=== PATIENT | male | born 1955 | race Caucasian/White ===

== ENCOUNTER → 2017-09-02 | Outpatient (CLI) | payer MEDICARE, BC ==
--- NOTE | 2017-09-02 18:33 | CT ---
EXAMINATION TYPE: CT brain wo con DATE OF EXAM: 09/02/2017 COMPARISON: NONE HISTORY: Frequent falls. CT DLP: [address] of the brain was performed. The ventricles, basal cisterns and sulci overlying the cerebral convexities demonstrate mild enlargem ent. There is no evidence for intracranial hemorrhage or sulcal effacement. There is decreased attenuation about the periventricular white matter and deep white matter of both c erebral hemispheres, compatible with chronic small vessel ischemia. Differential diagnosis does inclu de demyelination. No mass effects are seen.No midline shift. Osseous calvarium is intact. If symptoms persist consider MRI. IMPRESSION: 1. Age related atrophic and chronic small vessel ischemic change without acute intracranial process s een at this time.
== END | disposition home or self-care (01) ==
LOC: RADCTMAIN 18:04
PROVIDERS: ATTEND Family Medicine
DX: G31.1 Senile degeneration of brain, not elsewhere classified (principal); I67.82 Cerebral ischemia; R29.6 Repeated falls; R63.4 Abnormal weight loss
CPT/HCPCS: 70450

== ENCOUNTER → 2017-10-01 | Outpatient (CLI) | payer MEDICARE, BC ==
--- NOTE | 2017-10-01 12:20 | CT ---
EXAMINATION TYPE: CT chest w con DATE OF EXAM: 10/01/2017 COMPARISON: NONE HISTORY: Chronic cough CT DLP: 519 mGycm Automated exposure control for dose reduction was used. CONTRAST: CT scan of the chest is performed with IV Contrast, patient injected with 100 mL of Isovue 300. FINDINGS: LUNGS: The lungs are grossly clear, there is no concerning parenchymal mass or nodule identified. T here is no pleural effusion or pneumothorax seen. The tracheobronchial tree is patent. MEDIASTINUM: There are no greater than 1 cm hilar or mediastinal lymph nodes. No pericardial effusi on is seen. Thoracic aorta is of normal caliber. The heart is not enlarged. UPPER ABDOMEN: No significant abnormality appreciated. OTHER: No additional significant abnormality is seen. IMPRESSION: No significant abnormality to account for the patient's symptoms.
== END ==
LOC: RADCTMAIN 11:29
PROVIDERS: ATTEND Family Medicine
DX: R05 Cough (principal)
CPT/HCPCS: 71260; Q9967

== ENCOUNTER → 2017-11-12 | Outpatient (CLI) | payer MEDICARE, BC ==
--- NOTE | 2017-11-12 11:02 | MR ---
EXAMINATION TYPE: MR lumbar spine wo con DATE OF EXAM: 11/12/2017 COMPARISON: NONE HISTORY: Low back pain per order, back pain for 25-30 years going into right leg per patient. TECHNIQUE: Multiplanar, multisequence imaging of the lumbar spine is performed without IV contrast. FINDINGS: Sagittal images of the lumbar spine show vertebral body heights to appear satisfactory. The re is loss of normal lumbar lordosis with multilevel spondylolisthesis or grade 1 retrolisthesis of t he more cranial vertebra on the more caudal vertebra. There is multilevel disc desiccation. There is multilevel disc space narrowing at is most prominent near thoracolumbar junction and at L3-L4 level w here advanced disc space narrowing is present. There is moderate multilevel spurring. There are mult ilevel posterior disc herniations effacing anterior thecal sac on sagittal images. The conus medullar is is somewhat high in position ending superior T12 level. No suspicious signal is seen. No suspicio us clumping of lumbosacral nerve roots is noted. There is heterogeneity of bone marrow signal intensi ty with low T1 and increased T2 signal consistent with Modic type I degenerative change centered at t he T12-L1 endplate anteriorly. Axial images at T12-L1 level show moderate broad disc bulge effacing anterior thecal sac. Bilateral n eural foramina are patent. Axial images at L1-L2 level show moderate broad disc bulge effacing anterior thecal sac on axial imag e 22. Right-sided neural foramina shows mild to moderate inferior narrowing. Left-sided shows mild na rrowing. Axial images at L2-L3 level show moderate to advanced broad disc bulge with mild effacement of the an terior thecal sac and mild to moderate right greater than left anterior inferior neural foraminal isi rowing. Axial images at L3-L4 level show moderate to advanced broad disc bulge and mild facet arthropathy candido aterally. There is mild to moderate bilateral anterior inferior neural foraminal narrowing at this le tacho identified. Axial images at L4-L5 level show broad disc bulge with left paracentral disc protrusion component eff acing anterolateral thecal sac and lateral recess on axial image 8. There is advanced left-sided neur al foraminal narrowing with encroachment of left L4 nerve seen on sagittal images 1 and 2 and more mo derate right-sided inferior neural foraminal narrowing. There is mild to moderate facet degenerative changes and ligament flavum hypertrophy effacing the posterior lateral thecal sac. Some encroachment on central S1 nerve is felt present due to eccentric disc herniation axial image 7. Axial images at L5-S1 level show mild to moderate facet degenerative changes bilaterally. There is mo derate broad disc bulge. There is moderate to advanced bilateral neural foraminal narrowing with some encroachment on right S1 nerve felt present on sagittal image 11 and axial image 3. Cannot exclude s ome encroachment on left L5 nerve along inferior margin. No suspicious retroperitoneal findings are seen. IMPRESSION: Loss of normal lumbar lordosis with multilevel spondylosis and spondylolisthesis, multile tacho degenerative changes are seen with most prominent findings in lower lumbar spine as detailed abov e L4-L5 and L5-S1 levels.
--- NOTE | 2017-11-12 12:09 | CT ---
EXAMINATION TYPE: CT angio neck DATE OF EXAM: 11/12/2017 HISTORY: Stenosis. Headache. COMPARISON: NONE CT DLP: 265.2 mGycm. Automated Exposure Control for Dose Reduction was Utilized. TECHNIQUE: CTA scan of the neck is performed with IV Contrast, patient injected with 65 mL of Isovue 370, axial images are obtained, coronal and sagittal reformatted images are reviewed. Three-D recons tructed images are created on an independent workstation and reviewed. FINDINGS: Carotid/Vascular Structures: Minimal calcific plaquing is seen of the aortic arch. There is a convent ional 3 vessel branch pattern of the aortic arch. The common carotid arteries are patent bilaterally without calcific or noncalcific atheromatous plaquing. The carotid bulbs are also widely patent. The internal carotid arteries demonstrate no evidence of stenosis. Minimal calcific plaquing is seen of t he visualized cavernous portions of the internal carotid arteries. The right vertebral artery is dominant. The vertebral arteries are also patent although the left is s omewhat diminutive. Other: Mild paraseptal emphysematous changes are seen in the visualized lung apices. Osseous structures: Moderate multilevel degenerative changes of the cervical spine are noted with pos terior disc osteophyte complexes at C4-C5, C5-C6, C6-7 and C7-T1. Mild multilevel spinal canal stenos is is presumed but could be further evaluated with MRI. Extensive chronic mucoperiosteal thickening, nearly circumferential, seen of the bilateral maxillary sinuses. Antrostomy defects are noted with minimal mucosal thickening of the visualized ethmoid sinus es. Old fracture deformity the nasal bone is noted. Mastoid air cells are well aerated. Dental fillin gs create spray artifact and partially obscures visualization of surrounding structures. IMPRESSION: 1. No hemodynamically significant stenosis within either common carotid, visualized portion of the in ternal carotid, or carotid bulbs. Minimal calcific plaque within the visualized portions of the sancho nous internal carotid arteries and of the aortic arch. 2. Extensive acute on chronic sinusitis of the maxillary sinuses with postsurgical changes of the par anasal sinuses. 3. Mild paraseptal emphysematous changes seen and the visualized portions of the lung apices.
== END | disposition home or self-care (01) ==
LOC: RADMRIMAIN 10:09
PROVIDERS: ATTEND Psychiatry & Neurology Neurology
DX: M43.16 Spondylolisthesis, lumbar region (principal); M47.817 Spondylosis without myelopathy or radiculopathy, lumbosacral region; I65.23 Occlusion and stenosis of bilateral carotid arteries; Z88.8 Allergy status to other drugs, medicaments and biological substances
CPT/HCPCS: 70498; 72148; Q9967

== ENCOUNTER → 2018-01-12 | Outpatient (CLI) | payer MEDICARE, BC ==
--- NOTE | 2018-01-13 00:43 | MR ---
EXAMINATION TYPE: MR liver wo/w con DATE OF EXAM: 01/12/2018 COMPARISON: None HISTORY: Abnormality of alphafetoprotein CONTRAST: Standard multiplanar, multisequence MRI departmental protocol utilizing 7.5 mL intravenous Gadavist g adolinium contrast. FINDINGS: Liver shows no focal defect. Gallbladder appears normal. Bile ducts are not dilated. Spleen appears normal. There is no adrenal mass. There is 1 cm cortical cyst posterior right kidney and lower pole right kid ricardo. There is no sign of retroperitoneal adenopathy. There is no evidence of pancreatic mass. Pancrea tic duct is not dilated. There is no evidence of a bony destructive process. There is no pathologic e nhancement. IMPRESSION: Negative MR scan of the abdomen. No liver defect. Small right renal cortical cysts.
== END ==
LOC: RADMRIMAIN 21:18
PROVIDERS: ATTEND Physician Assistant
DX: R77.2 Abnormality of alphafetoprotein (principal)
CPT/HCPCS: 74183; A9581

== ENCOUNTER → 2018-02-10 | Outpatient (CLI) | payer MEDICARE, BC ==
[2018-02-10 14:12] LABS: Blood Urea Nitrogen 14 mg/dL (9-20)
== END | disposition home or self-care (01) ==
LOC: LABWHC1 13:47
PROVIDERS: ATTEND Psychiatry & Neurology Pain Medicine
DX: R42 Dizziness and giddiness (principal); Z88.8 Allergy status to other drugs, medicaments and biological substances
CPT/HCPCS: 36415; 82565; 84520

== ENCOUNTER → 2018-02-24 | Outpatient (CLI) | payer MEDICARE, BC ==
--- NOTE | 2018-02-25 09:25 | MR ---
EXAMINATION TYPE: MR brain wo/w con DATE OF EXAM: 02/24/2018 COMPARISON: CT brain 09/02/2017 HISTORY: Dizziness TECHNIQUE: Multiplanar, multisequence images of the brain and brainstem is performed without and with IV contras t, utilizing 7.5 mL intravenous Gadavist . FINDINGS: Diffusion weighted images demonstrate no evidence of a recent infarct or other diffusion ab normality. Changes of chronic sinusitis noted. WHITE MATTER: There are a few scattered areas of abnormal signal in the white matter totaling a numbe r of approximately 10. The largest measuring 5 mm. No enhancing lesions. No callosal lesions. No lesi ons perpendicular to the ventricular system. There is a nasal septal deviation. Sella turcica has a normal appearance. The brain volume is age martin ropriate. Midline structures demonstrate normal morphology. The craniocervical junction appears within normal limits. Post contrast images demonstrate no abnormal enhancement. The dural venous sinuses appear pa tent. IMPRESSION: 1. Nonspecific mild white matter changes most typical of remote microvascular ischemia. 2. Changes of chronic sinusitis
== END ==
LOC: RADMRIMAIN 21:36
PROVIDERS: ATTEND Psychiatry & Neurology Pain Medicine
DX: R90.89 Other abnormal findings on diagnostic imaging of central nervous system (principal)
CPT/HCPCS: 70553; A9581

== ENCOUNTER → 2018-05-25 | Outpatient (CLI) | payer MEDICARE, BC ==
--- NOTE | 2018-05-25 12:03 | XR ---
EXAMINATION TYPE: XR chest 2V DATE OF EXAM: 05/25/2018 COMPARISON: None HISTORY: COPD TECHNIQUE: Frontal and lateral views of the chest are obtained on 3 images. FINDINGS: There is no focal air space opacity, pleural effusion, or pneumothorax seen. The cardiac silhouette size is within normal limits. The osseous structures are intact. IMPRESSION: No acute cardiopulmonary process.
[2018-05-26 11:57] LABS: Alt. alternata IgE Class CLASS 0; Alternaria alternata IgE <0.35 kU/L (<0.35); Asperg. fumagatus IgE <0.35 kU/L (<0.35); Asperg. fumagatus IgE Class CLASS 0; Bermuda Grass IgE <0.35 kU/L (<0.35); Birch(Com.Silvr) IgE <0.35 kU/L (<0.35); Birch(Com.Silvr) IgE Class CLASS 0; Cat Epith & Dander IgE <0.35 kU/L (<0.35); Cat Epith & Dander IgE Class CLASS 0; Clad herbarum IgE <0.35 kU/L (<0.35); Cockroach IgE <0.35 kU/L (<0.35); Cottonwood IgE <0.35 kU/L (<0.35); Dermato. Pteronyssinus IgE <0.35 kU/L (<0.35); Dermato. farinae IgE <0.35 kU/L (<0.35); Dermato. farinae IgE Class CLASS 0; Dog Dander IgE <0.35 kU/L (<0.35); Elm IgE <0.35 kU/L (<0.35); Maple (Box Elder) IgE <0.35 kU/L (<0.35); Maple (Box Elder) IgE Class CLASS 0; Mountain Cedar IgE <0.35 kU/L (<0.35); Mountain Cedar IgE Class CLASS 0; Mouse Urine IgE Class CLASS 0; Nettle IgE <0.35 kU/L (<0.35); Nettle IgE Class CLASS 0; Oak IgE <0.35 kU/L (<0.35); Penicillium notatum IgE Class CLASS 0; Rough Marshelder IgE <0.35 kU/L (<0.35); Rough Marshelder IgE Class CLASS 0; Timothy Grass IgE <0.35 kU/L (<0.35); White Ash IgE Class CLASS 0
== END | disposition home or self-care (01) ==
LOC: RADXRMAIN 10:45
PROVIDERS: ATTEND Internal Medicine Sleep Medicine
DX: J44.9 Chronic obstructive pulmonary disease, unspecified (principal); B44.81 Allergic bronchopulmonary aspergillosis
CPT/HCPCS: 36415; 71046; 82785; 86001; 86003; 86606; 86609

== ENCOUNTER → 2018-11-10 | Outpatient (CLI) | payer MEDICARE, BC ==
--- NOTE | 2018-11-10 10:28 | US ---
EXAMINATION TYPE: US abdomen limited DATE OF EXAM: 11/10/2018 COMPARISON: MRI 2018 CLINICAL HISTORY: R10.11 RUQ Pain. History of cirrhosis EXAM MEASUREMENTS: Liver Length: 15.8 cm Gallbladder Wall: 0.1 cm CBD: 0.3 cm Right Kidney: 11.0 x 4.7 x 5.0 cm Pancreas: obscured by overlying midline bowel gas Liver: mildly heterogeneous, portal vein appears patent with hepatopedal flow Gallbladder: wnl Evidence for sonographic Mcmillan's sign: no CBD: wnl Right Kidney: wnl IMPRESSION: 1. Normal right upper quadrant ultrasound
== END | disposition home or self-care (01) ==
LOC: RADUSWWP 08:24
PROVIDERS: ATTEND Internal Medicine Gastroenterology
DX: R10.11 Right upper quadrant pain (principal)
CPT/HCPCS: 76705

== ENCOUNTER 2019-05-28 11:27 | Observation (INO) | payer MEDICARE, BC ==
[2019-05-28] MEDS ORDERED: ASPIRIN 81 MG PO STA (11:53)
[2019-05-28] MEDS ORDERED: NITROGLYCERIN OINT 1 INCH/GM PACKET TOPICAL STA (11:53)
[2019-05-28] MEDS ORDERED: MAG HYDROX/AL HYDROX/SIMETH 30 ML, HYOSCYAMINE ELIXIR 10 ML, LIDOCAINE VISCOUS 2% 10 ML PO STA ×3 (11:57)
--- NOTE | 2019-05-28 11:57 | ED ---
Chest Pain HPI - General Chief Complaint: Chest Pain Stated Complaint: Chest pain Time Seen by Provider: 05/28/19 11:45 Source: patient Mode of arrival: wheelchair Limitations: no limitations - History of Present Illness Initial Comments: This 64-year-old white male presents with a complaint of some midsternal and right chest pain which is described as a burning type sensation which started approximately 1.5 hours prior to arrival. It occurred while at rest. He states that he has had occasional similar symptoms that have not been quite as severe a nd he's never received a workup for these. He denies any previous known cardiac disease. His last stress test was approximately one year ago and was purportedly negative. He denies any leg pain or swelling. There is no history of DVT or PE. He denies any shortness of breath. He apparently had some dry heaving earlier today. He does have a history of esophageal varices and liver cirrhosis but has not had any vomiting of blood or black or bloody stools. He does relate that he has a family history of cardiac disease in his father had a myocardial infarction at age 57. No other complaints or modifying factors. - Related Data Allergies Allergy/AdvReac Type Severity Reaction Status Date / Time albuterol [From ProAir HFA] Allergy Itching Verified 05/28/19 11:36 bee venom protein (honey bee) Allergy Swelling Verified 05/28/19 11:36 Review of Systems ROS Statement: Those systems with pertinent positive or pertinent negative responses have been documented in the HPI. ROS Other: All systems not noted in ROS Statement are negative. Past Medical History Additional Past Medical History / Comment(s): stage 4 liver cirrohsis with esophageal varices History of Any Multi-Drug Resistant Organisms: None Reported Additional Past Surgical History / Comment(s): knee replacement, shoulder, sinus, Past Psychological History: No Psychological Hx Reported Smoking Status: Current every day smoker Past Alcohol Use History: None Reported Past Drug Use History: None Reported General Exam - General Exam Comments Initial Comments: GENERAL: The patient is well nourished and well hydrated. VITAL SIGNS: Heart rate, blood pressure, respiratory rate reviewed as recorded in nurse's notes. EYES: Pupils are round and reactive. Extraocular movements are intact. No conjunctival / lid redness or swelling. ENT: No external evidence of injury, swelling, or ecchymosis. Airway is patent. Throat is clear. NECK: Nontender. No swelling or evidence of injury. No subcutaneous emphysema. Trachea is midline. No thyroid mass. HEART: Regular rate and rhythm. Good peripheral pulses. LUNGS/CHEST: Breath sounds clear and equal bilaterally. No rales, rhonchi, or wheezes. No ecchymosis, subcutaneous emphysema, or tenderness. ABDOMEN: Abdomen soft without tenderness. No palpable masses or organomegaly. No peritoneal signs. No abdominal wall swelling or ecchymosis. EXTREMITIES: No extremity tenderness. Normal muscle tone and function. No thoracolumbar tenderness. NEUROLOGIC: Sensation is grossly intact. Cranial nerve exam reveals face is symmetrical, tongue is midline, speech is clear. SKIN: No abrasions or ecchymosis is noted. No induration or masses noted. PSYCHIATRIC: Alert and oriented. Appropriate behavior and judgment. Limitations: no limitations Course Vital Signs 05/28/19 05/28/19 11:33 13:39 Temperature 97.4 F L Pulse Rate 50 L 57 L Respiratory 18 16 Rate Blood Pressure 125/79 116/81 O2 Sat by Pulse 99 98 Oximetry Chest Pain MDM - MDM the patient was seen and examined. All diagnostics are reviewed. The EKG shows a sinus bradycardia at a rate of 59. There is no acute ST-T wave changes identified. The ME intervals 186, QRS duration is 98, and the QTC intervals 429. The patient does receive aspirin orally and Nitropaste.The laboratories reviewed and is unremarkable. The chest x-ray does not show any acute processes. The patient appears well on recheck of though he states that he is still having similar symptoms as upon arrival with some slight improvement. Overall, it is felt as though he benefit from admission to the hospital for further evaluation and treatment for the possibility of acute coronary syndrome. Case is discussed with Dr. Blankenship and he is agreeable with admission. Disposition Clinical Impression: Chest pain, Unstable angina Disposition: ADMITTED IP TO THIS HOSP Condition: Good Is patient prescribed a controlled substance at d/c from ED?: No Time of Disposition: 14:10 Decision Date: 05/28/19 Decision Time: 14:11
[2019-05-28 12:09] LABS: Basophils # (A) 0.1 k/uL (0-0.2); Basophils % (A) 1 %; Eosinophils # (A) 0.5 k/uL (0-0.7); Eosinophils % (A) 6 %; HGB 15.5 gm/dL (13.0-17.5); Lymphocytes % (A) 13 %; MCH 30.7 pg (25.0-35.0); MCHC 33.7 g/dL (31.0-37.0); MCV 91.3 fL (80.0-100.0); Monocytes # (A) 0.5 k/uL (0-1.0); Monocytes % (A) 6 %; Neutrophils # (A) 6.1 k/uL (1.3-7.7); Neutrophils % (A) 73 %; Platelet Count 191 k/uL (150-450); RBC 5.04 m/uL (4.30-5.90); RDW 12.8 % (11.5-15.5); WBC 8.3 k/uL (3.8-10.6)
[2019-05-28 12:18] LABS: Partial Thromboplastin Time 27.1 sec (22.0-30.0); Prothrombin Time 10.6 sec (9.0-12.0)
[2019-05-28 12:23] LABS: ALT 23 U/L (4-49); AST 32 U/L (17-59); African American GFR (CKD) >90 (>60 ml/min/1.73 sqM); Albumin 4.4 g/dL (3.5-5.0); Alkaline Phosphatase 64 U/L (38-126); Anion Gap 8 mmol/L; Blood Urea Nitrogen 17 mg/dL (9-20); Calcium 9.3 mg/dL (8.4-10.2); Carbon Dioxide 27 mmol/L (22-30); Chloride 106 mmol/L (98-107); Glucose 102 mg/dL (74-99); Magnesium 1.9 mg/dL (1.6-2.3); Non-African American GFR(CKD) >90 (>60 ml/min/1.73 sqM); Potassium 4.2 mmol/L (3.5-5.1); Sodium 141 mmol/L (137-145); Total Bilirubin 0.6 mg/dL (0.2-1.3); Total Protein 7.2 g/dL (6.3-8.2)
--- NOTE | 2019-05-28 13:55 | XR ---
EXAMINATION TYPE: XR chest 2V DATE OF EXAM: 05/28/2019 HISTORY: Chest Pain. REFERENCE: Previous study dated 05/25/2018. FINDINGS: The lungs remain clear. Pleural space are clear. The heart is not enlarged. IMPRESSION: NO ACTIVE INTRATHORACIC DISEASE.
[2019-05-28] MEDS ORDERED: NITROGLYCERIN SL TABS 0.4 MG TAB SUBLINGUAL PRN (14:11)
[2019-05-28] MEDS: NITROGLYCERIN OINT 1 INCH/GM PACKET TOPICAL SCH (19:34)
[2019-05-28] MEDS ORDERED: traZODone HCL 50 MG TAB PO SCH (21:30)
[2019-05-28] MEDS: busPIRone HCl 5 MG TAB PO SCH (21:58)
[2019-05-28] MEDS: lamoTRIgine 100 MG TAB PO SCH (22:00)
[2019-05-28] MEDS: PROPRANOLOL 20 MG TAB PO SCH (22:02)
--- NOTE | 2019-05-28 22:25 | P.HPIM ---
History of Present Illness H&P Date: 05/28/19 Chief Complaint: Chest pain History of presenting complaint: This is a pleasant 64-year-old patient of Dr. Rivera. Chronic stable medical conditions include COPD, cirrhosis with varices, right foot drop, hepatitis C that was completely treated, BPH. Early this morning patient noticed a discomfort in the central part of the chest and the right part and the like a burning sensation present for a few hours. A bit less now but still present illness the patient. Was no radiation and no shortness of breath no dizziness no lightheadedness no perspiration. Patient thinks she's had a stress test a few months ago that was negative. Patient is a long-standing smoker. Review of systems: GEN.: Tired EYES: None HEENT: None NECK: None RESPIRATORY: Okay to be short of breath CARDIOVASCULAR: As above GASTROINTESTINAL: Some heartburn GENITOURINARY: None MUSCULOSKELETAL: None LYMPHATICS: None HEMATOLOGICAL: None PSYCHIATRY: None NEUROLOGICAL: Right foot drop Past medical history to include: COPD, cirrhosis with esophageal varices, right foot drop, hepatitis C treated, BPH Social history: Smoking on and off for close to 40 years about a pack a day, , on [employer], used to work on a [employer] Physical examination: VITAL SIGNS: 97.4, 50, 18, 125/79, 99% room air GENERAL: BMI 22.4, laying in bed not in distress. EYES: Pupils equal. Conjunctiva normal. HEENT: External appearance of nose and ears normal, oral cavity grossly normal. NECK: JVD not raised; masses not palpable. HEART: First and second heart sounds are normal; no edema. LUNGS: Respiratory rate normal; decreased breath sounds. ABDOMEN: Soft, nontender, liver spleen not palpable, no masses palpable. PSYCH: Alert and oriented x3; mood and affect normal. NEUROLOGICAL: Cranial nerves grossly intact; no facial asymmetry, power and sensation grossly intact. LYMPHATICS: No lymph nodes palpable in the axilla and neck MUSCULOSKELETAL: Evidence of OA especially in the hands INVESTIGATIONS, reviewed in the clinical context: White count 8.3 hemoglobin 15.5. His pulmonary 1 progression 4.2 creatinine 0.80 Troponin I 2 negative EKG tracing personally reviewed by me-normal sinus rhythm Chest x-ray film personally reviewed by me-some hyperinflation and some prominent pulmonary artery Assessment: -Anterior chest wall pain with some atypical features, respiratory is improving smoking. Troponins are negative. EKG is unremarkable, rule out a cardiac cause -COPD in a current smoker -Chronic nicotine dependence cigarette smoker -Chronic cirrhosis with varices asymptomatic -Chronic right foot drop -BPH Plan: Home medications resumed. Patient is on aspirin. Nitro paste. Serial cardiac enzymes and place. Cardiology was consulted. Care was discussed with the markus ent. Past Medical History Past Medical History: COPD Additional Past Medical History / Comment(s): stage 4 liver cirrohsis with esophageal varices, rt foot drag, hepatitis C, enlarged prostate History of Any Multi-Drug Resistant Organisms: None Reported Additional Past Surgical History / Comment(s): knee replacement, lt shoulder repair, sinus, rt leg fracture as a child. Past Psychological History: No Psychological Hx Reported Smoking Status: Current every day smoker Past Alcohol Use History: None Reported Past Drug Use History: None Reported - Past Family History Father Family Medical History: Myocardial Infarction ([place]) Additional Family Medical History / Comment(s): several male family members with heart attacks Mother Family Medical History: COPD Medications and Allergies Home Medications Medication Instructions Recorded Confirmed Type Aclidinium Marquez [Tudorza 1 puff INHALATION RT-BID 05/28/19 05/28/19 History Pressair] Omeprazole 20 mg PO DAILY 05/28/19 05/28/19 History Propranolol [Inderal] 20 mg PO BID 05/28/19 05/28/19 History Sertraline [Zoloft] 200 mg PO DAILY 05/28/19 05/28/19 History Tiotropium 18 Mcg/Puff [Spiriva] 1 puff INHALATION RT-DAILY 05/28/19 05/28/19 History buPROPion XL [Wellbutrin Xl] 150 mg PO DAILY 05/28/19 05/28/19 History busPIRone HCL 15 mg PO BID 05/28/19 05/28/19 History lamoTRIgine 200 mg PO BID 05/28/19 05/28/19 History traZODone HCL 50 mg PO HS 05/28/19 05/28/19 History Allergies Allergy/AdvReac Type Severity Reaction Status Date / Time albuterol [From ProAir HFA] Allergy Itching Verified 05/28/19 14:40 bee venom protein (honey bee) Allergy Swelling Verified 05/28/19 14:40 Physical Exam Vitals: Vital Signs Temp Pulse Pulse Resp BP BP Pulse Ox 05/28/19 22:06 59 L 16 112/73 98 05/28/19 19:25 97.8 F 59 L 18 99/59 98 05/28/19 19:10 18 05/28/19 15:26 97 05/28/19 14:50 97.4 F L 86 18 104/63 97 05/28/19 14:29 98.5 F 78 18 107/77 97 05/28/19 13:39 57 L 16 116/81 98 05/28/19 11:33 97.4 F L 50 L 18 125/79 99 Intake and Output 05/28/19 05/28/19 05/28/19 06:59 14:59 22:59 Intake Total 640 Balance 640 Intake: Oral 240 Other 400 Other: Voiding Method Toilet Weight 77.111 kg 77.111 kg Results CBC & Chem 7: 05/28/19 11:57 05/28/19 11:57 Labs: Abnormal Lab Results - Last 24 Hours (Table) 05/28/19 Range/Units 11:57 Glucose 102 H (74-99) mg/dL Thrombosis Risk Factor Assmnt - Choose All That Apply Any of the Below Risk Factors Present?: No Other Risk Factors: Yes Each Risk Factor Represents 2 Points: Age 61-74 years Thrombosis Risk Factor Assessment Total Risk Factor Score: 2 Thrombosis Risk Factor Assessment Level: Low Risk
[2019-05-29] MEDS: NITROGLYCERIN OINT 1 INCH/GM PACKET TOPICAL SCH ×2 (00:25→06:05)
[2019-05-29 05:18] LABS: Cholesterol 177 mg/dL (<200); HDL Cholesterol 42 mg/dL (40-60); LDL Cholesterol,Calculated 119 mg/dL (0-99); Triglycerides 78 mg/dL (<150)
[2019-05-29] MEDS: IPRATROPIUM 0.5 MG/2.5 ML NEBU INHALATION SCH ×3 (07:36→15:26)
[2019-05-29] MEDS ORDERED: ACLIDINIUM BROMIDE INHALATION SCH (08:00)
[2019-05-29 08:01] VITALS: RESP 18
[2019-05-29] MEDS ORDERED: ASPIRIN 325 MG TAB PO SCH (09:00)
[2019-05-29] MEDS ORDERED: buPROPion XL 150 MG TAB.ER.24H PO SCH (09:00)
[2019-05-29] MEDS ORDERED: SERTRALINE 100 MG TAB PO SCH (09:00)
[2019-05-29] MEDS ORDERED: PANTOPRAZOLE 40 MG TABLET PO SCH (09:00)
[2019-05-29] MEDS ORDERED: ENOXAPARIN 40 MG/0.4 ML SYRINGE SQ SCH (09:00)
--- NOTE | 2019-05-29 09:55 | P.CRDCN ---
History of Present Illness History of present illness: HISTORY OF PRESENTING ILLNESS This is a pleasant 64-year-old male past medical history significant for COPD, cirrhosis, esophageal varices, hepatitis C and chronic nicotine dependence. He follows in the office with a special service officer from [place]. We have been asked to see in consultation for chest pain. He is seen and examined laying flat in bed in no acute distress. He states since yesterday morning while he was sitting watching television he started having a full sensation in the mid-sternal region. He states it felt like something was stuck in his throat and chest but he had not eaten anything yet that day. There was no radiation to the arm, back, neck or jaw. He had some associated nausea and vomited once. He is having ongoing chest pain with no specific aggravating or alleviating factors. No worsening with deep inspiration, activity or exertion. DIAGNOSTICS EKG reveals sinus bradycardia x2, no ST or T-wave changes. Chest xray negative for an acute cardiopulmonary process. Laboratory reviewed, CBC unremarkable, sodium 141, potassium 4.2, creatinine 0.8, magnesium 1.9, cardiac enzymes negative x3, LDL 119. Current cardiac medications include propanolol 20 mg BID. REVIEW OF SYSTEMS At the time of my exam: CONSTITUTIONAL: Denies fever or chills. CARDIOVASCULAR: Complains of chest pain. Denies shortness of breath, orthopnea, PND or palpitations. RESPIRATORY: Denies cough. GASTROINTESTINAL: Denies abdominal pain, diarrhea, constipation, nausea or vomi ting. MUSCULOSKELETAL: Denies myalgias. NEUROLOGIC: Denies numbness, tingling or weakness. ENDOCRINE: Denies fatigue, weight change, polydipsia or polyurina. GENITOURINARY: Denies burning, hematuria or urgency with micturation. HEMATOLOGIC: Denies history of anemia or bleeding. PHYSICAL EXAMINATION Blood pressure 127/77 heart rate 56 afebrile and maintaining oxygen saturation on room air. CONSTITUTIONAL: No apparent distress. HEENT: Head is normocephalic. Pupils are equal, round. Sclerae anicteric. Mucous membranes of the mouth are moist. No JVD. No carotid bruit. CHEST EXAMINATION: Lungs are clear to auscultation. No chest wall tenderness is noted on palpation or with deep breathing. HEART EXAMINATION: Regular rate and rhythm. S1, S2 heard. No murmurs, gallops or rub. ABDOMEN: Soft, nontender. Positive bowel sounds. EXTREMITIES: 2+ peripheral pulses, no lower extremity edema and no calf tenderness. NEUROLOGIC EXAMINATION: Patient is awake, alert and oriented x3. ASSESSMENT Chest pain, atypical for angina. An acute coronary event has been ruled out. Dyslipidemia Cirrhosis Esophageal varices Hepatitis C COPD Chronic nicotine dependence Former alcohol abuse, currently sober PLAN An acute coronary event has been ruled out. Symptoms are atypical to be related to angina. He is scheduled for an upper endoscopy with Dr. Perales Wednesday. Obtain 2D echocardiogram and doppler study to assess cardiac structure and function. Perform stress echocardiogram to assess for stress induced ischemia. Recommend smoking cessation and lifestyle modifications for lowering of LDL cholesterol. Given his chronic liver disease would hold off on statins at this time. Thank you kindly for this consultation. Nurse Practitioner note has been reviewed, I agree with a documented findings and plan of care. Patient was seen and examined. Past Medical History Past Medical History: COPD Additional Past Medical History / Comment(s): stage 4 liver cirrohsis with esophageal varices, rt foot drag, hepatitis C, enlarged prostate History of Any Multi-Drug Resistant Organisms: None Reported Additional Past Surgical History / Comment(s): knee replacement, lt shoulder repair, sinus, rt leg fracture as a child. Past Psychological History: No Psychological Hx Reported Smoking Status: Current every day smoker Past Alcohol Use History: None Reported Past Drug Use History: None Reported - Past Family History Father Family Medical History: Myocardial Infarction ([place]) Additional Family Medical History / Comment(s): several male family members with heart attacks Mother Family Medical History: COPD Medications and Allergies Home Medications Medication Instructions Recorded Confirmed Type Aclidinium [place] [Tudorza 1 puff INHALATION RT-BID 05/28/19 05/28/19 History Pressair] Omeprazole 20 mg PO DAILY 05/28/19 05/28/19 History Propranolol [Inderal] 20 mg PO BID 05/28/19 05/28/19 History Sertraline [Zoloft] 200 mg PO DAILY 05/28/19 05/28/19 History Tiotropium 18 Mcg/Puff [Spiriva] 1 puff INHALATION RT-DAILY 05/28/19 05/28/19 History buPROPion XL [Wellbutrin Xl] 150 mg PO DAILY 05/28/19 05/28/19 History busPIRone HCL 15 mg PO BID 05/28/19 05/28/19 History lamoTRIgine 200 mg PO BID 05/28/19 05/28/19 History traZODone HCL 50 mg PO HS 05/28/19 05/28/19 History Allergies Allergy/AdvReac Type Severity Reaction Status Date / Time albuterol [From ProAir HFA] Allergy Itching Verified 05/28/19 14:40 bee venom protein (honey bee) Allergy Swelling Verified 05/28/19 14:40 Physical Exam Vitals: Vital Signs Temp Pulse Pulse Resp BP BP Pulse Ox 05/29/19 08:00 97.9 F 56 L 18 127/77 97 05/29/19 07:44 60 05/29/19 07:38 56 L 05/29/19 04:00 17 05/29/19 03:48 97.5 F L 56 L 18 120/72 98 05/29/19 00:00 59 L 18 05/28/19 23:18 97.3 F L 59 L 18 104/68 99 05/28/19 22:06 59 L 16 112/73 98 05/28/19 19:25 97.8 F 59 L 18 99/59 98 05/28/19 19:10 18 05/28/19 15:26 97 05/28/19 14:50 97.4 F L 86 18 104/63 97 05/28/19 14:29 98.5 F 78 18 107/77 97 05/28/19 13:39 57 L 16 116/81 98 05/28/19 11:33 97.4 F L 50 L 18 125/79 99 Intake and Output 05/28/19 05/29/19 05/29/19 22:59 06:59 14:59 Intake Total 640 Balance 640 Intake: Oral 240 Other 400 Other: Voiding Method Toilet Toilet Toilet # Voids 1 Weight 77.111 kg Results 05/28/19 11:57 05/28/19 11:57 Cardiac Enzymes 05/28/19 05/28/19 05/28/19 Range/Units 11:57 11:57 18:33 AST 32 (17-59) U/L Troponin I <0.012 <0.012 (0.000-0.034) ng/mL 05/28/19 Range/Units 23:30 AST (17-59) U/L Troponin I <0.012 (0.000-0.034) ng/mL Coagulation 05/28/19 Range/Units 11:57 PT 10.6 (9.0-12.0) sec APTT 27.1 (22.0-30.0) sec Lipids 05/29/19 Range/Units 05:00 Triglycerides 78 (<150) mg/dL Cholesterol 177 (<200) mg/dL HDL Cholesterol 42 (40-60) mg/dL CBC 05/28/19 Range/Units 11:57 WBC 8.3 (3.8-10.6) k/uL RBC 5.04 (4.30-5.90) m/uL Hgb 15.5 (13.0-17.5) gm/dL Hct 46.0 (39.0-53.0) % Plt Count 191 (150-450) k/uL Comprehensive Metabolic Panel 05/28/19 Range/Units 11:57 Sodium 141 (137-145) mmol/L Potassium 4.2 (3.5-5.1) mmol/L Chloride 106 (98-107) mmol/L Carbon Dioxide 27 (22-30) mmol/L BUN 17 (9-20) mg/dL Creatinine 0.80 (0.66-1.25) mg/dL Glucose 102 H (74-99) mg/dL Calcium 9.3 (8.4-10.2) mg/dL AST 32 (17-59) U/L ALT 23 (4-49) U/L Alkaline Phosphatase 64 (38-126) U/L Total Protein 7.2 (6.3-8.2) g/dL Albumin 4.4 (3.5-5.0) g/dL Current Medications Generic Name Dose Route Start Last Admin Trade Name Freq PRN Reason Stop Dose Admin Bupropion HCl 150 mg 05/29/19 09:00 Wellbutrin Xl PO DAILY ADRIENNE Buspirone HCl 15 mg 05/28/19 21:30 05/28/19 21:58 Buspar PO 15 mg BID ADRIENNE Administration Enoxaparin Sodium 40 mg 05/29/19 09:00 Lovenox SQ DAILY ADRIENNE Ipratropium Carr 0.5 mg 05/29/19 08:00 05/29/19 07:36 Atrovent Nebulized INHALATION 0.5 mg RT-QID ADRIENNE Administration Lamotrigine 200 mg 05/28/19 21:30 05/28/19 22:00 Lamictal PO 200 mg BID ADRIENNE Administration Nitroglycerin 0.4 mg 05/28/19 14:11 Nitrostat SUBLINGUAL Q5M PRN Chest Pain Pantoprazole Sodium 40 mg 05/29/19 09:00 Protonix PO DAILY ADRIENNE Propranolol HCl 20 mg 05/28/19 22:00 05/28/19 22:02 Inderal PO 20 mg BID ADRIENNE Administration Sertraline HCl 200 mg 05/29/19 09:00 Zoloft PO DAILY ADRIENNE Trazodone HCl 50 mg 05/28/19 21:30 05/29/19 00:24 Desyrel PO Not Given HS ADRIENNE Intake and Output 05/28/19 05/29/19 05/29/19 22:59 06:59 14:59 Intake Total 640 Balance 640 Intake: Oral 240 Other 400 Other: Voiding Method Toilet Toilet Toilet # Voids 1 Weight 77.111 kg 05/28/19 11:57 05/28/19 11:57
--- NOTE | 2019-05-29 10:36 | ECHOF ---
Referral Reason:cp MEASUREMENTS -------- HEIGHT: 180.3 cm WEIGHT: 77.1 kg BP: 120/72 RVIDd: 2.2 cm (< 3.3) IVSd: 0.9 cm (0.6 - 1.1) LVIDd: 4.7 cm (3.9 - 5.3) LVPWd: 1.2 cm (0.6 - 1.1) IVSs: 1.4 cm LVIDs: 2.6 cm LVPWs: 1.7 cm LAESV Index (A-L): 30.43 ml/m Ao Diam: 3.1 cm (2.0 - 3.7) AV Cusp: 2.5 cm (1.5 - 2.6) LA Diam: 3.7 cm (2.7 - 3.8) MV EXCURSION: 18.048 mm (> 18.000) MV EF SLOPE: 77 mm/s (70 - 150) EPSS: 0.6 cm MV E Teodoro: 0.52 m/s MV DecT: 297 ms MV A Teodoro: 0.63 m/s MV E/A Ratio: 0.84 RAP: 15.00 mmHg RVSP: 35.82 mmHg TAPSE: 27.77 mm FINDINGS -------- Sinus rhythm. This was a technically good study. Grossly normal LV size and systolic function. Unable to comment on regional wall motion. There is m ild concentric left ventricular hypertrophy. Overall left ventricular systolic function is low-norm al with, an EF between 50 - 55 %. The diastolic filling pattern is normal for the age of the patien t 7.85. The right ventricle is normal in size. The right ventricular systolic function is normal. The left atrial size is normal. Normal LA size by volume 22+/-6 ml/m2. Interatrial and interventricular septum intact. The aortic valve is trileaflet and appears structurally normal. Mitral valve is thickened with myxomatous degeneration. Mild mitral regurgitation is present. The tricuspid valve appears structurally normal. Mild tricuspid regurgitation present. Right vent ricular systolic pressure is normal at < 35 mmHg. There is no pulmonic regurgitation present. The aortic root size is normal. The inferior vena cava is mildly dilated. There is no pericardial effusion. CONCLUSIONS -------- 1. Sinus rhythm. 2. This was a technically good study. 3. Grossly normal LV size and systolic function. Unable to comment on regional wall motion. 4. There is mild concentric left ventricular hypertrophy. 5. Overall left ventricular systolic function is low-normal with, an EF between 50 - 55 %. 6. The diastolic filling pattern is normal for the age of the patient 7.85 7. The right ventricle is normal in size. 8. The right ventricular systolic function is normal. 9. The left atrial size is normal. 10. Normal LA size by volume 22+/-6 ml/m2. 11. Interatrial and interventricular septum intact. 12. The aortic valve is trileaflet and appears structurally normal. 13. Mitral valve is thickened with myxomatous degeneration. 14. Mild mitral regurgitation is present. 15. The tricuspid valve appears structurally normal. 16. Mild tricuspid regurgitation present. 17. Right ventricular systolic pressure is normal at < 35 mmHg. 18. There is no pulmonic regurgitation present. 19. The aortic root size is normal. 20. The inferior vena cava is mildly dilated. 21. There is no pericardial effusion. HISTORICAL SITE GUIDE: Lianna Gandhi RDCS
[2019-05-29 11:45] VITALS: BP 125/75; PULSE 58; TEMP 98.1
[2019-05-29] MEDS: busPIRone HCl 5 MG TAB PO SCH (14:01)
[2019-05-29] MEDS: lamoTRIgine 100 MG TAB PO SCH (14:01)
[2019-05-29] MEDS: PROPRANOLOL 20 MG TAB PO SCH (14:01)
--- NOTE | 2019-05-29 20:29 | EST ---
EXERCISE STRESS DATE OF SERVICE: 05/29/2019. INDICATION: Chest pain. AGE: 64 SEX: M HT: 6'1" WT: 170 lbs PROTOCOL: Stress Echo STAGE: IV DURATION OF EXERCISE: 12 minutes HEART RATE REST: 67 BLOOD PRESSURE REST: 118/71 MAXIMUM HEART RATE ACHIEVED: 121 MAXIMUM BLOOD PRESSURE: 178/61 85% MPHR: 134 100% MPHR: 158 METS: 12.1 CLINICAL INFORMATION: Chest pain. STRESS DATA: Heart rate is 67, pressure is 118/71 mmHg. Baseline EKG showed sinus mechanism. The patient exercised on the treadmill according to Vasile protocol for a total of 12 minute and achieved 12.1 METS. Max heart rate was 121, which is about 77% of maximum predicted heart rate. Maximum blood pressure was 178/61 mmHg. Clinically the patient did not have any symptoms of chest pain or chest discomfort and the EKG did not show any significant ST or T-wave abnormalities concerning for ischemia. ECHOCARDIOGRAM IMAGES: On echocardiogram images from parasternal long axis view, parasternal short axis view, apical 4 chamber and apical 2 chamber view, were obtained as the baseline images, at peak heart rate as well as on recovery. The echocardiogram images did not show any wall motion abnormalities concerning for ischemia. CONCLUSION: 1. Excellent exercise tolerance. 2. Normal EKG in response to exercise. 3. Normal echocardiogram in response to exercise. 4. The patient achieved only 77% of maximum predicted heart rate. MMODL / IJN: [id number] /
--- NOTE | 2019-05-29 22:38 | P.DS ---
Providers Date of admission: 05/28/19 14:11 Expected date of discharge: 05/29/19 Attending physician: Jordin Blankenship Consults: 05/28/19 14:11 Consult Physician Urgent Consulting Provider: Kai Mariee Consult Reason/Comments: cp Do you want consulting provider notified?: Yes Primary care physician: Kurits Rivera Hospital Course: Chief Complaint: Chest pain Hospital course: This is a pleasant 64-year-old patient of Dr. Rivera. Chronic stable medical conditions include COPD, cirrhosis with varices, right foot drop, hepatitis C that was completely treated, BPH. Early this morning patient noticed a discomfort in the central part of the chest and the right part and the like a burning sensation present for a few hours. A bit less now but still present illness the patient. Was no radiation and no shortness of breath no dizziness no lightheadedness no perspiration. Patient thinks she's had a stress test a few months ago that was negative. Patient is a long-standing smoker.troponin is negative. Negative stress echocardiogram. Consultation: Dr. Mariee from cardiology Physical examination: VITAL SIGNS: 98.1, 58, 18, 125/75, 97% room air GENERAL: sitting up, comfortable EYES: Pupils equal. Conjunctiva normal. HEENT: External appearance of nose and ears normal, oral cavity grossly normal. NECK: JVD not raised; masses not palpable. HEART: First and second heart sounds are normal; no edema. LUNGS: Respiratory rate normal; decreased breath sounds. ABDOMEN: Soft, nontender, liver spleen not palpable, no masses palpable. PSYCH: Alert and oriented x3; mood and affect normal. INVESTIGATIONS, reviewed in the clinical context: White count 8.3 hemoglobin 15.5. His pulmonary 1 progression 4.2 creatinine 0.80 Troponin I 2 negative EKG tracing personally reviewed by me-normal sinus rhythm Chest x-ray film personally reviewed by me-some hyperinflation and some prominent pulmonary artery stress echocardiogram negative 2-D echocardiogram-EF 50-55% Assessment: -Anterior chest wall pain with some atypical features,possibly musculoskeletal -COPD in a current smoker -Chronic nicotine dependence cigarette smoker -Chronic cirrhosis with varices asymptomatic -Chronic right foot drop -BPH disposition: Home Patient Condition at Discharge: Good Plan - Discharge Summary Discharge Rx Participant: No New Discharge Prescriptions: Continue buPROPion XL [Wellbutrin XL] 150 mg PO DAILY Tiotropium 18 Mcg/Puff [Spiriva] 1 puff INHALATION RT-DAILY Omeprazole 20 mg PO DAILY Aclidinium [place] [Tudorza Pressair] 1 puff INHALATION RT-BID lamoTRIgine 200 mg PO BID Sertraline [Zoloft] 200 mg PO DAILY Propranolol [Inderal] 20 mg PO BID traZODone HCL 50 mg PO HS busPIRone HCL 15 mg PO BID Discharge Medication List Aclidinium [place] [Tudorza Pressair] 1 puff INHALATION RT-BID 05/28/19 [H istory] Omeprazole 20 mg PO DAILY 05/28/19 [History] Propranolol [Inderal] 20 mg PO BID 05/28/19 [History] Sertraline [Zoloft] 200 mg PO DAILY 05/28/19 [History] Tiotropium 18 Mcg/Puff [Spiriva] 1 puff INHALATION RT-DAILY 05/28/19 [History] buPROPion XL [Wellbutrin XL] 150 mg PO DAILY 05/28/19 [History] busPIRone HCL 15 mg PO BID 05/28/19 [History] lamoTRIgine 200 mg PO BID 05/28/19 [History] traZODone HCL 50 mg PO HS 05/28/19 [History] Follow up Appointment(s)/Referral(s): Kai Mariee MD [STAFF PHYSICIAN] - 06/15/19 1:45 pm (Follow up in the office as scheduled for you Arrive 15 minutes early and 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
== END 2019-05-29 15:20 | disposition home or self-care (01) ==
LOC: EC 11:27 → 1SOBS 14:11
PROVIDERS: ADMIT Hospitalist; ATTEND Hospitalist
DX: R07.89 Other chest pain (principal); E78.5 Hyperlipidemia, unspecified; F17.210 Nicotine dependence, cigarettes, uncomplicated; K74.69 Other cirrhosis of liver; B19.20 Unspecified viral hepatitis C without hepatic coma; I85.00 Esophageal varices without bleeding; J44.9 Chronic obstructive pulmonary disease, unspecified; M21.371 Foot drop, right foot; N40.0 Benign prostatic hyperplasia without lower urinary tract symptoms; Z79.82 Long term (current) use of aspirin; Z79.899 Other long term (current) drug therapy; Z82.49 Family history of ischemic heart disease and other diseases of the circulatory system; Z82.5 Family history of asthma and other chronic lower respiratory diseases; Z96.659 Presence of unspecified artificial knee joint; Z88.8 Allergy status to other drugs, medicaments and biological substances; Z91.030 Bee allergy status; F10.21 Alcohol dependence, in remission
CPT/HCPCS: 93005 ×2; 96372; 99285; 36415; 94640 ×2; 93306; 93351; 80061; 80053; 83735; 84484; 85025; 85610; 85730; 71046; G0378 ×2; J1650

== ENCOUNTER 2019-05-31 10:28 | Day surgery (SDC) | payer MEDICARE, BC ==
[2019-05-30 08:37] VITALS: BMI 22.4
[~2019-05-31 10:28] MED LIST: LACTATED RINGERS 1,000 ML IV SCH
[2019-05-31 10:46] VITALS: RESP 16; TEMP 98.9
[2019-05-31] MEDS ORDERED: PROPRANOLOL 20 MG TAB PO STA (10:51)
[2019-05-31] MEDS ORDERED: LIDOCAINE 1% INJ 10MG/ML (20 ML MDV) ONE (11:33)
[2019-05-31] MEDS ORDERED: PROPOFOL 10 MG/ML 20 ML VIAL IV ONE (11:33)
--- NOTE | 2019-05-31 11:41 | P.PCN ---
Date of Procedure: 05/31/19 Procedure(s) Performed: BRIEF HISTORY: Patient is a 64-year-old, pleasant, months scheduled for an upper endoscopy as a part of screening for esophageal varices. He was diagnosed with liver cirrhosis few months ago. PROCEDURE PERFORMED: Esophagogastroduodenoscopy with biopsy. PREOPERATIVE DIAGNOSIS:. Cirrhosis of the liver /screening for esophageal varices IV sedation per anesthesia. PROCEDURE: After informed consent was obtained, the patient was brought into the endoscopy unit. IV sedation was administered by Anesthesia under continuous monitoring. Initially the Olympus GIF-140 video endoscope was inserted into the mouth. Esophagus intubated without any difficulty. It was gradually advanced into the stomach and duodenum and carefully examined. The bulb and the second part of the duodenum appeared normal. The scope at this time was withdrawn to the stomach, adequately insufflated with air, and upon careful examination, mucosa of the antrum had mild gastritis and biopsies were done from this area. The body, cardia and the fundus appeared normal. The scope was then withdrawn into the esophagus. The GE junction was located at 39 cm from the incisors. The esophagus appeared normal. There were no erosions or ulcerations seen . Small distal esophageal varices seen and the patient tolerated the procedure well. IMPRESSION: 1. Small distal esophageal varices. 2. Mild gastritis. RECOMMENDATIONS: The findings of this examination were discussed with the patient as well as his family. He was advised to continue with propranolol 10 mg 3 times daily and have a repeat upper endoscopy in 2-3 years..
[2019-05-31 12:04] VITALS: BP 126/72; PULSE 57
== END 2019-05-31 12:40 | disposition home or self-care (01) ==
LOC: ORWHC2ENDO 10:28
PROVIDERS: ATTEND Internal Medicine Gastroenterology
DX: K74.60 Unspecified cirrhosis of liver (principal); I85.10 Secondary esophageal varices without bleeding; K29.50 Unspecified chronic gastritis without bleeding; K21.9 Gastro-esophageal reflux disease without esophagitis; G47.33 Obstructive sleep apnea (adult) (pediatric); J44.9 Chronic obstructive pulmonary disease, unspecified; F17.210 Nicotine dependence, cigarettes, uncomplicated; F41.9 Anxiety disorder, unspecified; F32.9 Major depressive disorder, single episode, unspecified; Z91.030 Bee allergy status; Z88.8 Allergy status to other drugs, medicaments and biological substances; Z79.51 Long term (current) use of inhaled steroids; Z79.899 Other long term (current) drug therapy; Z86.73 Personal history of transient ischemic attack (TIA), and cerebral infarction without residual deficits
CPT/HCPCS: 88305; 43239; J2001; J2704

== ENCOUNTER → 2019-10-16 | Outpatient (CLI) | payer MEDICARE, BC ==
[2019-10-16 10:42] LABS: HCT 43.4 % (39.0-53.0); HGB 14.5 gm/dL (13.0-17.5); MCH 30.3 pg (25.0-35.0); MCHC 33.4 g/dL (31.0-37.0); MCV 90.7 fL (80.0-100.0); Mean Platelet Volume 7.9; Platelet Count 233 k/uL (150-450); RBC 4.78 m/uL (4.30-5.90); RDW 12.8 % (11.5-15.5); WBC 7.8 k/uL (3.8-10.6)
[2019-10-16 11:04] LABS: INR 1.1 (<1.2)
[2019-10-16 16:09] LABS: ALT 16 U/L (10-49); AST 26 U/L (14-35); Albumin/Globulin Ratio 2.37 (1.60-3.17); Alkaline Phosphatase 75 U/L (41-126); Bilirubin, Conjugated <0.20 mg/dL (0.20-0.40); Globulin 1.9 g/dL (1.6-3.3); Total Bilirubin 0.3 mg/dL (0.2-1.2); Total Protein 6.4 g/dL (6.2-8.2)
== END | disposition home or self-care (01) ==
LOC: LABWHC1 09:25
PROVIDERS: ATTEND Internal Medicine Gastroenterology
DX: K70.30 Alcoholic cirrhosis of liver without ascites (principal)
CPT/HCPCS: 36415; 80076; 82105; 85027; 85610

== ENCOUNTER → 2019-12-18 | Outpatient (CLI) | payer MEDICARE, BC ==
--- NOTE | 2019-12-18 09:38 | US ---
EXAMINATION TYPE: US liver DATE OF EXAM: 12/18/2019 COMPARISON: US 11/10/18 CLINICAL HISTORY: K70.30 Alcoholic cirrhosis of liver without ascite. EXAM MEASUREMENTS: Liver Length: 17.3 cm Gallbladder Wall: 0.2 cm CBD: 0.4 cm Right Kidney: 11.1 x 4.9 x 4.7 cm Pancreas: Partially Obscured by bowel gas Liver: mildly heterogeneous Gallbladder: wnl, with folds Evidence for sonographic Mcmillan's sign: No CBD: wnl Right Kidney: No hydronephrosis or masses seen IMPRESSION: Mild hepatic steatosis versus diffuse hepatocellular disease. Correlate clinically.
== END | disposition home or self-care (01) ==
LOC: RADUSWWP 09:00
PROVIDERS: ATTEND Internal Medicine Gastroenterology
DX: K70.30 Alcoholic cirrhosis of liver without ascites (principal)
CPT/HCPCS: 76705

== ENCOUNTER → 2020-02-26 | Outpatient (CLI) | payer MEDICARE, BC ==
--- NOTE | 2020-02-26 08:45 | MR ---
EXAMINATION TYPE: MR cervical spine wo con DATE OF EXAM: 02/26/2020 COMPARISON: None HISTORY: Ataxia, Chronic Migraine without aura, neuropathy, neck pain TECHNIQUE: Multiplanar, multisequence images of the cervical spine were acquired. C2-C3: No evidence for degenerative disc disease. No disc bulge/herniation or protrusion. No Canal stenosis. Foramina are patent bilaterally. C3-C4: No evidence for degenerative disc disease. No disc bulge/herniation or protrusion. No Canal stenosis. Foramina are patent bilaterally. C4-C5: There is minimal retrolisthesis grade 1 C4-5. Slight posterior extension endplate disc complex causes only some minimal anterior mass effect on the thecal sac. No significant foraminal encroachme nt or spinal stenosis. C5-C6: Posterior extension endplate disc complex causes mild anterior mass effect on the thecal sac. Uncovertebral joint hypertrophy causes bilateral foraminal encroachment. C6-C7: There is uncovertebral joint hypertrophy greater on the right, posterior extension endplate di sc complex causes mild anterior mass effect on the thecal sac. No significant spinal stenosis. C7-T1: There is a lateral disc herniation present towards the left causing some left-sided foraminal encroachment. Posterior extension endplate disc complex causes only mild anterior mass effect on the thecal sac. Cervical segments are intact. There is near anatomic alignment. Cervical spinal cord is of normal s ignal. Craniovertebral junction relationships are within normal limits. Cervical vertebral bodies s how preserved height, there is multilevel spondylosis, loss of disc height signal is greatest at C5-6 , C6-7 with associated endplate marrow signal change. IMPRESSION: Multilevel degenerative disc disease. Lateral disc herniation C7-T1. No significant spinal stenosis.
== END | disposition home or self-care (01) ==
LOC: RADMRIMAIN 07:07
PROVIDERS: ATTEND Psychiatry & Neurology Neurology
DX: M50.23 Other cervical disc displacement, cervicothoracic region (principal); M50.31 Other cervical disc degeneration, high cervical region; G43.709 Chronic migraine without aura, not intractable, without status migrainosus
CPT/HCPCS: 72141

== ENCOUNTER → 2020-03-01 | Outpatient (CLI) | payer MEDICARE, BC ==
[2020-03-02 01:11] LABS: Alpha Fetoprotein, Tumor Mkr 26.4 ng/mL (0.0-7.9)
== END | disposition home or self-care (01) ==
LOC: LABWHC1 15:24
PROVIDERS: ATTEND Internal Medicine Gastroenterology
DX: K74.60 Unspecified cirrhosis of liver (principal); R41.82 Altered mental status, unspecified; G47.33 Obstructive sleep apnea (adult) (pediatric); R18.8 Other ascites; R53.83 Other fatigue
CPT/HCPCS: 36415; 82105; 82140; 87522

== ENCOUNTER → 2020-04-08 | Outpatient (CLI) | payer MEDICARE, BC ==
--- NOTE | 2020-04-08 09:42 | MR ---
MR liver with and without contrast HISTORY: Elevated liver function tests, R 77.2 Multiplanar multisequence and postcontrast imaging obtained through the liver following 7.[address] IV Correlation ultrasound liver 12/18/2019, prior liver MRI 01/12/2018 Signal drop on out of phase imaging within the liver is consistent with hepatic steatosis, liver is a t the upper limit of normal for size. There is no evident liver mass. Gallbladder is normal. Spleen i s mildly enlarged. The adrenal glands, kidneys, and pancreas are within normal limits, small cortical cyst at the lower pole the right kidney is again noted, there is no hydronephrosis. There is degener ative disc disease in the visualized spine and a spinal curvature. There is no ascites or retroperito demetri adenopathy. The aorta shows normal caliber. Lung bases are clear. There is small area of enhancement within the right lobe of the liver, axial image 76 of the postcont rast images measuring 8 mm. The area is poorly defined and is thought to be stable compared to prior MRI. Root of the aorta appears prominently at 4.1 cm. Impression: Findings consistent with hepatic steatosis. Indeterminate focus of enhancement posterior right lobe of the liver may be due to flash filling hemangioma and is stable compared to prior exam. Aortic root appears borderline dilated.
== END | disposition home or self-care (01) ==
LOC: RADMRIMAIN 06:10
PROVIDERS: ATTEND Internal Medicine Gastroenterology
DX: I77.811 Abdominal aortic ectasia (principal)
CPT/HCPCS: 74183; A9585

== ENCOUNTER → 2020-10-07 | Outpatient (CLI) | payer MEDICARE, BC ==
--- NOTE | 2020-10-07 12:27 | ECHOF ---
Referral Reason:I50.9 Congestive Heart Failure MEASUREMENTS -------- HEIGHT: 182.9 cm WEIGHT: 81.6 kg BP: RVIDd: 2.9 cm (< 3.3) IVSd: 0.9 cm (0.6 - 1.1) LVIDd: 5.0 cm (3.9 - 5.3) LVPWd: 1.1 cm (0.6 - 1.1) IVSs: 1.4 cm LVIDs: 3.6 cm LVPWs: 1.4 cm LA Diam: 3.6 cm (2.7 - 3.8) LAESV Index (A-L): 34.79 ml/m Ao Diam: 3.2 cm (2.0 - 3.7) AV Cusp: 2.0 cm (1.5 - 2.6) LA Diam: 4.4 cm (2.7 - 3.8) MV EXCURSION: 20.824 mm (> 18.000) MV EF SLOPE: 79 mm/s (70 - 150) EPSS: 0.3 cm MV E Teodoro: 0.30 m/s MV DecT: 254 ms MV A Teodoro: 0.53 m/s MV E/A Ratio: 0.56 RAP: 5.00 mmHg RVSP: 25.41 mmHg FINDINGS -------- Sinus rhythm. This was a technically good study. LV size, wall thickness and systolic function are normal, with an EF greater than 55%. The left christiana tricular size is normal. The diastolic filling pattern is normal for the age of the patient 4.52. The right ventricle is normal in size. LA is moderately dilated 34-39 ml/m2 The right atrial size is normal. The aortic valve is trileaflet, and appears structurally normal. No aortic stenosis or regurgitation. The mitral valve leaflets are mildly thickened. Mild mitral regurgitation is present. The tricuspid valve appears structurally normal. Mild tricuspid regurgitation present. Right vent ricular systolic pressure is normal at < 35 mmHg. Trace/mild (physiologic) pulmonic regurgitation. The aortic root size is normal. There is no pericardial effusion. CONCLUSIONS -------- 1. LV size, wall thickness and systolic function are normal, with an EF greater than 55%. 2. LA is moderately dilated 34-39 ml/m2 3. The aortic valve is trileaflet, and appears structurally normal. No aortic stenosis or regurgitati on. 4. Mild mitral regurgitation is present. 5. Mild tricuspid regurgitation present. 6. Trace/mild (physiologic) pulmonic regurgitation. 7. There is no pericardial effusion. SUPERCHARGE REPAIR SUPERVISOR: Munira Ny RDCS
== END | disposition home or self-care (01) ==
LOC: RADECHMAIN 11:09
PROVIDERS: ATTEND Internal Medicine Sleep Medicine
DX: I08.1 Rheumatic disorders of both mitral and tricuspid valves (principal); I50.9 Heart failure, unspecified
CPT/HCPCS: 93306

== ENCOUNTER → 2020-10-21 | Outpatient (CLI) | payer MEDICARE, BC ==
--- NOTE | 2020-10-22 04:11 | MR ---
EXAMINATION TYPE: MR abdomen wo/w con DATE OF EXAM: 10/21/2020 COMPARISON: 04/08/2020 HISTORY: Cirrhosis of liver CONTRAST: Standard multiplanar, multisequence MRI departmental protocol utilizing 8 mL intravenous Gadavist jigar olinium contrast. Liver has fairly normal size and contour. The bile ducts are not dilated. Spleen is enlarged and brandon ures 15 cm. There are some prominent vessels at the splenic hilum that could relate to some varices. Stomach is intact. The gallbladder appears intact. The bile ducts are not dilated. The pancreatic kamla t appears normal. There is no evidence of pancreatic mass. Stomach appears normal. There is no ascites. There is no adrenal mass. Kidneys have normal size. There is no hydronephrosis. Contrast images show no pathologic enhancement. There is normal enhancement of the portal venous syst em. There is no evidence of thrombosis. Liver shows no focal defect on the contrast images. There is 7 mm cyst in the lower pole right kidney. There is no evidence of pleural effusion. The bony structures are intact. IMPRESSION: Mild splenomegaly. There are some splenic varices that could relate to mild portal venous hypertensio n. No focal liver defect. No dilated ducts. Small area of irregular enhancement in the posterior right lobe of the liver on previous exam is not seen on today's exam.
== END | disposition home or self-care (01) ==
LOC: RADMRIMAIN 07:11
PROVIDERS: ATTEND Internal Medicine Gastroenterology
DX: R16.1 Splenomegaly, not elsewhere classified (principal); I86.8 Varicose veins of other specified sites
CPT/HCPCS: 74183; A9585

== ENCOUNTER → 2021-07-14 | Outpatient (CLI) | payer MEDICARE, BC ==
--- NOTE | 2021-07-14 10:37 | US ---
EXAMINATION TYPE: US liver DATE OF EXAM: 07/14/2021 COMPARISON: None CLINICAL HISTORY: 66-year-old male K74.60 CIRRHOSIS. Yearly ultrasound per patient. TECHNIQUE: Multiple sonographic images of the right upper quadrant are obtained. FINDINGS: EXAM MEASUREMENTS: Liver Length: 16.4 cm Gallbladder Wall: 0.2 cm CBD: 0.4 cm Right Kidney: 11.3 x 5.1 x 5.2 cm Pancreas: Only a small portion of the pancreatic body is visualized. Head and tail obscured by bowel gas shadowing. Liver: Slightly coarsened appearance. No focal lesion seen. Gallbladder: No abnormal distention, wall thickening, cholecystic fluid, or shadowing calculi. Evidence for sonographic Mcmillan's sign: neg CBD: wnl Right Kidney: No hydronephrosis. IMPRESSION: 1. Slightly coarsened echotexture of the liver parenchyma may reflect the patient's reported cirrhosi s. No sonographic evidence for hepatoma. 2. No gallstones or biliary ductal dilatation.
== END | disposition home or self-care (01) ==
LOC: RADUSWWP 09:46
PROVIDERS: ATTEND Internal Medicine Gastroenterology
DX: K74.60 Unspecified cirrhosis of liver (principal)
CPT/HCPCS: 76705

== ENCOUNTER → 2021-11-11 | Outpatient (CLI) | payer MEDICARE, BC ==
--- NOTE | 2021-11-11 08:10 | CTL ---
EXAMINATION TYPE: CT Low Dose Lung DATE OF EXAM ORDERED: 11/11/2021 HISTORY: Long-term tobacco use. Lung cancer screening CT DLP: 83.[address] CTDI: 2.2 mGy Automated exposure control for dose reduction was used. SCREENING VISIT: Baseline COMPARISON: None TECHNIQUE: Low dose computed tomography scan was performed through the chest at 1 mm thick sections a nd reconstructed images in multiple planes at 1 mm and [address] DIAGNOSTIC QUALITY: Satisfactory FINDINGS: LUNG NODULES: None. LUNGS: COPD: Severity: Mild Fibrosis: Severity: Some peripheral reticulation and cystic change in the anterior upper lungs bilate rally and the anterior right lung base. Lymph nodes: No greater than 1 cm Other findings: Areas of groundglass opacity along the major fissure in the right middle lobe is nons pecific RIGHT PLEURAL SPACE: Effusion: None Calcification: None Thickening: None Pneumothorax: None LEFT PLEURAL SPACE: Effusion: None Calcification: None Thickening: None Pneumothorax: None HEART: Heart Size: Normal Coronary Calcification: Moderate in the LAD Pericardial Effusion : None OTHER FINDINGS: Upper abdomen: None Bony thorax: None Supraclavicular region: None Other: Ascending aortic aneurysm up to 4.1 cm IMPRESSION: No suspicious nodules. Mild emphysematous and scattered parenchymal fibrotic changes. CT LUNG RAD AND CT CHEST RECOMMENDATION: Lung-Rad 1 Negative: Continue annual screening with LDCT in 12 months. S Modifier (other clinically significant findings): S Ascending aortic aneurysm up to 4.1 cm should be monitored.
== END | disposition home or self-care (01) ==
LOC: RADCTMAIN 07:43
PROVIDERS: ATTEND Internal Medicine
DX: Z12.2 Encounter for screening for malignant neoplasm of respiratory organs (principal); I71.2 Thoracic aortic aneurysm, without rupture; J43.9 Emphysema, unspecified; J84.10 Pulmonary fibrosis, unspecified; Z87.891 Personal history of nicotine dependence
CPT/HCPCS: 71271

== ENCOUNTER → 2021-12-01 | Outpatient (CLI) | payer MEDICARE, BC ==
--- NOTE | 2021-12-01 17:21 | CA ---
Transthoracic Echo Report Name: Tang Jauregui Age: 66 Gender: M : 1955 Exam Date: 12/01/2021 13:49 Exam Location: [facility] Ht (in): 71 Wt (lb): 173 Ordering Physician: Ramses Hernández MD Attending/Referring Phys: Senior Construction Project Manager Lianna Reina RDCS Procedure CPT: Indications: i71.2 Cardiac Hx: Hx of abdominal aortic aneurysm Technical Quality: Good Contrast 1: Total Dose (mL): Contrast 2: Total Dose (mL): MEASUREMENTS (Male / Female) Normal Values 2D ECHO LV Diastolic Diameter PLAX 5.0 cm 4.2 - 5.9 / 3.9 - 5.3 cm LV Systolic Diameter PLAX 3.1 cm IVS Diastolic Thickness 1.1 cm 0.6 - 1.0 / 0.6 - 0.9 cm LVPW Diastolic Thickness 1.0 cm 0.6 - 1.0 / 0.6 - 0.9 cm LV Relative Wall Thickness 0.4 RV Internal Dim ED PLAX 2.8 cm LA Volume 60.4 cm??? 18 - 58 / 22 - 52 cm??? M-MODE Aortic Root Diameter MM 3.8 cm LA Systolic Diameter MM 3.6 cm LA Ao Ratio MM 0.9 MV E Point Septal Separation 1.0 cm AV Cusp Separation MM 2.5 cm DOPPLER AV Peak Velocity 81.0 cm/s AV Peak Gradient 2.6 mmHg MV Area PHT 2.8 cm??? MR Peak Velocity 92.2 cm/s MR Peak Gradient 3.4 mmHg Mitral E Point Velocity 46.3 cm/s Mitral A Point Velocity 54.7 cm/s Mitral E to A Ratio 0.8 MV Deceleration Time 271.2 ms MV E' Velocity 7.1 cm/s Mitral E to MV E' Ratio 6.6 TR Peak Velocity 170.4 cm/s TR Peak Gradient 11.6 mmHg Right Ventricular Systolic Press 15.5 mmHg FINDINGS Left Ventricle Normal Left ventricular size, wall thickness, systolic function with no obvious regional wall motion abnormalities. Normal Left ventricular diastolic filling pattern. Left ventricular ejection fraction is estimated at 55-60 %. Right Ventricle The right ventricle is normal in size and function. Right Atrium The right atrium is normal in size. Left Atrium Mildly increased left atrial volume. Mitral Valve Structurally normal mitral valve without significant stenosis or prolapse. There is a trace of mitral regurgitation. Aortic Valve Structurally normal aortic valve without significant sclerosis or stenosis. There is no aortic regurgitation. Tricuspid Valve Structurally normal tricuspid valve without significant stenosis. Pulmonary artery systolic pressure is normal. Pulmonic Valve Structurally normal pulmonic valve without significant stenosis. There is no pulmonic regurgitation. Pericardium Normal pericardium without effusion. Aorta Normal aortic root dimension. CONCLUSIONS Normal LV systolic function Normal RV systolic function No significant valvular abnormalities Previewed by: Dr. Rashid Casanova MD (Electronically Signed) Final Date: 01 December 2021 17:20
== END | disposition home or self-care (01) ==
LOC: RADECHMAIN 13:41
PROVIDERS: ATTEND Internal Medicine
DX: I07.1 Rheumatic tricuspid insufficiency (principal)
CPT/HCPCS: 93306

== ENCOUNTER → 2022-02-26 | Outpatient (CLI) | payer MEDICARE, BC ==
[2022-02-26 18:14] LABS: Basophils # (A) 0.05 X 10*3/uL (0.00-0.10); Basophils % (A) 0.8 %; Eosinophils # (A) 0 X 10*3/uL (0.04-0.35); Eosinophils % (A) 0 %; HCT 43.6 % (39.6-50.0); HGB 14.5 g/dL (13.0-17.0); Immature Grans, Automated 0.3 %; Lymphocytes # (A) 1.34 X 10*3/uL (0.90-5.00); MCHC 33.3 g/dL (32.0-37.0); MCV 93.4 fL (80.0-97.0); Monocytes # (A) 0.65 X 10*3/uL (0.20-1.00); Monocytes % (A) 10.7 %; NRBC Per 100 WBC 0 /100 WBCS (0.0-0.0); Neutrophils # (A) 4.02 X 10*3/uL (1.80-7.70); Neutrophils % (A) 66.2 %; Platelet Count 176 X 10*3/uL (140-440); RBC 4.67 X 10*6/uL (4.40-5.60); WBC 6.08 X 10*3/uL (4.50-10.00)
[2022-02-26 18:39] LABS: ALT 10 U/L (10-49); AST 21 U/L (14-35); African American GFR (CKD) 109.4 (60.0-200.0); Albumin 4.5 g/dL (3.8-4.9); Albumin/Globulin Ratio 1.96 (1.60-3.17); Alkaline Phosphatase 62 U/L (41-126); Blood Urea Nitrogen 10.8 mg/dL (9.0-27.0); Calcium 9.1 mg/dL (8.7-10.3); Carbon Dioxide 25.8 mmol/L (20.0-27.5); Chloride 100 mmol/L (96-109); Globulin 2.3 g/dL (1.6-3.3); Glucose 97 mg/dL (70-110); LDL Cholesterol,Calculated 126.2 mg/dL (0.0-131.0); Non-African American GFR(CKD) 94.4 (60.0-200.0); Potassium 4.1 mmol/L (3.5-5.5); Sodium 137 mmol/L (135-145); Total Protein 6.8 g/dL (6.2-8.2)
== END | disposition home or self-care (01) ==
LOC: LABWHC1 12:10
PROVIDERS: ATTEND Internal Medicine
DX: I71.2 Thoracic aortic aneurysm, without rupture (principal); E55.9 Vitamin D deficiency, unspecified; Z86.39 Personal history of other endocrine, nutritional and metabolic disease
CPT/HCPCS: 36415; 80053; 80061; 82306; 83036; 84443; 85025

== ENCOUNTER → 2022-05-29 | Outpatient (CLI) | payer MEDICARE, BC ==
[2022-05-29 10:48] LABS: African American GFR (CKD) >90 (>60 ml/min/1.73 sqM); Blood Urea Nitrogen 12 mg/dL (9-20); Non-African American GFR(CKD) >90 (>60 ml/min/1.73 sqM)
--- NOTE | 2022-05-29 12:53 | CT ---
EXAMINATION: CT CHEST, ABDOMEN AND PELVIS WITH IV CONTRAST DATE OF EXAMINATION: 2021. COMPARISON: CT chest on 11/11/2021.. INDICATION: Weight loss. PROCEDURE: Axial CT of the chest, abdomen and pelvis was performed following the intravenous adminis tration of 100 ml Isovue 300. Coronal and sagittal reformats were performed. CT dose lowering techni ques were used, to include: automated exposure control, adjustment for patient size, and/or use of it erative reconstruction. FINDINGS: CHEST: Mediastinum and Gabby: There is no axillary, mediastinal or hilar lymphadenopathy. Pleural and Pericardial spaces: There are no pleural or pericardial effusions. Cardiovascular: There is dilation of the ascending thoracic aorta up to 4.1 cm in diameter. No eviden ce of dissection is seen. Mild to moderate patchy coronary artery calcifications are noted. Pulmonary Artery: There are no central pulmonary arterial filling defects. Lung Parenchyma and Airways: Mild upper lobe predominant paraseptal emphysema. No focal area of conso lidation otherwise identified. ABDOMEN: Liver and Biliary system: Normal. Adrenal glands: Normal. Kidneys and ureters: Normal. Spleen: Normal. Pancreas: Normal. Gallbladder: Normal. Lymph nodes, Peritoneum and mesentery: There is no mesenteric or retroperitoneal lymphadenopathy. Gastrointestinal tract: There are no dilated loops of bowel or free intraperitoneal air. . The appe ndix is normal. Aorta/IVC: There is mild vascular calcification throughout the abdominal aorta without evidence of aneurysmal dilation or dissection. IVC normal. Abdominal wall: Normal. PELVIS: Fluid: There is no free fluid in the pelvis. Lymph Nodes: There is no pelvic or inguinal lymphadenopathy.. Urinary bladder: Normal. BONES: There are multilevel degenerative disc and facet changes seen throughout the spine. There are no aggressive osseous lesions identified.. ADDITIONAL SIGNIFICANT FINDINGS: None. IMPRESSION: 1. No acute process seen within the chest, abdomen or pelvis. 2. Mild emphysema. 3. Mild dilation of the ascending thoracic aorta up to 4.1 cm in diameter. Extensive 4. Nxig-mq-[id number] ate patchy coronary artery calcifications.
== END | disposition home or self-care (01) ==
LOC: RADCTMAIN 08:48
PROVIDERS: ATTEND Internal Medicine
DX: J43.9 Emphysema, unspecified (principal); I25.10 Atherosclerotic heart disease of native coronary artery without angina pectoris; I77.810 Thoracic aortic ectasia; R63.4 Abnormal weight loss
CPT/HCPCS: 82565; 84520; 71260; 74177; 36415; Q9967

== ENCOUNTER 2022-10-22 14:47 | Inpatient (IN) | payer MEDICARE, BC ==
--- NOTE | 2022-10-22 14:51 | ED ---
General Adult HPI - General Source: RN notes reviewed <Lulú Rojas - Last Filed: 10/22/22 14:51> - General Source: RN notes reviewed, old records reviewed Limitations: no limitations - History of Present Illness -: days(s) Location: right, upper extremity (Hand) Radiation: extremity, proximal, distal Severity scale (1-10): 9 Quality: sharp Consistency: constant Improves with: none Worsens with: none Associated Symptoms: denies other symptoms Treatments Prior to Arrival: none <Luc Wells - Last Filed: 10/24/22 16:31> - General Stated complaint: cat bite R hand Time Seen by Provider: 10/22/22 14:51 - History of Present Illness Initial comments: 57-year-old male presents to the emergency department with a chief complaint of right hand pain after being bitten by his cat 5 days ago. Patient reports worsening swelling and pain to the area. (Lulú Rojas) This is a 67-year-old male to the emergency department for evaluation of severe pain severe and pain to the volar aspect of his hand with purulent drainage, patient states yellow and green drainage has been coming from the hand for a few days now. Seen by his primary care who assisted mass with his hand a little bit did express some yellow drainage in his office the redness has increased pain is going up the finger with swelling of the finger he does have pain going up his arm now. Patient denies fevers no history of diabetes patient has been on antibiotics, Augmentin. (Luc Wells) - Related Data Home Medications Medication Instructions Recorded Confirmed Omeprazole 20 mg PO DAILY 05/28/19 10/22/22 lamoTRIgine 200 mg PO BID 05/28/19 10/22/22 Amoxic-Pot Clav 875-125Mg 1 tab PO BID 10/22/22 10/22/22 [Augmentin 875-125] Baclofen 5 mg PO TID 10/22/22 10/22/22 FLUoxetine HCL [PROzac] 20 mg PO DAILY 10/22/22 10/22/22 Folic Acid 1 mg PO DAILY 10/22/22 10/22/22 Gabapentin [Neurontin] 100 mg PO TID 10/22/22 10/22/22 Mupirocin 2% Oint [Bactroban 2% 1 applic TOPICAL TID 10/22/22 10/22/22 Oint] Propranolol [Inderal] 20 mg PO BID 10/22/22 10/22/22 Rifaximin [Xifaxan] 550 mg PO BID 10/22/22 10/22/22 Allergies Allergy/AdvReac Type Severity Reaction Status Date / Time albuterol [From ProAir HFA] Allergy Itching Verified 10/22/22 18:05 bee venom protein (honey bee) Allergy Swelling Verified 10/22/22 18:05 Review of Systems ROS Other: All systems not noted in ROS Statement are negative. <Lulú Rojas - Last Filed: 10/22/22 14:51> ROS Other: All systems not noted in ROS Statement are negative. <Luc Wells - Last Filed: 10/24/22 16:31> ROS Statement: Those systems with pertinent positive or pertinent negative responses have been documented in the HPI. Past Medical History Past Medical History: COPD Additional Past Medical History / Comment(s): stage 4 liver cirrohsis with esophageal varices, rt foot drag, hepatitis C, enlarged prostate History of Any Multi-Drug Resistant Organisms: None Reported Additional Past Surgical History / Comment(s): knee replacement, lt shoulder repair, sinus, rt leg fracture as a child. Past Psychological History: No Psychological Hx Reported - Past Family History Father Family Medical History: Myocardial Infarction (ME) Additional Family Medical History / Comment(s): several male family members with heart attacks Mother Family Medical History: COPD Sister(s) Family Medical History: Cancer <Lulú Rojas - Last Filed: 10/22/22 14:51> General Exam <Lulú Rojas - Last Filed: 10/22/22 14:51> General appearance: alert, in no apparent distress Head exam: Present: atraumatic, normocephalic, normal inspection Eye exam: Present: normal appearance, PERRL, EOMI. Absent: scleral icterus, conjunctival injection, periorbital swelling ENT exam: Present: normal exam, mucous membranes moist Neck exam: Present: normal inspection. Absent: tenderness, meningismus, lymphadenopathy Respiratory exam: Present: normal lung sounds bilaterally. Absent: respiratory distress, wheezes, rales, rhonchi, stridor Cardiovascular Exam: Present: regular rate, normal rhythm, normal heart sounds. Absent: systolic murmur, diastolic murmur, rubs, gallop, clicks GI/Abdominal exam: Present: soft, normal bowel sounds. Absent: distended, tenderness, guarding, rebound, rigid Extremities exam: Present: normal inspection (Patient's right hand does have evidence of puncture wound with purulent drainage and significant swelling and erythema and edema), tenderness (Right Palm), normal capillary refill. Absent: pedal edema, joint swelling, calf tenderness Back exam: Present: normal inspection Neurological exam: Present: alert, oriented X3, CN II-XII intact Psychiatric exam: Present: normal affect, normal mood Skin exam: Present: warm, dry, intact, normal color. Absent: rash <Luc Wells - Last Filed: 10/24/22 16:31> - General Exam Comments Initial Comments: Visual Physical Exam Vital signs reviewed General: Well-appearing, nontoxic, no acute distress. Head: Normocephalic, atraumatic Eyes: PERRLA, EOMI ENT: Airway patent Chest: Nonlabored breathing Skin: No visual rash, normal skin tone Neuro: Alert and oriented 3 Musculoskeletal: No gross abnormalities (Lulú Rojas) Patient does have severe pain to palmar aspect of his pain with purulent drainage swelling significant of the index finger of his right right hand as well as pain up his right arm no streaking (Luc Wells) Course <Luc Wells - Last Filed: 10/24/22 16:31> Vital Signs 10/22/22 10/22/22 15:00 15:05 Temperature 98.3 F Pulse Rate 68 68 Respiratory 18 20 Rate Blood Pressure 142/86 120/60 O2 Sat by Pulse 99 98 Oximetry - Reevaluation(s) Reevaluation #1: 10/22/22 17:23 Medical record is reviewed (Luc Wells) Reevaluation #2: 10/22/22 17:23 Patient has no change in symptoms here in the ER (Luc Wells) Reevaluation #3: 10/22/22 17:24 Patient informed results questions have been answered (Luc Wells) Reevaluation #4: 10/22/22 17:24 Was pt. sent in by a medical professional or institution? @ -no Did you speak to anyone other than the patient for history? @ -no Did you review nursing and triage notes? @ -agree Were old charts reviewed? @ -no Differential Diagnosis? @ -prior EKG interpreted by me (3pts min.)? @ -yes X-rays interpreted by me (1pt min.)? @ -yes CT interpreted by me (1pt min.)? @ -no U/S interpreted by me (1pt. min.)? @ -no What testing was considered but not performed? (CT, X-rays, U/S, labs)? Why? @ -no What meds were considered but not given? Why? @ -no Did you discuss the management of the patient with other professionals? @ -no Did you reconcile home meds? @ -no Was smoking cessation discussed for >3mins.? @ -no Was critical care preformed (if so, how long)? @ -no Were there social determinants of health that impacted care today? How? (Homelessness, low income, unemployed, alcoholism, drug addiction, transportation, low edu. Level, literacy, decrease access to med. care, halfway, rehab)? @ -no Was there de-escalation of care discussed even if they declined? (Discuss DNR or withdrawal of care, Hospice)? @ -no What co-morbidities impacted this encounter? (DM, HTN, Smoking, COPD, CAD, Cancer, CVA, Hep., AIDS, mental health diagnosis, sleep apnea, morbid obesity)? @ -none Was patient admitted / discharged? @ -admit Undiagnosed new problem with uncertain prognosis? @ -no Drug Therapy requiring intensive monitoring for toxicity (Heparin, Nitro, Insulin, Cardizem)? @ -no Were any procedures done? @ -no Diagnosis/symptom? @ -cat bite, infection Acute, or Chronic, or Acute on Chronic? @ -no Uncomplicated (without systemic symptoms) or Complicated (systemic symptoms)? @ -uncomplicated Side effects of treatment? @ -no Exacerbation, Progression, or Severe Exacerbation] @ -no Poses a threat to life or bodily function? @ yes,-limb loss (Luc Wells) Reevaluation #5: 10/22/22 17:24 Differential Fever: Pneumonia, viral URI, endocarditis, myocarditis, pericarditis, otitis, sinusi tis, peritonsillar Abscess, retropharyngeal Abscess, epiglottitis, peritonitis, appendicitis, Ioana cystitis, diverticulitis, hepatitis, colitis, UTI, PID, TOA, pyelonephritis, prostatitis, epididymitis, meningitis, encephalitis, pulmonary embolism, CVA, thyroid storm, pancreatitis, adrenal crisis, cavernous sinus thrombosis, this is not meant to be an all-inclusive list. (Luc Wells) - Consultations Consultation #1: Spoke with sound physicians regarding admission there agreeable, will consult orthopedics for hand surgery evaluation (Luc Wells) Medical Decision Making - Lab Data Result diagrams: 10/24/22 06:10 10/24/22 06:10 - Radiology Data Radiology results: report reviewed (X-ray right hand shows edema with no significant acute disease), image reviewed <Luc Wells - Last Filed: 10/24/22 16:31> - Medical Decision Making 67 male DF for evaluation. Patient has significant drainage from puncture wound of right hand near right index finger with significant swelling distally and pain extending proximally (Luc Wells) - Lab Data Lab Results 10/22/22 10/22/22 10/22/22 Range/Units 16:07 16:07 16:07 WBC 5.2 (3.8-10.6) k/uL RBC 5.15 (4.30-5.90) m/uL Hgb 15.0 (13.0-17.5) gm/dL Hct 45.7 (39.0-53.0) % MCV 88.7 (80.0-100.0) fL MCH 29.2 (25.0-35.0) pg MCHC 32.9 (31.0-37.0) g/dL RDW 13.2 (11.5-15.5) % Plt Count 163 (150-450) k/uL MPV 9.3 Neutrophils % 64 % Lymphocytes % 23 % Monocytes % 9 % Eosinophils % 1 % Basophils % 1 % Neutrophils # 3.3 (1.3-7.7) k/uL Lymphocytes # 1.2 (1.0-4.8) k/uL Monocytes # 0.5 (0-1.0) k/uL Eosinophils # 0.1 (0-0.7) k/uL Basophils # 0.0 (0-0.2) k/uL Sodium 139 (137-145) mmol/L Potassium 4.7 (3.5-5.1) mmol/L Chloride 99 (98-107) mmol/L Carbon Dioxide 27 (22-30) mmol/L Anion Gap 13 mmol/L BUN 11 (9-20) mg/dL Creatinine 0.77 (0.66-1.25) mg/dL Est GFR (CKD-EPI)AfAm >90 (>60 ml/min/1.73 sqM) Est GFR (CKD-EPI)NonAf >90 (>60 ml/min/1.73 sqM) Glucose 93 (74-99) mg/dL Plasma Lactic Acid Eliezer 1.0 (0.7-2.0) mmol/L Calcium 9.2 (8.4-10.2) mg/dL Total Bilirubin 1.0 (0.2-1.3) mg/dL AST 36 (17-59) U/L ALT 27 (4-49) U/L Alkaline Phosphatase 65 (38-126) U/L C-Reactive Protein (<1.0) mg/dL Total Protein 7.2 (6.3-8.2) g/dL Albumin 4.4 (3.5-5.0) g/dL 10/22/22 Range/Units 16:07 WBC (3.8-10.6) k/uL RBC (4.30-5.90) m/uL Hgb (13.0-17.5) gm/dL Hct (39.0-53.0) % MCV (80.0-100.0) fL MCH (25.0-35.0) pg MCHC (31.0-37.0) g/dL RDW (11.5-15.5) % Plt Count (150-450) k/uL MPV Neutrophils % % Lymphocytes % % Monocytes % % Eosinophils % % Basophils % % Neutrophils # (1.3-7.7) k/uL Lymphocytes # (1.0-4.8) k/uL Monocytes # (0-1.0) k/uL Eosinophils # (0-0.7) k/uL Basophils # (0-0.2) k/uL Sodium (137-145) mmol/L Potassium (3.5-5.1) mmol/L Chloride (98-107) mmol/L Carbon Dioxide (22-30) mmol/L Anion Gap mmol/L BUN (9-20) mg/dL Creatinine (0.66-1.25) mg/dL Est GFR (CKD-EPI)AfAm (>60 ml/min/1.73 sqM) Est GFR (CKD-EPI)NonAf (>60 ml/min/1.73 sqM) Glucose (74-99) mg/dL Plasma Lactic Acid Eliezer (0.7-2.0) mmol/L Calcium (8.4-10.2) mg/dL Total Bilirubin (0.2-1.3) mg/dL AST (17-59) U/L ALT (4-49) U/L Alkaline Phosphatase (38-126) U/L C-Reactive Protein 5.2 H (<1.0) mg/dL Total Protein (6.3-8.2) g/dL Albumin (3.5-5.0) g/dL Disposition <Lulú Rojas - Last Filed: 10/22/22 14:51> Is patient prescribed a controlled substance at d/c from ED?: No Time of Disposition: 17:00 <Luc Wells - Last Filed: 10/24/22 16:31> Clinical Impression: Bite by animal, Cat bite, Failure of outpatient treatment Disposition: ADMITTED IP TO THIS HOSP Condition: Serious
--- NOTE | 2022-10-22 15:41 | XR ---
EXAMINATION TYPE: XR hand complete RT DATE OF EXAM: 10/22/2022 COMPARISON: NONE HISTORY: Pain TECHNIQUE: Three views are submitted. FINDINGS: The osseous structures are intact. 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 Chondrocalcinosis noted. No destructive change. No acute fracture. And there is no acute fracture or dislocation. A lucent lesion involving the distal epiphysis of the radius could be on the basis of a geode given the extensive osteoarthritic changes. IMPRESSION: 1. 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
[2022-10-22 16:48] LABS: Basophils % (A) 1 %; Eosinophils # (A) 0.1 k/uL (0-0.7); Eosinophils % (A) 1 %; HCT 45.7 % (39.0-53.0); Lymphocytes # (A) 1.2 k/uL (1.0-4.8); Lymphocytes % (A) 23 %; MCH 29.2 pg (25.0-35.0); MCHC 32.9 g/dL (31.0-37.0); MCV 88.7 fL (80.0-100.0); Mean Platelet Volume 9.3; Monocytes # (A) 0.5 k/uL (0-1.0); Monocytes % (A) 9 %; Neutrophils # (A) 3.3 k/uL (1.3-7.7); Neutrophils % (A) 64 %; Platelet Count 163 k/uL (150-450); RBC 5.15 m/uL (4.30-5.90); RDW 13.2 % (11.5-15.5); WBC 5.2 k/uL (3.8-10.6)
[2022-10-22 16:54] LABS: ALT 27 U/L (4-49); AST 36 U/L (17-59); African American GFR (CKD) >90 (>60 ml/min/1.73 sqM); Albumin 4.4 g/dL (3.5-5.0); Alkaline Phosphatase 65 U/L (38-126); Anion Gap 13 mmol/L; Blood Urea Nitrogen 11 mg/dL (9-20); Calcium 9.2 mg/dL (8.4-10.2); Carbon Dioxide 27 mmol/L (22-30); Chloride 99 mmol/L (98-107); Glucose 93 mg/dL (74-99); Non-African American GFR(CKD) >90 (>60 ml/min/1.73 sqM); Potassium 4.7 mmol/L (3.5-5.1); Sodium 139 mmol/L (137-145); Total Protein 7.2 g/dL (6.3-8.2)
[2022-10-22] MEDS ORDERED: NALOXONE 0.4 MG/ML 1 ML VIAL IV PRN (17:19)
[2022-10-22] MEDS ORDERED: MORPHINE SULFATE 4 MG/ML SYRINGE IV PRN (17:19)
[2022-10-22] MEDS ORDERED: ONDANSETRON 4 MG/2 ML VIAL IVP PRN (17:19)
[2022-10-22] MEDS ORDERED: ACETAMINOPHEN TAB 325 MG TAB PO PRN (17:19)
[2022-10-22] MEDS: SODIUM CHLORIDE 0.9% 1,000 ML IV SCH (18:04)
[2022-10-22] MEDS: AMPICILLIN-SULBACTAM 3 GM in SODIUM CHLORIDE 0.9% 100 ML IVPB SCH (20:29)
[2022-10-22] MEDS: GABAPENTIN 100 MG CAP PO SCH (21:10)
[2022-10-22] MEDS: PROPRANOLOL 20 MG TAB PO SCH (21:10)
[2022-10-22] MEDS: lamoTRIgine 100 MG TAB PO SCH (21:11)
[2022-10-23] MEDS: AMPICILLIN-SULBACTAM 3 GM in SODIUM CHLORIDE 0.9% 100 ML IVPB SCH ×4 (02:28→21:29)
[2022-10-23] MEDS: SODIUM CHLORIDE 0.9% 1,000 ML IV SCH ×2 (02:28→13:55)
--- NOTE | 2022-10-23 06:32 | P.HPIM ---
History of Present Illness H&P Date: 10/22/22 Chief Complaint: right hand swelling, cat bite 67 year old male with liver cirrhosis patient coming in for evaluation of right hand swelling and draining pus after a cat bite about 5 days ago, his PCP saw him about 2 days ago and gave him tetanus and augmentin , patient was getting more worried as the swelling was not subsiding and pus increasing and decided to come in today . he got bit by his mother in law cat while trying to put her in her cage. patient denies any history of DM , denies fever, chills. the swelling itself is tender , and pain increases with movement patient admits to smoking, denies drugs Review of Systems Pertinent positives as noted in HPI. All other systems were reviewed and are negative Past Medical History Past Medical History: COPD Additional Past Medical History / Comment(s): stage 4 liver cirrohsis with esophageal varices, rt foot drag, hepatitis C, enlarged prostate History of Any Multi-Drug Resistant Organisms: None Reported Additional Past Surgical History / Comment(s): knee replacement, lt shoulder repair, sinus, rt leg fracture as a child. Past Psychological History: Depression Smoking Status: Current every day smoker Past Alcohol Use History: None Reported Past Drug Use History: None Reported - Past Family History Father Family Medical History: Myocardial Infarction ([place]) Additional Family Medical History / Comment(s): several male family members with heart attacks Mother Family Medical History: COPD Sister(s) Family Medical History: Cancer Medications and Allergies Home Medications Medication Instructions Recorded Confirmed Type Omeprazole 20 mg PO DAILY 05/28/19 10/22/22 History lamoTRIgine 200 mg PO BID 05/28/19 10/22/22 History Amoxic-Pot Clav 875-125Mg 1 tab PO BID 10/22/22 10/22/22 History [Augmentin 875-125] Baclofen 5 mg PO TID 10/22/22 10/22/22 History FLUoxetine HCL [PROzac] 20 mg PO DAILY 10/22/22 10/22/22 History Folic Acid 1 mg PO DAILY 10/22/22 10/22/22 History Gabapentin [Neurontin] 100 mg PO TID 10/22/22 10/22/22 History Mupirocin 2% Oint [Bactroban 2% 1 applic TOPICAL TID 10/22/22 10/22/22 History Oint] Propranolol [Inderal] 20 mg PO BID 10/22/22 10/22/22 History Rifaximin [Xifaxan] 550 mg PO BID 10/22/22 10/22/22 History Allergies Allergy/AdvReac Type Severity Reaction Status Date / Time albuterol [From ProAir HFA] Allergy Itching Verified 10/22/22 18:05 bee venom protein (honey bee) Allergy Swelling Verified 10/22/22 18:05 Physical Exam Vitals: Vital Signs Temp Pulse Pulse Resp BP BP Pulse Ox 10/23/22 01:20 98.0 F 57 L 15 119/69 98 10/22/22 20:05 15 10/22/22 19:37 97.5 F L 60 15 127/72 98 10/22/22 15:05 68 20 120/60 98 10/22/22 15:00 98.3 F 68 18 142/86 99 Intake and Output 10/22/22 10/22/22 10/23/22 14:59 22:59 06:59 Intake Total 2100 Balance 2100 Intake: Intake, IV Titration 1600 Amount Ampicillin-Sulbactam 3 gm 100 In Sodium Chloride 0.9% 100 ml @ 200 mls/hr IVPB Q6H ADRIENNE Rx#:[id number] Sodium Chloride 0.9% 1, 1500 000 ml @ 130 mls/hr IV . Q7H42M ADRIENNE Rx#:[id number] Oral 500 Other: Voiding Method Toilet # Voids 3 Weight 73.028 kg Constitutional: No acute distress, conversant, pleasant Eyes: Anicteric sclerae, moist conjunctiva, Pupils equal round reactive to light ENMT: NC/AT Oropharynx clear, no erythema, or exudates Lungs: Clear to auscultation Clear to percussion Normal respiratory effort, no accessory muscle use Cardiovascular: Heart regular in rate and rhythm, No murmurs, gallops, or rubs No peripheral edema Abdominal: Soft Nontender, no guarding, rebound or rigidity Abdomen moving with respiration Normoactive bowel sounds Skin: swelling over the base of the right index finger, with yellow draining pus from the ventral aspect of the hand. swelling is confined to the base of the right index finger, and proximal aspect of the right index finger, the rest of the hand does not feel swollen , erythema and warmth over the swelling Extremities: No digital cyanosis No clubbing Pedal pulses intact and symmetrical Radial pulses intact and symmetrical No calf tenderness Psychiatric: Alert and oriented to person, place and time Appropriate affect fair judgment Neuro Muscles Strength 5/5 in all 4 extremities Sensation to light touch grossly present throughout Cranial nerves II-XII grossly intact Lymphatics: no palpable cervical or supraclavicular lymph nodes Results CBC & Chem 7: 10/22/22 16:07 10/22/22 16:07 Labs: Abnormal Lab Results - Last 24 Hours (Table) 10/22/22 Range/Units 16:07 C-Reactive Protein 5.2 H (<1.0) mg/dL Thrombosis Risk Factor Assmnt - Choose All That Apply Any of the Below Risk Factors Present?: Yes Each Factor Represents 1 point: Abnormal pulmonary function (COPD) Other Risk Factors: Yes Each Risk Factor Represents 2 Points: Age 61-74 years Other congenital or acquired thrombophilia - If yes, enter type in comment: No Thrombosis Risk Factor Assessment Total Risk Factor Score: 3 Thrombosis Risk Factor Assessment Level: Moderate Risk Assessment and Plan Assessment: 67 year old male coming in for right hand swelling and draining pus after a cat bite. I discussed the case with ED doc , and i accepted the admission for IV antibiotics and evaluation by surgery , with anticipated length of stay < 2 midnights right hand absces after animal bite' follow up cultures patient received tetanus shot at PCP office 2 days ago patient was started on augmentin 2 days ago , will switch to unasyn 3 gm q 6 hrs IVPB while inpatient await surgery eval pain control with ibuprofen and tylenol as needed monitor vital signs blood work reviewed , wbc 5.2 , hgb 15 unremarkable renal function bun 11 cr 0.77 , na 139 , K 4.7 unremarkable Lactic acid 1.0 unremarkable copd compensated duonebs PRN for wheezing counseled to quit smoking NRT offered h/o liver cirrhosis resume xifaxan and propranolol full code DVT PPX lovenox 40 mg sc daily
[2022-10-23] MEDS: lamoTRIgine 100 MG TAB PO SCH ×2 (08:41→21:28)
[2022-10-23] MEDS: ENOXAPARIN 40 MG/0.4 ML SYRINGE SQ SCH (08:41)
[2022-10-23] MEDS: FLUoxetine HCL 10 MG CAP PO SCH (08:41)
[2022-10-23] MEDS: GABAPENTIN 100 MG CAP PO SCH ×3 (08:41→21:28)
[2022-10-23] MEDS: PANTOPRAZOLE 40 MG TABLET PO SCH (08:41)
[2022-10-23] MEDS: PROPRANOLOL 20 MG TAB PO SCH ×2 (08:41→21:29)
[2022-10-23] MEDS: RIFAXIMIN 550 MG TABLET PO SCH ×2 (08:42→21:28)
[2022-10-23 11:04] LABS: Basophils # (A) 0.04 X 10*3/uL (0.00-0.10); Basophils % (A) 0.9 %; Eosinophils # (A) 0.13 X 10*3/uL (0.04-0.35); Eosinophils % (A) 2.8 %; HCT 43.6 % (39.6-50.0); HGB 14.2 g/dL (13.0-17.0); Immature Grans, Automated 0.2 %; Lymphocytes # (A) 1.18 X 10*3/uL (0.90-5.00); Lymphocytes % (A) 25.5 %; MCH 29.7 pg (27.0-32.0); MCHC 32.6 g/dL (32.0-37.0); MCV 91.2 fL (80.0-97.0); Mean Platelet Volume 11.3 fL (9.5-12.2); Monocytes # (A) 0.53 X 10*3/uL (0.20-1.00); Monocytes % (A) 11.4 %; NRBC Per 100 WBC 0 /100 WBCS (0.0-0.0); Neutrophils # (A) 2.74 X 10*3/uL (1.80-7.70); Neutrophils % (A) 59.2 %; Platelet Count 168 X 10*3/uL (140-440); RBC 4.78 X 10*6/uL (4.40-5.60); WBC 4.63 X 10*3/uL (4.50-10.00)
--- NOTE | 2022-10-23 13:56 | P.PN ---
Subjective Progress Note Date: 10/23/22 Hospital course: Patient is a very pleasant 67-year-old male with a past medical history of COPD, stage IV liver cirrhosis with esophageal varices, BPH, hepatitis C, and nicotine dependence. He presented to the emergency department secondary to failing outpatient treatment for Bite. Patient reportedly received Bite approximately 5 days ago and underwent evaluation by his PCP and was placed on Augmentin and given a tetanus shot. Patient reports taking antibiotic as prescribed but continued to have worsening swelling and purulent drainage so he came to the emergency department for evaluation. Patient underwent full evaluation in the emergency department. Labs completed and reviewed. CBC and CMP were unremarkable. CRP was elevated at 5.2. 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 Physical exam: Vital signs reviewed and stable. General: Nontoxic, no distress and appears stated age. Derm: Skin warm and dry, normal coloration for ethnicity. Head: Atraumatic, normocephalic and symmetric. Eyes: EOMs intact, no lid lag, and anicteric sclera Mouth: no lip lesions, mucus membranes moist Cardiovascular: regular rate and rhythm with normal S1S2, no murmur, positive posterior tibial pulses bilaterally, and cap refill < 2 seconds. Lungs: Respirations even, regular, and unlabored on room air. Lungs CTA bilaterally, no rhonchi, no rales, no wheezing, and no accessory muscle usage. Abdominal: soft, nontender to palpation, no guarding, no appreciable organomegaly Ext: ROM intact. No gross muscle atrophy, no edema, no contractures. Patient has erythema and puncture wounds with abscess to palmar region of the right hand at the base of the right index finger with yellow purulent drainage, swelling and erythema moderate wrapping around to dorsal surface of hand as well. Movement of fingers intact. Neuro: Speech clear, face symmetrical and CN II-XII grossly intact with no noted focal neuro deficits Psych: Alert and oriented to person, place, time, and situation. Appropriate and pleasant affect. Assessment and Plan of Care: Bite resulting in surrounding cellulitis and abscess formation on right hand -Continue Unasyn 3 g every 6 hours -Dr. Gonzales or the hand surgeon consulted and appreciate recommendations. -Symptomatic care and pain management. -Order placed for Wound cultures to be collected -Blood cultures pending. -Morning labs completed and reviewed. CBC unremarkable showing no leukocytosis at this time. CRP was elevated at 5.2. COPD, not in acute exacerbation -Oxygenation to be administered as needed and titrated as needed to maintain SPO2 equal to or greater than 92% -Monitor Pulse-oximetry -Duonebs as needed for SOB and/or wheezing Stage IV liver cirrhosis with esophageal varices BPH Hepatitis C -Liver enzymes unremarkable. -Continue daily home medication regimen. Nicotine dependence -Order placed for nicotine patch 21 mg daily. Recommend smoking cessation. CODE STATUS: Full code DVT prophylaxis: Lovenox Discussed with: Patient and RN Anticipated discharge date: Clinical course to determine Anticipated discharge place: Home Patient was seen independently by Nurse Pracitioner. This document was prepared using [employer] dictation software. Please allow for errors in senior data warehouse developer, while rare they do occur. This patient was seen independently by Zaki Vergara NP, I agree with documentation as above with the following additions: None. Objective - Vital Signs Vital signs: Vital Signs Temp 98.0 F 10/23/22 07:21 Pulse 59 L 10/23/22 07:21 Resp 18 10/23/22 07:21 BP 128/79 10/23/22 07:21 Pulse Ox 98 10/23/22 07:21 FiO2 Intake & Output 10/22/22 10/23/22 10/23/22 18:59 06:59 18:59 Intake Total 2100 Balance 2100 Weight 73.028 kg 73.028 kg Intake: Intake, IV Titration 1600 Amount Ampicillin-Sulbactam 3 gm 100 In Sodium Chloride 0.9% 100 ml @ 200 mls/hr IVPB Q6H [facility]RI[facility] Rx#:[id number] Sodium Chloride 0.9% 1, 1500 000 ml @ 130 mls/hr IV . Q7H42M ADRIENNE Rx#:[id number] Oral 500 Other: Voiding Method Toilet # Voids 3 - Labs CBC & Chem 7: 10/25/22 07:30 10/25/22 07:30 Labs: Abnormal Lab Results - Last 24 Hours (Table) 10/22/22 Range/Units 16:07 C-Reactive Protein 5.2 H (<1.0) mg/dL
[2022-10-23 14:20] LABS: Erythrocyte Sedimentation Rate 19 mm/Hr (0-20)
[2022-10-23] MEDS: NICOTINE 21MG/24HR PATCH TRANSDERM SCH (21:41)
[2022-10-24] MEDS: AMPICILLIN-SULBACTAM 3 GM in SODIUM CHLORIDE 0.9% 100 ML IVPB SCH ×4 (04:31→20:23)
[2022-10-24] MEDS: PANTOPRAZOLE 40 MG TABLET PO SCH (05:37)
[2022-10-24] MEDS: ENOXAPARIN 40 MG/0.4 ML SYRINGE SQ SCH (09:12)
[2022-10-24] MEDS: lamoTRIgine 100 MG TAB PO SCH ×2 (09:12→20:21)
[2022-10-24] MEDS: GABAPENTIN 100 MG CAP PO SCH ×3 (09:12→20:20)
[2022-10-24] MEDS: PROPRANOLOL 20 MG TAB PO SCH ×2 (09:12→20:21)
[2022-10-24] MEDS: FLUoxetine HCL 10 MG CAP PO SCH (09:12)
[2022-10-24] MEDS: NICOTINE 21MG/24HR PATCH TRANSDERM SCH (09:12)
[2022-10-24] MEDS: RIFAXIMIN 550 MG TABLET PO SCH ×2 (09:12→20:21)
[2022-10-24 09:55] LABS: African American GFR (CKD) 113.7 (60.0-200.0); Albumin 3.7 g/dL (3.8-4.9); Albumin/Globulin Ratio 2.06 (1.60-3.17); Anion Gap 10.5 mmol/L (10.00-18.00); BUN/Creat Ratio 9.36 Ratio (12.00-20.00); Blood Urea Nitrogen 6.7 mg/dL (9.0-27.0); Calcium 8.7 mg/dL (8.7-10.3); Carbon Dioxide 24.8 mmol/L (20.0-27.5); Globulin 1.8 g/dL (1.6-3.3); Non-African American GFR(CKD) 98.1 (60.0-200.0); Potassium 4.2 mmol/L (3.5-5.5); Total Bilirubin 0.4 mg/dL (0.30-1.20); Total Protein 5.5 g/dL (6.2-8.2)
[2022-10-24 10:19] LABS: HCT 38.3 % (39.6-50.0); HGB 12.5 g/dL (13.0-17.0); MCH 29.2 pg (27.0-32.0); MCHC 32.6 g/dL (32.0-37.0); MCV 89.5 fL (80.0-97.0); Mean Platelet Volume 11.1 fL (9.5-12.2); NRBC Per 100 WBC 0 /100 WBCS (0.0-0.0); Platelet Count 159 X 10*3/uL (140-440); RBC 4.28 X 10*6/uL (4.40-5.60); RDW 12.8 % (11.5-14.5)
--- NOTE | 2022-10-24 10:32 | P.PN ---
"Subjective Progress Note Date: 10/24/22 Hospital course: Patient is a very pleasant 67-year-old male with a past medical history of COPD, stage IV liver cirrhosis with esophageal varices, BPH, hepatitis C, and nicotine dependence. He presented to the emergency department secondary to failing outpatient treatment for Bite. Patient reportedly received Bite approximately 5 days ago and underwent evaluation by his PCP and was placed on Augmentin and given a tetanus shot. Patient reports taking antibiotic as prescribed but continued to have worsening swelling and purulent drainage so he came to the emergency department for evaluation. Patient underwent full evaluation in the emergency department. Labs completed and reviewed. CBC and CMP were unremarkable. CRP was elevated at 5.2. 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 Physical exam: Patient seen and fully evaluated at the bedside this morning. He continues to have purulent drainage from puncture site as well as moderate erythema to palmar and dorsal surface of right hand madiha of right index finger extending up into his index finger. Patient reports morphine isn't not touching the pain. Alternative pain medications ordered including Dilaudid 1 mg every 4 hours for severe pain and Harrison 5/325 mg every 4 hours for moderate pain. Vital signs reviewed and stable. General: Nontoxic, no distress and appears stated age. Derm: Skin warm and dry, normal coloration for ethnicity. Head: Atraumatic, normocephalic and symmetric. Eyes: EOMs intact, no lid lag, and anicteric sclera Mouth: no lip lesions, mucus membranes moist Cardiovascular: regular rate and rhythm with normal S1S2, no murmur, positive posterior tibial pulses bilaterally, and cap refill < 2 seconds. Lungs: Respirations even, regular, and unlabored on room air. Lungs CTA bilaterally, no rhonchi, no rales, no wheezing, and no accessory muscle usage. Abdominal: soft, nontender to palpation, no guarding, no appreciable organomegaly Ext: ROM intact. No gross muscle atrophy, no edema, no contractures. Patient has erythema and puncture wounds with abscess to palmar region of the right hand at the base of the right index finger with yellow purulent drainage, swelling and erythema moderate wrapping around to dorsal surface of hand as well as right index finger. Movement and sensation of fingers intact. Neuro: Speech clear, face symmetrical and CN II-XII grossly intact with no noted focal neuro deficits Psych: Alert and oriented to person, place, time, and situation. Appropriate and pleasant affect. Assessment and Plan of Care: Cat Bite resulting in surrounding cellulitis and abscess formation on right hand -Continue Unasyn 3 g every 6 hours -Orthopedic surgery team consulted and discussed plan of care with orthopedic surgeon as well as orthopedic VENEER TAPER. They are recommending patient undergo in cision and drainage tomorrow morning with Dr. Vásquez. -Symptomatic care and pain management. Morphine not controlling pain per patient, order placed for Dilaudid 1 mg every 4 hours as needed for severe pain as well as Harrison 5/325 mg every 4 hours as needed for moderate pain. -Wound cultures obtained, will follow-up on results once available. -Blood cultures showing no growth to date. -Morning labs completed and reviewed. CBC revealing mild neutropenia with WBC count of 4.0, mild normocytic anemia with hemoglobin of 12.5. BMP unremarkable. -Order placed for repeat morning labs including CBC, BMP, and CRP. COPD, not in acute exacerbation -Oxygenation to be administered as needed and titrated as needed to maintain SPO2 equal to or greater than 92% -Monitor Pulse-oximetry -Duonebs as needed for SOB and/or wheezing Stage IV liver cirrhosis with esophageal varices BPH Hepatitis C -Liver enzymes unremarkable. -Continue daily home medication regimen. Nicotine dependence -Order placed for nicotine patch 21 mg daily. Recommend smoking cessation. CODE STATUS: Full code DVT prophylaxis: Lovenox Discussed with: Patient, orthopedic surgeon, orthopedic VENEER TAPER and RN Anticipated discharge date: Clinical course to determine Anticipated discharge place: Home Patient was seen independently by Nurse Pracitioner. This document was prepared using [employer] dictation software. Please allow for errors in tool machine shop supervisor, while rare they do occur. Zaki Vergara NP rendered care for this patient independently, reviewed the findings and plan as documented in the note above. I did not physically speak with or examine the patient on this date. Objective - Vital Signs Vital signs: Vital Signs Temp 97.8 F 10/24/22 02:00 Pulse 59 L 10/24/22 02:00 Resp 15 10/24/22 02:00 BP 125/79 10/24/22 02:00 Pulse Ox 98 10/24/22 02:00 FiO2 - Labs CBC & Chem 7: 10/25/22 07:30 10/25/22 07:30 Labs: Microbiology - Last 24 Hours (Table) 10/23/22 09:25 Gram Stain - Preliminary Hand - Right Wound Culture - Preliminary 10/23/22 09:25 Anaerobic Culture - Preliminary Hand - Right"
[2022-10-24] MEDS ORDERED: HYDROmorphone 1 MG/ML 1 ML SYRINGE IVP PRN (10:38)
--- NOTE | 2022-10-24 10:53 | P.CNOR ---
History of Present Illness - [facility] Consult date: 10/24/22 Requesting physician: Luc Wells Consult reason: other (abscess of right index finger) History of present illness: History of Presenting Illness Patient is a pleasant 67-year-old male who presented to the ER due to failed outpatient treatment of a cat bite. Patient states apparently 5 days ago he was bitten by his cat on his right index finger. He had noticed over the next few days increased swelling, sought treatment with his PCP who prescribed an antibiotic. Patient reports that the swelling continued to increase and develop ed purulent drainage. He states his PCP did attempt to drain the wound, without result. Patient does live at home with his spouse and is normally independent. Patient does have a medical history of medical history of COPD, stage IV liver cirrhosis with esophageal varices, BPH, hepatitis C, and nicotine dependence. He does have an orthopedic history of a left knee replacement and left shoulder repair, he denies any other orthopedic history. Patient seen and examined at bedside. Patient is resting comfortably in bed. Right index finger presents with erythema and edema. There is an area to wear the bite actually occurred that has purulent drainage. Patient does have complaint of moderate pain to the right hand. Medications have been ordered. Patient denies any numbness or tingling in the right hand. The patient denies any fever/chills, nausea/vomiting, or chest pain. Review of Systems Pertinent positives and negatives as discussed in HPI, a complete review of systems was performed and all other systems are negative. Physical Examination Inspection: Negative for any open fractures, Right index finger is erythemic and edematous. There is an area on the palm of the hand near the right index finger that has purulent drainage. Sensation: Sensation is equal, symmetric, bilaterally intact throughout the upper and lower extremities Palpation: TTP to the dorsal and north portion of the right hand around the area of the right index finger. Range of motion: Patient does have limited range of motion of the right index finger due to pain and stiffness. Motor: 5/5 in all major motor groups in the bilateral upper and lower extremities Special tests: Negative Homans bilaterally. Negative Cheryl bilaterally. Negative clonus bilaterally. Neurovascular: Radial pulse intact, 2+ bilaterally. Cap refill under 3 seconds in digits upper extremities. Assessment and Plan Cat bite to right hand Abscess and cellulitis to right hand/right index finger -Keep patient NPO at [place] -I&D procedure scheduled for tomorrow 10/25/22 -Continue with IV antibiotics -Pain management, Dilaudid and [place] -Ice and elevate Appreciate consult and team management I reviewed and discussed this case with my attending Dr. Chinchilla, whom has reviewed this chart and films and is in agreement with assessment and plan of care as outlined above. I have personally seen and examined the patient, performed the documentation and the assessment and plan as written. Number of minutes spent on the visit: 20m. Past Medical History Past Medical History: COPD Additional Past Medical History / Comment(s): stage 4 liver cirrohsis with esophageal varices, rt foot drag, hepatitis C, enlarged prostate History of Any Multi-Drug Resistant Organisms: None Reported Additional Past Surgical History / Comment(s): knee replacement, lt shoulder repair, sinus, rt leg fracture as a child. Past Psychological History: Depression Smoking Status: Current every day smoker Past Alcohol Use History: None Reported Past Drug Use History: None Reported - Past Family History Father Family Medical History: Myocardial Infarction ([place]) Additional Family Medical History / Comment(s): several male family members with heart attacks Mother Family Medical History: COPD Sister(s) Family Medical History: Cancer Medications and Allergies Home Medications Medication Instructions Recorded Confirmed Type Omeprazole 20 mg PO DAILY 05/28/19 10/22/22 History lamoTRIgine 200 mg PO BID 05/28/19 10/22/22 History Amoxic-Pot Clav 875-125Mg 1 tab PO BID 10/22/22 10/22/22 History [Augmentin 875-125] Baclofen 5 mg PO TID 10/22/22 10/22/22 History FLUoxetine HCL [PROzac] 20 mg PO DAILY 10/22/22 10/22/22 History Folic Acid 1 mg PO DAILY 10/22/22 10/22/22 History Gabapentin [Neurontin] 100 mg PO TID 10/22/22 10/22/22 History Mupirocin 2% Oint [Bactroban 2% 1 applic TOPICAL TID 10/22/22 10/22/22 History Oint] Propranolol [Inderal] 20 mg PO BID 10/22/22 10/22/22 History Rifaximin [Xifaxan] 550 mg PO BID 10/22/22 10/22/22 History Allergies Allergy/AdvReac Type Severity Reaction Status Date / Time albuterol [From ProAir HFA] Allergy Itching Verified 10/22/22 18:05 bee venom protein (honey bee) Allergy Swelling Verified 10/22/22 18:05 Results - Labs Labs: Abnormal Lab Results - Last 24 Hours (Table) 10/24/22 10/24/22 Range/Units 06:10 06:10 WBC 4.00 L (4.50-10.00) X 10*3/uL RBC 4.28 L (4.40-5.60) X 10*6/uL Hgb 12.5 L (13.0-17.0) g/dL Hct 38.3 L (39.6-50.0) % BUN 6.7 L (9.0-27.0) mg/dL BUN/Creatinine Ratio 9.36 L (12.00-20.00) Ratio Total Protein 5.5 L (6.2-8.2) g/dL Albumin 3.7 L (3.8-4.9) g/dL Microbiology - Last 24 Hours (Table) 10/23/22 09:25 Gram Stain - Preliminary Hand - Right Wound Culture - Preliminary 10/23/22 09:25 Anaerobic Culture - Preliminary Hand - Right H & H 10/22/22 10/23/22 10/24/22 Range/Units 16:07 06:08 06:10 Hgb 15.0 14.2 12.5 L (13.0-17.5) gm/dL Hct 45.7 43.6 38.3 L (39.0-53.0) % Result Diagrams: 10/24/22 06:10 10/24/22 06:10
[2022-10-24] MEDS: HYDROcodone/APAP 5-325MG 1 EACH TAB PO PRN ×2 (10:55→20:20)
[2022-10-25] MEDS: PANTOPRAZOLE 40 MG TABLET PO SCH ×2 (03:14→08:45)
[2022-10-25] MEDS: AMPICILLIN-SULBACTAM 3 GM in SODIUM CHLORIDE 0.9% 100 ML IVPB SCH ×4 (04:06→20:53)
[2022-10-25] MEDS: lamoTRIgine 100 MG TAB PO SCH ×2 (08:44→20:53)
[2022-10-25] MEDS: GABAPENTIN 100 MG CAP PO SCH ×3 (08:44→20:57)
[2022-10-25] MEDS: HYDROcodone/APAP 5-325MG 1 EACH TAB PO PRN ×3 (08:44→18:40)
[2022-10-25] MEDS: PROPRANOLOL 20 MG TAB PO SCH ×2 (08:45→20:53)
[2022-10-25] MEDS: RIFAXIMIN 550 MG TABLET PO SCH ×2 (08:45→20:53)
[2022-10-25] MEDS: FLUoxetine HCL 10 MG CAP PO SCH (08:45)
[2022-10-25] MEDS: NICOTINE 21MG/24HR PATCH TRANSDERM SCH (08:46)
[2022-10-25 10:23] LABS: HCT 40.4 % (39.0-53.0); HGB 13.5 gm/dL (13.0-17.5); MCH 29.3 pg (25.0-35.0); MCHC 33.5 g/dL (31.0-37.0); MCV 87.5 fL (80.0-100.0); Mean Platelet Volume 9.4; Platelet Count 191 k/uL (150-450); RBC 4.62 m/uL (4.30-5.90); RDW 12.9 % (11.5-15.5); WBC 3.6 k/uL (3.8-10.6)
[2022-10-25 10:29] LABS: ALT 16 U/L (4-49); AST 22 U/L (17-59); African American GFR (CKD) >90 (>60 ml/min/1.73 sqM); Albumin 3.6 g/dL (3.5-5.0); Albumin/Globulin Ratio 1.5; Alkaline Phosphatase 53 U/L (38-126); Anion Gap 9 mmol/L; Blood Urea Nitrogen 7 mg/dL (9-20); C Reactive Protein 2.2 mg/dL (<1.0); Calcium 8.8 mg/dL (8.4-10.2); Carbon Dioxide 28 mmol/L (22-30); Chloride 101 mmol/L (98-107); Globulin 2.4 g/dL; Glucose 92 mg/dL (74-99); Non-African American GFR(CKD) >90 (>60 ml/min/1.73 sqM); Potassium 4.2 mmol/L (3.5-5.1); Sodium 138 mmol/L (137-145); Total Bilirubin 0.6 mg/dL (0.2-1.3)
--- NOTE | 2022-10-25 11:40 | P.PN ---
Progress Note - Text Progress Note Date: 10/25/22 Patient seen and examined, I reviewed the note, discussed the case with the COOKING CASING AND DRYING SUPERVISOR first hand and agree with the assessment and plan of Heath Lynch NP. Please see my notes below for any additional recommendations. Orthopedic Surgery Risk Review Tang Jauregui is a 67 yo RHD male presenting for evaluation of sudden onset swelling, reddness, drainage and pain, after a catbite 9 day s ago to his right hand. It was my pleasure to have seen and examined Tang Jauregui. In our visit today we have had a chance to go over subjective complaints, physical examination findings and treatments including the natural course history without intervention and various interventional options. His imaging demonstrates RC OA with questionable osteo findings spread through hand. On physical exam, Tang Jauregui demonstrates pain with motion of Right hand and index finger, which is NV intact at this time. I have explained to the patient that this fracture needs stabilization. Based on the patients imaging, physical exam, and the rapid progression and disabling nature of her symptoms, at this time I recommend surgery in the form or a: Incision and drainage with irrigation and debridment right hand I discussed the risk and benefits of this procedure at length with Tang Jauregui. Questions were invited and answered, and the patient wishes to proceed as outlined below. Currently, I am recommendin. Incision and drainage with irrigation and debridment right hand 2. Review of surgical risks and benefits as well as an educational packet on the proposed surgical procedure. Risks: All surgical procedures come with inherent risks, including those related to positioning, anesthesia, intraoperative findings, and postoperative complications. It is important to understand that surgery does not come with any guarantee of a successful outcome as complications and adverse events are always possible. The patient was given a handout discussing the surgical procedure and risks associated with the intervention, both of which were discussed with the patient. These risks include but are not limited to the following: - Experiencing same, different or even worse symptoms compared to before surgery. - Requiring further surgery or other forms of treatment presently or at some time in the future . - On an extreme but fortunately relatively rare basis severe complication such as blindness, stroke, heart attack, temporary and/or permanent nerve injury, paralysis, coma, or may occur, sometimes without known e xplanation. - Surgical complications may include but are not limited to risk of infection, fluid accumulation in the surgical dissection site, including a seroma or hematoma, that requires additional surgery, wound drainage, bleeding, new numbness or weakness, vision changes/loss, spinal fluid leakage, non-healing and/or infected incision, headaches, difficulty or inability to swallow, hoar seness, hemopneumothorax, pneumothorax, injury to nerves, spinal cord, blood vessels, lymphatics or other vital organs (i.e., bowel injury, injury to the great vessels); heterotopic bone formation; complications related to the hardware such as screws, rods, including misplaced hardware, device failure, hardware fracture/breakage, or hardware loosening; retained surgical instrumentations or devices and the need for further surgery. - Medical risks of the planned surgery include but are not limited to generalized Infections to the whole body or local areas outside of the surgical site (sepsis), heart attack, bleeding, anaphylaxis, meningitis, seizure, epilepsy, hearing loss, burn olea, laceration of the head or other areas of the body, bruising, hypersensitivity of the skin, bladder over distension; allergic reaction; shoulder injury related to positioning; fat, blood and air clots to other areas of the body like heart, lungs, brain; failure of internal organs such as lungs, kidneys, liver and excessive bleeding. If blood transfusions are necessary, note that transfusions may cause intolerance reactions such as anaphylaxis or other complex reactions. Despite best efforts, the results of surgery might not heal in terms of bone, soft tissues such as skin, fascia, ligaments, and joints. [facility] has multiple operating rooms with single and overlapping rooms running daily. They currently function under the required guidelines as produced by the Senate Finance Committee with regards to the overlapping rooms and will continue to comply with changes to this policy as they occur. The requirements include and are complied with as follows: (1) the critical portions of the overlapping rooms will not occur at the same time, (2) the attending physician will be physically present during the critical portions of the procedure and immediately available during the entire case, and (3) a back-up attending is designated should the primary attending not be immediately available. The patient has had a chance to review all the listed information, has been given print outs detailing this information, and has had all his/her questions answered to their satisfaction. It was my pleasure to have seen and examined Tang Piperwine. In our visit today we have had a chance to go over my understanding of our patient's current co ndition, the natural course history without intervention and various interventional options. Questions were invited and answered, and the patient wishes to proceed as outlined above. I have seen and examined the patient for 25 minutes and we have spent more than 50% of the time in repeat and detailed counseling about the patient's condition, its natural course history with out and as much as can be predicted with surgery and re-review of various surgical treatment options. In conclusion, Tang Jauregui requested we proceed with the above suggested surgery and are willing to accept risks and limitations of the suggested surgery as nature of the disease process and our best attempts at treatment for the condition. Thank you again for allowing us to be part of your patient's care. Please don't hesitate to contact me if you have any further questions. Signed and authenticated by: [facility] [address] [place] [address], [address] [address]
[2022-10-25] MEDS ORDERED: LACTATED RINGERS 1,000 ML IV ONE ×2 (11:53→12:03)
[2022-10-25] MEDS ORDERED: PROPOFOL 10 MG/ML 20 ML VIAL IV ONE (12:37)
[2022-10-25] MEDS ORDERED: SUCCINYLCHOLINE CHLORIDE 200 MG/10 ML VIAL IV ONE (12:37)
[2022-10-25] MEDS ORDERED: fentaNYL (PF) 50 MCG/ML 2 ML AMP ONE (12:37)
[2022-10-25] MEDS ORDERED: LIDOCAINE 4% LTA KIT (4 ML) TOPICAL ONE (12:37)
[2022-10-25] MEDS: ENOXAPARIN 40 MG/0.4 ML SYRINGE SQ SCH (12:44)
[2022-10-25] MEDS ORDERED: HYDROmorphone 1 MG/ML 1 ML SYRINGE IVP PRN (13:12)
--- NOTE | 2022-10-25 16:42 | P.PN ---
Subjective Progress Note Date: 10/25/22 Hospital course: Patient is a very pleasant 67-year-old male with a past medical history of COPD, stage IV liver cirrhosis with esophageal varices, BPH, hepatitis C, and nicotine dependence. He presented to the emergency department secondary to failing outpatient treatment for Bite. Patient reportedly received Bite approximately 5 days ago and underwent evaluation by his PCP and was placed on Augmentin and given a tetanus shot. Patient reports taking antibiotic as prescribed but continued to have worsening swelling and purulent drainage so he came to the emergency department for evaluation. Patient underwent full evaluation in the emergency department. Labs completed and reviewed. CBC and CMP were unremarkable. CRP was elevated at 5.2. 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 Physical exam: Patient seen and fully evaluated at the bedside this afternoon upon return from surgery. The patient underwent I&D of the right hand and surgical dressing is in place at this time. Vital signs reviewed and stable. General: Nontoxic, no distress and appears stated age. Derm: Skin warm and dry, normal coloration for ethnicity. Head: Atraumatic, normocephalic and symmetric. Eyes: EOMs intact, no lid lag, and anicteric sclera Mouth: no lip lesions, mucus membranes moist Cardiovascular: regular rate and rhythm with normal S1S2, no murmur, positive posterior tibial pulses bilaterally, and cap refill < 2 seconds. Lungs: Respirations even, regular, and unlabored on room air. Lungs CTA bilaterally, no rhonchi, no rales, no wheezing, and no accessory muscle usage. Abdominal: soft, nontender to palpation, no guarding, no appreciable organomegaly Ext: ROM intact. No gross muscle atrophy, no edema, no contractures. Dressing in place right hand, clean dry and intact. Neuro: Speech clear, face symmetrical and CN II-XII grossly intact with no noted focal neuro deficits Psych: Alert and oriented to person, place, time, and situation. Appropriate and pleasant affect. Assessment and Plan of Care: Cat Bite resulting in surrounding cellulitis and abscess formation on right hand -Continue Unasyn 3 g every 6 hours -Orthopedic surgery team consulted and discussed plan of care with orthopedic s heavenlyeon as well as orthopedic HOT KETTLE TENDER. They are recommending patient undergo incision and drainage tomorrow morning with Dr. Vásquez. -Symptomatic care and pain management. Morphine not controlling pain per patient, order placed for Dilaudid 1 mg every 4 hours as needed for severe pain as well as [place] 5/325 mg every 4 hours as needed for moderate pain. -Wound cultures obtained, preliminary Gram stain showing gram negative bacilli will follow-up on final culture results and sensitivity report once available. -Blood cultures showing no growth to date. -Morning labs completed and reviewed. CBC revealing mild neutropenia with WBC count of 3.6 and BMP remains unremarkable.. CRP improving decreasing down to 2.2 from previous 5.5. -Order placed for repeat morning labs including CBC, BMP, and CRP. COPD, not in acute exacerbation -Oxygenation to be administered as needed and titrated as needed to maintain SPO2 equal to or greater than 92% -Monitor Pulse-oximetry -Duonebs as needed for SOB and/or wheezing Stage IV liver cirrhosis with esophageal varices BPH Hepatitis C -Liver enzymes unremarkable. -Continue daily home medication regimen. Nicotine dependence -Order placed for nicotine patch 21 mg daily. Recommend smoking cessation. CODE STATUS: Full code DVT prophylaxis: Lovenox Discussed with: Patient, Orthopedic surgeon, orthopedic HOT KETTLE TENDER and RN Anticipated discharge date: Clinical course to determine Anticipated discharge place: Home Patient was seen independently by Nurse Pracitioner. This document was prepared using [employer] dictation software. Please allow for errors in wash driller helper, while rare they do occur. Zaki Vergara NP rendered care for this patient independently, reviewed the findings and plan as documented in the note above. I did not physically speak with or examine the patient on this date. Objective - Vital Signs Vital signs: Vital Signs Temp 98.0 F 10/25/22 07:29 Pulse 62 10/25/22 07:29 Resp 15 10/25/22 07:29 BP 132/77 10/25/22 07:29 Pulse Ox 92 L 10/25/22 07:29 FiO2 Intake & Output 10/24/22 10/25/22 10/25/22 18:59 06:59 18:59 Other: Voiding Method Toilet # Voids 5 3 - Labs CBC & Chem 7: 10/25/22 07:30 10/25/22 07:30 Labs: Abnormal Lab Results - Last 24 Hours (Table) 10/24/22 10/24/22 Range/Units 06:10 06:10 WBC 4.00 L (4.50-10.00) X 10*3/uL RBC 4.28 L (4.40-5.60) X 10*6/uL Hgb 12.5 L (13.0-17.0) g/dL Hct 38.3 L (39.6-50.0) % BUN 6.7 L (9.0-27.0) mg/dL BUN/Creatinine Ratio 9.36 L (12.00-20.00) Ratio Total Protein 5.5 L (6.2-8.2) g/dL Albumin 3.7 L (3.8-4.9) g/dL Microbiology - Last 24 Hours (Table) 10/22/22 16:05 Blood Culture - Preliminary Blood 10/22/22 15:50 Blood Culture - Preliminary Blood 10/23/22 09:25 Gram Stain - Preliminary Hand - Right Wound Culture - Preliminary
[2022-10-26] MEDS: AMPICILLIN-SULBACTAM 3 GM in SODIUM CHLORIDE 0.9% 100 ML IVPB SCH ×3 (03:36→16:32)
--- NOTE | 2022-10-26 08:38 | P.PN ---
Subjective Progress Note Date: 10/26/22 Principal diagnosis: Cat bite to right hand abscess of right index finger Patient seen and examined this morning. Patient was ambulatory in room. He is tolerating activity well. Surgical dressing to the right hand is intact. No shadowing noted. Patient does express decrease in pain since procedure. Patient may shower today and will need to do Hibiclens soaks for 20 minutes twice a day. He is requesting to be discharged today, explained to patient that medicine is following cultures at this time and will need to speak with them. He verbalizes understanding. Patient is cleared from orthopedic standpoint for discharge. Patient has been afebrile, denies nausea/vomiting, or chest pain. Objective - Vital Signs Vital signs: Vital Signs Temp 98.1 F 10/26/22 07:13 Pulse 55 L 10/26/22 07:13 Resp 18 10/26/22 07:13 BP 117/74 10/26/22 07:13 Pulse Ox 96 10/26/22 07:13 FiO2 Intake & Output 10/25/22 10/26/22 10/26/22 18:59 06:59 18:59 Intake Total 600 Output Total 10 Balance 590 Intake: IV 600 Output: Estimated Blood Loss 10 Other: Voiding Method Toilet # Voids 4 3 # Bowel Movements 1 - Exam Inspection: Negative for any open fractures, Surgical incision to the north side of the right index finger, sutures intact. Sensation: Sensation is equal, symmetric, bilaterally intact throughout the upper and lower extremities Palpation: TTP to the dorsal and north portion of the right hand around the area of the right index finger. Range of motion: Patient does have limited range of motion of the right index finger due to pain and stiffness. Motor: 5/5 in all major motor groups in the bilateral upper and lower extremities Special tests: Negative Homans bilaterally. Negative Cheryl bilaterally. Negative clonus bilaterally. Neurovascular: Radial pulse intact, 2+ bilaterally. Cap refill under 3 seconds in digits upper extremities. - Labs CBC & Chem 7: 10/25/22 07:30 10/25/22 07:30 Labs: Abnormal Lab Results - Last 24 Hours (Table) 10/25/22 10/25/22 Range/Units 07:30 07:30 WBC 3.6 L (3.8-10.6) k/uL BUN 7 L (9-20) mg/dL Creatinine 0.62 L (0.66-1.25) mg/dL C-Reactive Protein 2.2 H (<1.0) mg/dL Total Protein 6.0 L (6.3-8.2) g/dL Microbiology - Last 24 Hours (Table) 10/23/22 09:25 Anaerobic Culture - Preliminary Hand - Right 10/22/22 16:05 Blood Culture - Preliminary Blood 10/22/22 15:50 Blood Culture - Preliminary Blood 10/23/22 09:25 Gram Stain - Preliminary Hand - Right Wound Culture - Preliminary Gram Neg Bacilli Assessment and Plan Assessment: Postop day 1: Incision and drainage with irrigation and debridement of right index finger Cat bite to right hand Abscess and cellulitis to right hand/right index finger Plan: -Continue with IV antibiotics, surgical cultures pending -Patient to perform Hibiclens soaks for 20 min / twice a day. May wrap right index finger with clean gauze and tape. Keep incision clean and dry. -Pain management, Dilaudid and [place] -Ice and elevate -Perform gentle ROM of the right hand and index finger, do not allow tension to the sutures. Appreciate consult and team management Patient may follow-up with Dr. Chinchilla's office in 10 days. Orthopedics is signing off at this time. Please do not hesitate to contact us for any further questions. I reviewed and discussed this case with my attending Dr. Chinchilla, whom has reviewed this chart and films and is in agreement with assessment and plan of care as outlined above. I have personally seen and examined the patient, performed the documentation and the assessment and plan as written. Number of minutes spent on the visit: 20m.
--- NOTE | 2022-10-26 08:50 | P.OP ---
Date of Procedure: 10/25/22 Preoperative Diagnosis: 1. RIF volar abscess, webspace vs flexor sheath 2. s/p cat bite 3. RIF MCP OA Postoperative Diagnosis: 1. RIF volar abscess, webspace vs flexor sheath 2. s/p cat bite 3. RIF MCP OA Procedure(s) Performed: 1. Incision and drainage right volar hand with irrigation and debridment of abscess using skin kinfe for skin incision, curette for removal of abscess and necrotic material 4 x2 x2 cm 2. A1 bonifacio release RIF ([id number]) Implants: None Anesthesia: MAC Surgeon: Leland Chinchilla Line Tender #1: Cris Joe (Was present and assisted with all aspects of the case from positioning to dressing placement) Estimated Blood Loss (ml): 10 IV fluids (ml): 100 Urine output (ml): 0 Pathology: other (x2 cultures abscess right volar hand) Condition: stable Disposition: PACU Indications for Procedure: Tang Jauregui is a 67 yo RHD male presenting for evaluation of sudden onset swelling, reddness, drainage and pain, after a catbite 9 day s ago to his right hand. It was my pleasure to have seen and examined Tang Jauregui. In our visit today we have had a chance to go over subjective complaints, physical examination findings and treatments including the natural course history without intervention and various interventional options. His imaging demonstrates RC OA with questionable osteo findings spread through hand. On physical exam, Tang Jauregui demonstrates pain with motion of Right hand and index finger, which is NV intact at this time. I have explained to the patient that this fracture needs stabilization. Based on the patients imaging, physical exam, and the rapid progression and disabling nature of her symptoms, at this time I recommend surgery in the form or a: Incision and drainage with irrigation and debridment right hand I discussed the risk and benefits of this procedure at length with Tang Jauregui. Questions were invited and answered, and the patient wishes to proceed as outlined below. Currently, I am recommendin. Incision and drainage with irrigation and debridment right hand Description of Procedure: The patient was seen and examined in the preoperative area. All preoperative protocols were followed. Informed consent was obtained risks and benefits of the procedure were discussed at length. Risks including bleeding infection damage to the surrounding tissue and risk of reoperation were discussed with the patient. Risk of anesthesia up to and including was a discussed with the patient. These are outlined in the risk reviewed. They were willing to accept these risks and all of the risks of surgery. The patient was given a weight- based dose of antibiotics in the form of antibiotics in the form of vancomycin and Zosyn. The patient was seen and evaluated by the anesthesia team who deemed them fit for surgery. The site was marked, the patient was willing to proceed with the procedure. The patient was transferred to the operative suite by the Department of anesthesia. There were then drifted off to sleep by the department of anesthesia and [place]jo with local anesthesia was used. Once adequate anesthesia had been obtained the patient was carefully transferred to the operative bed. All bony prominences were padded accordingly. SCDs were placed on the nonoperative lower extremities. Arms were well padded. Right hand and arm was exposed and placed in the hand table Preoperative briefing was done with the operative team and everyone was ready for the procedure to start. The patients right hand and arm was then prepped and draped in the normal sterile fashion. Timeout was then performed and all parties in agreement with the procedure to be performed. Volar aspect of the right index finger over the MCP joint was identified this is where the abscess was. Oblique skin incision was made over this area and purulence was removed from this area. Cultures were taken tenotomy was used for blunt dissection deep into the webspace between the index and middle finger trigger release any abscess in this area as well as around the radial edge towards the dorsal aspect of the hand due to swelling in this area. Purulence was removed from this area, taken. Blunt dissection taken out of the flexor sheath and the A1 bonifacio identified there was slight catching in this area and so the A1 bonifacio was released. The wound was then copiously irrigated with 2 L of normal sterile saline. The wound edges were then loosely approximated with simple nylon stitches. The wound was then cleaned and dressed sterilely with Adaptic 4 x 4's ABDs and an Santiago wrap. The patient was then transferred back to their hospital bed. There were awakened by department of anesthesia having tolerated the procedure very well with no complications. The patient was then transported to the postoperative care unit in stable condition.
[2022-10-26] MEDS: ENOXAPARIN 40 MG/0.4 ML SYRINGE SQ SCH (09:17)
[2022-10-26] MEDS: NICOTINE 21MG/24HR PATCH TRANSDERM SCH (09:17)
[2022-10-26] MEDS: lamoTRIgine 100 MG TAB PO SCH (09:18)
[2022-10-26] MEDS: GABAPENTIN 100 MG CAP PO SCH (09:18)
[2022-10-26] MEDS: FLUoxetine HCL 10 MG CAP PO SCH (09:18)
[2022-10-26] MEDS: RIFAXIMIN 550 MG TABLET PO SCH (09:19)
[2022-10-26] MEDS: PROPRANOLOL 20 MG TAB PO SCH (09:19)
[2022-10-26] MEDS: HYDROcodone/APAP 5-325MG 1 EACH TAB PO PRN (12:15)
[2022-10-26 14:44] VITALS: BP 95/58; PULSE 61; RESP 16; TEMP 98.5
--- NOTE | 2022-10-26 15:44 | P.DS ---
Providers Date of admission: 10/22/22 17:21 Expected date of discharge: 10/26/22 Attending physician: Miguel Wharton MD Consults: 10/22/22 17:19 Consult Physician Routine Consulting Provider: Leland Chinchilla Consult Reason/Comments: abscess Do you want consulting provider notified?: Yes Primary care physician: Ramses Hernández MD Hospital Course: Discharge Diagnosis: Cat Bite resulting in surrounding cellulitis and abscess formation on right hand. Final wound cultures positive for Pasterolateral multocida. Patient received 5 day course of Unasyn in the hospital and underwent I&D drainage of wound by Dr. Chinchilla on 10/25/22 and being discharged home on an additional 10 days of Augmentin 875/125 mg tablets twice daily. Dr[address] Chinchilla to follow up on incision and drainage culture results and patient to follow-up outpatient with PCP in 1-2 days and certified peer specialist in 10 days. COPD, not in acute exacerbation. Recommend smoking cessation. 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 Liver enzymes unremarkable. BPH Hepatitis C Nicotine dependence. Recommend smoking cessation. Hospital Course: Patient is a very pleasant 67-year-old male with a past medical history of COPD, stage IV liver cirrhosis with esophageal varices, BPH, hepatitis C, and nicotine dependence. He presented to the emergency department secondary to failing outpatient treatment for Bite. Patient reportedly received Bite approximately 5 days ago and underwent evaluation by his PCP and was placed on Augmentin and given a tetanus shot. Patient reports taking antibiotic as prescribed but continued to have worsening swelling and purulent drainage so he came to the emergency department for evaluation. Patient underwent full evaluation in the emergency department. Labs completed and reviewed. CBC and CMP were unremarkable. CRP was elevated at 5.2. 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 Physical exam: Vital signs reviewed and stable. General: Nontoxic, no distress and appears stated age. Derm: Skin warm and dry, normal coloration for ethnicity. Head: Atraumatic, normocephalic and symmetric. Eyes: EOMs intact, no lid lag, and anicteric sclera Mouth: no lip lesions, mucus membranes moist Cardiovascular: regular rate and rhythm with normal S1S2, no murmur, positive posterior tibial pulses bilaterally, and cap refill < 2 seconds. Lungs: Respirations even, regular, and unlabored on room air. Lungs CTA bilaterally, no rhonchi, no rales, no wheezing, and no accessory muscle usage. Abdominal: soft, nontender to palpation, no guarding, no appreciable organomegaly Ext: ROM intact. No gross muscle atrophy, no edema, no contractures. Dressing in place right hand, clean dry and intact. Neuro: Speech clear, face symmetrical and CN II-XII grossly intact with no noted focal neuro deficits Psych: Alert and oriented to person, place, time, and situation. Appropriate and pleasant affect. A total of 33 minutes of time were spent preparing this complex discharge summary. Pt was discharged on 10/26/22. Patient was seen independently by Nurse Practitioner. This document was prepared using [employer] dictation software. Please allow for errors in phone manager while rare they do occur. Zaki Vergara NP rendered care for this patient independently, reviewed the findings and plan as documented in the note above. I did not physically speak with or examine the patient on this date. Patient Condition at Discharge: Stable Plan - Discharge Summary Discharge Rx Participant: No New Discharge Prescriptions: New Ketorolac [Toradol] 10 mg PO Q6HR #24 tab Continue Omeprazole 20 mg PO DAILY lamoTRIgine 200 mg PO BID Propranolol [Inderal] 20 mg PO BID Mupirocin 2% Oint [Bactroban 2% Oint] 1 applic TOPICAL TID Amoxic-Pot Clav 875-125Mg [Augmentin 875-125] 1 tab PO BID 10 Days #20 tab Baclofen 5 mg PO TID Rifaximin [Xifaxan] 550 mg PO BID Gabapentin [Neurontin] 100 mg PO TID Folic Acid 1 mg PO DAILY FLUoxetine HCL [PROzac] 20 mg PO DAILY Discharge Medication List Omeprazole 20 mg PO DAILY 05/28/19 [History] lamoTRIgine 200 mg PO BID 05/28/19 [History] Baclofen 5 mg PO TID 10/22/22 [History] FLUoxetine HCL [PROzac] 20 mg PO DAILY 10/22/22 [History] Folic Acid 1 mg PO DAILY 10/22/22 [History] Gabapentin [Neurontin] 100 mg PO TID 10/22/22 [History] Mupirocin 2% Oint [Bactroban 2% Oint] 1 applic TOPICAL TID 10/22/22 [History] Propranolol [Inderal] 20 mg PO BID 10/22/22 [History] Rifaximin [Xifaxan] 550 mg PO BID 10/22/22 [History] Amoxic-Pot Clav 875-125Mg [Augmentin 875-125] 1 tab PO BID 10 Days #20 tab 10/26/22 [Rx] Ketorolac [Toradol] 10 mg PO Q6HR #24 tab 10/26/22 [Rx] Follow up Appointment(s)/Referral(s): Ramses Hernández MD [Primary Care Provider] - 10/28/22 9:40 am Leland Chinchilla DO [Doctor of Osteopathic Medicine] - 11/02/22 1:20 pm Patient Instructions/Handouts: Animal Bite (ED) Activity/Diet/Wound Care/Special Instructions: Incision care: Maintain incision clean and dry. Perfrom Hibiclens soaks for 20min twice a day until follow up appt. Perform gentle ROM exercises of the right hand and index finger, do not allow and tension to the sutures. Follow up in office in 10 days. Thank you for allowing us the opportunity of participating in your care, it was truly a pleasure getting to know you and have you for a patient!!! Discharge Disposition: HOME SELF-CARE
== END 2022-10-26 16:30 | disposition home or self-care (01) | DRG 580 ==
LOC: EC 14:47 → 5NMEDONC 17:21 → 4SSUR 10-23 17:50
PROVIDERS: ADMIT Internal Medicine; ATTEND Internal Medicine
PROC: 0LN70ZZ Release Right Hand Tendon, Open Approach (ICD-10-PCS; principal; 2022-10-26)
PROC: 0L970ZZ Drainage of Right Hand Tendon, Open Approach (ICD-10-PCS; 2022-10-26)
PROC: 0LB70ZZ Excision of Right Hand Tendon, Open Approach (ICD-10-PCS; 2022-10-26)
DX: L02.511 Cutaneous abscess of right hand (principal); L03.113 Cellulitis of right upper limb; K74.60 Unspecified cirrhosis of liver; J44.9 Chronic obstructive pulmonary disease, unspecified; B19.20 Unspecified viral hepatitis C without hepatic coma; S61.451A Open bite of right hand, initial encounter; N40.0 Benign prostatic hyperplasia without lower urinary tract symptoms; F17.210 Nicotine dependence, cigarettes, uncomplicated; B96.89 Other specified bacterial agents as the cause of diseases classified elsewhere; M12.841 Other specific arthropathies, not elsewhere classified, right hand; S62.001A Unspecified fracture of navicular [scaphoid] bone of right wrist, initial encounter for closed fracture; Z96.652 Presence of left artificial knee joint; W55.01XA Bitten by cat, initial encounter; Z88.8 Allergy status to other drugs, medicaments and biological substances; Z91.030 Bee allergy status; Z79.899 Other long term (current) drug therapy; Z79.891 Long term (current) use of opiate analgesic
CPT/HCPCS: 36415; 80053; 83605; 85025; 85027; 85652; 86140; 87040; 87070; 87075; 87205; 96360; 99284

== ENCOUNTER 2022-12-18 20:29 | Inpatient (IN) | payer MEDICARE, BC ==
--- NOTE | 2022-12-18 21:27 | ED ---
General Adult HPI - General Chief complaint: Alcohol Stated complaint: ETOH, Psych Time Seen by Provider: 12/18/22 20:58 Source: EMS Mode of arrival: EMS Limitations: no limitations - History of Present Illness Initial comments: Dictation was produced using [employer] dictation software. please excuse any grammatical, word or spelling errors. Chief Complaint: 67-year-old male with past medical history of alcohol abuse presents to the ER for wanting to detox History of Present Illness: Patient's 67-year-old male he drinks. Daily. Celestino león states he drinks 12 beers daily and has been doing it for several years. Has had withdrawals in the past requiring him to be admitted for detox treatment use live in [place]. Patient last alcohol intake was approximately 3 hours ago. Patient denies any symptoms at this time. States that whenever he tries to stop drinking he gets severe shakes. The ROS documented in this emergency department record has been reviewed and confirmed by me. Those systems with pertinent positive or negative responses have been documented in the HPI. All other systems are other negative and/or noncontributory. - Related Data Home Medications Medication Instructions Recorded Confirmed Omeprazole 20 mg PO DAILY 05/28/19 12/18/22 lamoTRIgine 200 mg PO BID 05/28/19 12/18/22 Baclofen 5 mg PO TID PRN 10/22/22 12/18/22 FLUoxetine HCL [PROzac] 20 mg PO DAILY 10/22/22 12/18/22 Folic Acid 1 mg PO DAILY 10/22/22 12/18/22 Gabapentin [Neurontin] 100 mg PO TID 10/22/22 12/18/22 Propranolol [Inderal] 20 mg PO BID 10/22/22 12/18/22 Rifaximin [Xifaxan] 550 mg PO BID 10/22/22 12/18/22 Allergies Allergy/AdvReac Type Severity Reaction Status Date / Time albuterol [From ProAir HFA] Allergy Itching Verified 12/18/22 22:34 bee venom protein (honey bee) Allergy Swelling Verified 12/18/22 22:34 Review of Systems ROS Statement: Those systems with pertinent positive or pertinent negative responses have been documented in the HPI. ROS Other: All systems not noted in ROS Statement are negative. Past Medical History Past Medical History: COPD Additional Past Medical History / Comment(s): stage 4 liver cirrohsis with esophageal varices, rt foot drag, hepatitis C, enlarged prostate History of Any Multi-Drug Resistant Organisms: None Reported Additional Past Surgical History / Comment(s): knee replacement, lt shoulder repair, sinus, rt leg fracture as a child. Past Psychological History: Depression Smoking Status: Current every day smoker Past Alcohol Use History: None Reported Past Drug Use History: None Reported - Past Family History Father Family Medical History: Myocardial Infarction ([place]) Additional Family Medical History / Comment(s): several male family members with heart attacks Mother Family Medical History: COPD Sister(s) Family Medical History: Cancer General Exam - General Exam Comments Initial Comments: PHYSICAL EXAM: General Impression: Alert and oriented x3, not in acute distress HEENT: Normocephalic atraumatic, extra-ocular movements intact, pupils equal and reactive to light bilaterally, mucous membranes moist. Cardiovascular: Heart regular rate and rhythm Chest: Able to complete full sentences, no retractions, no tachypnea Abdomen: abdomen soft, non-tender, non-distended, no organomegaly Musculoskeletal: Pulses present and equal in all extremities, no peripheral edema Motor: no focal deficits noted Neurological: CN II-XII grossly intact, no focal motor or sensory deficits noted Skin: Intact with no visualized rashes Psych: Normal affect and mood Limitations: no limitations Course Vital Signs 12/18/22 20:50 Temperature 97.5 F L Pulse Rate 57 L Respiratory 18 Rate Blood Pressure 117/76 O2 Sat by Pulse 96 Oximetry Medical Decision Making - Medical Decision Making Was pt. sent in by a medical professional or institution (, PA, GRAINING MACHINE OPERATOR, urgent care, hospital, or snf...) When possible be specific @ -No Did you speak to anyone other than the patient for history (EMS, parent, family, police, friend...)? What history was obtained from this source @ -No Did you review nursing and triage notes (agree or disagree)? Why? @ -I reviewed and agree with nursing and triage notes Were old charts reviewed (outside hosp., previous admission, EMS record, old EKG, old radiological studies, urgent care reports/EKG's, snf records)? Report findings @ -No old charts were reviewed Differential Diagnosis (chest pain, altered mental status, abdominal pain women, abdominal pain men, vaginal bleeding, musculoskeletal, weakness, fever, dyspnea, syncope, headache, dizziness, GI bleed, back pain, seizure, CVA, palpatations, mental health)? @ -not applicable EKG interpreted by me (3pts min.). @ -My EKG interpretation: Ventricular rate 64, AZ interval 87, QRS 11, QTc 434. No AZ prolongation, no QTC prolongation, no ST or T-wave changes noted. Overall, this EKG is unremarkable X-rays interpreted by me (1pt min.). @ -None done CT interpreted by me (1pt min.). @ -None done U/S interpreted by me (1pt. min.). @ -None done What testing was considered but not performed or refused? (CT, X-rays, U/S, labs)? Why? @ -None What meds were considered but not given or refused? Why? @ -None Did you discuss the management of the patient with other professionals (karly montano i.e. , PA, GRAINING MACHINE OPERATOR, lab, RT, psych nurse, social contact worker, tank farm operator, teacher, agricultural extension officer, piano case and bench assembler)? Give summary @ -Case discussed with Dr. nguyen for admission Was smoking cessation discussed for >3mins.? @ -No Was critical care preformed (if so, how long)? @ -No Were there social determinants of health that impacted care today? How? (Homelessness, low income, unemployed, alcoholism, drug addiction, transportation, low edu. Level, literacy, decrease access to med. care, nursing home, rehab)? @ -No Was there de-escalation of care discussed even if they declined (Discuss DNR or withdrawal of care, Hospice)? DNR status @ -No What co-morbidities impacted this encounter? (DM, HTN, Smoking, COPD, CAD, Can cer, CVA, ARF, Chemo, Hep., AIDS, mental health diagnosis, sleep apnea, morbid obesity)? @ -None Was patient admitted / discharged? Hospital course, mention meds given and route, prescriptions, significant lab abnormalities, going to OR and other pertinent info. @ -67-year-old male presents to emergency department for alcohol withdrawal. V ital signs stable. Patient is showing withdrawal symptoms currently. There is concern that patient with the decompensation rapidly. He does report having had been admitted to the hospital for alcohol withdrawals in the past. Last EtOH intake was 3 hours prior to arrival. Patient will be admitted. Undiagnosed new problem with uncertain prognosis? @ -No Drug Therapy requiring intensive monitoring for toxicity (Heparin, Nitro, Insulin, Cardizem)? @ -No Were any procedures done? @ -No Diagnosis/symptom? Acute, or Chronic, or Acute on Chronic? Uncomplicated (w ithout systemic symptoms) or Complicated (systemic symptoms)? @ -1. Alcohol withdrawal Side effects of treatment? @ -No Exacerbation, Progression, or Severe Exacerbation? @ -No Poses a threat to life or bodily function? How? (Chest pain, [place], [place], pneumonia, PE, COPD, DKA, ARF, appy, cholecystitis, CVA, Diverticulitis, Homicidal, Suicidal, threat to staff... and all critical care pts) @ -yes - Lab Data Result diagrams: 12/18/22 22:50 12/18/22 22:50 Lab Results 12/18/22 12/18/22 Range/Units 22:50 22:50 WBC 5.6 (3.8-10.6) k/uL RBC 4.88 (4.30-5.90) m/uL Hgb 14.7 (13.0-17.5) gm/dL Hct 43.5 (39.0-53.0) % MCV 89.1 (80.0-100.0) fL MCH 30.1 (25.0-35.0) pg MCHC 33.8 (31.0-37.0) g/dL RDW 14.0 (11.5-15.5) % Plt Count 161 (150-450) k/uL MPV 8.1 Neutrophils % 58 % Lymphocytes % 31 % Monocytes % 6 % Eosinophils % 3 % Basophils % 1 % Neutrophils # 3.3 (1.3-7.7) k/uL Lymphocytes # 1.7 (1.0-4.8) k/uL Monocytes # 0.3 (0-1.0) k/uL Eosinophils # 0.2 (0-0.7) k/uL Basophils # 0.1 (0-0.2) k/uL Sodium 136 L (137-145) mmol/L Potassium 4.3 (3.5-5.1) mmol/L Chloride 100 (98-107) mmol/L Carbon Dioxide 24 (22-30) mmol/L Anion Gap 12 mmol/L BUN 12 (9-20) mg/dL Creatinine 0.62 L (0.66-1.25) mg/dL Est GFR (CKD-EPI)AfAm >90 (>60 ml/min/1.73 sqM) Est GFR (CKD-EPI)NonAf >90 (>60 ml/min/1.73 sqM) Glucose 105 H (74-99) mg/dL Calcium 8.8 (8.4-10.2) mg/dL Magnesium 2.0 (1.6-2.3) mg/dL Total Bilirubin 0.6 (0.2-1.3) mg/dL AST 130 H (17-59) U/L ALT 107 H (4-49) U/L Alkaline Phosphatase 77 (38-126) U/L Total Protein 6.9 (6.3-8.2) g/dL Albumin 4.4 (3.5-5.0) g/dL Serum Alcohol 151 mg/dL Disposition Clinical Impression: Alcohol withdrawal syndrome Disposition: ADMITTED IP TO THIS [facility] Condition: Fair Referrals: Ramses Hernández MD [Primary Care Provider] - 1-2 days Decision Time: 00:17
[2022-12-18 23:00] LABS: Basophils # (A) 0.1 k/uL (0-0.2); Basophils % (A) 1 %; Eosinophils # (A) 0.2 k/uL (0-0.7); Eosinophils % (A) 3 %; HCT 43.5 % (39.0-53.0); HGB 14.7 gm/dL (13.0-17.5); Lymphocytes # (A) 1.7 k/uL (1.0-4.8); Lymphocytes % (A) 31 %; MCH 30.1 pg (25.0-35.0); MCHC 33.8 g/dL (31.0-37.0); MCV 89.1 fL (80.0-100.0); Mean Platelet Volume 8.1; Monocytes # (A) 0.3 k/uL (0-1.0); Monocytes % (A) 6 %; Neutrophils # (A) 3.3 k/uL (1.3-7.7); Neutrophils % (A) 58 %; Platelet Count 161 k/uL (150-450); RBC 4.88 m/uL (4.30-5.90); WBC 5.6 k/uL (3.8-10.6)
[2022-12-18 23:10] LABS: ALT 107 U/L (4-49); AST 130 U/L (17-59); African American GFR (CKD) >90 (>60 ml/min/1.73 sqM); Albumin 4.4 g/dL (3.5-5.0); Alkaline Phosphatase 77 U/L (38-126); Anion Gap 12 mmol/L; Blood Urea Nitrogen 12 mg/dL (9-20); Calcium 8.8 mg/dL (8.4-10.2); Carbon Dioxide 24 mmol/L (22-30); Chloride 100 mmol/L (98-107); Glucose 105 mg/dL (74-99); Non-African American GFR(CKD) >90 (>60 ml/min/1.73 sqM); Potassium 4.3 mmol/L (3.5-5.1); Sodium 136 mmol/L (137-145); Total Bilirubin 0.6 mg/dL (0.2-1.3); Total Protein 6.9 g/dL (6.3-8.2)
[2022-12-18 23:14] LABS: Alcohol 151 mg/dL
[2022-12-19] MEDS ORDERED: THIAMINE 100 MG/ML 2 ML VIAL IM STA (00:13)
[2022-12-19] MEDS ORDERED: LORazepam 2 MG/ML INJ IV PRN (00:13)
[2022-12-19] MEDS ORDERED: NALOXONE 0.4 MG/ML 1 ML VIAL IV PRN (00:13)
[2022-12-19] MEDS: SODIUM CHLORIDE 0.9% 1,000 ML IV SCH ×2 (01:22→10:03)
[2022-12-19] MEDS: LORazepam 2 MG/ML INJ IV PRN ×5 (02:30→20:15)
[2022-12-19] MEDS: MELATONIN 5 MG TABLET PO PRN (02:35)
--- NOTE | 2022-12-19 03:49 | P.HPIM ---
History of Present Illness H&P Date: 12/19/22 Patient is a 67-year-old male with a PMH of alcoholic liver cirrhosis and COPD who presents to the emergency room with alcohol withdrawal. The patient reports that he is currently trying to quit alcohol use. He reports that his last drink was earlier today at around 4 PM. Reports daily drinking 12-16 beers. Reports feeling shaky at the time of interview. Denied chest discomfort or shortness of breath, abdominal pain, nausea, vomiting, diarrhea, fever, chills, cough. In the emergency room, EKG revealed normal sinus rhythm at [address]/T- wave changes noted as reviewed by me. Laboratory evaluation was remarkable for a serum alcohol level of 151, sodium 136, creatinine 0.62, AST 1:30, and ALT 107. Ed documentation reviewed and case discussed with ED provider. Review of systems: Pertinent positives and negatives as discussed in HPI, a complete review of systems was performed and all other systems are negative. Physical examination: Vital signs reviewed General: non toxic, no distress, appears at stated age, normal weight Derm: no unusual rashes/lesions, warm Head: atraumatic, normocephalic, symmetric Eyes: EOMI, no lid lag, anicteric sclera, pupils equal round reactive to light ENT: Nose and ears atraumatic Neck: No cervical lymphadenopathy, trachea midline, supple Mouth: no lip lesion, mucus membranes moist Cardiovascular: S1S2 reg, no murmur, positive dorsalis pedis pulse bilateral, no edema Lungs: CTA bilateral, no rhonchi, no rales, no accessory muscle use Abdominal: soft, nontender to palpation, no guarding Ext: muscle strength 5 out of 5 in all 4 extremities grossly, no gross muscle atrophy, no contractures, mild outstretched hand tremor with tongue fasciculations noted Neuro: CN II-XI grossly intact, no gross focal neuro deficits Psych: Alert, oriented, appropriate affect Assessment: Alcohol abuse, impending withdrawal Alcoholic liver cirrhosis Chronic conditions: COPD Imaging: In the emergency room, EKG revealed normal sinus rhythm at [address]/T- wave changes noted as reviewed by me. Data Review: Laboratory evaluation was remarkable for a serum alcohol level of 151, sodium 136, creatinine 0.62, AST 1:30, and ALT 107. Plan: CIWA protocol Continue with Ativan when necessary Continue thiamine and IV fluids Fall precautions Cardiac monitoring DVT prophylaxis: Heparin subq The patient is admitted with an anticipated greater than 2 midnight stay for evaluation of EtOH CODE STATUS: Full Code Discussed with: Patient Anticipated discharge place: Home Past Medical History Past Medical History: COPD Additional Past Medical History / Comment(s): stage 4 liver cirrohsis with esophageal varices, rt foot drag, hepatitis C, enlarged prostate History of Any Multi-Drug Resistant Organisms: None Reported Additional Past Surgical History / Comment(s): knee replacement, lt shoulder re pair, sinus, rt leg fracture as a child. Past Psychological History: Depression Smoking Status: Current every day smoker Past Alcohol Use History: None Reported Past Drug Use History: None Reported - Past Family History Father Family Medical History: Myocardial Infarction ([place]) Additional Family Medical History / Comment(s): several male family members with heart attacks Mother Family Medical History: COPD Sister(s) Family Medical History: Cancer Medications and Allergies Home Medications Medication Instructions Recorded Confirmed Type Omeprazole 20 mg PO DAILY 05/28/19 12/18/22 History lamoTRIgine 200 mg PO BID 05/28/19 12/18/22 History Baclofen 5 mg PO TID PRN 10/22/22 12/18/22 History FLUoxetine HCL [PROzac] 20 mg PO DAILY 10/22/22 12/18/22 History Folic Acid 1 mg PO DAILY 10/22/22 12/18/22 History Gabapentin [Neurontin] 100 mg PO TID 10/22/22 12/18/22 History Propranolol [Inderal] 20 mg PO BID 10/22/22 12/18/22 History Rifaximin [Xifaxan] 550 mg PO BID 10/22/22 12/18/22 History Allergies Allergy/AdvReac Type Severity Reaction Status Date / Time albuterol [From ProAir HFA] Allergy Itching Verified 12/18/22 22:34 bee venom protein (honey bee) Allergy Swelling Verified 12/18/22 22:34 Physical Exam Vitals: Vital Signs Temp Pulse Resp BP Pulse Ox 12/19/22 02:35 67 18 124/88 98 12/19/22 01:22 74 18 122/77 99 12/18/22 20:50 97.5 F L 57 L 18 117/76 96 Intake and Output 12/18/22 12/18/22 12/19/22 14:59 22:59 06:59 Other: Weight 71.668 kg Results CBC & Chem 7: 12/18/22 22:50 12/18/22 22:50 Labs: Abnormal Lab Results - Last 24 Hours (Table) 12/18/22 Range/Units 22:50 Sodium 136 L (137-145) mmol/L Creatinine 0.62 L (0.66-1.25) mg/dL Glucose 105 H (74-99) mg/dL AST 130 H (17-59) U/L ALT 107 H (4-49) U/L
[2022-12-19] MEDS: HEPARIN SODIUM,PORCINE/PF 5,000 UNIT/0.5 ML SYRINGE SQ SCH ×3 (10:02→23:31)
[2022-12-19] MEDS: NICOTINE 21MG/24HR PATCH TRANSDERM SCH (13:27)
[2022-12-19] MEDS: GABAPENTIN 100 MG CAP PO SCH ×2 (16:21→20:15)
[2022-12-19] MEDS: FOLIC ACID 1 MG TAB PO SCH (16:21)
[2022-12-19] MEDS: FLUoxetine HCL 20 MG CAP PO SCH (16:21)
[2022-12-19] MEDS: PANTOPRAZOLE 40 MG TABLET PO SCH (16:21)
[2022-12-19] MEDS: lamoTRIgine 100 MG TAB PO SCH (20:14)
[2022-12-19] MEDS: RIFAXIMIN 550 MG TABLET PO SCH (20:15)
[2022-12-19] MEDS: PROPRANOLOL 20 MG TAB PO SCH (20:15)
[2022-12-19] MEDS ORDERED: MELATONIN 5 MG TABLET PO SCH (21:00)
[2022-12-20 08:53] LABS: African American GFR (CKD) >90 (>60 ml/min/1.73 sqM); Anion Gap 6 mmol/L; Blood Urea Nitrogen 12 mg/dL (9-20); Calcium 8.9 mg/dL (8.4-10.2); Carbon Dioxide 28 mmol/L (22-30); Chloride 102 mmol/L (98-107); Glucose 93 mg/dL (74-99); Non-African American GFR(CKD) >90 (>60 ml/min/1.73 sqM); Potassium 4.2 mmol/L (3.5-5.1); Sodium 136 mmol/L (137-145)
[2022-12-20] MEDS: LORazepam 2 MG/ML INJ IV PRN ×3 (09:05→21:48)
[2022-12-20] MEDS: FLUoxetine HCL 20 MG CAP PO SCH (09:06)
[2022-12-20] MEDS: NICOTINE 21MG/24HR PATCH TRANSDERM SCH (09:06)
[2022-12-20] MEDS: GABAPENTIN 100 MG CAP PO SCH ×3 (09:06→21:32)
[2022-12-20] MEDS: RIFAXIMIN 550 MG TABLET PO SCH ×2 (09:06→21:31)
[2022-12-20] MEDS: PANTOPRAZOLE 40 MG TABLET PO SCH (09:07)
[2022-12-20] MEDS: THIAMINE 100 MG TAB PO SCH (09:07)
[2022-12-20] MEDS: HEPARIN SODIUM,PORCINE/PF 5,000 UNIT/0.5 ML SYRINGE SQ SCH ×3 (09:07→23:50)
[2022-12-20] MEDS: FOLIC ACID 1 MG TAB PO SCH (09:07)
[2022-12-20] MEDS: lamoTRIgine 100 MG TAB PO SCH ×2 (09:07→21:32)
[2022-12-20] MEDS: PROPRANOLOL 20 MG TAB PO SCH ×2 (09:08→21:31)
--- NOTE | 2022-12-20 12:03 | P.PN ---
Subjective Progress Note Date: 12/20/22 Hospital Course: 67-year-old male with a PMH of alcoholic liver cirrhosis and COPD who presents to the emergency room with alcohol withdrawal. Last drink on 12/18 at 4 PM. He reportedly drinks about 12-16 beers a day. Has had prior history of alcohol withdrawal and seizures. In the emergency room, EKG revealed normal sinus rhythm at [address]/T-wave changes noted as reviewed by me. Laboratory evaluation was remarkable for a serum alcohol level of 151, sodium 136, creatinine 0.62, AST 130, and ALT 107. Subjective: Patient seen and examined at bedside. Patient claims that he started to become more tremulous and increased anxiety. Denies any other complaints Pertinent positives and negatives as discussed above, a complete review of systems was performed and all other systems are negative. Vitals Signs Reviewed. General: nontoxic, no distress, appears at stated age Derm: warm, dry Head: atraumatic, normocephalic, symmetric Eyes: EOMI, no lid lag, anicteric sclera Mouth: no lip lesion, mucus membranes moist Cardiovascular: S1S2 reg, no murmur Lungs: CTA bilateral, no rhonchi, no rales , no accessory muscle use Abdominal: soft, nontender to palpation, no guarding, no appreciable organomegaly Ext: no gross muscle atrophy, no edema, no contractures Neuro: CN II-XI grossly intact, no focal neuro deficits, mild outstretch hand tremor Psych: Alert, oriented, appropriate affect Data Reviewed Today: Pertinent Labs: Sodium 136, creatinine 0.69 Imaging: No new imaging today Assessment and Plan: Active: Alcohol withdrawal Alcohol dependence Alcoholic liver cirrhosis, compensated Nicotine dependence -Currently not tachycardic or hypertensive, , however patient is on propranolol -Received 1 mg of IV Ativan this morning -Continue IV Ativan as needed based on CIWA scores, folic acid 1 mg and thiamine 100 mg continue -Counseled regarding cessation Chronic: COPD Depression DVT ppx: Subcu heparin Code status: Full code Anticipated discharge place: Pending clinical course Anticipated discharge time: Pending clinical course Objective - Vital Signs Vital signs: Vital Signs Temp 97.9 F 12/20/22 07:45 Pulse 67 12/20/22 07:45 Resp 14 12/20/22 07:45 BP 113/78 12/20/22 07:45 Pulse Ox 98 12/20/22 07:45 FiO2 Intake & Output 12/19/22 12/20/22 12/20/22 18:59 06:59 18:59 Intake Total 240 590 Balance 240 590 Intake: Oral 240 590 Other: Voiding Method Toilet # Voids 2 2 - Labs CBC & Chem 7: 12/18/22 22:50 12/20/22 07:51 Labs: Abnormal Lab Results - Last 24 Hours (Table) 12/20/22 Range/Units 07:51 Sodium 136 L (137-145) mmol/L
[2022-12-20] MEDS: MELATONIN 5 MG TABLET PO PRN (23:59)
[2022-12-21 03:06] VITALS: RESP 16
[2022-12-21] MEDS: SODIUM CHLORIDE 0.9% 1,000 ML IV SCH (05:46)
[2022-12-21] MEDS: NICOTINE 21MG/24HR PATCH TRANSDERM SCH (08:55)
[2022-12-21] MEDS: lamoTRIgine 100 MG TAB PO SCH (08:57)
[2022-12-21] MEDS: PANTOPRAZOLE 40 MG TABLET PO SCH (08:57)
[2022-12-21] MEDS: HEPARIN SODIUM,PORCINE/PF 5,000 UNIT/0.5 ML SYRINGE SQ SCH (08:57)
[2022-12-21] MEDS: GABAPENTIN 100 MG CAP PO SCH (08:57)
[2022-12-21] MEDS: FOLIC ACID 1 MG TAB PO SCH (08:57)
[2022-12-21] MEDS: THIAMINE 100 MG TAB PO SCH (08:57)
[2022-12-21] MEDS: FLUoxetine HCL 20 MG CAP PO SCH (08:57)
[2022-12-21] MEDS: PROPRANOLOL 20 MG TAB PO SCH (08:58)
[2022-12-21] MEDS: RIFAXIMIN 550 MG TABLET PO SCH (08:58)
[2022-12-21 11:41] VITALS: BP 116/68; PULSE 59; TEMP 97.4
--- NOTE | 2022-12-21 15:53 | P.DS ---
Providers Date of admission: 12/19/22 00:13 Expected date of discharge: 12/21/22 Attending physician: Nia Vigil MD Primary care physician: Ramses Hernández MD Hospital Course: Discharge Diagnosis: Alcohol intoxication with dependency and impedning withdrawal Kratom Use Alcoholic cirrhosis COPD, without exacerbation Hospital Course: Patient is a 67-year-old male with known alcoholic cirrhosis, alcohol dependency, and COPD who presented to the ER with wanting to detox for alcohol. In the ER he underwent an extensive evaluation. Laboratory analysis was remarkable for serum alcohol level of 151, sodium 136, AST 1:30, and ALT 107. He was admitted and started on the CIWA protocol. He did require multiple doses of IV Ativan. The last was 12 hours prior to discharge. He does admit to an increase in his drinking pattern as well as Gradum use since his son several months ago. He had no active signs of alcohol withdrawal, he declined wanting inpatient rehabilitation for his alcohol. He was subsequently determined stable for discharge home. Follow-up: Dr. Hernández in 1-2 days, discussed with the patient possibility of starting naltrexone if his primary care physician is in agreement. Patient seen and examined at bedside. He is having slight nausea, denies any tremors, lightheadedness, dizziness, hearing or seeing things. Vital signs reviewed and stable. General: nontoxic, no distress, appears at stated age Cardiovascular: S1S2 reg, no murmur, positive posterior tibial pulse bilateral, Lungs: CTA bilateral, no rhonchi, no rales , no accessory muscle use Abdominal: soft, nontender to palpation, no guarding, no appreciable organomegaly Ext: no gross muscle atrophy, no edema b/l lower extremities, no contractures Neuro: CN II-XI grossly intact, no focal neuro deficits Psych: Alert, oriented, appropriate affect A total of 25 minutes of time were spent preparing this complex discharge summary. Patient was discharged on 12/21/22. This dictation was prepared using [employer] voice recognition software. Though every attempt is made to correct errors during dictation some may still exist. Patient Condition at Discharge: Fair Plan - Discharge Summary Discharge Rx Participant: No New Discharge Prescriptions: New Thiamine [Vitamin B-1] 100 mg PO DAILY #30 tab Continue Omeprazole 20 mg PO DAILY lamoTRIgine 200 mg PO BID Propranolol [Inderal] 20 mg PO BID Baclofen 5 mg PO TID PRN PRN Reason: muscle spasms Rifaximin [Xifaxan] 550 mg PO BID Gabapentin [Neurontin] 100 mg PO TID Folic Acid 1 mg PO DAILY FLUoxetine HCL [PROzac] 20 mg PO DAILY Discharge Medication List Omeprazole 20 mg PO DAILY 05/28/19 [History] lamoTRIgine 200 mg PO BID 05/28/19 [History] Baclofen 5 mg PO TID PRN 10/22/22 [History] FLUoxetine HCL [PROzac] 20 mg PO DAILY 10/22/22 [History] Folic Acid 1 mg PO DAILY 10/22/22 [History] Gabapentin [Neurontin] 100 mg PO TID 10/22/22 [History] Propranolol [Inderal] 20 mg PO BID 10/22/22 [History] Rifaximin [Xifaxan] 550 mg PO BID 10/22/22 [History] Thiamine [Vitamin B-1] 100 mg PO DAILY #30 tab 12/21/22 [Rx] Follow up Appointment(s)/Referral(s): Ramses Hernández MD [Primary Care Provider] - 1-2 days Ambulatory/Diagnostic Orders: Comprehensive Metabolic Panel [LAB.AMB] Time Frame: 3 Days, Location: None Selected Activity/Diet/Wound Care/Special Instructions: Activity: As tolerated Diet: Regular Special Instructions: Please speak with Dr. Hernández about the possibility of naltrexone to maintain sobriety Continue to work on staying drug and alcohol free. Repeat blood work (CMP) in 3-7 days Thank you for trusting us with your care. We wish you well on your journey to better health. Discharge/Stand Alone Forms: AA Meetings [facility], Who Do I Call?, Community Resources, Outpatient Counseling, Inp Substance Abuse Facilities Discharge Disposition: HOME SELF-CARE
== END 2022-12-21 16:35 | disposition home or self-care (01) | DRG 897 ==
LOC: EC 20:29 → 5NMEDONC 12-19 00:13
PROVIDERS: ADMIT Internal Medicine; ATTEND Internal Medicine
DX: F10.229 Alcohol dependence with intoxication, unspecified (principal); F10.239 Alcohol dependence with withdrawal, unspecified; K70.30 Alcoholic cirrhosis of liver without ascites; J44.9 Chronic obstructive pulmonary disease, unspecified; B19.20 Unspecified viral hepatitis C without hepatic coma; Y90.6 Blood alcohol level of 120-199 mg/100 ml; N40.0 Benign prostatic hyperplasia without lower urinary tract symptoms; F32.A Depression, unspecified; Z79.899 Other long term (current) drug therapy; Z87.891 Personal history of nicotine dependence; Z96.659 Presence of unspecified artificial knee joint; Z88.8 Allergy status to other drugs, medicaments and biological substances; Z91.030 Bee allergy status
CPT/HCPCS: 36415; 80048; 80053; 80320; 83735; 85025; 93005; 96372; 96374; 96376; 99285

== ENCOUNTER → 2023-01-13 | Outpatient (CLI) | payer MEDICARE, BC ==
--- NOTE | 2023-01-15 13:20 | MR ---
EXAMINATION TYPE: MR lumbar spine wo con DATE OF EXAM: 01/13/2023 9:29 PM COMPARISON: 11/12/2017. CLINICAL INDICATION: Male, 67 years old with history of M47.26 OTHER SPONDYLOSIS WITH RADICULOPATHY,; Low back pain, spondylosis with radiculopathy TECHNIQUE: Multi planar, multi sequence imaging was performed utilizing: T1-weighted, T2-weighted, a nd turbo inversion recovery imaging of the lumbar spine. IV Contrast: None. FINDINGS: Alignment: The lumbar vertebral bodies have preserved heights with straightening of the alignment. Cord: The conus medullaris and the distal spinal cord appear unremarkable with regards to their signa l intensity and morphology. Bones/Discs: Multilevel degeneration changes throughout the spine with Modic endplate changes, osteop hytes, disc space narrowing, facet joint arthropathy and disc desiccation. There is adjoining endplat e inversion recovery signal contents compatible with bony edema at multiple levels where there is com plete loss of disc height. Findings have progressed from 2018 particularly T12-L1: No evidence of significant spinal canal stenosis or neural foraminal stenosis. L1-L2: Disc bulge and facet joint arthropathy result in mild spinal canal and moderate to severe bila teral neural foraminal stenosis. L2-L3: Disc bulge and facet joint arthropathy result in mild spinal canal and moderate bilateral neur al foraminal stenosis. L3-L4: Disc bulge and facet joint arthropathy result in mild spinal canal and moderate bilateral neur al foraminal stenosis. L4-L5: Disc bulge and facet joint arthropathy result in mild spinal canal and moderate right and hailey re left neural foraminal stenosis. L5-S1: The disc is rounded posterior morphology without significant spinal canal stenosis. Facet join t arthropathy with severe bilateral neural foraminal stenosis. No significant spinal canal or neural foraminal stenosis in the remainder of the visualized levels. Other findings: None. IMPRESSION: Overall findings have progressed with severe degeneration changes of the spine. 1. No definitive evidence of disc herniation or significant spinal canal stenosis. 2. Multilevel disc degeneration with associated osteoarthritic changes. Findings result in Severe bi lateral L5-S1 and left L4-L5 neural foraminal stenosis. These findings have mildly progressed from pr ior most pronounced at L5-S1.
== END | disposition home or self-care (01) ==
LOC: RADMRIMAIN 19:35
PROVIDERS: ATTEND Orthopaedic Surgery
DX: M51.16 Intervertebral disc disorders with radiculopathy, lumbar region (principal); M47.26 Other spondylosis with radiculopathy, lumbar region; M99.73 Connective tissue and disc stenosis of intervertebral foramina of lumbar region
CPT/HCPCS: 72148

== ENCOUNTER → 2023-05-31 | Outpatient (CLI) | payer MEDICARE, BC ==
--- NOTE | 2023-05-31 17:15 | US ---
EXAMINATION TYPE: US thyroid st tissue head/neck DATE OF EXAM: 05/31/2023 COMPARISON: NONE CLINICAL INDICATION: Male, 68 years old with history of R59.0 LOCALIZED ENLARGED LYMPH NODES; Palpabl e lumps right lateral neck and right submandibular region: Patient states he had multiple vaccination s last week Multiple abnormal appearing lymph nodes noted right submandibular region and right lateral neck; larg est measuring 2.0 x 1.2 x 1.7 cm; patient states he had multiple vaccinations last week. IMPRESSION: 1. Somewhat prominent lymph nodes present at the palpable regions. Clinical management and follow-up can be performed
== END | disposition home or self-care (01) ==
LOC: RADUSWWP 15:36
PROVIDERS: ATTEND Internal Medicine
DX: R59.0 Localized enlarged lymph nodes (principal)
CPT/HCPCS: 76536

== ENCOUNTER → 2023-06-17 | Outpatient (CLI) | payer MEDICARE, BC ==
[2023-06-17 16:06] LABS: African American GFR (CKD) >90 (>60 ml/min/1.73 sqM); Blood Urea Nitrogen 15 mg/dL (9-20); Non-African American GFR(CKD) >90 (>60 ml/min/1.73 sqM)
--- NOTE | 2023-06-17 16:39 | CT ---
EXAMINATION TYPE: CT soft tissue neck w con DATE OF EXAM: 06/17/2023 HISTORY: right sided neck swelling COMPARISON: CT neck November 12, 2017 CT DLP: 320.6 mGycm. Automated Exposure Control for Dose Reduction was Utilized. TECHNIQUE: CT scan of the neck is performed with IV Contrast, patient injected with 100 mL of Isovue 300, axial images are obtained, coronal and sagittal reformatted images are reviewed. FINDINGS: Airway: There is new 9 x 6 mm right upper lobe pulmonary nodule on axial image 1. Findings even new f rom most recent low-dose lung screening CT. Background mild underlying emphysematous changes redemons trated. New asymmetric soft tissue prominence on the right with local mass effect at level of the nasopharyng eal and oropharyngeal airways including torus tubarius axial image 74 for reference extending inferio rly through axial image 63. Local mass effect is present. Airway is patent but slightly deviated to l eft of midline. Hypopharyngeal airway level of epiglottis is unremarkable. Thyroid gland is within no rmal limits. Parotid/submandibular glands: Heterogeneous enlargement of the right parotid gland as there is suspe cted 2.7 x 2.1 cm posterior right sided solid mass or likely adenopathy on axial image 60. Carotid/Vascular Structures: Mild to moderate calcified plaque distal internal carotid arteries bilat erally incidentally noted. Dominant right vertebral artery incidentally noted . Osseous Structures: [id number] disc space narrowing and moderate spurring C5-C6 through the C7- T1 levels is present . Other: Abnormal right-sided neck adenopathy majority above the hyoid bone. For reference is a heterog eneous 2.3 x 1.8 cm mass or lymph node anterior to the right internal jugular vein axial image 52. A few prominent but subcentimeter lymph nodes below the hyoid bone. IMPRESSION: Abnormal right sided superior neck adenopathy with right-sided mucosal mass is strongly s uspicious for neoplasm. Advise direct visualization and/or CT follow-up. New suspicious 9 x 6 mm righ t upper lobe pulmonary nodule is worrisome for metastatic disease. Airway remains patent but is devia dena to left of midline.
== END | disposition home or self-care (01) ==
LOC: RADCTMAIN 15:02
PROVIDERS: ATTEND Otolaryngology
DX: R22.1 Localized swelling, mass and lump, neck (principal)
CPT/HCPCS: 82565; 84520; 70491; 36415; Q9967

== ENCOUNTER → 2023-06-22 | Outpatient (CLI) | payer MEDICARE, BC ==
[2023-06-22 12:47] LABS: Partial Thromboplastin Time 26.3 sec (22.0-30.0); Prothrombin Time 11.2 sec (10.0-12.5)
[2023-06-22 15:32] LABS: Basophils # (A) 0.08 X 10*3/uL (0.00-0.10); Basophils % (A) 1.3 %; Eosinophils % (A) 4.7 %; HCT 44.7 % (39.6-50.0); HGB 14.4 g/dL (13.0-17.0); Lymphocytes # (A) 1.34 X 10*3/uL (0.90-5.00); MCH 29.8 pg (27.0-32.0); MCHC 32.2 g/dL (32.0-37.0); MCV 92.5 FL (80.0-97.0); Mean Platelet Volume 11.2 FL (9.5-12.2); Monocytes # (A) 0.77 X 10*3/uL (0.20-1.00); Monocytes % (A) 12.1 %; NRBC Per 100 WBC 0 X 10*3/uL (0.00-0.01); Neutrophils # (A) 3.85 X 10*3/uL (1.80-7.70); Neutrophils % (A) 60.4 %; Platelet Count 226 X 10*3/uL (140-440); RBC 4.83 X 10*6/uL (4.40-5.60); RDW 13.4 % (11.5-14.5); WBC 6.37 X 10*3/uL (4.50-10.00)
[2023-06-22 17:11] LABS: Albumin 4.4 g/dL (3.8-4.9); Blood Urea Nitrogen 10.6 mg/dL (9.0-27.0); Carbon Dioxide 27.8 mmol/L (21.6-31.8); Chloride 100 mmol/L (96-109); Potassium 4.7 mmol/L (3.5-5.5); Sodium 139 mmol/L (135-145)
== END | disposition home or self-care (01) ==
LOC: LABPAT 11:42
PROVIDERS: ATTEND Otolaryngology
DX: Z01.818 Encounter for other preprocedural examination (principal); R59.0 Localized enlarged lymph nodes; K74.60 Unspecified cirrhosis of liver
CPT/HCPCS: 36415; 80051; 82040; 82565; 84520; 85025; 85610; 85730

== ENCOUNTER 2023-06-23 11:55 | Day surgery (SDC) | payer MEDICARE, BC ==
[~2023-06-23 11:55] MED LIST changes: +FAMOTIDINE 20 MG/2 ML VIAL IV PRN; +HYDROmorphone 0.5 MG/0.5 ML SYRINGE IVP PRN; +LIDOCAINE 1% (10MG/ML) FOR IV START INTRADERMA PRN; +ONDANSETRON 4 MG/2 ML VIAL IVP ONE; +Pre Op ABX Message 1 EACH MISC MISCELLANE ONE
[2023-06-23 12:55] LABS: Glucose,Whole Blood 98 mg/dL (70-110)
[2023-06-23] MEDS ORDERED: IPRATROPIUM-ALBUTEROL 3 ML NEB ONE (13:20)
[2023-06-23] MEDS ORDERED: LIDOCAINE 1% INJ 10MG/ML (20 ML MDV) ONE (13:55)
[2023-06-23] MEDS ORDERED: MIDAZOLAM 2 MG/2 ML VIAL ONE (13:55)
[2023-06-23] MEDS ORDERED: fentaNYL (PF) 50 MCG/ML 2 ML AMP ONE (13:55)
[2023-06-23] MEDS ORDERED: SUCCINYLCHOLINE CHLORIDE 200 MG/10 ML VIAL IV ONE (13:55)
[2023-06-23] MEDS ORDERED: ePHEDrine 50 MG/ML 1 ML VIAL ONE (13:55)
[2023-06-23] MEDS ORDERED: PROPOFOL 10 MG/ML 20 ML VIAL IV ONE (13:55)
--- NOTE | 2023-06-23 14:43 | P.OP ---
Date of Procedure: 06/23/23 Preoperative Diagnosis: Right oropharyngeal mass Right cervical lymphadenopathy Postoperative Diagnosis: Same Procedure(s) Performed: Microlaryngoscopy and direct laryngoscopy with biopsy right oropharyngeal mass Rigid esophagoscopy Flexible bronchoscopy Fine-needle aspiration right cervical lymphadenopathy Anesthesia: ERICA Surgeon: Kyle Hays Estimated Blood Loss (ml): 2 Pathology: other (Right oropharyngeal biopsy and fine-needle aspiration right cervical lymph node) Condition: stable Disposition: PACU Indications for Procedure: This 68-year-old white male who presented with right cervical lymphadenopathy. He was noted to have a right oropharyngeal mass on physical exam also. In the meantime he has had CT of the neck which showed the oropharyngeal mass and cervical lymph nodes but also a 9 mm right upper lobe pulmonary nodule and CT of the chest is pending Operative Findings: 2 right cervical nodes midjugular and posterior triangle approximately 2 cm each firm and nontender mobile, approximate 4 x 3 cm right posterior oropharyngeal mass posterior to the tonsillar fossa and approximate 4 cm in height up into the lateral nasopharynx erythematous and papillomatous in nature this by palpation appeared free from the underlying deeper tissues. Rigid esophagoscopy and flexible bronchoscopy unremarkable Description of Procedure: Patient brought in the operative suite and placed in a supine position. Patient underwent induction of general anesthesia with oral endotracheal intubation without difficulty. The patient was prepped and draped in usual aseptic fashion. Fine-needle aspiration with 22-gauge needle was performed in the right mid jugular lymph node twice with the specimen placed in Cytolyte solution and sent to pathology. Good hemostasis noted sterile Band-Aid placed. Gum guard was placed. Rigid esophagoscopy was performed to 35 cm from the upper gingiva with no abnormalities noted and the esophagoscope was then withdrawn with again no abnormalities noted and no trauma to the mucosa noted. Direct laryngoscopy was then performed with systematic evaluation of the base of tongue vallecula both piriform sinuses post cricoid area and endolarynx. No abnormalities were noted. The laryngoscope was placed in suspension and microscopy was also utilized for the larynx and no abnormalities were noted. With the laryngoscope in suspension flexible bronchoscopy was performed by passing the endotracheal tube to evaluate the distal trachea and primary down to the secondary bronchi bilaterally with no abnormalities noted. The bronchoscope was then withdrawn. Laryngoscope was then removed. The McIvor mouth gag was then placed. The right oropharyngeal mass was palpated. Multiple biopsies were taken in the midportion of this lesion for permanent section. Hemostasis was gained with suction cautery. Once good hemostasis was noted the McIvor mouth gag was removed the patient was allowed to emerge from general anesthesia having tolerated procedure well was extubated in the operating suite and transferred to the postop recovery area in satisfactory
[2023-06-23 15:27] VITALS: RESP 16; TEMP 96.8
[2023-06-23 16:12] VITALS: BP 133/88; PULSE 64
== END 2023-06-23 16:15 | disposition home or self-care (01) ==
LOC: OR 11:55
PROVIDERS: ATTEND Otolaryngology
DX: C10.9 Malignant neoplasm of oropharynx, unspecified (principal); J39.2 Other diseases of pharynx
CPT/HCPCS: 31622; 31536; 88305; 88173; 88342; 88341; C1763; J2250; J0330; J2405; J2001; J3010; J3490; J2704

== ENCOUNTER → 2023-06-30 | Outpatient (CLI) | payer MEDICARE, BC ==
[2023-06-30 12:44] LABS: African American GFR (CKD) >90 (>60 ml/min/1.73 sqM); Blood Urea Nitrogen 11 mg/dL (9-20); Non-African American GFR(CKD) >90 (>60 ml/min/1.73 sqM)
--- NOTE | 2023-06-30 13:53 | CT ---
EXAMINATION TYPE: CT chest wo/w con CT DLP: 530.4 mGycm, Automated exposure control for dose reduction was used. DATE OF EXAM: 06/30/2023 1:12 PM COMPARISON: CT chest 03/09/2023, 05/29/2022 CLINICAL INDICATION:Male, 68 years old with history of R91.1 SOLITARY PULMONARY NODULE; PHH, lung nod ule TECHNIQUE: Multiple axial images were obtained through the chest. Sagittal and coronal reformats were created for review. Contrast used:100 mL of Isovue 300 with IV Contrast (None if empty) Oral contrast used: (None if empty) FINDINGS: LUNGS/ PLEURA: Scattered pulmonary nodules measuring up to 11 mm in the right upper upper lobe series 3 image 16 and in the left upper lobe measuring up to 11 mm. These are both 4 mm on the prior exam. Additional smaller nodules are present and new from prior AIRWAY: Patent and unremarkable. HEART: Size within normal limits. Mild atherosclerosis of the coronary arteries. MEDIASTINUM: No gross evidence of adenopathy. VASCULATURE: No aortic aneurysm. Assigning thoracic aorta ectasia up to 4.1 cm. MUSCULOSKELETAL: No acute osseous abnormalities SOFT TISSUES/LYMPH NODES: Unremarkable. LOWER NECK: No significant findings. UPPER ABDOMEN: No significant findings. IMPRESSION: New increasing size of scattered pulmonary nodules compared to 03/09/2023. Concerning for metastatic disease. Further workup recommended for primary source, correlate with history of malignan cy.
== END | disposition home or self-care (01) ==
LOC: RADCTMAIN 12:05
PROVIDERS: ATTEND Otolaryngology
DX: Z13.9 Encounter for screening, unspecified (principal); R91.8 Other nonspecific abnormal finding of lung field; R91.1 Solitary pulmonary nodule
CPT/HCPCS: 82565; 84520; 71270; 36415; Q9967

== ENCOUNTER → 2023-07-22 | Outpatient (CLI) | payer MEDICARE, BC ==
--- NOTE | 2023-07-25 15:26 | PE ---
EXAMINATION TYPE: PET CT fusion skull to thigh DATE OF EXAM: 07/22/2023 COMPARISON: CT soft tissue neck on 10/02/2023, CT chest 06/30/2023 Prior PET/CT: None at this location HISTORY: Malignant neoplasm tonsils TECHNIQUE: Following the intravenous administration of 12.61 mCi of F-18 FDG, whole body images are performed from the skull base to the midthigh. Images are reviewed on the computer in the coronal, a xial, and sagittal planes. Reconstructed rotating images are created on independent workstation and reviewed on the computer. A localization and attenuation correction CT is performed in conjunction with the PET scan. DLP: 471.92 mGycm SCAN: Initial Blood glucose: 91 mg/dL Average Mediastinum SUV: 1.57 Average Liver SUV: 2.02 FINDINGS: NECK: There is marked increased uptake within the right tonsillar region extending to the level of t he skull base. This has marked increased uptake with an SUV of 11.8 exam: Image 17. Tonsillar pillar uptake is evident extending to the hypopharynx, example image 32. Posterior triangle lymphadenopathy is present with marked increased uptake within an SUV of 12.79, ex ample image 30. Additional abnormal lymph node is in the parotid region, image 38, SUV 16.8. Posterio r triangle lymph node, image 39 has an SUV of 5. Additional right posterior triangle lymph nodes are present with abnormal uptake, example image 50, SUV 9.07 anterior and 8.4 SUV posterior THORAX: There is posterior tracheal lymph node on the right in the superior mediastinum, image 80, GUTIERRES V 13.4. Paraesophageal lymph node with elevated SUV of 14.39 is present image 103 Pulmonary nodules are present bilaterally with abnormal uptake, example images 84, SUV 8.5, image 81, SUV 2.41, image 95, SUV 4.08, image 98, SUV 5.08, image 117, SUV 10.31, image 114, SUV 13.53, image 116, SUV 8.81, image 124, SUV 10 ABDOMEN: No abnormal uptake PELVIS: No abnormal uptake OSSEOUS STRUCTURES: There is a focus of radiotracer accumulation within the left body of the lower ce rvical spine in the region of T6. LOCALIZATION CT: Mass fills the right torus tubarius and effaces the fossa of Rosenmuller. Soft tissu e extends to the skull base. Is displacement of the posterior oropharynx to the left. Multiple bilate ral lung nodules have elevated radiotracer on the PET scan images. COMPARISON: Findings appear comparable to the CT soft tissue neck and CT chest. IMPRESSION: 1. Soft tissue mass with abnormal radiotracer effacing the right torus tubarius extending to the skul l base to the hypopharynx through the right tonsillar pillar compatible with neoplasm. 2. Multiple lung nodules with abnormal radiotracer uptake compatible with metastasis. 3. Metastatic lesions also present within mediastinal lymph nodes discussed above. 4. Focus of osseous radiotracer within the right T6 vertebral body suspicious for metastasis
== END | disposition home or self-care (01) ==
LOC: RADPETMAIN 09:37
PROVIDERS: ATTEND Radiology Radiation Oncology
DX: C77.1 Secondary and unspecified malignant neoplasm of intrathoracic lymph nodes (principal); C09.8 Malignant neoplasm of overlapping sites of tonsil; R91.8 Other nonspecific abnormal finding of lung field
CPT/HCPCS: 78815; A9552

== ENCOUNTER 2023-07-29 12:39 | Day surgery (SDC) | payer MEDICARE, BC ==
[~2023-07-29 12:39] MED LIST changes: -FAMOTIDINE 20 MG/2 ML VIAL IV PRN; -HYDROmorphone 0.5 MG/0.5 ML SYRINGE IVP PRN; -ONDANSETRON 4 MG/2 ML VIAL IVP ONE; -Pre Op ABX Message 1 EACH MISC MISCELLANE ONE
[2023-07-29] MEDS: LACTATED RINGERS 1,000 ML IV SCH (13:15)
[2023-07-29] MEDS: ONDANSETRON 4 MG/2 ML VIAL ONE (13:24)
--- NOTE | 2023-07-29 13:40 | CT ---
Exam: CT Chest without contrast. Date: 07/29/2023. Comparison: 06/30/2023. History: Evaluation for bronchoscopy. Technique: CT examination of the chest was performed without contrast. Coronal and sagittal reformats were performed. CT dose lowering techniques were used, to include: automated exposure control, adjus tment for patient size, and/or use of iterative reconstruction. FINDINGS: Mediastinum and [place]: There is no axillary, mediastinal or hilar lymphadenopathy. Pleural and Pericardial spaces: There are no pleural or pericardial effusions. Upper Abdomen: The visualized upper abdomen is unremarkable. Cardiovascular: The thoracic aorta is normal in size. There are moderate patchy coronary calcificatio ns. Lung Parenchyma and Airways: 5.2 mm right upper lobe pulmonary nodule seen on series 4 image 62 is la rger than the previous examination where it previously measured approximately 3 mm. Right upper lobe pulmonary nodule measuring 1.2 cm previously measured 9.4 mm and is seen on series 4 image 89. New ri ght upper lobe nodule measuring 4.7 mm on series 4 image 99. 4 mm right upper lobe nodule on series 4 image 115 previously measured 3.5 mm. 6.8 mm right upper lobe nodule on series 4 image 141 previousl y measured 4.4 mm. 6.4 mm right upper lobe nodule on series 4 image 148 previously measured 5.9 mm. 5 .9 mm right middle lobe pulmonary nodule on series 4 image 163. This measures 3.6 mm. There are 3 mm right lower lobe nodule on series 4 image 182. A 3 mm pleural-based nodule in the right middle lobe o n series 4 image 254. 6.3 mm left upper lobe nodule on series 4 image 40 IVC measured 5.1 mm and is s een on series 4 image 47.4 mm left upper lobe nodule on series 4 image 94 previously measured 4.8 mm 5.3 mm left upper lobe pulmonary nodule on series 4 image 137 is slightly larger than the previous ex amination. 1.2 cm left upper lobe nodule in the lingular segment on series 4 image 245 previously mckenzie sured 9.4 mm. Mild centrilobular and paraseptal emphysema. Bones: No fracture or aggressive osseous lesion. IMPRESSION: 1. Numerous enlarging pulmonary nodules and several new pulmonary nodules when compared to the previo us examination compatible with malignancy/metastasis. 2. Mild emphysema.
[2023-07-29] MEDS ORDERED: SUCCINYLCHOLINE CHLORIDE 200 MG/10 ML VIAL IV ONE (14:07)
[2023-07-29] MEDS ORDERED: ROCURONIUM 10 MG/ML (5 ML VIAL) IV ONE (14:07)
[2023-07-29] MEDS ORDERED: PROPOFOL 10 MG/ML 20 ML VIAL IV ONE (14:07)
[2023-07-29] MEDS ORDERED: PHENYLEPHRINE-0.9% NACL SYG 1,000 MCG/10 ML SYRINGE ONE (14:07)
[2023-07-29] MEDS ORDERED: GLYCOPYRROLATE 0.2 MG/ML 2 ML VIAL ONE (14:07)
[2023-07-29] MEDS ORDERED: ePHEDrine 50 MG/ML 1 ML VIAL ONE (14:07)
[2023-07-29] MEDS ORDERED: LIDOCAINE 1% INJ 10MG/ML (20 ML MDV) ONE (14:07)
[2023-07-29] MEDS ORDERED: NEOSTIGMINE 1 MG/ML 10 ML VIAL ONE (14:07)
[2023-07-29] MEDS ORDERED: fentaNYL (PF) 50 MCG/ML 2 ML AMP ONE (14:07)
[2023-07-29 16:05] VITALS: TEMP 97
--- NOTE | 2023-07-29 16:06 | P.PCN ---
Date of Procedure: 07/29/23 Description of Procedure: Preoperative Diagnosis: Multiple bilateral pulmonary nodules consistent with metastatic disease Mediastinal lymphadenopathy involving the posterior trachea/superior mediastinal lymph node and paraesophageal lymph node Postoperative Diagnosis: same Procedure(s) Performed: Flexible bronchoscopy Robotic-assisted bronchoscopy and addition to radial ultrasound evaluation of the right upper lobe pulmonary nodule #1 (8mm) and pulmonary nodule #2 (11 mm) Robotic-assisted transbronchial needle aspirate, transbronchial biopsies of the right upper lobe pulmonary nodule #1 Robotic-assisted transbronchial needle aspirate and transbronchial biopsy and brushing of the pulmonary nodule #2 Endobronchial ultrasound Transbronchial needle aspirate of posterior obstructive/superior mediastinal lymph node and paraesophageal lymph node, Ebus guided Anesthesia: GETA Surgeon: Honey Vallecillo Estimated Blood Loss (ml): 0 Pathology: other Condition: stable Disposition: same day Operative Findings: A physical exam was performed. Informed consent was obtained from the patient after explaining all the risks (pneumothorax, life threatening bleeding, infection and adverse effects due to medications), benefits and alternatives to the procedure which the patient appeared to understand and so stated. The patient was connected to the monitoring devices. General anesthesia was induced and the patient was intubated by anesthesia. A final timeout was performed and the procedure confirmed by the attending staff bronchoscopist. The bronchoscope was inserted and the airway examined. The flexible bronchoscope was removed and the robotic bronchoscope was inserted. Registration was completed. I next guided the robotic bronchoscope using the navigation system into the anterior segment of the right upper lobe directing it towards pulmonary nodule #1. Once in proper position, the bronchoscope was frozen. The radial EBUS probe was placed through the bronchoscope and confirmed abnormal u/s images vs normal lung. A needle was placed through the working channel and under fluoroscopic guidance, we sampled the area thought to have the mass twice. We then used a cloud biopsy pattern with ultrasound confirmation for 2 additional passes with the needle. U/S evaluation was then used to reconfirm location. Forceps were next introduced through working channel and extended the appropriate distance and 3 transbronchial biopsies were performed using fluoroscopic guidance. The u/s probe was then reinserted to confirm location. When confirmed this process was repeated for a total of 8-10 transbronchial biopsies. Following that, the robotic bronchoscope was directed to the posterior segment of the right upper lobe and it was guided using the navigation system hours pulmonary nodules #2. Once in proper position, the bronchoscope was frozen. The radial EBUS probe was placed through the bronchoscope and confirmed abnormal u/s images vs lymph nodes lung. A needle was placed through the working channel and under fluoroscopic guidance, we sampled the area thought to have the mass twice. We then used a cloud biopsy pattern with ultrasound confirmation for 2 additional passes with the needle. U/S evaluation was then used to reconfirm location. Forceps were next introduced through working channel and extended the appropriate distance and 2 transbronchial biopsies were performed using fluoroscopic guidance. The u/s probe was then reinserted to confirm location. When confirmed this process was repeated for a total of 8-10 transbronchial biopsies. After reassessment with EBUS, a brush was placed through the extendable working channel for 1 pass with fluoroscopic guidance. U/S evaluation was then used to confirm location. Subsequently, the catheter guide was removed and the patient was disconnected from the robot. Endobronchial ultrasound was inserted for mediastinal lymph nodes evaluation. A complete examination of the mediastinal lymph nodes revealed a 2 abnormal lymph nodes within the mediastinum. The first lymph node was located in the posterior tracheal/superior mediastinal area and the neck measurement of the lymph nodes revealed that this was a 60 mm lymph node. Transbronchial needle aspirate of the lymph nodes was done using a 22-gauge needle and a total of 3 passes were taken without any complications. Following that, endobronchial ultrasound was directed towards the second lymph node which was located in the paraesophageal area and this lymph node was measuring 11 mm in size. Using a 22-gauge needle, transbronchial needle aspirate of the lymph node was done with a total of 3 passes. No complications. No endobronchial ultrasound was removed. Flex. bronchoscope was inserted and regular suctioning was done. At the completion of the procedure, no residual secretions or bloody material within the airway. The bronchoscope was removed. The patient was extubated. FINDINGS: 1.The airways appeared normal 2 Successful navigation, ultrasonographic identification, and biopsies of the right upper lobe pulmonary nodules including nodule #1 nausea #2 3.The the radial ultrasound view was concentric 4. endobronchial ultrasound with transbronchial needle aspirate of paraesophageal and posterior tracheal lymph nodes were done. RECOMMENDATIONS: Await pathology and cytology results The referring physician will be alerted to the results when available. The patient was advised to follow up with the referring physician with the biopsy results Patient will be called with results.
--- NOTE | 2023-07-29 16:26 | XR ---
EXAMINATION TYPE: XR chest 1V portable DATE OF EXAM: 07/29/2023 COMPARISON: NONE HISTORY: Right-sided bronchi. TECHNIQUE: Single frontal view of the chest is obtained. IMPRESSION: Hazy opacity in the right upper lobe laterally has a slightly rounded appearance and could represent pulmonary hemorrhage given the history of recent bronchoscopy. Infection would not be excluded. The p ulmonary nodule seen on the recent chest CT of 07/29/2023 not well visualized on this examination. The cardiac silhouette and pulmonary vessels are within normal limits.
[2023-07-29 16:34] VITALS: RESP 16
[2023-07-29 17:02] VITALS: BP 104/68; PULSE 74
--- NOTE | 2023-07-30 08:50 | FL ---
EXAMINATION TYPE: FL bronchoscopy Intraoperative/procedural fluoroscopic services were provided. Tota l fluoroscopy time is 2 minutes 18 seconds with a total of 5 submitted images to PACS. Please see the operative/procedural note for further details. DAP: 4.5813 Gycm2
== END 2023-07-29 17:16 | disposition home or self-care (01) ==
LOC: ORWHC2ENDO 12:39
PROVIDERS: ATTEND Internal Medicine Critical Care Medicine
DX: C34.11 Malignant neoplasm of upper lobe, right bronchus or lung (principal)
CPT/HCPCS: 88305; 88342; 88341; 71045; 71250; 31628; 31629; 31623; 31652; J0330; J2710; J2405; J2001; J3010; J2704; J2371; S2900

== ENCOUNTER → 2023-08-11 | Outpatient (CLI) | payer MEDICARE, BC ==
--- NOTE | 2023-08-11 10:20 | CT ---
EXAMINATION TYPE: CT thor lumbar spine wo con DATE OF EXAM: 08/11/2023 COMPARISON: PET CT 07/22/2023 HISTORY: 68-year-old male S24.112A LESION T SPINE M54.9 DORSALGIA M54.6 PAIN, BACK PAIN FOR 3 WEEKS TECHNIQUE: Contiguous axial scanning of the thoracic and lumbar spine without IV contrast. Coronal an d sagittal reconstructions performed. CT DLP: 781.4 combined mGycm Automated exposure control for dose reduction was used. FINDINGS: Thoracic spine: Known scattered metastatic pulmonary nodules measuring up to 1.6 cm. Advanced degenerative disc disease C7-T1. Ayzm-nw-ighzvquj multilevel degenerative disc disease thoracic spine with disc space narrowing and sm all posterior discussed by complexes. By CT, no large focal disc herniation or migue canal compromise is seen. Vertebral body heights are preserved and alignment is maintained. On the right, appears to be a moderate neural foraminal stenosis at T10-T11 and on the left at T9-T10 . Also, severe on both sides at T2-T3 and moderate bilaterally at T1-T2 and T3-T4. Lumbar spine: Multilevel facet arthropathy with degenerative grade 1 retrolistheses T12-L5 levels. There is severe degenerative disc disease and endplate spondylosis throughout along with hypertrophic facet arthropathy especially mid to lower lumbar spine. Slight anterior wedging T12 is a chronic finding, unchanged back to 05/29/2022. Otherwise, vertebral body heights are preserved. Posterior disc osteophyte complexes contribute to mild multilevel spinal canal stenoses, possible mor e mild to moderate at T11-T12. There are moderate to severe bilateral neuroforaminal stenoses present throughout. IMPRESSION: THORACIC SPINE: 1. MILD TO MODERATE MULTILEVEL DEGENERATIVE DISC DISEASE. SCATTERED FACET ARTHROPATHY. NO VERTEBRAL C OMPRESSION COLLAPSE OR MALALIGNMENT. 2. SEVERE BILATERAL NEUROFORAMINAL STENOSIS AT T2-T3 AND MODERATE ON BOTH SIDES AT A COUPLE ADDITIONA L LEVELS IN THE UPPER AND LOWER THORACIC SPINE. 3. KNOWN METASTATIC PULMONARY NODULES. LUMBAR SPINE: 4. Advanced degenerative changes throughout the lumbar spine. Degenerative grade 1 retrolistheses fro m T12 through L5 levels. 5. Similar minimal anterior wedge deformity of T12, chronic and unchanged back to at least 05/29/2022 . 6. Variable mild spinal canal stenoses throughout. Possibly more mild to moderate at T11-T12. 7. Moderate to severe bilateral neural foraminal stenoses throughout the lumbar spine on both sides.
== END | disposition home or self-care (01) ==
LOC: RADCTMAIN 08:53
PROVIDERS: ATTEND Orthopaedic Surgery
DX: C78.00 Secondary malignant neoplasm of unspecified lung (principal); C80.1 Malignant (primary) neoplasm, unspecified; M51.34 Other intervertebral disc degeneration, thoracic region; M99.72 Connective tissue and disc stenosis of intervertebral foramina of thoracic region; M47.816 Spondylosis without myelopathy or radiculopathy, lumbar region; M43.16 Spondylolisthesis, lumbar region; M51.36 Other intervertebral disc degeneration, lumbar region; M48.061 Spinal stenosis, lumbar region without neurogenic claudication; S24.112A Complete lesion at T2-T6 level of thoracic spinal cord, initial encounter
CPT/HCPCS: 72128; 72131

== ENCOUNTER → 2023-08-24 | Outpatient (CLI) | payer MEDICARE, BC ==
--- NOTE | 2023-08-28 11:42 | MR ---
EXAMINATION TYPE: MR thoracic spine wo/w con DATE OF EXAM: 08/24/2023 9:30 PM CLINICAL INDICATION:Male, 68 years old with history of S24.112A LESION T SPINE; PHH, Mid back pain, H x of Lung, Back and Throat cancer COMPARISON: Pet/CT 07/22/2023, chest 07/29/2023. TECHNIQUE: Multi planar, multi sequence imaging was performed utilizing: T1-weighted, short-tau inver thao recovery and T2-weighted of the thoracic spine. IV Contrast: 7 cc Gadavist (none if empty) FINDINGS: Alignment: There is straightened alignment of the spine with increased kyphosis at the thoracolumbar junction with some mild wedging and disc space loss.. Mild wedging of a few vertebrae No evidence for acute fracture. Spinal cord: Spinal cord is within normal limits for signal. No abnormal postcontrast enhancement. Discs: Intervertebral disc signal is maintained. No evidence of significant spinal canal or neural fo raminal stenosis. Facet joint arthropathy with severe T2-T3 neural foraminal stenosis bilaterally. Th ere is also T9-T10 to moderate bilateral and T10-T11 severe right neural foraminal stenosis. Spinal c anal is patent. Osseous structures: Multilevel degeneration changes throughout the spine with osteophyte formation, f acet joint arthropathy, Schmorl's nodes. Multilevel osteophyte formation and facet joint arthropathy. Scattered disc space narrowing. No abnormal enhancement within the thoracic spine at C6 partially vi sualized as a metastatic lesion enhancing. Scattered metastatic disease as seen on priors including a 12 mm pulmonary nodule in the right lung. IMPRESSION: 1. Finding on prior PET/CT in the T6 vertebrae has no correlate on MRI findings. No evidence for met astatic disease within the thoracic spine. Finding is felt to represent a dictation error on prior re port. There is a C6 vertebral body metastatic disease lesion present on prior PET/CT. 2. Moderate multilevel degeneration changes throughout the spine with severe bilateral T2-T3 and rig ht T10-T11 neural foraminal stenosis secondary to facet joint arthropathy. 3. No evidence for significant spinal canal stenosis.
== END | disposition home or self-care (01) ==
LOC: RADMRIMAIN 20:45
PROVIDERS: ATTEND Orthopaedic Surgery
DX: C79.51 Secondary malignant neoplasm of bone (principal); M99.72 Connective tissue and disc stenosis of intervertebral foramina of thoracic region; M47.814 Spondylosis without myelopathy or radiculopathy, thoracic region; C34.90 Malignant neoplasm of unspecified part of unspecified bronchus or lung; C32.9 Malignant neoplasm of larynx, unspecified; S24.112A Complete lesion at T2-T6 level of thoracic spinal cord, initial encounter; X58.XXXA Exposure to other specified factors, initial encounter
CPT/HCPCS: 72157; A9585

== ENCOUNTER → 2023-09-01 | Outpatient (CLI) | payer MEDICARE, BC ==
--- NOTE | 2023-09-04 17:42 | MR ---
EXAMINATION TYPE: MR brain wo/w con DATE OF EXAM: 09/01/2023 4:51 PM CLINICAL INDICATION:Male, 68 years old with history of C76.0 MALIGNANT NEOPLASM OF HEAD, FACE AND NEC K; PHH, Head and neck cancer, lung nodule COMPARISON: Pet/CT 07/22/2023. TECHNIQUE: Multi planar, multi sequence imaging was performed through the brain including: T1, T2, In version recovery, susceptibility weighted imaging and gradient echo imaging and Diffusion weighted im aging. The patient was then given intravenous contrast and multi planar, T1 fat-saturation images wer e obtained. IV Contrast: 7 cc Gadavist FINDINGS: Enhancing mass within the right lateral oropharynx measuring at least 2.6 x 1.7 cm partially visualiz ed in the tyonj-ba-rbhd. This extends up towards the skull base. There is abnormal signal within the base of the skull near the clivus series 801 image 36 and image 25 Mild cerebral atrophy with proportional dilation of ventricular system. Diffusion-weighted imaging s hows no evidence of restricted diffusion to suggest acute/subacute infarct. Intracranial arterial jenifer w voids are maintained. Midline structures show no abnormality. Scattered foci of high T2 signal inte nsity are seen within the periventricular white matter. The susceptibility weighted images do not rev eal any evidence for micro-hemorrhage. After administration of gadolinium, no intra-axial abnormal en hancement is seen. The bone marrow signal is within normal limits. Paranasal sinuses and mastoid air cells: Moderate scattered paranasal sinus disease worse in the maxi llary sinuses with mucosal thickening and retention cysts.. Visualized orbits: Orbital contents are intact. IMPRESSION: 1. Enhancing mass within the right lateral pharyngeal recess mucosal mass compatible with given hist ory of head and neck cancer. The mass extends into the skull base with abnormal bone marrow signal co ncerning for osseous metastatic disease. No evidence for intra-axial metastatic disease at this time. 2. No evidence of intracranial mass, acute/subacute infarct, or abnormal intra-axial enhancement. 3. Nonspecific white matter changes, likely related to small vessel ischemic disease.
== END | disposition home or self-care (01) ==
LOC: RADMRIMAIN 15:54
PROVIDERS: ATTEND Internal Medicine Hematology & Oncology
DX: C76.0 Malignant neoplasm of head, face and neck (principal); R90.82 White matter disease, unspecified; R91.1 Solitary pulmonary nodule; J44.9 Chronic obstructive pulmonary disease, unspecified; K70.30 Alcoholic cirrhosis of liver without ascites
CPT/HCPCS: 70553; A9585

== ENCOUNTER → 2023-09-28 | Outpatient (CLI) | payer MEDICARE, BC ==
--- NOTE | 2023-09-28 18:13 | MR ---
EXAMINATION TYPE: MR cervical spine wo/w con DATE OF EXAM: 09/28/2023 COMPARISON: NONE HISTORY: 68-year-old male M54.2, Neck pain, headaches, BUE radiculopathy. Hx lung cancer. Technique: Multiplanar, multisequence images of the cervical spine were obtained before and after adm inistration of 7 mL intravenous Gadavist gadolinium contrast. FINDINGS: Known abnormal marrow signal and postcontrast enhancement within the C6 vertebral body compatible wit h known osseous metastasis. Prominent red marrow hyperplasia is present. There is some edematous Modic type I endplate change posteriorly at T2-T3. Moderate degenerative disc disease mid and lower cervical spine with a desiccated, narrowed disks and disc osteophyte complexes. Ligamentum flavum thickening particularly at C5-C6 and C6-C7. Moderate uncovertebral joint arthropathy lower cervical spine. Normal course, caliber, and signal intensity of the cervical spinal cord. Alignment is maintained. At C2-C3, mild facet arthropathy without canal or foraminal stenosis. At C3-C4, mild facet arthropathy without canal or foraminal stenosis. At C4-C5, tiny posterior annular fissure. Trace based disc osteophyte complex and mild ligamentum fla vum thickening. Mild facet arthropathy. No significant canal or foraminal stenosis. At C5-C6, broad-based disc osteophyte complex with contiguous moderate uncovertebral joint arthropath y. Moderate facet arthropathy is also present. Changes contribute to moderate bilateral neuroforamina l stenosis and mild spinal canal stenosis. At C6/C7, broad-based disc osteophyte complex slightly eccentric towards the right with moderate to s evere right-sided uncovertebral joint arthropathy and mild facet arthropathy. Changes result in moder ate to severe right and mild left neuroforaminal stenosis. There is mild overall spinal canal stenosi s. At C7-T1, there is left paracentral disc protrusion impressing on to the left ventral thecal sac. Add itional mild posterior disc bulge without significant spinal canal stenosis. This contributes to mode rate left neuroforaminal stenosis. IMPRESSION: 1. Abnormal signal and postcontrast enhancement of the C6 vertebral body compatible with known osseou s metastasis. 2. Moderate multilevel spondylotic change as outlined above. This contribute to mild spinal canal narendra nosis at C5-C6 and C6-C7. No high-grade canal compromise or cord compression. 3. At C6-C7, moderate to severe right neuroforaminal stenosis secondary to eccentric posterior disc o steophyte complex and severe right uncovertebral joint arthropathy. 4. Small left paracentral disc herniation at C7-T1. 5. Additional moderate neuroforaminal stenosis on both sides at C5-C6 and on the left at C7-T1.
== END | disposition home or self-care (01) ==
LOC: RADMRIMAIN 12:43
PROVIDERS: ATTEND Orthopaedic Surgery
DX: M47.22 Other spondylosis with radiculopathy, cervical region (principal); M99.71 Connective tissue and disc stenosis of intervertebral foramina of cervical region; M50.23 Other cervical disc displacement, cervicothoracic region; M25.78 Osteophyte, vertebrae
CPT/HCPCS: 72156; A9585

== ENCOUNTER → 2023-10-14 | Outpatient (CLI) | payer MEDICARE, BC ==
--- NOTE | 2023-10-16 12:09 | PE ---
EXAMINATION TYPE: PET CT fusion skull to thigh DATE OF EXAM: 10/14/2023 COMPARISON: 07/29/2023 CT chest Prior PET/CT: 07/22/2023 HISTORY: Head and neck cancer TECHNIQUE: Following the intravenous administration of 9.22 mCi of F-18 FDG, whole body images are p erformed from the skull base to the midthigh. Images are reviewed on the computer in the coronal, ax ial, and sagittal planes. Reconstructed rotating images are created on independent workstation and r eviewed on the computer. A localization and attenuation correction CT is performed in conjunction w ith the PET scan. DLP: 4-8.19 mGycm SCAN: Subsequent Blood glucose: 107 mg/dL Average Mediastinum SUV: 1.8 Average Liver SUV: 2.1 FINDINGS: HEAD and NECK: There is intense uptake within the right parapharyngeal space. Example image 20, SUV 12.71. This extends towards the right with several focal areas of uptake, example images 23, 26. SUV medially 11.58, SUV mid 8.48, SUV laterally posterior to the parotid gland 11.02 There is a punctate area within the right parotid region image 35 SUV 4.02. An additional focus of in creased radiotracer is in the posterior triangle image 37, THORAX: There are several foci of punctate uptake including posterior lateral right apex, image 80 GUTIERRES V 3.96 Image 80 medial left anterior lung, SUV 4.1. Right heart border right lung base, image 121, SUV 4.04. There is a focus of uptake within the posterior mediastinum may be a small lymph node, image 85, seri es 3.68. ABDOMEN: No abnormal uptake PELVIS: No abnormal uptake OSSEOUS STRUCTURES: No abnormal uptake LOCALIZATION CT: No significant changes COMPARISON: Uptake within the right neck is significantly diminished over the interval. The previous cervical spine lesion is not identified currently. There is improvement with nonvisualization of some lung nodules and mediastinal uptake. IMPRESSION: 1. Diminished uptake within the right neck compared to prior study. 2. Diminished number of lung and mediastinal areas of uptake. 3. No new foci of radiotracer uptake
== END | disposition home or self-care (01) ==
LOC: RADPETMAIN 12:32
PROVIDERS: ATTEND Internal Medicine Hematology & Oncology
DX: C76.0 Malignant neoplasm of head, face and neck (principal)
CPT/HCPCS: 78815; A9552

== ENCOUNTER 2023-11-01 14:09 | Emergency (ER) | payer MEDICARE, BC ==
[2023-11-01 14:21] VITALS: RESP 18
--- NOTE | 2023-11-01 14:39 | ED ---
Back Pain HPI - General Source: patient, EMS Limitations: no limitations <Ne Nguyen - Last Filed: 11/01/23 14:38> <Candy Sauer - Last Filed: 11/01/23 19:36> - General Chief Complaint: Back Pain/Injury Stated Complaint: Back pain Time Seen by Provider: 11/01/23 14:38 - History of Present Illness Initial Comments: Quick note: 68-year-old male presented to the ER via EMS with a chief complaint of back spasm. He denies any known traumas. Denies any saddle paresthesias, bowel or bladder incontinence, fevers. He states he is unable to function or sleep due to pain. (Ne Nguyen) This is a 68-year-old male presents emergency department via EMS for chief complaint of lumbar back pain and spasm. States that this pain started about 16 hours ago and woke him up from sleep. He states that this pain is a spasm that is exacerbated with cement such as side bending and rotation of the spine. He denies saddle anesthesias, bladder or bowel incontinence, paresthesias or radiating pain. He denies chest pain or pressure, palpitations, dizziness, lightheadedness. States that he has a chronic lower back pain history where he sees a medical management specialist on 11/02. Additionally, patient has been treated for stage IV head and neck cancer. He receives immunologic infusion therapy every 3 weeks with his last transfusion being 2 weeks ago. His previous spinal surgeries. (Candy Sauer) - Related Data Home Medications Medication Instructions Recorded Confirmed Omeprazole 20 mg PO QAM 05/28/19 07/29/23 lamoTRIgine 200 mg PO BID 05/28/19 07/29/23 FLUoxetine HCL [PROzac] 20 mg PO HS 10/22/22 07/29/23 Folic Acid 1 mg PO QAM 10/22/22 07/29/23 Propranolol [Inderal] 20 mg PO BID 10/22/22 07/29/23 Aspirin 325 mg PO DAILY PRN 06/22/23 07/29/23 Previous Rx's Medication Instructions Recorded Thiamine [Vitamin B-1] 100 mg PO DAILY #30 tab 12/21/22 Cyclobenzaprine [Flexeril] 10 mg PO TID PRN #15 tab 11/01/23 Allergies Allergy/AdvReac Type Severity Reaction Status Date / Time albuterol [From ProAir HFA] Allergy Itching Verified 11/01/23 14:14 bee venom protein (honey bee) Allergy Swelling Verified 11/01/23 14:14 Review of Systems ROS Other: All systems not noted in ROS Statement are negative. <Ne Nguyen - Last Filed: 11/01/23 14:38> ROS Other: All systems not noted in ROS Statement are negative. <Candy Sauer - Last Filed: 11/01/23 19:36> ROS Statement: Those systems with pertinent positive or pertinent negative responses have been documented in the HPI. Past Medical History Past Medical History: COPD, CVA/TIA, Liver Disease, Osteoarthritis (OA), Seizure Disorder, Sleep Apnea/CPAP/BIPAP Additional Past Medical History / Comment(s): Rt. leg fx. as child,stage 4 liver cirrohsis with esophageal varices, rt foot drag, hepatitis C, enlarged prostate, AAA(4 cm?)- needs to be rechecked, partially blocked Rt. carotid artery, 2 T.I.A's sevral years ago, 1 seizure approx. 2010 - never on medication, Fernandez's Palsy approx. 2016, tried CPAP but cannot tolerate, lung nodule, ? metastatic disease History of Any Multi-Drug Resistant Organisms: None Reported Past Surgical History: Adenoidectomy, Orthopedic Surgery, Tonsillectomy Additional Past Surgical History / Comment(s): knee replacement Lt., Lt shoulder repair, sinus surgery Past Anesthesia/Blood Transfusion Reactions: No Reported Reaction Past Psychological History: Depression Smoking Status: Current every day smoker Past Alcohol Use History: Daily Past Drug Use History: Marijuana - Past Family History Father Family Medical History: Myocardial Infarction (MO) Additional Family Medical History / Comment(s): several male family members with heart attacks Mother Family Medical History: COPD Sister(s) Family Medical History: Cancer <Ne Nguyen - Last Filed: 11/01/23 14:38> General Exam Limitations: no limitations <Ne Nguyen - Last Filed: 11/01/23 14:38> General appearance: alert, in no apparent distress Head exam: Present: atraumatic, normocephalic, normal inspection Eye exam: Present: normal appearance, PERRL, EOMI. Absent: scleral icterus, conjunctival injection, periorbital swelling ENT exam: Present: normal exam, mucous membranes moist Neck exam: Present: normal inspection. Absent: tenderness, meningismus, lymphadenopathy Respiratory exam: Present: normal lung sounds bilaterally. Absent: respiratory distress, wheezes, rales, rhonchi, stridor Cardiovascular Exam: Present: regular rate, normal rhythm, normal heart sounds. Absent: systolic murmur, diastolic murmur, rubs, gallop, clicks GI/Abdominal exam: Present: soft, normal bowel sounds. Absent: distended, tenderness, guarding, rebound, rigid Extremities exam: Present: normal inspection, full ROM, normal capillary refill. Absent: tenderness, pedal edema, joint swelling, calf tenderness Back exam: Present: normal inspection, full ROM, tenderness (With side bending and rotation), muscle spasm Neurological exam: Present: alert, oriented X3, CN II-XII intact Psychiatric exam: Present: normal affect, normal mood Skin exam: Present: warm, dry, intact, normal color. Absent: rash <Candy Sauer - Last Filed: 11/01/23 19:36> - General Exam Comments Initial Comments: Visual Physical Exam General: Well-appearing, nontoxic, no acute distress. Head: Normocephalic, atraumatic Eyes: PERRLA, EOMI ENT: Airway patent Chest: Nonlabored breathing Skin: No visual rash, normal skin tone Neuro: Alert and oriented 3 Musculoskeletal: No gross abnormalities (Ne Nguyen) Course Vital Signs 11/01/23 11/01/23 14:10 17:14 Temperature 97.6 F 98.1 F Pulse Rate 66 67 Respiratory 18 18 Rate Blood Pressure 150/85 150/76 O2 Sat by Pulse 100 97 Oximetry Medical Decision Making <Ne Nguyen - Last Filed: 11/01/23 14:38> <Candy Sauer - Last Filed: 11/01/23 19:36> - Medical Decision Making I performed the quick note portion of this chart. Electronically signed by Ne Nguyen PA-C (Ne Nguyen) Was pt. sent in by a medical professional or institution ([facility], [facility], urgent care, hospital, or [facility]...) When possible be specific @ -No Did you speak to anyone other than the patient for history (EMS, parent, family, police, friend...)? What history was obtained from this source @ -No Did you review nursing and triage notes (agree or disagree)? Why? @ -I reviewed and agree with nursing and triage notes Were old charts reviewed (outside hosp., previous admission, EMS record, old EKG, old radiological studies, urgent care reports/EKG's, [facility] records)? Report findings @ -lumbar spine MRI with and without contrast due to history of lesion of the thoracic spine. Moderate multilevel degeneration changes throughout the spine with severe bilateral T2-T3 and right T10-T11 neural foraminal stenosis secondary to facet joint arthropathy Differential Diagnosis (chest pain, altered mental status, abdominal pain women, abdominal pain men, vaginal bleeding, weakness, fever, dyspnea, syncope, headache, dizziness, GI bleed, back pain, seizure, CVA, palpatations, mental health, musculoskeletal)? @ -Differential Musculoskeletal Muscular strain, contusion, ligament sprain, fracture, arthritis, septic arthritis, bursitis, cellulitis, muscle spasm, nerve compression, DVT, arterial occlusion, herpes zoster, electrolyte abnormality, tumor.... This is not meant to be in all inclusive list EKG interpreted by me (3pts min.). @ -None X-rays interpreted by me (1pt min.). @ -Xray of the lumbar spine no acute fracture, moderate to severe multilevel disc degeneration. CT interpreted by me (1pt min.). @ -None done U/S interpreted by me (1pt. min.). @ -None done What testing was considered but not performed or refused? (CT, X-rays, U/S, labs)? Why? @ -None What meds were considered but not given or refused? Why? @ -None Did you discuss the management of the patient with other professionals (professionals i.e. , PA, [facility], lab, RT, psych nurse, social work instructor, computer art instructor, teacher, air crew officer, case resolution specialist)? Give summary @ -No Was smoking cessation discussed for >3mins.? @ -No Was critical care preformed (if so, how long)? @ -No Were there social determinants of health that impacted care today? How? (Homelessness, low income, unemployed, alcoholism, drug addiction, transportation, low edu. Level, literacy, decrease access to med. care, fdc, rehab)? @ -No Was there de-escalation of care discussed even if they declined (Discuss DNR or withdrawal of care, Hospice)? DNR status @ -No What co-morbidities impacted this encounter? (DM, HTN, Smoking, COPD, CAD, Cancer, CVA, ARF, Chemo, Hep., AIDS, mental health diagnosis, sleep apnea, morbid obesity)? @ -None Was patient admitted / discharged? Hospital course, mention meds given and route, prescriptions, significant lab abnormalities, going to OR and other pertinent info. @ -68-year-old male with lumbar back pain. Patient was originally seen as a quick note. On reevaluation patient is noted to have lumbar bilateral pain that is exacerbated with sidebending and rotation of the spine. There is no noted paresthesias or decreased muscle strength. Logical exam benign. Patient was given dose of muscle relaxer and a lidocaine patch was placed. On reevaluation, patient states that his pain has improved. He will be prescribed Flexeril and as needed. Patient has appointment scheduled with medical management specialist this week for further evaluation. All questions answered at bedside. Patient is stable for discharge. Case discussed with Dr. Wells Undiagnosed new problem with uncertain prognosis? @ -No Drug Therapy requiring intensive monitoring for toxicity (Heparin, Nitro, Insulin, Cardizem)? @ -No Were any procedures done? @ -No Diagnosis/symptom? @ -Lumbar back pain, muscle spasm Acute, or Chronic, or Acute on Chronic? @ -Acute Uncomplicated (without systemic symptoms) or Complicated (systemic symptoms)? @ -uncomplicated Side effects of treatment? @ -No Exacerbation, Progression, or Severe Exacerbation? @ -No Poses a threat to life or bodily function? How? (Chest pain, [place], MO, pneumonia, PE, COPD, DKA, ARF, appy, cholecystitis, CVA, Diverticulitis, Homicidal, Suicidal, threat to staff... and all critical care pts) @ -No (Candy Sauer) Disposition <Ne Nguyen - Last Filed: 11/01/23 14:38> Is patient prescribed a controlled substance at d/c from ED?: No Time of Disposition: 16:35 <Candy Sauer - Last Filed: 11/01/23 19:36> Clinical Impression: Back spasm, Chronic lumbar pain Narrative: Please return to the Emergency Department if symptoms worsen or any other concerns. Follow-up as scheduled with medical management specialist on 11/02. (Candy Sauer) Disposition: HOME SELF-CARE Condition: Good Instructions (If sedation given, give patient instructions): Muscle Spasm (ED) Prescriptions: Cyclobenzaprine [Flexeril] 10 mg PO TID PRN #15 tab PRN Reason: Muscle Spasm Referrals: Ramses Hernández DO [Primary Care Provider] - 1-2 days
--- NOTE | 2023-11-01 15:32 | XR ---
EXAMINATION TYPE: XR lumbar spine 2 or 3V DATE OF EXAM: 11/01/2023 3:27 PM CLINICAL INDICATION:Male, 68 years old with history of pain; PHH COMPARISON: None TECHNIQUE: XR lumbar spine 2 or 3V - Frontal, lateral and coned in L5-S1 lateral views of the spine. FINDINGS: No evidence of any acute osseous pathology. Mild T12 vertebral body height loss is present up to 25%.. There is normal alignment of the lumbar vertebral bodies. Moderate scattered disc space n arrowing. Multilevel marginal osteophyte formation throughout the visualized spine. There is facet jean int arthropathy throughout the spine. Scattered at least moderate neural foraminal stenosis. IMPRESSION: 1. No acute fracture. 2. Moderate to severe multilevel disc degeneration.
[2023-11-01] MEDS: ORPHENADRINE 30 MG/ML 2 ML VIAL IM STA (16:46)
[2023-11-01] MEDS: LIDOCAINE 4% PATCH TOPICAL ONE (16:47)
[2023-11-01 17:53] VITALS: BP 150/76; PULSE 67; TEMP 98.1
== END 2023-11-01 17:42 | disposition home or self-care (01) ==
LOC: EC 14:09
DX: M51.36 Other intervertebral disc degeneration, lumbar region (principal); F17.200 Nicotine dependence, unspecified, uncomplicated; Z88.1 Allergy status to other antibiotic agents; Z91.030 Bee allergy status
CPT/HCPCS: 99284 ×2; 96372 ×2; 72100; J2360

== ENCOUNTER → 2023-11-03 | Outpatient (CLI) | payer MEDICARE, BC ==
--- NOTE | 2023-11-03 14:15 | P.PAINPG ---
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 Pt states pain level is provoked at 8 /10 in intensity, constant, localized in the thoracolumbar spine, predominantly axial, dull in character w occasional shooting pain towards the upper and lower spine. Pain is provoked by over activity. Pain is alleviated by PT years ago, medications (Flexeril), repositioning and rest . Oswestry axial pain score at 33. PMH: OA, Metastatic SCC, COPD, CVA, Fatty Liver Disease w Cirrhosis, HepC, Seizure Disorder, TERRI, AAA, BPH, MDD PSH: RLE Fracture and Repair (age 6), Adenoidectomy, L Shoulder Surgery, L Knee Replacement, Tonsillectomy, Sinus Surgery SH: Daily tobacco use, Daily ETOH use, Cannabis use FH: Fa- [place]. Mo- COPD. Sis- [place] All: See list Meds: See list REVIEW OF ORGAN SYSTEMS: CONSTITUTIONAL: No fevers or chills. No recent weight loss. NEUROLOGICAL: + numbness and tingling along the distal extremities. No seizure disorders or headaches. MUSCULOSKELETAL: + pain PSYCHIATRIC: Denies current depression or suicidal thoughts. Physical Examinations : Constitutional : Cooperative , not in acute distress . Neurologic : Cranial nerve II to XII intact. No focal neurological deficits. Psychiatric : alert & oriented x 3. Matching mood & appropriate affect. Judgment & insight intact. Musculoskeletal : Cervical Spine Motor strength in the deltoid and biceps: Normal right side. Normal Left side Motor strength biceps and the wrist extensors: Normal right side . Normal left side Motor strength in the triceps muscle: Normal right side. Normal left side Deep tendon reflexes: Normal at the biceps. Normal at Brachioradialis. Normal at triceps Vertebral body tenderness to deep palpation over Cervical facet loading test: positive bilaterally Spurling test: positive bilaterally Neck distraction test: positive bilaterally Cheryl sign: positive bilaterally Lumbar spine Motor strength lower extremities ,thigh and legs 5/5 Right side , 5/5 Left side Deep tendon reflexes : Normal Knee Jerk. Normal Ankle Jerk Vertebral body tenderness over Marks Test positive Lumbar facet Loading Test: positive Right / positive Left Range of motion of the lumbar spine Flexion 30 degrees, extension 10 degrees Straight Leg Raise test: Left/ Right positive at degrees Sanna test: positive right / positive left. Severe tenderness over the Sacroiliac joint on the Right / Left sides Gaenslen test: positive bilaterally Seated flexion test: positive bilaterally. Sacral spine : Severe tenderness over the Sacroiliac joint: right side / left side Range of motion: Flexion of the lumbar spine <60 degrees Range of motion: Extension of the lumbar spine <20 degrees Gaenslen's Test positive Sanna test: positive right side / left side Thigh Thrust Test Sacral Thrust Test Imaging: Lumbar x ray from 11/01/[address] non contrast of thoracolumbar spine from 07/22/23 reviewed Assessment/ Plan : Lumbar DDD Recommendation of HEP and medication management. Opiate/ narcotic agreement signed 11/03/23. Percocet 10/325mg #120 w 1 RF. Use, side effects, adverse reactions, safe storage discussed. HEP instructional packet provided. All questions answered. I have spent greater than 30 minutes on patient care today. Dr Pierce was available by phone for the evaluation of this patient. The time was used to review the medical records including relevant urine studies and Prescription history (MAPs), review of the available imaging, evaluation and examination of the patient, coordination of care with the medical staff and if applicable referring physicians, as well as creation of the medical record - Pain Location Bilateral Lower Back Non-Pharmacological Interventions: Inactivity, Position/Reposition PQRS Narrative: Smoking Status Current every day smoker Home Medications: Ambulatory Orders Omeprazole 20 mg PO QAM 05/28/19 lamoTRIgine 200 mg PO BID 05/28/19 FLUoxetine HCL [PROzac] 20 mg PO HS 10/22/22 Folic Acid 1 mg PO QAM 10/22/22 Propranolol [Inderal] 20 mg PO BID 10/22/22 Thiamine [Vitamin B-1] 100 mg PO DAILY #30 tab 12/21/22 Aspirin 325 mg PO DAILY PRN 06/22/23 Cyclobenzaprine [Flexeril] 10 mg PO TID PRN #15 tab 11/01/23 oxyCODONE HCL/ACETAMINOPHEN [Percocet 10-325 mg Tablet] 1 each PO Q6H PRN 30 Days #120 tab 11/03/23 oxyCODONE HCL/ACETAMINOPHEN [Percocet 10-325 mg] 1 tab PO Q6H PRN 30 Days #120 tab 11/03/23 Controlled Substance Measures - Controlled Substance Measures Is patient prescribed a controlled substance at discharge?: Yes When asked, does pt state using other controlled substances?: Yes If prescribed controlled substance>3 days was MAPS reviewed?: Yes If Rx opioid, was Start Talking consent form obtained?: Yes Was information provided regarding opioid addiction?: Yes
[2023-11-03 14:36] VITALS: BP 147/78; PULSE 89; RESP 15; TEMP 97.8
== END ==
LOC: PNWHC3 13:16
PROVIDERS: ATTEND Specialist
DX: C79.51 Secondary malignant neoplasm of bone (principal); M51.35 Other intervertebral disc degeneration, thoracolumbar region; F17.200 Nicotine dependence, unspecified, uncomplicated; Z88.8 Allergy status to other drugs, medicaments and biological substances; Z91.030 Bee allergy status
CPT/HCPCS: 99211

== ENCOUNTER 2023-11-09 11:17 | Emergency (ER) | payer MEDICARE, BC ==
[2023-11-09] MEDS: SODIUM CHLORIDE 0.9% 500 ML 500 ML IV STA (12:16)
[2023-11-09] MEDS: SODIUM CHLORIDE 0.9% 1,000 ML IV STA (12:16)
[2023-11-09 12:22] LABS: Basophils % (A) 0 %; Eosinophils # (A) 0.1 k/uL (0-0.7); Eosinophils % (A) 1 %; HCT 41.6 % (39.0-53.0); HGB 14.4 gm/dL (13.0-17.5); Lymphocytes % (A) 13 %; MCHC 34.6 g/dL (31.0-37.0); MCV 89.6 fL (80.0-100.0); Mean Platelet Volume 7.8; Monocytes # (A) 0.5 k/uL (0-1.0); Monocytes % (A) 6 %; Neutrophils # (A) 5.8 k/uL (1.3-7.7); Neutrophils % (A) 77 %; Platelet Count 292 k/uL (150-450); RBC 4.64 m/uL (4.30-5.90); RDW 13.8 % (11.5-15.5); WBC 7.5 k/uL (3.8-10.6)
[2023-11-09 12:34] LABS: ALT 19 U/L (4-49); AST 27 U/L (17-59); African American GFR (CKD) >90 (>60 ml/min/1.73 sqM); Albumin 4.9 g/dL (3.5-5.0); Alkaline Phosphatase 83 U/L (38-126); Amylase 66 U/L (30-110); Anion Gap 8 mmol/L; Blood Urea Nitrogen 12 mg/dL (9-20); Calcium 9.7 mg/dL (8.4-10.2); Carbon Dioxide 25 mmol/L (22-30); Chloride 97 mmol/L (98-107); Glucose 89 mg/dL (74-99); Lipase 59 U/L (23-300); Magnesium 1.7 mg/dL (1.6-2.3); Non-African American GFR(CKD) >90 (>60 ml/min/1.73 sqM); Potassium 4.1 mmol/L (3.5-5.1); Sodium 130 mmol/L (137-145); Total Bilirubin 1.3 mg/dL (0.2-1.3); Total Protein 7.3 g/dL (6.3-8.2)
--- NOTE | 2023-11-09 12:34 | ED ---
Abdominal Pain HPI - General Chief Complaint: Abdominal Pain Stated Complaint: abd pain Time Seen by Provider: 11/09/23 11:34 Source: patient, RN notes reviewed Mode of arrival: ambulatory Limitations: no limitations - History of Present Illness Initial Comments: 68-year-old male presents emergency department chief complaint of abdominal pain, constipation, cancer. Patient states that he has throat cancer that has metastasized. Patient states he is on immunotherapy in which he is scheduled for infusion today but because he is not feeling well was instructed to go to the emergency department. He does state that he fell a few weeks ago and was seen here recently for x-rays of his back which was negative. Patient did have a PET scan at the beginning of October which showed decrease in size of his masses. Patient denies any chest pain but states he has been feeling lightheaded he does admit that he is not been eating and drinking like he normally would. Patient denies any fevers, chills no history of abdominal obstruction he is on chronic pain meds in which she was recently seen pain management - Related Data Home Medications Medication Instructions Recorded Confirmed Omeprazole 20 mg PO DAILY 05/28/19 11/09/23 lamoTRIgine 400 mg PO HS 05/28/19 11/09/23 FLUoxetine HCL [PROzac] 20 mg PO HS 10/22/22 11/09/23 Folic Acid 1 mg PO DAILY 10/22/22 11/09/23 Propranolol [Inderal] 20 mg PO DAILY 10/22/22 11/09/23 Acetaminophen Tab [Tylenol Tab] 1,000 mg PO Q6HR PRN 11/09/23 11/09/23 Docusate [Colace] 100 mg PO DAILY 11/09/23 11/09/23 Ondansetron [Zofran] 4 - 8 mg PO Q4H PRN 11/09/23 11/09/23 Rifaximin [Xifaxan] 550 mg PO BID 11/09/23 11/09/23 oxyCODONE HCL/ACETAMINOPHEN 1 tab PO Q6H PRN 11/09/23 11/09/23 [Percocet 10-325 mg Tablet] polyethylene glycoL 3350 [Miralax] 17 gm PO DAILY PRN 11/09/23 11/09/23 Previous Rx's Medication Instructions Recorded Lactulose 10 gm PO BID PRN #90 ml 11/09/23 Allergies Allergy/AdvReac Type Severity Reaction Status Date / Time albuterol [From ProAir HFA] Allergy Itching Verified 11/09/23 14:06 bee venom protein (honey bee) Allergy Swelling Verified 11/09/23 14:06 Review of Systems ROS Statement: Those systems with pertinent positive or pertinent negative responses have been documented in the HPI. ROS Other: All systems not noted in ROS Statement are negative. Past Medical History Past Medical History: Cancer, COPD, CVA/TIA, Liver Disease, Osteoarthritis (OA), Seizure Disorder, Sleep Apnea/CPAP/BIPAP Additional Past Medical History / Comment(s): Rt. leg fx. as child,stage 4 liver cirrohsis with esophageal varices, rt foot drag, hepatitis C, enlarged prostate, AAA(4 cm?)- needs to be rechecked, partially blocked Rt. carotid artery, 2 T.I.A's sevral years ago, 1 seizure approx. 2010 - never on medication, Fernandez's Palsy approx. 2016, tried CPAP but cannot tolerate, lung nodule, ? metastatic disease. stage 4 cancer and aneurysm History of Any Multi-Drug Resistant Organisms: None Reported Past Surgical History: Adenoidectomy, Orthopedic Surgery, Tonsillectomy Additional Past Surgical History / Comment(s): knee replacement Lt., Lt shoulder repair, sinus surgery Past Anesthesia/Blood Transfusion Reactions: No Reported Reaction Past Psychological History: Depression Smoking Status: Current every day smoker Past Alcohol Use History: Rare Past Drug Use History: None Reported - Past Family History Father Family Medical History: Myocardial Infarction ([place]) Additional Family Medical History / Comment(s): several male family members with heart attacks Mother Family Medical History: COPD Sister(s) Family Medical History: Cancer General Exam Limitations: no limitations General appearance: alert, in no apparent distress Head exam: Present: atraumatic, normocephalic, normal inspection Eye exam: Present: normal appearance, PERRL, EOMI. Absent: scleral icterus, conjunctival injection, periorbital swelling ENT exam: Present: normal exam, mucous membranes moist Neck exam: Present: normal inspection, full ROM. Absent: tenderness, meningismus, lymphadenopathy Respiratory exam: Present: normal lung sounds bilaterally. Absent: respiratory distress, wheezes, rales, rhonchi, stridor Cardiovascular Exam: Present: regular rate, normal rhythm, normal heart sounds. Absent: systolic murmur, diastolic murmur, rubs, gallop, clicks GI/Abdominal exam: Present: soft, tenderness, normal bowel sounds. Absent: distended, guarding, rebound, rigid Neurological exam: Present: alert, oriented X3, CN II-XII intact, reflexes normal. Absent: motor sensory deficit Course Vital Signs 11/09/23 11/09/23 11/09/23 11:21 12:25 12:27 Temperature 97.5 F L Pulse Rate 84 Pulse Rate [ 70 74 Decorator Inspector ] Respiratory 16 18 18 Rate Blood Pressure 162/104 Blood Pressure 170/118 159/106 [Right Arm Supine] O2 Sat by Pulse 98 98 100 Oximetry 11/09/23 11/09/23 11/09/23 12:29 13:00 14:00 Temperature Pulse Rate 70 53 L Pulse Rate [ 85 Decorator Inspector ] Respiratory 18 18 18 Rate Blood Pressure 173/104 167/91 Blood Pressure 151/103 [Right Arm Supine] O2 Sat by Pulse 100 98 100 Oximetry 11/09/23 16:16 Temperature 98.2 F Pulse Rate 71 Pulse Rate [ Decorator Inspector ] Respiratory 16 Rate Blood Pressure 168/100 Blood Pressure [Right Arm Supine] O2 Sat by Pulse 100 Oximetry Medical Decision Making - Medical Decision Making Was pt. sent in by a medical professional or institution (, PA, STORE CUSTODIAN, urgent care, hospital, or residential...) When possible be specific @ -No Did you speak to anyone other than the patient for history (EMS, parent, family, police, friend...)? What history was obtained from this source @ -No Did you review nursing and triage notes (agree or disagree)? Why? @ -I reviewed and agree with nursing and triage notes Were old charts reviewed (outside hosp., previous admission, EMS record, old EKG, old radiological studies, urgent care reports/EKG's, residential records)? Report findings @ -No old charts were reviewed Differential Diagnosis (chest pain, altered mental status, abdominal pain women, abdominal pain men, vaginal bleeding, weakness, fever, dyspnea, syncope, headache, dizziness, GI bleed, back pain, seizure, CVA, palpatations, mental health, musculoskeletal)? @ -Differential Abdominal Pain Men: Appendicitis, cholecystitis, diverticulosis, ischemic bowel, pancreatitis, hepatitis, UTI, gastroenteritis, AAA, incarcerated hernia, bowel obstruction, constipation, inflammatory bowel, hepatitis, peptic ulcer disease, splenic infarction, perforated viscus, testicular torsion, this is not meant to be an all-inclusive list EKG interpreted by me (3pts min.). @ -As above X-rays interpreted by me (1pt min.). @ -None done CT interpreted by me (1pt min.). @ -CT abdomen pelvis showing midlung nodule which is seen on prior PET scan, mild stool no obstruction or intra-abdominal mass U/S interpreted by me (1pt. min.). @ -None done What testing was considered but not performed or refused? (CT, X-rays, U/S, labs)? Why? @ -None What meds were considered but not given or refused? Why? @ -None Did you discuss the management of the patient with other professionals (professionals i.e. , PA, STORE CUSTODIAN, lab, RT, psych nurse, social service liaison, professional athletes coach, teacher, chief revenue officer, case briefer)? Give summary @ -No Was smoking cessation discussed for >3mins.? @ -No Was critical care preformed (if so, how long)? @ -No Were there social determinants of health that impacted care today? How? (Homelessness, low income, unemployed, alcoholism, drug addiction, tr ansportation, low edu. Level, literacy, decrease access to med. care, detention, rehab)? @ -No Was there de-escalation of care discussed even if they declined (Discuss DNR or withdrawal of care, Hospice)? DNR status @ -No What co-morbidities impacted this encounter? (DM, HTN, Smoking, COPD, CAD, Cancer, CVA, ARF, Chemo, Hep., AIDS, mental health diagnosis, sleep apnea, morbid obesity)? @ -None Was patient admitted / discharged? Hospital course, mention meds given and route, prescriptions, significant lab abnormalities, going to OR and other pertinent info. @ -Discharged patient presented for abdominal pain, constipation. Patient has no evidence of obstruction laboratory studies reveal no significant acute findings. Patient was given enema and discharged on lactulose as requested by patient. Undiagnosed new problem with uncertain prognosis? @ -No Drug Therapy requiring intensive monitoring for toxicity (Heparin, Nitro, Insulin, Cardizem)? @ -No Were any procedures done? @ -No Diagnosis/symptom? @ -Abdominal pain Acute, or Chronic, or Acute on Chronic? @ -Acute Uncomplicated (without systemic symptoms) or Complicated (systemic symptoms)? @ -Uncomplicated Side effects of treatment? @ -No Exacerbation, Progression, or Severe Exacerbation? @ -No Poses a threat to life or bodily function? How? (Chest pain, [place], [place], pneumonia, PE, COPD, DKA, ARF, appy, cholecystitis, CVA, Diverticulitis, Homicidal, Suicidal, threat to staff... and all critical care pts) @ -No - Lab Data Result diagrams: 11/09/23 12:13 11/09/23 12:13 Lab Results 11/09/23 11/09/23 11/09/23 Range/Units 12:13 12:13 12:13 WBC 7.5 (3.8-10.6) k/uL RBC 4.64 (4.30-5.90) m/uL Hgb 14.4 (13.0-17.5) gm/dL Hct 41.6 (39.0-53.0) % MCV 89.6 (80.0-100.0) fL MCH 31.0 (25.0-35.0) pg MCHC 34.6 (31.0-37.0) g/dL RDW 13.8 (11.5-15.5) % Plt Count 292 (150-450) k/uL MPV 7.8 Neutrophils % 77 % Lymphocytes % 13 % Monocytes % 6 % Eosinophils % 1 % Basophils % 0 % Neutrophils # 5.8 (1.3-7.7) k/uL Lymphocytes # 1.0 (1.0-4.8) k/uL Monocytes # 0.5 (0-1.0) k/uL Eosinophils # 0.1 (0-0.7) k/uL Basophils # 0.0 (0-0.2) k/uL Sodium 130 L (137-145) mmol/L Potassium 4.1 (3.5-5.1) mmol/L Chloride 97 L (98-107) mmol/L Carbon Dioxide 25 (22-30) mmol/L Anion Gap 8 mmol/L BUN 12 (9-20) mg/dL Creatinine 0.66 (0.66-1.25) mg/dL Est GFR (CKD-EPI)AfAm >90 (>60 ml/min/1.73 sqM) Est GFR (CKD-EPI)NonAf >90 (>60 ml/min/1.73 sqM) Glucose 89 (74-99) mg/dL Plasma Lactic Acid Eliezer 1.2 (0.7-2.0) mmol/L Calcium 9.7 (8.4-10.2) mg/dL Magnesium 1.7 (1.6-2.3) mg/dL Total Bilirubin 1.3 (0.2-1.3) mg/dL AST 27 (17-59) U/L ALT 19 (4-49) U/L Alkaline Phosphatase 83 (38-126) U/L Total Protein 7.3 (6.3-8.2) g/dL Albumin 4.9 (3.5-5.0) g/dL Amylase 66 (30-110) U/L Lipase 59 (23-300) U/L Urine Color Urine Appearance (Clear) Urine pH (5.0-8.0) Ur Specific [place] (1.001-1.035) Urine Protein (Negative) Urine Glucose (UA) (Negative) Urine Ketones (Negative) Urine Blood (Negative) Urine Nitrite (Negative) Urine Bilirubin (Negative) Urine Urobilinogen (<2.0) mg/dL Ur Leukocyte Esterase (Negative) 11/09/23 Range/Units 13:03 WBC (3.8-10.6) k/uL RBC (4.30-5.90) m/uL Hgb (13.0-17.5) gm/dL Hct (39.0-53.0) % MCV (80.0-100.0) fL MCH (25.0-35.0) pg MCHC (31.0-37.0) g/dL RDW (11.5-15.5) % Plt Count (150-450) k/uL MPV Neutrophils % % Lymphocytes % % Monocytes % % Eosinophils % % Basophils % % Neutrophils # (1.3-7.7) k/uL Lymphocytes # (1.0-4.8) k/uL Monocytes # (0-1.0) k/uL Eosinophils # (0-0.7) k/uL Basophils # (0-0.2) k/uL Sodium (137-145) mmol/L Potassium (3.5-5.1) mmol/L Chloride (98-107) mmol/L Carbon Dioxide (22-30) mmol/L Anion Gap mmol/L BUN (9-20) mg/dL Creatinine (0.66-1.25) mg/dL Est GFR (CKD-EPI)AfAm (>60 ml/min/1.73 sqM) Est GFR (CKD-EPI)NonAf (>60 ml/min/1.73 sqM) Glucose (74-99) mg/dL Plasma Lactic Acid Eliezer (0.7-2.0) mmol/L Calcium (8.4-10.2) mg/dL Magnesium (1.6-2.3) mg/dL Total Bilirubin (0.2-1.3) mg/dL AST (17-59) U/L ALT (4-49) U/L Alkaline Phosphatase (38-126) U/L Total Protein (6.3-8.2) g/dL Albumin (3.5-5.0) g/dL Amylase (30-110) U/L Lipase (23-300) U/L Urine Color Colorless Urine Appearance Clear (Clear) Urine pH 6.5 (5.0-8.0) Ur Specific [place] 1.007 (1.001-1.035) Urine Protein Trace H (Negative) Urine Glucose (UA) Negative (Negative) Urine Ketones Negative (Negative) Urine Blood Negative (Negative) Urine Nitrite Negative (Negative) Urine Bilirubin Negative (Negative) Urine Urobilinogen <2.0 (<2.0) mg/dL Ur Leukocyte Esterase Negative (Negative) - EKG Data -: EKG Interpreted by Me EKG Comments: EKG performed at 12: 05 sinus rhythm with a rate of 69 SC 164 QRS 93 QT/QTc 429/448 Disposition Clinical Impression: Constipation, Abdominal pain Disposition: HOME SELF-CARE Condition: Stable Instructions (If sedation given, give patient instructions): Abdominal Pain (ED) Additional Instructions: Please return to the Emergency Department if symptoms worsen or any other concerns. Prescriptions: Lactulose 10 gm PO BID PRN #90 ml PRN Reason: Constipation Is patient prescribed a controlled substance at d/c from ED?: No Referrals: Ramses Hernández DO [Primary Care Provider] - 1-2 days Time of Disposition: 14:23
[2023-11-09 13:23] LABS: Appearance,Urine Clear (Clear); Bilirubin,Urine Negative (Negative); Blood,Urine Negative (Negative); Color,Urine Colorless; Glucose,Urine (UA) Negative (Negative); Ketones,Urine Negative (Negative); Leukocyte Esterase,Urine Negative (Negative); Nitrite,Urine Negative (Negative); PH, Urine 6.5 (5.0-8.0); Protein,Urine Trace (Negative); Specific Gravity,Urine 1.007 (1.001-1.035); Urobilinogen,Urine <2.0 mg/dL (<2.0)
--- NOTE | 2023-11-09 13:57 | CT ---
EXAMINATION TYPE: CT abdomen pelvis w con CT DLP: 790.9 mGycm, Automated exposure control for dose reduction was used. DATE OF EXAM: 11/09/2023 1:16 PM COMPARISON: PET/CT from 10/14/2023 CLINICAL INDICATION:Male, 68 years old with history of abd pain; bilateral flank pain TECHNIQUE: Axial CT of the abdomen and pelvis. Sagittal and coronal reformats were created on a [employer] workstation. Contrast used:100 mL of Isovue 300 with IV Contrast, (none if empty) Oral contrast used: without Oral Contrast (none if empty) FINDINGS: LOWER CHEST: Mild scarring or atelectasis in the right middle lobe, with noncalcified 11 x 7 mm juxta pleural nodule medially; this is unchanged from the recent PET CT, and was hot on that exam likely re presenting metastatic nodule. Continue standard cancer follow-up protocol. Minimal dependent atelectasis in the lower lobes. Heart size upper normal. Small sliding hiatal herni a with thickened appearance to the wall could be from esophagitis; this was not hot on PET. ABDOMEN LIVER: Unremarkable GALLBLADDER AND BILE DUCTS: Unremarkable gallbladder. No biliary ductal dilatation. PANCREAS: Unremarkable. SPLEEN: Unremarkable. ADRENAL GLANDS: Unremarkable. KIDNEYS AND URETERS: Kidneys enhance symmetrically. No evidence of hydronephrosis or visible renal ca lculus. The ureters are unremarkable. PELVIS BLADDER: Unremarkable REPRODUCTIVE: Unremarkable. ABDOMEN & PELVIS STOMACH AND BOWEL: Stomach and small bowel are nondistended, no evidence of obstruction. Normal martin endix. There is stool and gas seen throughout the colon with no focal acute abnormality shown. PERITONEUM/RETROPERITONEUM: No evidence of pneumoperitoneum or free fluid. VASCULATURE: Moderate mixed atherosclerotic disease is present throughout the abdominal aorta and its branches. No evidence of aortic aneurysm. Splenic vein is patent. Portal vein suboptimally enhanced at this phase but appears grossly patent. There is poor evaluation of the SMV due to phase of contras t. LYMPH NODES: No enlarged nodes by CT size criteria. SOFT TISSUE/ABDOMINAL WALL: Negative for acute process. MUSCULOSKELETAL: Moderate diffuse degenerative changes. Mild S-shaped thoracal lumbar scoliosis. No a cute bony abnormality. Mild/moderate anterior wedging of T12 is chronic in appearance. IMPRESSION: 1. No acute abnormality demonstrated to explain the patient's symptoms. 2. Incidentally imaged 11 x 7 mm right middle lobe pulmonary nodule, likely metastasis, similar to P ET/CT 10/14/2023.
[2023-11-09] MEDS: LACTULOSE 20 GM/30 ML CUP PO ONE (14:58)
[2023-11-09] MEDS: LORazepam 2 MG/ML INJ IV STA (14:59)
[2023-11-09 16:35] VITALS: BP 168/100; PULSE 71; RESP 16; TEMP 98.2
== END 2023-11-09 16:31 | disposition home or self-care (01) ==
LOC: EC 11:17
DX: K59.00 Constipation, unspecified (principal); F17.200 Nicotine dependence, unspecified, uncomplicated; Z91.030 Bee allergy status; Z88.8 Allergy status to other drugs, medicaments and biological substances; Z86.73 Personal history of transient ischemic attack (TIA), and cerebral infarction without residual deficits
CPT/HCPCS: 36415; 93005; 80053; 82150; 83605; 83690; 83735; 85025; 81003; 74177; 99284; 96374; 96361 ×3; J2060; Q9967

== ENCOUNTER → 2023-12-21 | Outpatient (CLI) | payer MEDICARE, BC ==
[2023-12-21 17:01] LABS: Basophils # (A) 0.1 k/uL (0-0.2); Basophils % (A) 1 %; Eosinophils % (A) 1 %; HGB 14.9 gm/dL (13.0-17.5); Lymphocytes # (A) 1.5 k/uL (1.0-4.8); Lymphocytes % (A) 21 %; MCHC 33.2 g/dL (31.0-37.0); MCV 93.3 fL (80.0-100.0); Mean Platelet Volume 7.2; Monocytes # (A) 0.5 k/uL (0-1.0); Monocytes % (A) 7 %; Neutrophils # (A) 4.7 k/uL (1.3-7.7); Neutrophils % (A) 69 %; Platelet Count 206 k/uL (150-450); RBC 4.82 m/uL (4.30-5.90); RDW 13.1 % (11.5-15.5); WBC 6.9 k/uL (3.8-10.6)
[2023-12-21 17:13] LABS: ALT 15 U/L (4-49); AST 23 U/L (17-59); African American GFR (CKD) >90 (>60 ml/min/1.73 sqM); Albumin 4.8 g/dL (3.5-5.0); Alkaline Phosphatase 58 U/L (38-126); Anion Gap 5 mmol/L; Blood Urea Nitrogen 17 mg/dL (9-20); Carbon Dioxide 30 mmol/L (22-30); Chloride 99 mmol/L (98-107); Globulin 2.4 g/dL; Glucose 98 mg/dL (74-99); Lipase 180 U/L (23-300); Non-African American GFR(CKD) >90 (>60 ml/min/1.73 sqM); Potassium 4.4 mmol/L (3.5-5.1); Sodium 134 mmol/L (137-145); Total Bilirubin 0.5 mg/dL (0.2-1.3); Total Protein 7.2 g/dL (6.3-8.2)
--- NOTE | 2023-12-21 18:53 | CT ---
EXAMINATION TYPE: CT abdomen pelvis w con CT DLP: 516.70 mGycm, Automated exposure control for dose reduction was used. DATE OF EXAM: 12/21/2023 6:36 PM COMPARISON: multiple CTs dating including 06/30/2023, 03/09/2023 and 10/01/2017 CLINICAL INDICATION:Male, 68 years old with history of R10.13 EPIGASTRIC PAIN I85.00 ESOPHAGEAL VARIC ES W; EPIGASTRIC PAIN X2 1/2 MONTHS. HX THROAT CANCER. TECHNIQUE: Axial CT abdomen pelvis w con;Sagittal and coronal reformats were created on a separate w orkstation. Contrast used:100ml mL of Isovue 300 with IV Contrast, (none if empty) Oral contrast used: with Oral Contrast (none if empty) FINDINGS: LOWER CHEST: Right middle lobe 11 mm nodule similar to 11/01/2023 and dating back to at least 4. No esophageal varices visualized in the [id number]. ABDOMEN LIVER: Unremarkable GALLBLADDER AND BILE DUCTS: Unremarkable. PANCREAS: Unremarkable. SPLEEN: Unremarkable. ADRENAL GLANDS: Unremarkable. KIDNEYS AND URETERS: No evidence of hydronephrosis or renal calculus. The ureters are unremarkable. PELVIS BLADDER: Unremarkable REPRODUCTIVE: Unremarkable. ABDOMEN & PELVIS STOMACH AND BOWEL: No evidence of bowel obstruction. PERITONEUM/RETROPERITONEUM: No evidence of pneumoperitoneum or free fluid. VASCULATURE: Mild atherosclerotic calcifications are present throughout the abdominal aorta and its b ranches. No evidence of aortic aneurysm. MUSCULOSKELETAL: No acute osseous abnormalities. Moderate disc degeneration changes are present throu ghout the thoracolumbar spine. LYMPH NODES: No gross evidence for lymphadenopathy. SOFT TISSUE/ABDOMINAL WALL: Unremarkable IMPRESSION: 1. No evidence for acute process to explain epigastric pain. No esophageal varices visualized. 2. Stable right middle lobe pulmonary nodule. 3. Moderate to severe degeneration changes of the spine.
== END | disposition home or self-care (01) ==
LOC: RADCTMAIN 16:30
PROVIDERS: ATTEND Internal Medicine
DX: R91.1 Solitary pulmonary nodule (principal); I85.00 Esophageal varices without bleeding
CPT/HCPCS: 80053; 83690; 85025; 74177; 36415; Q9967

== ENCOUNTER → 2024-01-06 | Outpatient (CLI) | payer MEDICARE ==
--- NOTE | 2024-01-09 12:14 | PE ---
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 Images are reviewed on the computer in the coronal, a xial, and sagittal planes. Reconstructed rotating images are created on independent workstation and reviewed on the computer. A non-contrast CT is performed in conjunction with the PET scan. Glucose level 109 mg/dL CT DLP: 406 mGycm, Automated exposure control for dose reduction was used. COMPARISON: CT 12/21/2023, PET/CT 10/14/2023, MRI: None FINDINGS: Mediastinal SUV mean is 2.6. Hepatic parenchyma SUV mean is 3.0. SKULL BASE AND NECK: * Abnormal uptake within the posterior lateral pharyngeal recess max SUV 20.7, previously 14.5. * Right neck lymph nodes max SUV 22, conglomerate lymph node on the right 17.1 measuring at least 32 x 15 mm * multiple smaller lymph nodes extend down the right neck just deep to the sternocleidomastoid muscl e. CHEST, MEDIASTINUM, AND HILAR REGION: Abnormal uptake in the thorax: * pulmonary nodule Max SUV 4.4 measuring 7 mm * right upper lobe pulmonary nodule central cavitation measuring 13 mm Max SUV 14.0, previously 5.9, previously 10 mm. * Left upper lobe pulmonary nodule measuring 10 mm Max SUV 12.1 x 4.1 previously 5 mm. AP window lym ph node max SUV 13.8, previously 2.5 * Right middle lobe pulmonary nodule Max SUV 6.0 ABDOMEN AND PELVIS: No suspicious radiotracer activity. MUSCULOSKELETAL STRUCTURES: No suspicious radiotracer activity. Degeneration uptake in the left lateral humerus max SUV 5.[address]: Atherosclerosis of the arterial vasculature. Left chest wall [id number] tip terminating in the superior vena cava. Coronary artery atherosclerosis. Large amount stool in the colon. IMPRESSION: Progression of disease with increasing size and FDG activity of metastatic lesions as well as primary right posterior lateral pharyngeal recess primary lesion.
== END | disposition home or self-care (01) ==
LOC: RADPETMAIN 13:32
PROVIDERS: ATTEND Internal Medicine Hematology & Oncology
DX: C76.0 Malignant neoplasm of head, face and neck (principal); R91.1 Solitary pulmonary nodule; J44.9 Chronic obstructive pulmonary disease, unspecified; K70.30 Alcoholic cirrhosis of liver without ascites
CPT/HCPCS: 78815; A9552

== ENCOUNTER → 2024-03-24 | Outpatient (CLI) | payer MEDICARE, BC ==
[2024-03-24 15:31] LABS: African American GFR (CKD) >90 (>60 ml/min/1.73 sqM); Blood Urea Nitrogen 26 mg/dL (9-20); Non-African American GFR(CKD) >90 (>60 ml/min/1.73 sqM)
--- NOTE | 2024-03-24 17:46 | CT ---
EXAMINATION TYPE: CT chest w con CT DLP: 268.7 mGycm, Automated exposure control for dose reduction was used. DATE OF EXAM: 03/24/2024 4:30 PM COMPARISON: Head CT 01/06/2024, 10/14/23, CT chest 07/29/2023, 06/30/2023 CLINICAL INDICATION:Male, 69 years old with history of C76.0 MALIGNANT NEOPLASM OF HEAD, FACE AND NEC K; PHH, Throat CA. SOB, Cough. TECHNIQUE: Multiple axial images were obtained through the chest following the administration of 100 cc of Isovue 300. . Coronal and sagittal reformats reviewed. FINDINGS: LUNGS/ PLEURA: No pleural effusion or pneumothorax. Mild centrilobular and paraseptal emphysematous c hanges. Previously seen scattered pulmonary nodules are no longer visualized. Example includes a pre vious seen superior segment right lower lobe thick-walled 1 cm nodule now demonstrating a thin wall l ucent region (series 4, image 29). Development of bilateral anterior upper lobe patchy reticular and groundglass opacities. AIRWAY: Patent and unremarkable.. HEART: Size within normal limits. No pericardial effusion. LAD coronary artery calcifications. MEDIASTINUM: No evidence of lymph nodes greater than 1 7 short axis. VASCULATURE: Conventional three-vessel aortic arch. Stable ascending thoracic aortic aneurysm measur ing up to 4.0 cm. The aortic root measures up to 3.5 cm. The descending thoracic aorta measures up to 2.6 cm. No evidence for dissection. Dilatation of the main pulmonary artery measuring up to 3.6 cm s uggesting pulmonary arterial hypertension. No filling defect to suggest pulmonary embolism. Left ches t wall IJ Mediport catheter with tip terminating in the high SVC. MUSCULOSKELETAL: No acute osseous abnormalities. No aggressive osseous lesion. Mild multilevel degene rative disc disease. SOFT TISSUES/LYMPH NODES: Unremarkable. LOWER NECK: No significant findings. UPPER ABDOMEN: No significant findings. IMPRESSION: 1. Positive response to therapy with previously seen metastatic pulmonary nodules no longer visualiz ed. Development of patchy bilateral upper lobe reticular and groundglass opacities suggesting posttre atment pneumonitis versus atypical pneumonia. 2. Stable aneurysm dilatation of the ascending thoracic aorta measuring 4.0 cm. 3. Dilated main pulmonary artery suggesting pulmonary arterial hypertension. 4. Mild COPD changes. [facility], , 03/24/2024 5:44 PM
== END | disposition home or self-care (01) ==
LOC: RADCTMAIN 14:39
PROVIDERS: ATTEND Internal Medicine
DX: C76.0 Malignant neoplasm of head, face and neck
CPT/HCPCS: 36415; 71260; 82565; 84520

== ENCOUNTER → 2024-04-11 | Outpatient (CLI) | payer MEDICARE, BC ==
--- NOTE | 2024-04-11 12:41 | US ---
EXAMINATION TYPE: US venous doppler duplex LE LT DATE OF EXAM: 04/11/2024 12:03 PM COMPARISON: NONE CLINICAL INDICATION: Male, 69 years old with history of M79.662 PAIN IN LOWER LEFT LEG; left leg deve loped red spots in lower leg that itch, no swelling, no h/o dvt, on chemo TECHNIQUE: The lower extremity deep venous system is examined utilizing real time linear array sonog shawna with graded compression, color doppler sonography, and spectral doppler. SIDE PERFORMED: Left FINDINGS: VESSELS IMAGED: Common Femoral Vein Deep Femoral Vein Greater Saphenous Vein * Femoral Vein Popliteal Vein Small Saphenous Vein * Proximal Calf Veins (* superficial vessels) Left Leg: Negative for DVT spoke to Rosa at office - negative IMPRESSION: No ultrasound evidence for deep venous thrombosis. [facility], , 04/11/2024 12:38 PM
== END | disposition home or self-care (01) ==
LOC: RADUSWWP 11:45
PROVIDERS: ATTEND Internal Medicine Hematology & Oncology

== ENCOUNTER → 2024-06-15 | Outpatient (CLI) | payer MEDICARE, BC ==
[2024-06-16 03:18] LABS: Urine Alcohol Negative (Negative); Urine Barbiturate Negative (Negative); Urine Cocaine Negative (Negative); Urine Methadone Negative (Negative); Urine Opiates Negative (Negative); Urine Phencyclidine Negative (Negative)
== END | disposition home or self-care (01) ==
LOC: LABWHC1 13:27
PROVIDERS: ATTEND Nurse Practitioner Adult Health
DX: C76.0 Malignant neoplasm of head, face and neck (principal); K70.30 Alcoholic cirrhosis of liver without ascites
CPT/HCPCS: 36415; 80306

== ENCOUNTER → 2024-06-22 | Outpatient (CLI) | payer MEDICARE, BC ==
--- NOTE | 2024-06-25 16:39 | PE ---
EXAMINATION TYPE: PET CT fusion skull to thigh DATE OF EXAM: 06/22/2024 CLINICAL INDICATION:Male, 69 years old with history of C76.0 Head/Neck CA; TECHNIQUE: Following the intravenous administration of 11.42 mCi of F-18 FDG, whole body images are performed from the skull base to the midthigh. Images are reviewed on the computer in the coronal, axial, and sagittal planes. Reconstructed rotating images are created on independent workstation and reviewed on the computer. A non-contrast CT is performed in conjunction with the PET scan. Glucose level 91 mg/dL CT DLP: 574 mGycm, Automated exposure control for dose reduction was used. COMPARISON: CT 03/24/2024, PET/CT 01/06/2024, MRI: None FINDINGS: Mediastinal SUV mean is 1.3. Hepatic parenchyma SUV mean is 1.9. SKULL BASE AND NECK: * Abnormal uptake within the posterior lateral pharyngeal recess max SUV 6.0 previously 17.0 . * Right neck lymph nodes max SUV 9.1, previously 18.3, measuring up to 17 mm in today's exam previou sly 33 mm. Evaluation somewhat limited due to lack of IV contrast. * Multiple smaller lymph nodes in the right neck previously identified have decreased in FDG activit y. CHEST, MEDIASTINUM, AND HILAR REGION: Interstitial lung changes to the lungs bilaterally previous area felt to represent the FDG avid nodul e on prior now max SUV 2.6, personally 14.0 more medially max SUV 2.8, previously not definitively vi sualized.. Left lower lung. Aortic uptake max SUV 3.8, previously not definitively visualized. Patchy uptake in the left upper lobe max SUV 2.7. ABDOMEN AND PELVIS: No suspicious radiotracer activity. MUSCULOSKELETAL STRUCTURES: No suspicious radiotracer activity. Degeneration uptake in the left lateral humerus max SUV 5.[address]: Atherosclerosis of the arterial vasculature. Left chest wall Dcwjdu-w-Eber tip terminating in the superior vena cava. Coronary artery atherosclerosis. Large amount stool in the colon. IMPRESSION: 1. Positive response to therapy with decreasing crit neck lymphadenopathy size and number of FDG hazel d nodules. 2. Interval development of interstitial lung disease changes possibly secondary to post treatment ch karen. Patchy uptake seen in the bilateral lungs with more focal uptake next the aorta and near the ri ght pulmonary hilum. Attention follow-up imaging at this time these are indeterminate. Findings could represent infectious/inflammatory process. 06/25/2024 4:19 PM,06/22/2024 9:17 AM,Lloyd Morris,PET CT fusion skull to thigh,[id number] 9,50,4 after 3:00 [facility], , 06/25/2024 4:36 PM
== END | disposition home or self-care (01) ==
LOC: RADPETMAIN 07:14
PROVIDERS: ATTEND Internal Medicine Hematology & Oncology
DX: C76.0 Malignant neoplasm of head, face and neck (principal); J84.9 Interstitial pulmonary disease, unspecified
CPT/HCPCS: 78815; A9552

== ENCOUNTER 2024-06-30 15:10 | Observation (INO) | payer MEDICARE, BC ==
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
[2024-06-30] MEDS ORDERED: VANCOMYCIN IV PER PHARMACY 1 EACH MISC MISCELLANE PRN (17:21)
[2024-06-30 17:36] LABS: Basophils % (A) 1 %; Eosinophils # (A) 0.4 k/uL (0-0.7); Eosinophils % (A) 5 %; HCT 37.2 % (39.0-53.0); HGB 12.1 gm/dL (13.0-17.5); Hypochromasia Slight; Lymphocytes # (A) 1.5 k/uL (1.0-4.8); Lymphocytes % (A) 21 %; MCH 31.9 pg (25.0-35.0); MCHC 32.6 g/dL (31.0-37.0); MCV 97.7 fL (80.0-100.0); Mean Platelet Volume 7.2; Monocytes # (A) 0.4 k/uL (0-1.0); Monocytes % (A) 5 %; Neutrophils # (A) 4.8 k/uL (1.3-7.7); Neutrophils % (A) 66 %; Platelet Count 233 k/uL (150-450); RBC 3.81 m/uL (4.30-5.90); RDW 15.3 % (11.5-15.5); WBC 7.3 k/uL (3.8-10.6)
[2024-06-30] MEDS: oxyCODONE-APAP 5-325MG 1 EACH TAB PO STA (17:45)
[2024-06-30] MEDS: ACETAMINOPHEN TAB 325 MG TAB PO STA (17:46)
[2024-06-30] MEDS: CEFEPIME 2 GM in SODIUM CHLORIDE 0.9% 100 ML IVPB STA (17:47)
[2024-06-30 18:03] LABS: ALT 16 U/L (4-49); AST 27 U/L (17-59); African American GFR (CKD) 90 (>60 ml/min/1.73 sqM); Albumin 4.4 g/dL (3.5-5.0); Alkaline Phosphatase 114 U/L (38-126); Anion Gap 11 mmol/L; Blood Urea Nitrogen 17 mg/dL (9-20); C Reactive Protein 4.5 mg/dL (<1.0); Calcium 9.5 mg/dL (8.4-10.2); Carbon Dioxide 22 mmol/L (22-30); Chloride 102 mmol/L (98-107); Glucose 133 mg/dL (74-99); Non-African American GFR(CKD) 78 (>60 ml/min/1.73 sqM); Potassium 4.2 mmol/L (3.5-5.1); Sodium 135 mmol/L (137-145); Total Bilirubin 0.8 mg/dL (0.2-1.3); Total Protein 7.2 g/dL (6.3-8.2)
[2024-06-30 18:10] LABS: NT-Pro-B-Type Natriuretic Pept 510 pg/mL
[2024-06-30] MEDS: NICOTINE 21MG/24HR PATCH TRANSDERM STA (18:43)
[2024-06-30] MEDS: VANCOMYCIN 1,250 MG in SODIUM CHLORIDE 0.9% 250 ML IVPB STA (18:45)
[2024-06-30] MEDS ORDERED: NALOXONE 0.4 MG/ML 1 ML VIAL IV PRN (19:05)
[2024-06-30] MEDS ORDERED: CALCIUM CARBONATE 500 MG CHEWABLE PO PRN (19:05)
[2024-06-30] MEDS ORDERED: traMADol 50 MG TAB PO PRN (19:05)
[2024-06-30] MEDS ORDERED: MAG HYDROX/AL HYDROX/SIMETH 30 ML CUP PO PRN (19:05)
--- NOTE | 2024-06-30 20:17 | CONS ---
DATE OF CONSULTATION: 06/30/2024 HISTORY OF PRESENT ILLNESS: This is a 69-year-old pleasant gentleman who has been diagnosed with oral esophageal cancer under care of Dr. Clark for chemotherapy. The patient came with a history of foot drainage and necrotic skin changes noted at the Port-A-Cath placement, which was put at [facility] in the past. No history of diabetes or hypertension. The patient is allergic to albuterol. PHYSICAL EXAMINATION: GENERAL: The patient was seen in the emergency room. NECK: Supple. CHEST: Clear to auscultation. Good air entry into both lungs. The patient has a Port- A-Cath on the chest wall left jugular approach. The skin on the Port-A-Cath was infected and necrotic. The patient has no fever or chills. ABDOMEN: Soft, nontender. VASCULAR: Femorals are 1+ bilaterally. PLAN: Removal of the Port-A-Cath and debridement of the Port-A-Cath pocket. Risks and complications discussed. The patient is on IV antibiotic and nothing by mouth after midnight. Consent for Port-A-Cath removal. MMODL / IJN: [id number] / EFREM
--- NOTE | 2024-06-30 20:23 | CT ---
EXAMINATION TYPE: CT chest angio for PE DATE OF EXAM: 06/30/2024 7:55 PM COMPARISON: 03/24/2020 10/10/2024 CLINICAL INDICATION: Male, 69 years old with history of shortness of breath, infected port; infected port TECHNIQUE/CONTRAST: CTA scan of the thorax is performed with IV Contrast, patient injected with 100ml mL of Isovue 370, M IP images are created and reviewed these are created on a separate workstation.. CT DLP: 331.3 mGycm, Automated exposure control for dose reduction was used. FINDINGS: Lungs/Pleura: Redemonstration of scattered groundglass opacities superimposed on interstitial lung di sease changes. May be slight interval improvement with less dense areas on today's exam compared to and all new from 03/24/2024. No pneumothorax or pleural effusion. Airway: Large airways are patent. Heart: Heart is within normal limits for size. Atherosclerosis of the arterial vasculature. Vasculature: There is no evidence for a filling defect within the pulmonary vasculature to suggest [place] pulmonary embolism. The pulmonary artery is of normal size. Left chest wall [id number]-Qugk with tip terminating in the superior vena cava. Mediastinum: No gross evidence of adenopathy. Musculoskeletal: Moderate degenerative disc disease changes are present throughout the thoracolumbar spine. Soft Tissues/lymph nodes: Unremarkable. Lower neck: No significant findings. Upper Abdomen: No significant findings. IMPRESSION: 1. No evidence of pulmonary embolism. 2. There may be mild slight improvement of interstitial lung disease with groundglass opacities and c ystic changes. Compared to 06/22/2024 PET/CT. Correlate for pneumonia. [facility], , 06/30/2024 8:21 PM
[2024-06-30] MEDS: SODIUM CHLORIDE 0.9% 1,000 ML IV ONE (21:25)
[2024-06-30] MEDS: FLUoxetine HCL 20 MG CAP PO SCH (21:38)
[2024-06-30] MEDS: lamoTRIgine 100 MG TAB PO SCH (21:39)
[2024-06-30] MEDS: GABAPENTIN 300 MG CAP PO SCH (21:39)
[2024-06-30] MEDS: PREGABALIN 50 MG CAP PO SCH (21:39)
[2024-06-30] MEDS: DEXTROSE 5%-0.45% NACL 1,000 ML IV SCH (21:43)
[2024-06-30] MEDS ORDERED: ACETAMINOPHEN TAB 325 MG TAB PO PRN (23:05)
--- NOTE | 2024-06-30 23:08 | P.HPIM ---
History of Present Illness H&P Date: 06/30/24 Patient is a 69-year-old male with PMH of COPD (not on home oxygen), stage IV liver cirrhosis with esophageal varices, osteoarthritis, seizure disorder and metastatic oropharyngeal cancer (Diagnosed in Jun/Jul 2023, follows w/ Dr. Clark at [facility], currently undergoing chemotherapy) comes to the ER with a chief complaint of possibly infected Port-A-Cath. Patient states that he first noticed redness associated with mild swelling and tenderness around the port site about 6 weeks ago. Patient stated that initially it was mildly tender but has progressively gotten worse becoming more tender, raised and has also started to drain yellowish-brown pus since past 2 to 3 weeks. Port-A-Cath was inserted in July of 2023 without any complication until recently. Patient also states that he has been on a break from chemotherapy since May of 2024. Otherwise, patient denies any dysphagia, shortness of breath, fever, chills, nausea, vomiting, chest pain, abdominal pain, diarrhea, constipation, generalized numbness and weakness in upper or lower extremities. Of note, patient was last seen by Dr. Clark a week ago and patient was supposed to resume his chemotherapy starting July 06, 2024. Laboratory data: WBC 7.3, hemoglobin 12.1, hematocrit 37.2, platelet count 233, D-dimer 0.85, sodium 135, potassium 4.2, chloride 102, bicarb 22, BUN 70, creatinine 1.0, EGFR 38, glucose 2033, lactic acid 1.5, AST 27, ALT 16, ALP 114, CRP 4.5 Images: CT angio of the chest was in the ER which shows no evidence of pulmonary embolism. EKG interpreted independently shows junctional tachycardia with a heart rate of 108 bpm. CA interval 131 ms, QRS duration 83 ms, QTc [address]-T wave changes. Normal R wave progression. Vitals: Tmax 97.7 F, pulse 314, respiratory 18, blood pressure 102/66, oxygen saturation 97% on room air Review of systems: Pertinent positives and negatives as discussed in HPI, a complete review of systems was performed and all other systems are negative. Social history: Tobacco: 1 to 2 pack/day x 40 years Alcohol: Occasionally Recreational drugs: None Travel: None Family History: Unsure of cancer in the family Physical examination: Vital signs reviewedthe General: non toxic, no distress, appears older than stated age, underweight Derm: About 2 cm raised tender immobile skin lesion at Port-A-Cath insertion site with surrounding erythema and swelling with mild dark brown purulent drainage on the left upper chest area Head: atraumatic, normocephalic, symmetric Eyes: EOMI, no lid lag, anicteric sclera, pupils equal round reactive to light ENT: Nose and ears atraumatic Neck: No cervical lymphadenopathy, trachea midline, supple, R 3 cm hard mass at the mandibular angle nontender Mouth: no lip lesion, mucus membranes moist Cardiovascular: S1S2 reg, no murmur, positive dorsalis pedis pulse bilateral, no edema Lungs: Mild expiratory wheezes heard on both lung bases, no rhonchi, no rales, no accessory muscle use Abdominal: soft, nontender to palpation, no guarding Ext: muscle strength 5 out of 5 in all 4 extremities grossly, no gross muscle atrophy, no contractures, Neuro: CN II-XI grossly intact, no gross focal neuro deficits Psych: Alert, oriented, appropriate affect Assessment/Plan: Patient is a 69-year-old male with PMH of COPD (not on home oxygen), cirrhotic liver disease, osteoarthritis, seizure disorder and throat cancer currently undergoing chemotherapy delivered through Port-A-Cath located on the left side of the chest comes to the ER with a chief complaint possibly infected Port-A-Cath. Case was discussed with the Emergency Room provider and decision was made to admit the patient for removal of Port-A-Cath. Active: #Infected Port-A-Cath #Metastatic oropharyngeal carcinoma Patient is currently undergoing chemotherapy for metastatic oropharyngeal cancer with Dr. Clark at [facility] blood culture Order vancomycin 1250 mg IVP every 12 hours C/w Cefepime 2g q8h Consult vascular surgery for removal of Port-A-Cath Keep n.p.o. D-dimer 0.85 CT angio of the chest negative for pulm embolism Sepsis criteria: 06/17 Oncology consult #Normocytic anemia Hemoglobin 12.1 Baseline hemoglobin is 14.5 Continue to monitor CBC #Euvolemic hyponatremia likely reactive to above Sodium 135 Continue monitor BMP Continue with D5 with NS saline at 75 cc/h infusion #Hyperglycemia Glucose 133 Continue monitoring for hyperglycemia with Accu-Cheks No established diagnosis of diabetes mellitus Serum glucose level in the past has been within normal range Last HbA1c 5.0 in 02/26/2022 #Elevated CRP, likely due to underlying malignancy CRP 4.5 #Junctional tachycardia, unknown etiology Heart rate between 100-110 bpm Patient not complaining of heart palpitation or chest pain If symptomatic, can consider beta-ava or calcium ava Previous echocardiogram on 12/01/2021 shows LVEF 55 to 60% with no significant cardiac structural abnormalities Continue cardiac telemetry #COPD (not in exacerbation):Resume Pulmicort inhaler Other chronic problems: Seizure disorder: Resume lamotrigine 200 mg p.o. twice daily Neuropathy:Resume Lyrica 50 mg p.o. 3 times daily DVT prophylaxis: Heparin Subq GI prophylaxis: Omeprazole to 20 mg p.o. daily F: D5 with normal saline at 75 cc/h infusion E: Replete as needed N: N.p.o. A: Patient ambulatory at baseline The patient is admitted with an anticipated less than than 2 midnight stay for evaluation of infected Port-A-Cath CODE STATUS: Full code Discussed with: Patient Anticipated discharge place: Pending clinical course Dictation was produced using [employer] dictation software. Please excuse any grammatical, word or spelling errors. Past Medical History Past Medical History: Cancer, COPD, CVA/TIA, Liver Disease, Osteoarthritis (OA), Seizure Disorder, Sleep Apnea/CPAP/BIPAP Additional Past Medical History / Comment(s): Rt. leg fx. as child,stage 4 liver cirrohsis with esophageal varices, rt foot drag, hepatitis C, enlarged prostate, AAA(4 cm?)- needs to be rechecked, partially blocked Rt. carotid artery, 2 T.I.A's sevral years ago, 1 seizure approx. 2010 - never on medication, Fernandez's Palsy approx. 2016, tried CPAP but cannot tolerate, lung nodule, ? metastatic disease. stage 4 cancer and aneurysm History of Any Multi-Drug Resistant Organisms: None Reported Past Surgical History: Adenoidectomy, Orthopedic Surgery, Tonsillectomy Additional Past Surgical History / Comment(s): knee replacement Lt., Lt shoulder repair, sinus surgery Past Anesthesia/Blood Transfusion Reactions: No Reported Reaction Past Psychological History: Depression Smoking Status: Current every day smoker Past Alcohol Use History: Rare Past Drug Use History: None Reported - Past Family History Father Family Medical History: Myocardial Infarction ([place]) Additional Family Medical History / Comment(s): several male family members with heart attacks Mother Family Medical History: COPD Sister(s) Family Medical History: Cancer Medications and Allergies Home Medications Medication Instructions Recorded Confirmed Type Omeprazole 20 mg PO DAILY 05/28/19 06/30/24 History lamoTRIgine 200 mg PO BID 05/28/19 06/30/24 History FLUoxetine HCL [PROzac] 20 mg PO HS 10/22/22 06/30/24 History Ondansetron [Zofran] 4 - 8 mg PO Q4H PRN 11/09/23 06/30/24 History oxyCODONE HCL/ACETAMINOPHEN 1 tab PO Q6H PRN 11/09/23 06/30/24 History [Percocet 10-325 mg Tablet] Budesonide [Pulmicort] 0.5 mg INHALATION RT-DAILY 06/30/24 06/30/24 History Gabapentin [Neurontin] 300 mg PO TID 06/30/24 06/30/24 History Hydrocortisone Cream 1 applic TOPICAL HS 06/30/24 06/30/24 History [Hydrocortisone 1% Cream] Hydrocortisone Oint 1 applic TOPICAL TID 06/30/24 06/30/24 History [Hydrocortisone 2.5% Oint] Mupirocin 2% Oint [Bactroban 2% 1 applic TOPICAL TID PRN 06/30/24 06/30/24 History Oint] Pregabalin [Lyrica] 50 mg PO TID 06/30/24 06/30/24 History Allergies Allergy/AdvReac Type Severity Reaction Status Date / Time albuterol [From ProAir HFA] Allergy Itching Verified 06/30/24 18:42 bee venom protein (honey bee) Allergy Swelling Verified 06/30/24 18:42 Physical Exam Vitals: Vital Signs Temp Pulse Resp BP Pulse Ox 06/30/24 22:34 97.9 F 103 H 18 119/73 96 06/30/24 18:26 103 H 18 100/62 97 06/30/24 15:18 97.7 F 114 H 18 102/66 97 Intake and Output 06/30/24 06/30/24 06/30/24 06:59 14:59 22:59 Other: Weight 70.307 kg Results CBC & Chem 7: 06/30/24 17:26 06/30/24 17:26 Labs: Abnormal Lab Results - Last 24 Hours (Table) 06/30/24 06/30/24 06/30/24 Range/Units 17:26 17:26 17:26 RBC 3.81 L (4.30-5.90) m/uL Hgb 12.1 L (13.0-17.5) gm/dL Hct 37.2 L (39.0-53.0) % D-Dimer 0.85 H (<0.60) mg/L FEU Sodium 135 L (137-145) mmol/L Glucose 133 H (74-99) mg/dL C-Reactive Protein 4.5 H (<1.0) mg/dL
[2024-07-01] MEDS: oxyCODONE-APAP 10-325MG 1 EACH TAB PO PRN (01:44)
[2024-07-01 03:55] LABS: Glucose,Whole Blood 113 mg/dL (70-110)
[2024-07-01] MEDS: CEFEPIME 2 GM in SODIUM CHLORIDE 0.9% 100 ML IVPB SCH (04:44)
[2024-07-01] MEDS: DEXTROSE 5%-0.9% NACL 1,000 ML IV SCH (04:50)
[2024-07-01] MEDS: HEPARIN SODIUM,PORCINE 5,000 UNIT/ML 1 ML VIAL SQ SCH (05:09)
[2024-07-01] MEDS: VANCOMYCIN 1,250 MG in SODIUM CHLORIDE 0.9% 250 ML IVPB SCH (05:10)
[2024-07-01] MEDS: BUDESONIDE 0.5 MG/2 ML NEBU INHALATION SCH (08:12)
[2024-07-01] MEDS: NICOTINE 21MG/24HR PATCH TRANSDERM SCH (08:29)
[2024-07-01 09:02] LABS: Glucose,Whole Blood 110 mg/dL (70-110)
[2024-07-01 09:44] LABS: BUN/Creat Ratio 17.67 Ratio (12.00-20.00); Blood Urea Nitrogen 15.9 mg/dL (9.0-27.0); Calcium 8.6 mg/dL (8.7-10.3); Carbon Dioxide 19.5 mmol/L (21.6-31.8); Chloride 107 mmol/L (96-109); Glucose 117 mg/dL (70-110); Potassium 3.8 mmol/L (3.5-5.5); Sodium 139 mmol/L (135-145)
[2024-07-01 09:54] LABS: Basophils # (A) 0.04 X 10*3/uL (0.00-0.10); Basophils % (A) 0.8 %; Eosinophils # (A) 0.44 X 10*3/uL (0.04-0.35); Eosinophils % (A) 8.9 %; HGB 9.7 g/dL (13.0-17.0); Lymphocytes # (A) 1.45 X 10*3/uL (0.90-5.00); Lymphocytes % (A) 29.4 %; MCH 31.3 pg (27.0-32.0); MCHC 31.3 g/dL (32.0-37.0); Mean Platelet Volume 11.3 FL (9.5-12.2); Monocytes # (A) 0.52 X 10*3/uL (0.20-1.00); Monocytes % (A) 10.5 %; NRBC Per 100 WBC 0 X 10*3/uL (0.00-0.01); Neutrophils # (A) 2.47 X 10*3/uL (1.80-7.70); Platelet Count 187 X 10*3/uL (140-440); RDW 15.2 % (11.5-14.5); WBC 4.94 X 10*3/uL (4.50-10.00)
--- NOTE | 2024-07-01 10:07 | P.CONS ---
History of Present Illness - Reason for Consult Consult date: 07/01/24 port infection - History of Present Illness Patient is a 69-year-old white male, well-known to our service. He is followed by Dr. Clark in the outpatient setting. The patient was diagnosed with oropharyngeal cancer with metastasis to the neck nodes, and lungs in early 2023. He has been on treatment since, with response. The exact details of his regimen were not available at the time of my initial consult. The patient states that he was receiving chemotherapy with the last treatment on 05/19/2024. He was then placed on a treatment break, as his disease was stable, and he had been having progressive side effects. The patient states that he developed a new mass in the right upper neck around the end of 06/06. This is felt to be suspicious for progression, although, interestingly, his PET scan from 06/25/2024 showed decrease in size and uptake in the neck nodes. The patient was supposed to resume treatment next week. The patient stated that he had been having some intermittent redness and itching related to the port site in the left upper chest wall for the past few weeks. Over the last couple of weeks, he developed more persistent swelling and redness, as well as purulent discharge and pain. He denied any fever or chills. He therefore came into the hospital and was admitted for further management. The patient had been complaining of some palpitations and had a heart rate of greater than 100 on presentation due to which she had a CT angiogram done. This showed no evidence of PE. Previous PET scan had shown bilateral interstitial opacities, which showed some improvement on this CAT scan Review of Systems Constitutional: Reports fatigue Eyes: denies blurred vision, denies pain Ears: deny: decreased hearing, ear discharge, earache, tinnitus Ears, nose, mouth and throat: Reports as per HPI, Reports neck lump Cardiovascular: Reports palpitations, Reports rapid heart beat Respiratory: Denies cough Gastrointestinal: Denies abdominal pain, Denies diarrhea, Denies nausea, Denies vomiting Musculoskeletal: Denies myalgias Integumentary: Reports as per HPI, Denies pruritus, Denies rash Neurological: Denies numbness, Denies weakness Psychiatric: Denies anxiety, Denies depression Endocrine: Reports fatigue Hematologic/Lymphatic: Reports lymphadenopathy Past Medical History Past Medical History: Cancer, COPD, CVA/TIA, Liver Disease, Osteoarthritis (OA), Seizure Disorder, Sleep Apnea/CPAP/BIPAP Additional Past Medical History / Comment(s): Rt. leg fx. as child,stage 4 liver cirrohsis with esophageal varices, rt foot drag, hepatitis C, enlarged prostate, AAA(4 cm?)- needs to be rechecked, partially blocked Rt. carotid artery, 2 T.I.A's sevral years ago, 1 seizure approx. 2010 - never on medication, Fernandez's Palsy approx. 2016, tried CPAP but cannot tolerate, lung nodule, ? metastatic disease. stage 4 cancer and aneurysm History of Any Multi-Drug Resistant Organisms: None Reported Past Surgical History: Adenoidectomy, Orthopedic Surgery, Tonsillectomy Additional Past Surgical History / Comment(s): knee replacement Lt., Lt shoulder repair, sinus surgery Past Anesthesia/Blood Transfusion Reactions: No Reported Reaction Past Psychological History: Depression Smoking Status: Current every day smoker Past Alcohol Use History: Rare Past Drug Use History: None Reported - Past Family History Father Family Medical History: Myocardial Infarction ([place]) Additional Family Medical History / Comment(s): several male family members with heart attacks Mother Family Medical History: COPD Sister(s) Family Medical History: Cancer Medications and Allergies Home Medications Medication Instructions Recorded Confirmed Type Omeprazole 20 mg PO DAILY 05/28/19 06/30/24 History lamoTRIgine 200 mg PO BID 05/28/19 06/30/24 History FLUoxetine HCL [PROzac] 20 mg PO HS 10/22/22 06/30/24 History Ondansetron [Zofran] 4 - 8 mg PO Q4H PRN 11/09/23 06/30/24 History oxyCODONE HCL/ACETAMINOPHEN 1 tab PO Q6H PRN 11/09/23 06/30/24 History [Percocet 10-325 mg Tablet] Budesonide [Pulmicort] 0.5 mg INHALATION RT-DAILY 06/30/24 06/30/24 History Gabapentin [Neurontin] 300 mg PO TID 06/30/24 06/30/24 History Hydrocortisone Cream 1 applic TOPICAL HS 06/30/24 06/30/24 History [Hydrocortisone 1% Cream] Hydrocortisone Oint 1 applic TOPICAL TID 06/30/24 06/30/24 History [Hydrocortisone 2.5% Oint] Mupirocin 2% Oint [Bactroban 2% 1 applic TOPICAL TID PRN 06/30/24 06/30/24 Hist ory Oint] Pregabalin [Lyrica] 50 mg PO TID 06/30/24 06/30/24 History Allergies Allergy/AdvReac Type Severity Reaction Status Date / Time albuterol [From ProAir HFA] Allergy Itching Verified 06/30/24 18:42 bee venom protein (honey bee) Allergy Swelling Verified 06/30/24 18:42 Physical Exam Vitals: Vital Signs Temp Pulse Pulse Resp BP BP BP 07/01/24 08:23 96 07/01/24 08:12 92 07/01/24 07:28 98.0 F 101 H 20 119/83 07/01/24 02:00 97.9 F 69 16 115/77 06/30/24 23:46 97.7 F 108 H 16 94/64 06/30/24 22:34 97.9 F 103 H 18 119/73 06/30/24 18:26 103 H 18 100/62 06/30/24 15:18 97.7 F 114 H 18 102/66 Pulse Ox 07/01/24 08:23 07/01/24 08:12 07/01/24 07:28 97 07/01/24 02:00 94 L 06/30/24 23:46 94 L 06/30/24 22:34 96 06/30/24 18:26 97 06/30/24 15:18 97 Intake and Output 06/30/24 07/01/24 07/01/24 22:59 06:59 14:59 Other: Voiding Method Toilet # Voids 2 Weight 70.307 kg 70.307 kg - Constitutional General appearance: no acute distress - EENT Eyes: EOMI, PERRLA ENT: hearing grossly normal - Neck Neck: lymphadenopathy (Palpable lump, about 2.5 cm just posterior to right ear, fixed, firm) Thyroid: bilateral: normal size - Respiratory Respiratory: bilateral: CTA - Cardiovascular Rhythm: regular - Gastrointestinal General gastrointestinal: normal bowel sounds, soft - Integumentary Area of the port site shows skin redness, hyperpigmentation and swelling, with areas of scabbing. Appears grossly infected. - Neurologic Neurologic: CNII-XII intact - Musculoskeletal Musculoskeletal: generalized weakness, strength equal bilaterally - Psychiatric Psychiatric: A&O x's 3, appropriate affect Results CBC & Chem 7: 07/01/24 03:48 07/01/24 03:48 Labs: Abnormal Lab Results - Last 24 Hours (Table) 06/30/24 06/30/24 06/30/24 Range/Units 17:26 17:26 17:26 RBC 3.81 L (4.30-5.90) m/uL Hgb 12.1 L (13.0-17.5) gm/dL Hct 37.2 L (39.0-53.0) % MCV (80.0-97.0) FL MCHC (32.0-37.0) g/dL RDW (11.5-14.5) % Eosinophils # (0.04-0.35) X 10*3/uL D-Dimer 0.85 H (<0.60) mg/L FEU Sodium 135 L (137-145) mmol/L Carbon Dioxide (21.6-31.8) mmol/L Anion Gap (4.00-12.00) mmol/L Glucose 133 H (74-99) mg/dL POC Glucose (mg/dL) (70-110) mg/dL Calcium (8.7-10.3) mg/dL C-Reactive Protein 4.5 H (<1.0) mg/dL 07/01/24 07/01/24 07/01/24 Range/Units 03:48 03:48 03:52 RBC 3.10 L (4.30-5.90) m/uL Hgb 9.7 L (13.0-17.5) gm/dL Hct 31.0 L (39.0-53.0) % MCV 100.0 H (80.0-97.0) FL MCHC 31.3 L (32.0-37.0) g/dL RDW 15.2 H (11.5-14.5) % Eosinophils # 0.44 H (0.04-0.35) X 10*3/uL D-Dimer (<0.60) mg/L FEU Sodium (137-145) mmol/L Carbon Dioxide 19.5 L (21.6-31.8) mmol/L Anion Gap 12.50 H (4.00-12.00) mmol/L Glucose 117 H (74-99) mg/dL POC Glucose (mg/dL) 113 H (70-110) mg/dL Calcium 8.6 L (8.7-10.3) mg/dL C-Reactive Protein (<1.0) mg/dL CT scan - chest: report reviewed Assessment and Plan (1) Infection due to Port-A-Cath Narrative/Plan: The patient is presenting with clinically infected Port-A-Cath site. He has no fever or chills. -He is currently on IV antibiotics. Cultures are pending. Surgery has been consulted for port removal. -If patient's cultures remain negative, then he can have a new port put in in 2 to 3 days. Current Visit: Yes Status: Acute Code(s): T80.219A - UNSP INFECTION DUE TO CENTRAL VENOUS CATHETER, INIT ENCNTR SNOMED Code(s): 494029335 (2) Carcinoma of oropharynx Narrative/Plan: History as described. The patient was to resume treatment later this month. He can follow-up in the office after port replacement for the same. -The patient has moderate anemia, which is acceptable at this point. Continue to monitor counts and supplement if needed Current Visit: Yes Status: Acute Code(s): C10.9 - MALIGNANT NEOPLASM OF OROPHARYNX, UNSPECIFIED SNOMED Code(s): 547688710
--- NOTE | 2024-07-01 12:42 | P.PN ---
Subjective Progress Note Date: 07/01/24 Hospital course: Patient is a 69-year-old male with PMH of COPD (not on home oxygen), stage IV liver cirrhosis with esophageal varices, osteoarthritis, seizure disorder and metastatic oropharyngeal cancer (Diagnosed in Jul 2023, follows w/ Dr. Clark at [facility], currently undergoing chemotherapy) comes to the ER with a chief complaint of possibly infected Port-A-Cath. Patient states that he first noticed redness associated with mild swelling and tenderness around the port site about 6 weeks ago. Patient stated that initially it was mildly tender but has progressively gotten worse becoming more tender, raised and has also started to drain yellowish-brown pus since past 2 to 3 weeks. Port-A-Cath was inserted in July of 2023 without any complication until recently. Patient also states that he has been on a break from chemotherapy since May of 2024. Otherwise, patient denies any dysphagia, shortness of breath, fever, chills, nausea, vomiting, chest pain, abdominal pain, diarrhea, constipation, generalized numbness and weakness in upper or lower extremities. Of note, patient was last seen by Dr. Clark a week ago and patient is supposed to resume his chemotherapy starting July 06, 2024. Laboratory data: WBC 7.3, hemoglobin 12.1, hematocrit 37.2, platelet count 233, D-dimer 0.85, sodium 135, potassium 4.2, chloride 102, bicarb 22, BUN 70, creatinine 1.0, EGFR 38, glucose 2033, lactic acid 1.5, AST 27, ALT 16, ALP 114, CRP 4.5 Images: CT angio of the chest was in the ER which shows no evidence of pulmonary embolism. EKG interpreted independently shows junctional tachycardia with a heart rate of 108 bpm. [place] interval 131 ms, QRS duration 83 ms, QTc [address]-T wave changes. Normal R wave progression. Vitals: Tmax 97.7 F, pulse 314, respiratory 18, blood pressure 102/66, oxygen saturation 97% on room air Subjective: 07/01/2024: Patient seen and evaluated bedside. No acute complaints, no overnight events. Denies any fever, chills, chest pain, heart palpitation, sh ortness of breath Pertinent positives and negatives as discussed above, a complete review of systems was performed and all other systems are negative. Vitals: Signs Reviewed Physical examination: Vital signs reviewed: General: non toxic, no distress, appears older than stated age, underweight Derm: About 2 cm raised tender immobile skin lesion at Port-A-Cath insertion site with surrounding erythema and swelling with mild dark brown purulent drainage on the left upper chest area Head: atraumatic, normocephalic, symmetric Eyes: EOMI, no lid lag, anicteric sclera, pupils equal round reactive to light ENT: Nose and ears atraumatic Neck: No cervical lymphadenopathy, trachea midline, supple, R 3 cm hard mass at the mandibular angle nontender Mouth: no lip lesion, mucus membranes moist Cardiovascular: S1S2 reg, no murmur, positive dorsalis pedis pulse bilateral, no edema Lungs: Mild expiratory wheezes heard on both lung bases, no rhonchi, no rales, no accessory muscle use Abdominal: soft, nontender to palpation, no guarding Ext: muscle strength 5 out of 5 in all 4 extremities grossly, no gross muscle atrophy, no contractures, Neuro: CN II-XI grossly intact, no gross focal neuro deficits Psych: Alert, oriented, appropriate affect Data Received Today: Pertinent Labs: Hgb 9.7, MCV 100, CO2 19.5, anion gap 12.5, glucose 117, BUN 15.9, creatinine 0.9 Imaging: N/A Assessment and Plan: Patient is a 69-year-old male with PMH of COPD (not on home oxygen), cirrhotic liver disease, osteoarthritis, seizure disorder and throat cancer currently undergoing chemotherapy delivered through Port-A-Cath located on the left side of the chest comes to the ER with a chief complaint possibly infected Port-A-Cath. Case was discussed with the Emergency Room provider and decision was made to admit the patient for removal of Port-A-Cath. Active: #Infected Port-A-Cath #Metastatic oropharyngeal carcinoma Patient is currently undergoing chemotherapy for metastatic oropharyngeal cancer with Dr. Clark at [facility] Blood culture pending Continue with vancomycin 1250 mg IVP every 12 hours monitor for renal toxicity C/w Cefepime 2g q8h Keep NPO D-dimer 0.85 CT angio of the chest negative for pulm embolism Sepsis criteria: / Oncology following Consult vascular surgery, Port-A-Cath to be removed today #Normocytic anemia, likely in the setting of chronic disease Hemoglobin 9.7 Baseline hemoglobin is 14.5 Iron studies ordered Reticulocyte count ordered Continue to monitor CBC #Hyperglycemia Glucose 133 => 117, likely reactive Continue monitoring for hyperglycemia with Accu-Cheks No established diagnosis of diabetes mellitus Serum glucose level in the past has been within normal range Last HbA1c 5.0 in 02/26/2022 #Elevated CRP, likely due to underlying malignancy CRP 4.5 #Junctional tachycardia, unknown etiology #Chest pain Previous echocardiogram on 12/01/2021 shows LVEF 55 to 60% with no significant cardiac structural abnormalities Continue cardiac telemetry Cardiology consulted -Consider repeat echocardiogram # Non-anion gap metabolic acidosis CO2 -0.5, anion gap 12.5 Lactic acid was within normal limit at 1.5 Continue with D5 half-normal saline at 75 cc Closely monitor with follow-up BMP Chronic: COPD (not in exacerbation): Resume Pulmicort inhaler Seizure disorder: Resume lamotrigine 200 mg p.o. twice daily Neuropathy:Resume Lyrica 50 mg p.o. 3 times daily, and gabapentin 300 mg p.o. 3 times daily Resolved: Mild euvolemic hyponatremia DVT prophylaxis: Heparin Subq GI prophylaxis: Omeprazole to 20 mg p.o. daily F: D5 with normal saline at 75 cc/h infusion E: Replete as needed N: NPO A: Patient ambulatory at baseline DVT ppx: Heparin 5000 units SQ every 8 hours, SCDs Code status: Full code Anticipated discharge place: Pending clinical course Anticipated discharge time: Pending clinical course Abe Campbell MD PGY-1 IM Dictation was produced using [employer] dictation software. please excuse any grammatical, word or spelling errors. Pertinent positives and negatives as discussed in HPI, a complete review of systems was performed and all other systems are negative. Objective - Vital Signs Vital signs: Vital Signs Temp 98.0 F 07/01/24 07:28 Pulse 101 H 07/01/24 07:28 Resp 20 07/01/24 07:28 BP 119/83 07/01/24 07:28 Pulse Ox 97 07/01/24 07:28 FiO2 Intake & Output 06/30/24 07/01/24 07/01/24 18:59 06:59 18:59 Weight 70.307 kg 70.307 kg Other: Voiding Method Toilet # Voids 2 - Labs CBC & Chem 7: 07/01/24 03:48 07/01/24 03:48 Labs: Abnormal Lab Results - Last 24 Hours (Table) 06/30/24 06/30/24 06/30/24 Range/Units 17:26 17:26 17:26 RBC 3.81 L (4.30-5.90) m/uL Hgb 12.1 L (13.0-17.5) gm/dL Hct 37.2 L (39.0-53.0) % D-Dimer 0.85 H (<0.60) mg/L FEU Sodium 135 L (137-145) mmol/L Glucose 133 H (74-99) mg/dL POC Glucose (mg/dL) (70-110) mg/dL C-Reactive Protein 4.5 H (<1.0) mg/dL 07/01/24 Range/Units 03:52 RBC (4.30-5.90) m/uL Hgb (13.0-17.5) gm/dL Hct (39.0-53.0) % D-Dimer (<0.60) mg/L FEU Sodium (137-145) mmol/L Glucose (74-99) mg/dL POC Glucose (mg/dL) 113 H (70-110) mg/dL C-Reactive Protein (<1.0) mg/dL
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
[2024-07-01] MEDS ORDERED: MIDAZOLAM 2 MG/2 ML VIAL ONE (14:41)
[2024-07-01] MEDS ORDERED: PROPOFOL 10 MG/ML 20 ML VIAL IV ONE (14:41)
[2024-07-01] MEDS ORDERED: fentaNYL (PF) 50 MCG/ML 2 ML AMP ONE (14:41)
[2024-07-01] MEDS: SODIUM CHLORIDE 0.9% 1,000 ML IV ONE (14:44)
[2024-07-01] MEDS: LIDOCAINE 1%-EPI 1:100,000 20 ML VIAL SQ ONE (15:10)
[2024-07-01] MEDS: PANTOPRAZOLE 40 MG TABLET PO SCH (16:17)
[2024-07-01] MEDS: METOPROLOL TARTRATE 25 MG TAB PO SCH (16:17)
[2024-07-01 20:23] LABS: Glucose,Whole Blood 114 mg/dL (70-110)
[2024-07-01] MEDS: APIXABAN 5 MG TAB PO SCH (21:07)
--- NOTE | 2024-07-02 00:29 | OP ---
OPERATIVE REPORT DATE OF SERVICE : 07/01/2024 PREOPERATIVE DIAGNOSIS: Infected Port-A-Cath in the left side of the chest. POSTOPERATIVE DIAGNOSIS: Infected Port-A-Cath in the left side of the chest. PROCEDURE: Removal of the Port-A-Cath. DESCRIPTION OF PROCEDURE: This patient was brought to the operating room. Left chest was prepped and draped in the usual sterile manner. 1% lidocaine plain was infiltrated at the port site. Skin of the Port-A-Cath was necrotic. An incision was made, Port-A-Cath was removed along with the catheter. We took some deep cultures. All the necrotic skin was excised with a sharp knife. Then, the wound was irrigated with hydrogen peroxide and saline. Incision was closed with 3-0 nylon with mattress interrupted suture. Dressing applied. The patient tolerated the procedure well, was transferred to the recovery room in satisfactory condition. MMJESUS ALBERTO / KINAN: [id number] / MTDD
[2024-07-02 03:05] LABS: Glucose,Whole Blood 102 mg/dL (70-110)
[2024-07-02] MEDS: VANCOMYCIN TROUGH DUE 1 EACH MISC MISCELLANE ONE (06:14)
[2024-07-02 06:59] LABS: African American GFR (CKD) >90 (>60 ml/min/1.73 sqM); Anion Gap 8 mmol/L; Blood Urea Nitrogen 11 mg/dL (9-20); Calcium 9.2 mg/dL (8.4-10.2); Carbon Dioxide 22 mmol/L (22-30); Chloride 107 mmol/L (98-107); Glucose 102 mg/dL (74-99); Magnesium 1.8 mg/dL (1.6-2.3); Non-African American GFR(CKD) >90 (>60 ml/min/1.73 sqM); Potassium 4.6 mmol/L (3.5-5.1); Sodium 137 mmol/L (137-145)
[2024-07-02 07:58] VITALS: RESP 18
[2024-07-02 09:29] LABS: Glucose,Whole Blood 118 mg/dL (70-110)
--- NOTE | 2024-07-02 10:34 | P.PN ---
Subjective Progress Note Date: 07/02/24 HISTORY OF PRESENTING ILLNESS: 69-year-old male with past medical history of COPD, stage IV liver cirrhosis because of hepatitis C, esophageal varices, osteoarthritis, seizure disorder and metastatic oropharyngeal cancer diagnosed in July 2023. He follows up with Dr. Sales. Currently undergoing chemotherapy. He presented to the hospital because of complaints of infected Mediport. On admission he was noticed to have narrow complex tachycardia concerning of atrial flutter. Admission Cardiac Labs: Hb 12.1, platelet 233, BUN 17, creatinine 1, troponin negative, CRP 4.5, NT-proBNP 510 Admission testing: EKG shows atrial flutter with heart rate around 101 bpm Telemetry shows atrial flutter Progress note 07/02/2024 Patient continues to be in atrial flutter but rate controlled heart rate averag ing around 70s to 80s with intermittently reaching into 100s. He denies any palpitations lightheadedness symptoms. He denies any chest pressure or signs of congestive heart failure. PHYSICAL EXAMINATION: Neck: Brisk carotid upstroke, no jugular venous distention. Lungs: Clear to auscultation. Heart: Irregularly irregular , S1-S2, , no murmur or rub. Abdomen: Soft nontender, positive bowel sounds. Extremities: No edema, intact distal pulses. Neuro: Alert, oritented, no focal deficits. Detailed neuro exam was not performed. ASSESSMENT: # Perioperative cardiac risk assessment for Mediport replacement # Atrial flutter, rate controlled # Metastatic oropharyngeal cancer # Hepatitis C with stage IV liver cirrhosis with esophageal varices PLAN: Patient is planned to undergo Mediport placement on Wednesday with Dr. Coker. She is currently on Eliquis. I would recommend to stop Eliquis Wednesday morning and hold it thereafter until the procedure and resume it thereafter. Continue metoprolol tartrate 25 mg twice daily. Goal is to offer him rate control at present. Once more stable, recommend outpatient follow-up for rhythm control assessment with cardioversion and eventually A-flutter ablation. Obtain updated echocardiogram Recommend infectious workup and blood cultures. Monitor hemoglobin levels Objective - Vital Signs Vital signs: Vital Signs Temp 97.8 F 07/02/24 07:34 Pulse 82 07/02/24 08:30 Resp 18 07/02/24 08:30 BP 139/80 07/02/24 07:34 Pulse Ox 99 07/02/24 07:34 FiO2 Intake & Output 07/01/24 07/02/24 07/02/24 18:59 06:59 18:59 Intake Total 1662 Output Total 5 Balance 1657 Intake: IV 900 Oral 762 Output: Estimated Blood Loss 5 Other: Voiding Method Toilet Toilet Toilet # Voids 2 3 - Labs CBC & Chem 7: 07/01/24 03:48 07/02/24 06:09 Labs: Abnormal Lab Results - Last 24 Hours (Table) 07/01/24 07/02/24 07/02/24 Range/Units 20:21 06:09 09:27 Glucose 102 H (74-99) mg/dL POC Glucose (mg/dL) 114 H 118 H (70-110) mg/dL Microbiology - Last 24 Hours (Table) 06/30/24 17:26 Blood Culture - Preliminary Blood
[2024-07-02 11:26] LABS: Basophils # (A) 0.05 X 10*3/uL (0.00-0.10); Basophils % (A) 0.8 %; Eosinophils # (A) 0.51 X 10*3/uL (0.04-0.35); Eosinophils % (A) 8.6 %; HCT 33.3 % (39.6-50.0); HGB 10.6 g/dL (13.0-17.0); Lymphocytes # (A) 1.31 X 10*3/uL (0.90-5.00); Lymphocytes % (A) 22.1 %; MCH 31.6 pg (27.0-32.0); MCHC 31.8 g/dL (32.0-37.0); MCV 99.4 FL (80.0-97.0); Mean Platelet Volume 11.3 FL (9.5-12.2); Monocytes # (A) 0.48 X 10*3/uL (0.20-1.00); Monocytes % (A) 8.1 %; NRBC Per 100 WBC 0 X 10*3/uL (0.00-0.01); Neutrophils # (A) 3.54 X 10*3/uL (1.80-7.70); Neutrophils % (A) 59.9 %; Platelet Count 207 X 10*3/uL (140-440); RBC 3.35 X 10*6/uL (4.40-5.60); RDW 15.2 % (11.5-14.5); WBC 5.92 X 10*3/uL (4.50-10.00)
[2024-07-02 13:50] VITALS: BP 121/78; PULSE 103; TEMP 98.3
--- NOTE | 2024-07-02 14:13 | P.PN ---
Subjective Progress Note Date: 07/02/24 Subjective: Patient seen and examined at bedside. No acute events overnight. Pertinent positives and negatives as discussed above, a complete review of systems was performed and all other systems are negative. Vitals Signs Reviewed. General: Nontoxic, no distress, appears at stated age Derm: Warm, dry, left chest dressing clean, dry, intact Head: Atraumatic, normocephalic, symmetric Eyes: EOMI, no lid lag, anicteric sclera Mouth: No lip lesion, mucus membranes moist Cardiovascular: S1S2 reg, no murmur Lungs: CTA bilateral, no rhonchi, no rales, no accessory muscle use Abdominal: Soft, nontender to palpation, no guarding, no appreciable organomegaly Ext: No gross muscle atrophy, no edema, no contractures Neuro: CN II-XI grossly intact, no focal neuro deficits Psych: Alert, oriented, appropriate affect Data Reviewed Today: Pertinent Labs: WBC 5.92, hemoglobin 10.6, bicarb 22, anion gap 8, creatinine 0.72, blood sugars range between 10 2-1 18, magnesium 1.8, vancomycin trough 10.8 Imaging: No new imaging Assessment and Plan: Active: Infected Mediport status post removal Metastatic oropharyngeal carcinoma -Vascular surgery planning for replacement on Wednesday -Cardiology note reviewed, discontinue Eliquis on Wednesday night, restart after the procedure -Continue vancomycin 1250 mg every 12 hours, monitor for renal toxicity -Continue cefepime 2 g IV every 8 hours -De-escalate antibiotics -Blood cultures negative growth to date -Oncology following Normocytic anemia, likely anemia of chronic disease -Continue to monitor -Reticulocyte count and iron studies pending New diagnosis of atrial flutter -Cardiology note reviewed, outpatient ablation -Continue metoprolol 25 twice daily for now -Eliquis 5 twice daily -Continue telemetry monitoring -Echocardiogram pending Resolved: Metabolic acidosis Hyponatremia Chronic: COPD, not in exacerbation Seizure disorder Neuropathy DVT ppx: Eliquis Code status: Full code Anticipated discharge place: Pending clinical course Anticipated discharge time: Pending clinical course Objective - Vital Signs Vital signs: Vital Signs Temp 98.3 F 07/02/24 13:49 Pulse 103 H 07/02/24 13:49 Resp 18 07/02/24 13:49 BP 121/78 07/02/24 13:49 Pulse Ox 98 07/02/24 13:49 FiO2 Intake & Output 07/01/24 07/02/24 07/02/24 18:59 06:59 18:59 Intake Total 1662 Output Total 5 Balance 1657 Intake: IV 900 Oral 762 Output: Estimated Blood Loss 5 Other: Voiding Method Toilet Toilet Toilet # Voids 2 3 - Labs CBC & Chem 7: 07/02/24 06:09 07/02/24 06:09 Labs: Abnormal Lab Results - Last 24 Hours (Table) 07/01/24 07/02/24 07/02/24 Range/Units 20:21 06:09 06:09 RBC 3.35 L (4.40-5.60) X 10*6/uL Hgb 10.6 L (13.0-17.0) g/dL Hct 33.3 L (39.6-50.0) % MCV 99.4 H (80.0-97.0) FL MCHC 31.8 L (32.0-37.0) g/dL RDW 15.2 H (11.5-14.5) % Eosinophils # 0.51 H (0.04-0.35) X 10*3/uL Glucose 102 H (74-99) mg/dL POC Glucose (mg/dL) 114 H (70-110) mg/dL 07/02/24 Range/Units 09:27 RBC (4.40-5.60) X 10*6/uL Hgb (13.0-17.0) g/dL Hct (39.6-50.0) % MCV (80.0-97.0) FL MCHC (32.0-37.0) g/dL RDW (11.5-14.5) % Eosinophils # (0.04-0.35) X 10*3/uL Glucose (74-99) mg/dL POC Glucose (mg/dL) 118 H (70-110) mg/dL Microbiology - Last 24 Hours (Table) 06/30/24 17:26 Blood Culture - Preliminary Blood
--- NOTE | 2024-07-02 14:40 | P.DS ---
Providers Date of admission: 06/30/24 19:07 Expected date of discharge: 07/02/24 Attending physician: Cristian Santana Consults: 06/30/24 19:05 Consult Physician Routine Consulting Provider: Gage Coker Consult Reason/Comments: Remove port a cath Do you want consulting provider notified?: Already Contacted 07/01/24 02:43 Consult Physician Routine Consulting Provider: Reggie Moon Consult Reason/Comments: oropharyngeal ca Do you want consulting provider notified?: Yes 07/01/24 05:28 Consult Physician Routine Consulting Provider: Keenan Ramon Consult Reason/Comments: Junctional Tachycardia Do you want consulting provider notified?: Yes Primary care physician: Ramses Hernández Hospital Course: Discharge Diagnosis: Infected Mediport status post removal Metastatic oropharyngeal carcinoma Normocytic anemia, likely anemia of chronic disease New diagnosis of atrial flutter Metabolic acidosis Hyponatremia COPD, not in exacerbation Seizure disorder Neuropathy Hospital Course: Patient is a 69-year-old male with PMH of COPD (not on home oxygen), stage IV liver cirrhosis with esophageal varices, osteoarthritis, seizure disorder and metastatic oropharyngeal cancer (Diagnosed in Jun/Jul 2023, follows w/ Dr. Clark at [facility], currently undergoing chemotherapy) comes to the ER with a chief complaint of possibly infected Port-A-Cath. Laboratory data: WBC 7.3, hemoglobin 12.1, hematocrit 37.2, platelet count 233, D-dimer 0.85, sodium 135, potassium 4.2, chloride 102, bicarb 22, BUN 70, creatinine 1.0, EGFR 38, glucose 2033, lactic acid 1.5, AST 27, ALT 16, ALP 114, CRP 4.5 Images: CT angio of the chest was in the ER which shows no evidence of pulmonary embolism. EKG history with atrial flutter Vitals on presentation: Tmax 97.7 F, pulse 314, respiratory 18, blood pressure 102/66, oxygen saturation 97% on room air Patient was seen by vascular surgery, cooperative management. Was also followed by oncology. Pulmonology consulted, echocardiogram completed. Recommending starting on metoprolol oral as well as Eliquis. He will also follow-up with vascular surgery on Wednesday for new port placement. Patient seen and examined at bedside. Vital signs reviewed and stable. General: Nontoxic, no distress, appears at stated age Derm: Warm, dry, left chest dressing clean, dry, intact Head: Atraumatic, normocephalic, symmetric Eyes: EOMI, no lid lag, anicteric sclera Mouth: No lip lesion, mucus membranes moist Cardiovascular: S1S2 reg, no murmur Lungs: CTA bilateral, no rhonchi, no rales, no accessory muscle use Abdominal: Soft, nontender to palpation, no guarding, no appreciable organomegaly Ext: No gross muscle atrophy, no edema, no contractures Neuro: CN II-XI grossly intact, no focal neuro deficits Psych: Alert, oriented, appropriate affect A total of 33 minutes of time were spent preparing this complex discharge summary. Patient was discharged on 07/02/2024 at 1437. Patient Condition at Discharge: Stable Plan - Discharge Summary Discharge Rx Participant: No New Discharge Prescriptions: New Apixaban [Eliquis] 5 mg PO BID #90 tab Metoprolol Tartrate [Lopressor] 25 mg PO BID #90 tab Doxycycline Monohydrate 100 mg PO BID #10 cap Continue Omeprazole 20 mg PO DAILY lamoTRIgine 200 mg PO BID oxyCODONE HCL/ACETAMINOPHEN [Percocet 10-325 mg] 1 tab PO Q6H PRN PRN Reason: Pain Pregabalin [Lyrica] 50 mg PO TID Mupirocin 2% Oint [Bactroban 2% Oint] 1 applic TOPICAL TID PRN PRN Reason: wound care Hydrocortisone Oint [Hydrocortisone 2.5% Oint] 1 applic TOPICAL TID FLUoxetine HCL [PROzac] 20 mg PO HS Ondansetron [Zofran] 4 - 8 mg PO Q4H PRN PRN Reason: Nausea Budesonide [Pulmicort] 0.5 mg INHALATION RT-DAILY Gabapentin [Neurontin] 300 mg PO TID Hydrocortisone Cream [Hydrocortisone 1% Cream] 1 applic TOPICAL HS Discharge Medication List Omeprazole 20 mg PO DAILY 05/28/19 [History] lamoTRIgine 200 mg PO BID 05/28/19 [History] FLUoxetine HCL [PROzac] 20 mg PO HS 10/22/22 [History] Ondansetron [Zofran] 4 - 8 mg PO Q4H PRN 11/09/23 [History] oxyCODONE HCL/ACETAMINOPHEN [Percocet 10-325 mg] 1 tab PO Q6H PRN 11/09/23 [History] Budesonide [Pulmicort] 0.5 mg INHALATION RT-DAILY 06/30/24 [History] Gabapentin [Neurontin] 300 mg PO TID 06/30/24 [History] Hydrocortisone Cream [Hydrocortisone 1% Cream] 1 applic TOPICAL HS 06/30/24 [History] Hydrocortisone Oint [Hydrocortisone 2.5% Oint] 1 applic TOPICAL TID 06/30/24 [Hi story] Mupirocin 2% Oint [Bactroban 2% Oint] 1 applic TOPICAL TID PRN 06/30/24 [History] Pregabalin [Lyrica] 50 mg PO TID 06/30/24 [History] Apixaban [Eliquis] 5 mg PO BID #90 tab 07/02/24 [Rx] Doxycycline Monohydrate 100 mg PO BID #10 cap 07/02/24 [Rx] Metoprolol Tartrate [Lopressor] 25 mg PO BID #90 tab 07/02/24 [Rx] Follow up Appointment(s)/Referral(s): Keenan Ramon MD [Medical Doctor] - 1 Week Reggie Moon [STAFF PHYSICIAN] - 1 Week Ramses Hernández DO [Primary Care Provider] - 1-2 days Gage Coker MD [STAFF PHYSICIAN] - 1 Week Patient Instructions/Handouts: Atrial Flutter (DC), Chest Pain (DC) Activity/Diet/Wound Care/Special Instructions: Diet as tolerated Activity limited until seen by DR. Lema placement schedule for Wednesday output by Dr. Coker. Stop Eliquis on Wednesday until after the procedure. Dr. Coker office will call pt with more information and time of procedure LEAVE DRESSING IN PLACE UNTIL SEEN BY ON WEDNESDAY Discharge Disposition: HOME SELF-CARE
[2024-07-02 14:55] LABS: % Iron Saturation 8.33 (15.00-50.00)
--- NOTE | 2024-07-02 15:13 | CA ---
Transthoracic Echo Report Name: Tang Jauregui Age: 69 Gender: M : 1955 Exam Date: 07/02/2024 13:48 Exam Location: [place] [facility] Ht (in): 73 Wt (lb): 155 Ordering Physician: Keenan Ramon MD ([id number]) Attending/Referring Phys: [employer] Service Operator Helper Gogo Molina RDCS Procedure CPT: Indications: Aflutter, cancer therapy related cardiac dysfuncti Cardiac Hx: Technical Quality: Good Contrast 1: Total Dose (mL): Contrast 2: Total Dose (mL): MEASUREMENTS (Male / Female) Normal Values 2D ECHO LV Diastolic Diameter PLAX 5.2 cm 4.2 - 5.9 / 3.9 - 5.3 cm LV Systolic Diameter PLAX 4.1 cm IVS Diastolic Thickness 1.0 cm 0.6 - 1.0 / 0.6 - 0.9 cm LVPW Diastolic Thickness 1.0 cm 0.6 - 1.0 / 0.6 - 0.9 cm LV Relative Wall Thickness 0.4 LVOT Diameter 2.5 cm LV Diastolic Volume MOD 4C 124.6 cm??? LV Systolic Volume MOD 4C 48.8 cm??? LV Ejection Fraction MOD 4C 60.8 % LV Cardiac Index MOD 4C 4158.5 cm???/min???m??? LV Diastolic Length 4C 8.1 cm LV Systolic Length 4C 6.5 cm LA Volume 70.5 cm??? 18 - 58 / 22 - 52 cm??? LA Volume Index 37.2 cm???/m??? 16 - 28 cm???/m??? DOPPLER AV Peak Velocity 94.2 cm/s AV Peak Gradient 3.5 mmHg AV Mean Velocity 67.7 cm/s AV Mean Gradient 2.1 mmHg AV Velocity Time Integral 15.9 cm LVOT Peak Velocity 70.4 cm/s LVOT Peak Gradient 2.0 mmHg LVOT Velocity Time Integral 12.5 cm LVOT Stroke Volume 63.7 cm??? LVOT Stroke Volume Index 33.0 ml/m??? LVOT Cardiac Index 3498.6 cm???/min???m??? AV Area Cont Eq vti 4.0 cm??? AV Area Cont Eq pk 3.8 cm??? MV Area PHT 10.3 cm??? Mitral E Point Velocity 53.4 cm/s Mitral A Point Velocity 39.9 cm/s Mitral E to A Ratio 1.3 MV Deceleration Time 73.7 ms TR Peak Velocity 251.5 cm/s TR Peak Gradient 25.3 mmHg Right Atrial Pressure 10.0 mmHg Pulmonary Artery Systolic Pressu 35.3 mmHg Right Ventricular Systolic Press 35.3 mmHg PV Peak Velocity 81.8 cm/s PV Peak Gradient 2.7 mmHg FINDINGS Left Ventricle Left ventricular ejection fraction is estimated at 45-50 %. Left ventricular cavity size normal. Left ventricular wall thickness normal. No obvious regional wall motion abnormalities. Right Ventricle Right ventricular dilatation with mildly reduced function. Mild pulmonary hypertension. Right Atrium Right atrial dilatation. Left Atrium Severe increased left atrial volume. Mitral Valve Structurally normal mitral valve. No evidence for mitral valve prolapse. No mitral stenosis. Trace mitral regurgitation. Aortic Valve Trileaflet aortic valve. No aortic valve stenosis or regurgitation. Tricuspid Valve Structurally normal tricuspid valve. No tricuspid prolapse. No tricuspid stenosis. [id number] tricuspid regurgitation. Pulmonic Valve Structurally normal pulmonic valve. No pulmonic stenosis. Mild pulmonic regurgitation. Pericardium No pericardial effusion. Aorta Normal size aortic root and proximal ascending aorta. CONCLUSIONS LVEF 45-50% LVEF underestimated due to Aflutter Globally reduced LV. No obvious regional wall motion abnormality RV appears dilated with mildly reduced systolic function. RVSP elevated at 35 mmHg. Mild pulm hypertension Moderate tricuspid regurgitation Severe biatrial dilatation Previewed by: Dr Keenan Ramon (Electronically Signed) Final Date: 02 July 2024 15:13
[2024-07-02 15:27] LABS: Reticulocyte % 1.24 % (0.10-1.80)
== END 2024-07-02 15:30 | disposition home or self-care (01) ==
LOC: EC 15:10 → 5NMEDONC 19:07
PROVIDERS: ADMIT Student in an Organized Health Care Education/Training Program; ATTEND Student in an Organized Health Care Education/Training Program
DX: T80.219A Unspecified infection due to central venous catheter, initial encounter (principal); Y84.8 Other medical procedures as the cause of abnormal reaction of the patient, or of later complication, without mention of misadventure at the time of the procedure; D64.9 Anemia, unspecified; I48.92 Unspecified atrial flutter; E87.20 Acidosis, unspecified; E87.1 Hypo-osmolality and hyponatremia; I47.19 Other supraventricular tachycardia; R73.9 Hyperglycemia, unspecified; R07.9 Chest pain, unspecified; C10.9 Malignant neoplasm of oropharynx, unspecified; C77.0 Secondary and unspecified malignant neoplasm of lymph nodes of head, face and neck; J44.9 Chronic obstructive pulmonary disease, unspecified; B19.20 Unspecified viral hepatitis C without hepatic coma; K74.60 Unspecified cirrhosis of liver; I85.10 Secondary esophageal varices without bleeding; G40.909 Epilepsy, unspecified, not intractable, without status epilepticus; G62.9 Polyneuropathy, unspecified; F17.200 Nicotine dependence, unspecified, uncomplicated; G47.30 Sleep apnea, unspecified; F32.A Depression, unspecified; Z88.8 Allergy status to other drugs, medicaments and biological substances; Z79.899 Other long term (current) drug therapy; Z79.51 Long term (current) use of inhaled steroids; Z82.49 Family history of ischemic heart disease and other diseases of the circulatory system
CPT/HCPCS: 36590; 96365 ×2; 96366 ×2; 96372; 96368; 96367; 99285; 36415; 94640 ×2; 93005; 93306; 85379; 83880; 80053; 80048 ×2; 83540; 83550; 83605; 83735; 84484; 85025 ×3; 80202; 85045; 86140; 87040; 84466; 87070; 87205; 87075; 87077; 87186; 83036; 71275; G0378 ×3; S4990 ×3; J2250; J3370 ×3; J1644; J0692 ×3; J3010; J2704; Q9967

== ENCOUNTER 2024-07-08 21:57 | Emergency (ER) | payer MEDICARE, BC ==
[2024-07-08 22:05] VITALS: RESP 18; TEMP 97.7
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
[2024-07-08 22:19] LABS: Basophils # (A) 0.1 k/uL (0-0.2); Basophils % (A) 1 %; Eosinophils # (A) 0.7 k/uL (0-0.7); Eosinophils % (A) 15 %; HCT 37.3 % (39.0-53.0); HGB 12.1 gm/dL (13.0-17.5); Hypochromasia Slight; Lymphocytes # (A) 1.3 k/uL (1.0-4.8); Lymphocytes % (A) 26 %; MCH 31.1 pg (25.0-35.0); MCHC 32.5 g/dL (31.0-37.0); MCV 95.7 fL (80.0-100.0); Mean Platelet Volume 7.9; Monocytes # (A) 0.2 k/uL (0-1.0); Monocytes % (A) 4 %; Neutrophils # (A) 2.5 k/uL (1.3-7.7); Neutrophils % (A) 52 %; Platelet Count 306 k/uL (150-450); RDW 14.7 % (11.5-15.5); WBC 4.8 k/uL (3.8-10.6)
[2024-07-08 22:29] LABS: ALT 18 U/L (4-49); AST 28 U/L (17-59); African American GFR (CKD) 78 (>60 ml/min/1.73 sqM); Albumin 4.2 g/dL (3.5-5.0); Alkaline Phosphatase 75 U/L (38-126); Anion Gap 8 mmol/L; Blood Urea Nitrogen 28 mg/dL (9-20); Calcium 9.3 mg/dL (8.4-10.2); Carbon Dioxide 29 mmol/L (22-30); Chloride 97 mmol/L (98-107); Glucose 78 mg/dL (74-99); Magnesium 1.6 mg/dL (1.6-2.3); Non-African American GFR(CKD) 68 (>60 ml/min/1.73 sqM); Potassium 4.6 mmol/L (3.5-5.1); Sodium 134 mmol/L (137-145); Total Bilirubin 0.8 mg/dL (0.2-1.3); Total Protein 6.8 g/dL (6.3-8.2)
[2024-07-08] MEDS: SODIUM CHLORIDE 0.9% 1,000 ML IV ONE (22:35)
[2024-07-08] MEDS: oxyCODONE-APAP 10-325MG 1 EACH TAB PO STA (23:12)
[2024-07-09] MEDS: SODIUM CHLORIDE 0.9% 500 ML 500 ML IV ONE (00:50)
[2024-07-09 00:59] LABS: Appearance,Urine Clear (Clear); Bilirubin,Urine Negative (Negative); Blood,Urine Negative (Negative); Color,Urine Yellow; Glucose,Urine (UA) Negative (Negative); Hyaline Casts,Urine 30 /lpf (0-2); Ketones,Urine Negative (Negative); Leukocyte Esterase,Urine Negative (Negative); Mucus,Urine Occasional /hpf; Nitrite,Urine Negative (Negative); PH, Urine 5.5 (5.0-8.0); Protein,Urine 1+ (Negative); RBC,Urine 3 /hpf (0-5); Specific Gravity,Urine 1.028 (1.001-1.035); Squamous Epithelial Cell,Urine <1 /hpf (0-4); WBC,Urine 2 /hpf (0-5)
[2024-07-09 01:33] VITALS: BP 120/96; PULSE 82
== END 2024-07-09 01:35 | disposition home or self-care (01) ==
LOC: EC 21:57
DX: E86.0 Dehydration (principal); Z51.11 Encounter for antineoplastic chemotherapy; Z87.19 Personal history of other diseases of the digestive system; Z86.73 Personal history of transient ischemic attack (TIA), and cerebral infarction without residual deficits; F17.200 Nicotine dependence, unspecified, uncomplicated; Z91.030 Bee allergy status; Z88.8 Allergy status to other drugs, medicaments and biological substances
CPT/HCPCS: 36415; 80053; 81001; 83605; 83735; 85025; 93005; 96360; 99284

== ENCOUNTER 2024-07-11 10:12 | Observation (INO) | payer MEDICARE, BC ==
[2024-07-11] MEDS ORDERED: BUDESONIDE 1 MG/2 ML NEBU INHALATION STA (10:42)
[2024-07-11 11:13] LABS: HGB 11.5 gm/dL (13.0-17.5); Lymphocytes % (A) 27 %; MCH 31.7 pg (25.0-35.0); MCHC 33.9 g/dL (31.0-37.0); MCV 93.6 fL (80.0-100.0); Mean Platelet Volume 8.5; Neutrophils % (A) 60 %; Platelet Count 270 k/uL (150-450); Poikilocytosis Slight; RBC 3.63 m/uL (4.30-5.90); RDW 14.9 % (11.5-15.5); WBC 5.3 k/uL (3.8-10.6)
[2024-07-11 11:14] LABS: Basophils % (A) 1 %; Eosinophils # (A) 0.5 k/uL (0-0.7); Eosinophils % (A) 9 %; Lymphocytes # (A) 1.4 k/uL (1.0-4.8); Monocytes # (A) 0.1 k/uL (0-1.0); Monocytes % (A) 2 %; Neutrophils # (A) 3.1 k/uL (1.3-7.7)
[2024-07-11] MEDS: SODIUM CHLORIDE 0.9% 1,000 ML IV STA ×2 (11:21→11:22)
[2024-07-11] MEDS: methylPREDNISolone SOD SUCCI 40 MG/ML 1 ML VIAL IV STA (11:22)
[2024-07-11 11:32] LABS: ALT 18 U/L (4-49); AST 27 U/L (17-59); African American GFR (CKD) >90 (>60 ml/min/1.73 sqM); Alkaline Phosphatase 80 U/L (38-126); Anion Gap 7 mmol/L; Blood Urea Nitrogen 17 mg/dL (9-20); Calcium 9.9 mg/dL (8.4-10.2); Carbon Dioxide 29 mmol/L (22-30); Chloride 101 mmol/L (98-107); Glucose 99 mg/dL (74-99); Magnesium 1.7 mg/dL (1.6-2.3); Non-African American GFR(CKD) >90 (>60 ml/min/1.73 sqM); Potassium 4.6 mmol/L (3.5-5.1); Sodium 137 mmol/L (137-145); Total Protein 6.5 g/dL (6.3-8.2)
--- NOTE | 2024-07-11 11:37 | XR ---
EXAMINATION TYPE: XR chest 2V DATE OF EXAM: 07/11/2024 11:30 AM COMPARISON: Chest radiographs from 07/29/2023, CT chest 06/30/2024, PET/CT 06/22/2024 TECHNIQUE: XR chest 2V Frontal and lateral views of the chest. CLINICAL INDICATION:Male, 69 years old with history of Weakness; FINDINGS: Lungs/Pleura: There is flattening of the diaphragm with increased lucency of the lungs. No evidence o f pneumothorax, pleural effusion or focal consolidation. Chronic interstitial reticular opacities rel ated to known interstitial disease. Pulmonary vascularity: Unremarkable. Heart/mediastinum: Cardiomediastinal silhouette is unremarkable. Musculoskeletal: No acute osseous pathology. Other findings: None Lines/Tubes: Right chest wall IJ Mediport catheter distal tip terminating in the low SVC. IMPRESSION: 1. No acute cardiopulmonary disease/process. 2. COPD with chronic interstitial reticular opacities related to known interstitial disease. [facility], , 07/11/2024 11:35 AM
[2024-07-11 11:47] LABS: Influenza A Not Detected (Not Detectd); Influenza B Not Detected (Not Detectd); RSV Not Detected (Not Detectd)
[2024-07-11 11:50] LABS: INR 1.1 (<1.2); Partial Thromboplastin Time 27.4 sec (22.0-30.0); Prothrombin Time 12.2 sec (10.0-12.5)
[2024-07-11] MEDS: FLUTICASONE 220 MCG INHALER INHALATION STA (12:07)
[2024-07-11] MEDS ORDERED: ACETAMINOPHEN TAB 325 MG TAB PO PRN (12:31)
[2024-07-11] MEDS ORDERED: NALOXONE 0.4 MG/ML 1 ML VIAL IV PRN (12:31)
[2024-07-11] MEDS ORDERED: ONDANSETRON 4 MG/2 ML VIAL IVP PRN (12:31)
--- NOTE | 2024-07-11 12:34 | ED ---
General Adult HPI - General Chief complaint: Shortness of Breath Stated complaint: SOB,Dizziness Time Seen by Provider: 07/11/24 10:30 Source: patient, RN notes reviewed, old records reviewed Mode of arrival: ambulatory Limitations: no limitations - History of Present Illness Initial comments: Patient is a 69-year-old male who presents emergency department complaining of lightheadedness, shortness of breath, weakness. Has been an ongoing issue for multiple weeks. Was seen here earlier this week for similar complaints and discharged home with diagnosis of dehydration. Patient's is concerned that patient may be septic. He has no real complaints other than a mild nonproductive cough. Patient's family member did test positive for COVID back in May. Patient otherwise has been acting normally. Has no acute complaints. Denies fevers or chills. Denies nausea, vomiting, diarrhea. Denies chest pain. Presents for further evaluation. Does have a history of COPD and is supposed to use breathing treatments at home which he is not.Patient did have a recent chest port infection which was removed and replaced with a port and the other side. No complaints or concerns regarding this. - Related Data Home Medications Medication Instructions Recorded Confirmed Omeprazole 20 mg PO DAILY 05/28/19 07/11/24 lamoTRIgine 200 mg PO BID 05/28/19 07/11/24 FLUoxetine HCL [PROzac] 20 mg PO HS 10/22/22 07/11/24 Ondansetron [Zofran] 4 - 8 mg PO Q4H PRN 11/09/23 07/11/24 oxyCODONE HCL/ACETAMINOPHEN 1 tab PO Q6H 11/09/23 07/11/24 [Percocet 10-325 mg] Budesonide [Pulmicort] 0.5 mg INHALATION RT-DAILY 06/30/24 07/11/24 Gabapentin [Neurontin] 300 mg PO TID 06/30/24 07/11/24 Hydrocortisone Cream 1 applic TOPICAL HS 06/30/24 07/11/24 [Hydrocortisone 1% Cream] Hydrocortisone Oint 1 applic TOPICAL TID 06/30/24 07/11/24 [Hydrocortisone 2.5% Oint] Mupirocin 2% Oint [Bactroban 2% 1 applic TOPICAL TID PRN 06/30/24 07/11/24 Oint] Pregabalin [Lyrica] 50 mg PO TID 06/30/24 07/11/24 Previous Rx's Medication Instructions Recorded Apixaban [Eliquis] 5 mg PO BID #90 tab 07/02/24 Metoprolol Tartrate [Lopressor] 25 mg PO BID #90 tab 07/02/24 Allergies Allergy/AdvReac Type Severity Reaction Status Date / Time albuterol [From ProAir HFA] Allergy Itching Verified 07/11/24 12:20 bee venom protein (honey bee) Allergy Swelling Verified 07/11/24 12:20 Review of Systems ROS Statement: Those systems with pertinent positive or pertinent negative responses have been documented in the HPI. Review of Systems: CONST: Denies fever EYES: Denies blurry vision ENT: Denies nasal congestion C/V: Denies Chest pain RESP: Denies shortness of breath GI: Denies abdominal pain : Denies dysuria SKIN: Denies rash. MSK: Denies joint pain. NEURO: Denies headache ROS Other: All systems not noted in ROS Statement are negative. Past Medical History Past Medical History: Cancer, COPD, CVA/TIA, Liver Disease, Osteoarthritis (OA), Seizure Disorder, Sleep Apnea/CPAP/BIPAP Additional Past Medical History / Comment(s): Rt. leg fx. as child,stage 4 liver cirrohsis with esophageal varices, rt foot drag, hepatitis C, enlarged prostate, AAA(4 cm?)- needs to be rechecked, partially blocked Rt. carotid artery, 2 T.I.A's sevral years ago, 1 seizure approx. 2010 - never on medication, Fernandez's Palsy approx. 2016, tried CPAP but cannot tolerate, lung nodule, ? metastatic disease. stage 4 cancer and aneurysm History of Any Multi-Drug Resistant Organisms: None Reported Past Surgical History: Adenoidectomy, Orthopedic Surgery, Tonsillectomy Additional Past Surgical History / Comment(s): knee replacement Lt., Lt shoulder repair, sinus surgery Past Anesthesia/Blood Transfusion Reactions: No Reported Reaction Past Psychological History: Depression Smoking Status: Current every day smoker Past Alcohol Use History: Rare Past Drug Use History: None Reported - Past Family History Father Family Medical History: Myocardial Infarction ([place]) Additional Family Medical History / Comment(s): several male family members with heart attacks Mother Family Medical History: COPD Sister(s) Family Medical History: Cancer General Exam - General Exam Comments Initial Comments: General: Appears in no acute distress. HEAD: Normal with no signs of head trauma. EYES: PERRLA, EOMI, conjunctiva normal, no discharge. ENT: Hearing grossly intact, normal oropharynx. RESPIRATORY: Mild bilateral end expiratory wheezing. No hypoxia. No signif icant increased work of breathing. C/V: Irregular rate and rhythm. S1 and S2 auscultated, no edema, peripheral pulses 2+ and intact throughout ABD: Abd is soft, nontender, nondistended EXT: Normal range of motion, no obvious deformity SKIN: No rashes or lesions observed on exposed skin. NEURO: Alert and oriented x 4. Limitations: no limitations Course Vital Signs 07/11/24 10:14 Temperature 97.4 F L Pulse Rate 80 Respiratory 20 Rate Blood Pressure 93/63 O2 Sat by Pulse 94 L Oximetry Medical Decision Making - Medical Decision Making Was pt. sent in by a medical professional or institution (, PA, SHEET WRITER, urgent care, hospital, or halfway...) When possible be specific @ -No Did you speak to anyone other than the patient for history (EMS, parent, family, police, friend...)? What history was obtained from this source @ -Patient's family member assist with patient's past medical history. Patient is on palliative care. Did you review nursing and triage notes (agree or disagree)? Why? @ -I reviewed and agree with nursing and triage notes Were old charts reviewed (outside hosp., previous admission, EMS record, old EKG, old radiological studies, urgent care reports/EKG's, halfway records)? Report findings @ -Reviewed recent chart from July 08, 2024. Differential Diagnosis (chest pain, altered mental status, abdominal pain women, abdominal pain men, vaginal bleeding, weakness, fever, dyspnea, syncope, headache, dizziness, GI bleed, back pain, seizure, CVA, palpatations, mental health, musculoskeletal)? @ -Differential Weakness: Hypoglycemia, shock, sepsis, hyponatremia, anemia, infection, RI, ETOH, adverse medicine reaction, overdose, stroke, this is not meant to be an all-inclusive list. EKG interpreted by me (3pts min.). @ -As above X-rays interpreted by me (1pt min.). @ -Chest x-ray reveals no obvious acute cardiopulmonary process. CT interpreted by me (1pt min.). @ -None done U/S interpreted by me (1pt. min.). @ -None done What testing was considered but not performed or refused? (CT, X-rays, U/S, labs)? Why? @ -None What meds were considered but not given or refused? Why? @ -None Did you discuss the management of the patient with other professionals (professionals i.e. DrCornelio, PA, SHEET WRITER, lab, RT, psych nurse, social studies department chair, environmental safety specialist, teacher, classifications officer cc/cm, case advocate)? Give summary @ -Discussed with the admitting provider, Dr. Copeland who accepted the admission. Was smoking cessation discussed for >3mins.? @ -No Was critical care preformed (if so, how long)? @ -No Were there social determinants of health that impacted care today? How? (Homelessness, low income, unemployed, alcoholism, drug addiction, transportation, low edu. Level, literacy, decrease access to med. care, penitentiary, rehab)? @ -No Was there de-escalation of care discussed even if they declined (Discuss DNR or withdrawal of care, Hospice)? DNR status @ -Yes, Patient would like to remain full code at this time. What co-morbidities impacted this encounter? (DM, HTN, Smoking, COPD, CAD, Cancer, CVA, ARF, Chemo, Hep., AIDS, mental health diagnosis, sleep apnea, morbid obesity)? @ -Cancer, COPD Was patient admitted / discharged? Hospital course, mention meds given and route, prescriptions, significant lab abnormalities, going to OR and other pertinent info. @ -Patient presents emergency department complaining of weakness, lightheadedness, dehydration type symptoms for numerous weeks. Found to be dehydrated a few days ago and discharged home. Presents with similar complaints. Currently resting comfortably. Apparently patient was hypotensive at home with low pulse ox however here it is completely normal. We will obtain generalized workup and they were in agreement this plan. Patient administered IV fluids and placed on maintenance fluids. EKG shows no signs of acute ischemia. Laboratory studies are within acceptable limits. Patient is COVID-positive. Chest x-ray unremarkable. I discussed results with patient and patient's family. This is a repeat visit within the last few days we will admit the patient due to his multiple comorbidities for observation and fluid hydration. They were in agreement this plan. Patient's oncologist consulted. I spoke with the admitting provider, Dr. Copeland who accepted the admission. Undiagnosed new problem with uncertain prognosis? @ -No Drug Therapy requiring intensive monitoring for toxicity (Heparin, Nitro, Insulin, Cardizem)? @ -No Were any procedures done? @ -No Diagnosis/symptom? @ -Weakness, dehydration, COVID-19 infection Acute, or Chronic, or Acute on Chronic? @ -Acute Uncomplicated (without systemic symptoms) or Complicated (systemic symptoms)? @ -Complicated Side effects of treatment? @ -No Exacerbation, Progression, or Severe Exacerbation? @ -No Poses a threat to life or bodily function? How? (Chest pain, USA, RI, pneumonia, PE, COPD, DKA, ARF, appy, cholecystitis, CVA, Diverticulitis, Homicidal, S uicidal, threat to staff... and all critical care pts) @ -Potentially, yes - Lab Data Result diagrams: 07/11/24 10:57 07/11/24 10:57 Lab Results 07/11/24 07/11/24 07/11/24 Range/Units 10:57 10:57 10:57 WBC 5.3 (3.8-10.6) k/uL RBC 3.63 L (4.30-5.90) m/uL Hgb 11.5 L (13.0-17.5) gm/dL Hct 34.0 L (39.0-53.0) % MCV 93.6 (80.0-100.0) fL MCH 31.7 (25.0-35.0) pg MCHC 33.9 (31.0-37.0) g/dL RDW 14.9 (11.5-15.5) % Plt Count 270 (150-450) k/uL MPV 8.5 Neutrophils % 60 % Lymphocytes % 27 % Monocytes % 2 % Eosinophils % 9 % Basophils % 1 % Neutrophils # 3.1 (1.3-7.7) k/uL Lymphocytes # 1.4 (1.0-4.8) k/uL Monocytes # 0.1 (0-1.0) k/uL Eosinophils # 0.5 (0-0.7) k/uL Basophils # 0.0 (0-0.2) k/uL Poikilocytosis Slight PT 12.2 (10.0-12.5) sec INR 1.1 (<1.2) APTT 27.4 (22.0-30.0) sec Sodium 137 (137-145) mmol/L Potassium 4.6 (3.5-5.1) mmol/L Chloride 101 (98-107) mmol/L Carbon Dioxide 29 (22-30) mmol/L Anion Gap 7 mmol/L BUN 17 (9-20) mg/dL Creatinine 0.77 (0.66-1.25) mg/dL Est GFR (CKD-EPI)AfAm >90 (>60 ml/min/1.73 sqM) Est GFR (CKD-EPI)NonAf >90 (>60 ml/min/1.73 sqM) Glucose 99 (74-99) mg/dL Plasma Lactic Acid Eliezer (0.7-2.0) mmol/L Calcium 9.9 (8.4-10.2) mg/dL Magnesium 1.7 (1.6-2.3) mg/dL Total Bilirubin 1.0 (0.2-1.3) mg/dL AST 27 (17-59) U/L ALT 18 (4-49) U/L Alkaline Phosphatase 80 (38-126) U/L Total Protein 6.5 (6.3-8.2) g/dL Albumin 4.0 (3.5-5.0) g/dL Influenza Type A (PCR) (Not Detectd) Influenza Type B (PCR) (Not Detectd) RSV (PCR) (Not Detectd) SARS-CoV-2 (PCR) (Not Detectd) 07/11/24 07/11/24 Range/Units 10:57 10:57 WBC (3.8-10.6) k/uL RBC (4.30-5.90) m/uL Hgb (13.0-17.5) gm/dL Hct (39.0-53.0) % MCV (80.0-100.0) fL MCH (25.0-35.0) pg MCHC (31.0-37.0) g/dL RDW (11.5-15.5) % Plt Count (150-450) k/uL MPV Neutrophils % % Lymphocytes % % Monocytes % % Eosinophils % % Basophils % % Neutrophils # (1.3-7.7) k/uL Lymphocytes # (1.0-4.8) k/uL Monocytes # (0-1.0) k/uL Eosinophils # (0-0.7) k/uL Basophils # (0-0.2) k/uL Poikilocytosis PT (10.0-12.5) sec INR (<1.2) APTT (22.0-30.0) sec Sodium (137-145) mmol/L Potassium (3.5-5.1) mmol/L Chloride (98-107) mmol/L Carbon Dioxide (22-30) mmol/L Anion Gap mmol/L BUN (9-20) mg/dL Creatinine (0.66-1.25) mg/dL Est GFR (CKD-EPI)AfAm (>60 ml/min/1.73 sqM) Est GFR (CKD-EPI)NonAf (>60 ml/min/1.73 sqM) Glucose (74-99) mg/dL Plasma Lactic Acid Eliezer 0.7 (0.7-2.0) mmol/L Calcium (8.4-10.2) mg/dL Magnesium (1.6-2.3) mg/dL Total Bilirubin (0.2-1.3) mg/dL AST (17-59) U/L ALT (4-49) U/L Alkaline Phosphatase (38-126) U/L Total Protein (6.3-8.2) g/dL Albumin (3.5-5.0) g/dL Influenza Type A (PCR) Not Detected (Not Detectd) Influenza Type B (PCR) Not Detected (Not Detectd) RSV (PCR) Not Detected (Not Detectd) SARS-CoV-2 (PCR) Detected A (Not Detectd) - EKG Data -: EKG Interpreted by Me EKG Comments: 12-lead Electrocardiogram Interpretation Note EKG was reviewed and interpreted by myself. 12-lead ECG performed at 1023 is interpreted by me as revealing atrial flutter at a rate of 92 beats per minute. [place] is normal. QRS duration is 92 ms, QTc is 417 ms.. There were no ST or T wave abnormalities to suggest myocardial ischemia or injury. R wave progression across the precordium was satisfactory. By my interpretation this EKG is non- diagnostic for acute ischemia.Similar to EKG from July 08, 2024. Disposition Clinical Impression: COPD (chronic obstructive pulmonary disease), Weakness, Dehydration, COVID-19 Disposition: ADMITTED IP TO THIS HOSP Condition: Stable Referrals: Ramses Hernández DO [Primary Care Provider] - 1-2 days Time of Disposition: 12:20
--- NOTE | 2024-07-11 13:43 | P.HPIM ---
History of Present Illness H&P Date: 07/11/24 Chief Complaint: Weakness Mr. 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 During that hospital course he had presented with atrial flutter. He had his left chest port removed on June 30. He reports he had new right chest port inserted outpatient. He had presented to hospital complaining of shortness of breath and weakness. The concerned that the patient may have been septic as he had low blood pressure at home. He had then presented to the hospital for further evaluation. When he presented to hospital he was hemodynamically stable afebrile and his blood pressure initially was 93/63. He was 94% room air chest x-ray revealed no acute process. Past Medical History Past Medical History: Cancer, COPD, CVA/TIA, Liver Disease, Osteoarthritis (OA), Seizure Disorder, Sleep Apnea/CPAP/BIPAP Additional Past Medical History / Comment(s): Rt. leg fx. as child,stage 4 liver cirrohsis with esophageal varices, rt foot drag, hepatitis C, enlarged prostate, AAA(4 cm?)- needs to be rechecked, partially blocked Rt. carotid artery, 2 T.I.A's sevral years ago, 1 seizure approx. 2010 - never on medication, Fernandez's Palsy approx. 2016, tried CPAP but cannot tolerate, lung nodule, ? metastatic disease. stage 4 cancer and aneurysm History of Any Multi-Drug Resistant Organisms: None Reported Past Surgical History: Adenoidectomy, Orthopedic Surgery, Tonsillectomy Additional Past Surgical History / Comment(s): knee replacement Lt., Lt shoulder repair, sinus surgery Past Anesthesia/Blood Transfusion Reactions: No Reported Reaction Past Psychological History: Depression Smoking Status: Current every day smoker Past Alcohol Use History: Rare Past Drug Use History: None Reported - Past Family History Father Family Medical History: Myocardial Infarction ([place]) Additional Family Medical History / Comment(s): several male family members with heart attacks Mother Family Medical History: COPD Sister(s) Family Medical History: Cancer Medications and Allergies Home Medications Medication Instructions Recorded Confirmed Type Omeprazole 20 mg PO DAILY 05/28/19 07/11/24 History lamoTRIgine 200 mg PO BID 05/28/19 07/11/24 History FLUoxetine HCL [PROzac] 20 mg PO HS 10/22/22 07/11/24 History Ondansetron [Zofran] 4 - 8 mg PO Q4H PRN 11/09/23 07/11/24 History oxyCODONE HCL/ACETAMINOPHEN 1 tab PO Q6H 11/09/23 07/11/24 History [Percocet 10-325 mg] Budesonide [Pulmicort] 0.5 mg INHALATION RT-DAILY 06/30/24 07/11/24 History Gabapentin [Neurontin] 300 mg PO TID 06/30/24 07/11/24 History Hydrocortisone Cream 1 applic TOPICAL HS 06/30/24 07/11/24 History [Hydrocortisone 1% Cream] Hydrocortisone Oint 1 applic TOPICAL TID 06/30/24 07/11/24 History [Hydrocortisone 2.5% Oint] Mupirocin 2% Oint [Bactroban 2% 1 applic TOPICAL TID PRN 06/30/24 07/11/24 History Oint] Pregabalin [Lyrica] 50 mg PO TID 06/30/24 07/11/24 History Apixaban [Eliquis] 5 mg PO BID #90 tab 07/02/24 07/11/24 Rx Metoprolol Tartrate [Lopressor] 25 mg PO BID #90 tab 07/02/24 07/11/24 Rx Allergies Allergy/AdvReac Type Severity Reaction Status Date / Time albuterol [From ProAir HFA] Allergy Itching Verified 07/11/24 12:20 bee venom protein (honey bee) Allergy Swelling Verified 07/11/24 12:20 Physical Exam Vitals: Vital Signs Temp Pulse Resp BP Pulse Ox 07/11/24 10:14 97.4 F L 80 20 93/63 94 L Intake and Output 07/10/24 07/11/24 07/11/24 22:59 06:59 14:59 Other: Weight 68.039 kg Results CBC & Chem 7: 07/11/24 10:57 07/11/24 10:57 Labs: Abnormal Lab Results - Last 24 Hours (Table) 07/11/24 07/11/24 Range/Units 10:57 10:57 RBC 3.63 L (4.30-5.90) m/uL Hgb 11.5 L (13.0-17.5) gm/dL Hct 34.0 L (39.0-53.0) % SARS-CoV-2 (PCR) Detected A (Not Detectd) Assessment and Plan Assessment: #) Dehydration, improved. no longer hypotensive. continue lr at 100 cc/hr #) Covid-19 positive. on room air. given iv methylprendisone in the er. start dexamethasone. monitor for any increased oxygen requirements #) Metastatic orophayngeal cancer with recent infected medport with new medport inserted recently #) Recent diagnosis of atrial flutter. continue eliquis 5 mg bid for thromboembolic risk reduction. continue metoprolol tartrate 25 mg bid for ventricular rate control #) COPD, not in acute excerbation #) Seizure dz Continue lamictal as antiepliletpic dispo: med surge ancitipate dc home in 48-72 hours Time with Patient: Greater than 30
[2024-07-11] MEDS: LACTATED RINGERS 1,000 ML IV ONE (14:48)
[2024-07-11] MEDS: lamoTRIgine 100 MG TAB PO SCH (14:48)
[2024-07-11] MEDS: oxyCODONE-APAP 10-325MG 1 EACH TAB PO PRN (14:49)
[2024-07-11 15:04] LABS: Appearance,Urine Clear (Clear); Bilirubin,Urine Negative (Negative); Blood,Urine Negative (Negative); Color,Urine Light Yellow; Glucose,Urine (UA) Negative (Negative); Ketones,Urine Negative (Negative); Leukocyte Esterase,Urine Negative (Negative); Nitrite,Urine Negative (Negative); Protein,Urine Negative (Negative); Specific Gravity,Urine 1.011 (1.001-1.035); Urobilinogen,Urine <2.0 mg/dL (<2.0)
[2024-07-11] MEDS: GABAPENTIN 300 MG CAP PO SCH (15:32)
[2024-07-11 17:02] LABS: ALT 18 U/L (4-49); AST 25 U/L (17-59); African American GFR (CKD) >90 (>60 ml/min/1.73 sqM); Albumin 4.1 g/dL (3.5-5.0); Albumin/Globulin Ratio 1.6; Alkaline Phosphatase 82 U/L (38-126); Anion Gap 8 mmol/L; Blood Urea Nitrogen 16 mg/dL (9-20); Calcium 9.6 mg/dL (8.4-10.2); Carbon Dioxide 27 mmol/L (22-30); Chloride 102 mmol/L (98-107); Globulin 2.5 g/dL; Glucose 134 mg/dL (74-99); Non-African American GFR(CKD) >90 (>60 ml/min/1.73 sqM); Potassium 4.6 mmol/L (3.5-5.1); Sodium 137 mmol/L (137-145); Total Bilirubin 0.7 mg/dL (0.2-1.3); Total Protein 6.6 g/dL (6.3-8.2)
[2024-07-11] MEDS: FLUTICASONE 220 MCG INHALER INHALATION SCH (19:34)
[2024-07-11] MEDS: FLUoxetine HCL 20 MG CAP PO SCH (20:48)
[2024-07-11] MEDS: APIXABAN 5 MG TAB PO SCH (20:48)
[2024-07-11] MEDS: METOPROLOL TARTRATE 25 MG TAB PO SCH (20:49)
[2024-07-12 07:35] VITALS: RESP 16
[2024-07-12] MEDS: dexAMETHasone 2 MG TAB PO SCH (08:30)
[2024-07-12] MEDS: PANTOPRAZOLE 40 MG TABLET PO SCH (08:30)
[2024-07-12 08:52] LABS: Basophils # (A) 0.1 k/uL (0-0.2); Basophils % (A) 1 %; Eosinophils # (A) 0.1 k/uL (0-0.7); Eosinophils % (A) 2 %; HCT 33.5 % (39.0-53.0); Hypochromasia Slight; Lymphocytes # (A) 1.7 k/uL (1.0-4.8); Lymphocytes % (A) 25 %; MCH 31.4 pg (25.0-35.0); MCHC 32.8 g/dL (31.0-37.0); MCV 95.7 fL (80.0-100.0); Mean Platelet Volume 7.2; Monocytes # (A) 0.2 k/uL (0-1.0); Monocytes % (A) 4 %; Neutrophils # (A) 4.4 k/uL (1.3-7.7); Neutrophils % (A) 67 %; Platelet Count 254 k/uL (150-450); RBC 3.51 m/uL (4.30-5.90); RDW 14.7 % (11.5-15.5); WBC 6.6 k/uL (3.8-10.6)
[2024-07-12 09:17] LABS: ALT 18 U/L (4-49); AST 24 U/L (17-59); African American GFR (CKD) >90 (>60 ml/min/1.73 sqM); Albumin/Globulin Ratio 1.7; Alkaline Phosphatase 71 U/L (38-126); Anion Gap 5 mmol/L; Blood Urea Nitrogen 19 mg/dL (9-20); Calcium 9.5 mg/dL (8.4-10.2); Carbon Dioxide 30 mmol/L (22-30); Chloride 101 mmol/L (98-107); Globulin 2.4 g/dL; Glucose 82 mg/dL (74-99); Non-African American GFR(CKD) >90 (>60 ml/min/1.73 sqM); Potassium 4.2 mmol/L (3.5-5.1); Sodium 136 mmol/L (137-145); Total Bilirubin 0.5 mg/dL (0.2-1.3); Total Protein 6.4 g/dL (6.3-8.2)
--- NOTE | 2024-07-12 11:58 | P.DS ---
Providers Date of admission: 07/11/24 12:32 Attending physician: Kirsten Copeland MD Consults: 07/11/24 12:34 Consult Physician Routine Consulting Provider: Lulu Clark Consult Reason/Comments: Throat cancer with chemotherapy Do you want consulting provider notified?: Yes 07/12/24 11:42 Consult Physician Routine Consulting Provider: Gage Coker Consult Reason/Comments: suture removal Do you want consulting provider notified?: Yes Primary care physician: Ramses Hernández Hospital Course: Mr. 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 During that hospital course he had presented with atrial flutter. He had his left chest port removed on June 30. He reports he had new right chest port inserted outpatient. He had presented to hospital complaining of shortness of breath and weakness. The concerned that the patient may have been septic as he had low blood pressure at home. He had then presented to the hospital for further evaluation. When he presented to hospital he was hemodynamically stable afebrile and his blood pressure initially was 93/63. He was 94% room air chest x-ray revealed no acute process. After IV fluid administration his blood pressure was normal. The patient was then discharged home on July 12. He should follow-up with his PCP in 1 to 2 weeks Assessment: #) Dehydration, improved. no longer hypotensive. Resolved #) Covid-19 positive. on room air. He did not require any supplemental oxygen his hospital course #) Metastatic orophayngeal cancer with recent infected medport with new medport inserted recently #) Recent diagnosis of atrial flutter. continue eliquis 5 mg bid for thromboembolic risk reduction. continue metoprolol tartrate 25 mg bid for ventricular rate control #) COPD, not in acute excerbation #) Seizure dz Continue lamictal as antiepliletpic Patient Condition at Discharge: Fair Plan - Discharge Summary Discharge Rx Participant: Yes New Discharge Prescriptions: Continue Omeprazole 20 mg PO DAILY lamoTRIgine 200 mg PO BID oxyCODONE HCL/ACETAMINOPHEN [Percocet 10-325 mg] 1 tab PO Q6H Pregabalin [Lyrica] 50 mg PO TID Mupirocin 2% Oint [Bactroban 2% Oint] 1 applic TOPICAL TID PRN PRN Reason: wound care Apixaban [Eliquis] 5 mg PO BID #90 tab Metoprolol Tartrate [Lopressor] 25 mg PO BID #90 tab FLUoxetine HCL [PROzac] 20 mg PO HS Ondansetron [Zofran] 4 - 8 mg PO Q4H PRN PRN Reason: Nausea Budesonide [Pulmicort] 0.5 mg INHALATION RT-DAILY Gabapentin [Neurontin] 300 mg PO TID Discontinued Hydrocortisone Oint [Hydrocortisone 2.5% Oint] 1 applic TOPICAL TID Hydrocortisone Cream [Hydrocortisone 1% Cream] 1 applic TOPICAL HS Discharge Medication List Omeprazole 20 mg PO DAILY 05/28/19 [History] lamoTRIgine 200 mg PO BID 05/28/19 [History] FLUoxetine HCL [PROzac] 20 mg PO HS 10/22/22 [History] Ondansetron [Zofran] 4 - 8 mg PO Q4H PRN 11/09/23 [History] oxyCODONE HCL/ACETAMINOPHEN [Percocet 10-325 mg] 1 tab PO Q6H 11/09/23 [History] Budesonide [Pulmicort] 0.5 mg INHALATION RT-DAILY 06/30/24 [History] Gabapentin [Neurontin] 300 mg PO TID 06/30/24 [History] Mupirocin 2% Oint [Bactroban 2% Oint] 1 applic TOPICAL TID PRN 06/30/24 [History] Pregabalin [Lyrica] 50 mg PO TID 06/30/24 [History] Apixaban [Eliquis] 5 mg PO BID #90 tab 07/02/24 [Rx] Metoprolol Tartrate [Lopressor] 25 mg PO BID #90 tab 07/02/24 [Rx] Follow up Appointment(s)/Referral(s): Ramses Hernández DO [Primary Care Provider] - 1-2 days Discharge Disposition: HOME SELF-CARE
[2024-07-12 14:00] VITALS: BP 103/66; PULSE 81; TEMP 97.8
--- NOTE | 2024-07-12 18:17 | P.CONS ---
History of Present Illness - Reason for Consult Consult date: 07/12/24 cancer Requesting physician: Emigdio Sinha - Chief Complaint dizziness, weakness - History of Present Illness Patient is a 69-year-old white male, well-known to our service. He is followed by Dr. Clark in the outpatient setting. 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 He has been on treatment since, with response. The exact details of his regimen were not available at the time of my initial consult. The patient states that he was receiving chemotherapy with the last treatment on 05/19/2024. He was then placed on a treatment break, as his disease was stable, and he had been having progressive side effects. The patient states that he developed a new mass in the right upper neck around the end of 06/06. This is felt to be suspicious for progression, although, interestingly, his PET scan from 06/25/2024 showed decrease in size and uptake in the neck nodes. He restarted treatment and received cycle 5 carbo/taxol/erbitux on 07/05. Patient presented to the emergency room with complaints of dizziness and weakness. Upon admit chest x-ray showing no acute cardiopulmonary processes. COPD with chronic interstitial reticular opacities. Patient was found to be COVID-positive. UA negative for UTI. WBC 6.6, hemoglobin 1.0, platelets 254,000, creatinine 0.67, GFR greater than 90. Today's visit patient reports some improvement in symptoms but is still experiencing weakness and intermittent dizziness. Patient states when he was on treatment holiday his symptoms began to improve but symptoms returned after restarting treatment. Review of Systems 10 point ROS is negative except as stated in the HPI Past Medical History Past Medical History: Cancer, COPD, CVA/TIA, Liver Disease, Osteoarthritis (OA), Seizure Disorder, Sleep Apnea/CPAP/BIPAP Additional Past Medical History / Comment(s): Rt. leg fx. as child,stage 4 liver cirrohsis with esophageal varices, rt foot drag, hepatitis C, enlarged prostate, AAA(4 cm?)- needs to be rechecked, partially blocked Rt. carotid artery, 2 T.I.A's sevral years ago, 1 seizure approx. 2010 - never on medication, Fernandez's Palsy approx. 2015, tried CPAP but cannot tolerate, lung nodule, ? metastatic disease. 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 Past Drug Use History: None Reported - Past Family History Father Family Medical History: Myocardial Infarction ([place]) Additional Family Medical History / Comment(s): several male family members with heart attacks Mother Family Medical History: COPD Sister(s) Family Medical History: Cancer Medications and Allergies Home Medications Medication Instructions Recorded Confirmed Type Omeprazole 20 mg PO DAILY 05/28/19 07/11/24 History lamoTRIgine 200 mg PO BID 05/28/19 07/11/24 History FLUoxetine HCL [PROzac] 20 mg PO HS 10/22/22 07/11/24 History Ondansetron [Zofran] 4 - 8 mg PO Q4H PRN 11/09/23 07/11/24 History oxyCODONE HCL/ACETAMINOPHEN 1 tab PO Q6H 11/09/23 07/11/24 History [Percocet 10-325 mg] Budesonide [Pulmicort] 0.5 mg INHALATION RT-DAILY 06/30/24 07/11/24 History Gabapentin [Neurontin] 300 mg PO TID 06/30/24 07/11/24 History Mupirocin 2% Oint [Bactroban 2% 1 applic TOPICAL TID PRN 06/30/24 07/11/24 History Oint] Pregabalin [Lyrica] 50 mg PO TID 06/30/24 07/11/24 History Apixaban [Eliquis] 5 mg PO BID #90 tab 07/02/24 07/11/24 Rx Metoprolol Tartrate [Lopressor] 25 mg PO BID #90 tab 07/02/24 07/11/24 Rx Allergies Allergy/AdvReac Type Severity Reaction Status Date / Time albuterol [From ProAir HFA] Allergy Itching Verified 07/11/24 12:20 bee venom protein (honey bee) Allergy Swelling Verified 07/11/24 12:20 Physical Exam Vitals: Vital Signs Temp Pulse Pulse Resp BP BP Pulse Ox 07/12/24 07:00 97.5 F L 106 H 16 111/69 93 L 07/12/24 03:06 98.1 F 102 H 17 115/72 95 07/11/24 22:28 97.5 F L 99 18 91/58 93 L 07/11/24 20:10 97.7 F 74 20 104/77 97 07/11/24 19:30 78 16 95 07/11/24 19:24 76 19 105/73 07/11/24 13:48 98.4 F 89 16 115/80 97 Intake and Output 07/11/24 07/12/24 07/12/24 22:59 06:59 14:59 Intake Total 118 Balance 118 Intake: Oral 118 Other: Voiding Method Toilet Toilet # Voids 1 Weight 68.039 kg - Constitutional General appearance: average body habitus, no acute distress - EENT Eyes: anicteric sclerae, EOMI ENT: hearing grossly normal - Respiratory Respiratory: bilateral: CTA - Cardiovascular Rhythm: regular - Gastrointestinal General gastrointestinal: soft, no tenderness - Integumentary Integumentary: no cyanotic - Neurologic Neurologic: CNII-XII intact - Musculoskeletal Musculoskeletal: strength equal bilaterally - Psychiatric Psychiatric: A&O x's 3 Results CBC & Chem 7: 07/12/24 08:33 07/12/24 08:33 Labs: Abnormal Lab Results - Last 24 Hours (Table) 07/11/24 07/12/24 07/12/24 Range/Units 16:16 08:33 08:33 RBC 3.51 L (4.30-5.90) m/uL Hgb 11.0 L (13.0-17.5) gm/dL Hct 33.5 L (39.0-53.0) % Sodium 136 L (137-145) mmol/L Creatinine 0.65 L (0.66-1.25) mg/dL Glucose 134 H (74-99) mg/dL Chest x-ray: report reviewed Assessment and Plan (1) COVID-19 Status: Acute Priority: Medium Code(s): U07.1 - COVID-19 SNOMED Code(s): 064636429 (2) Carcinoma of oropharynx Status: Acute Priority: Medium Code(s): C10.9 - MALIGNANT NEOPLASM OF OROPHARYNX, UNSPECIFIED SNOMED Code(s): 490968005 Plan: COVID: Presented to the emergency room with complaints of dizziness and weakness. -Upon admit chest x-ray showing no acute cardiopulmonary processes. COPD with chronic interstitial reticular opacities. -Patient was found to be COVID-positive. UA negative for UTI. WBC 6.6, hemoglobin 11.0, platelets 254,000. Pt afebrile, HDS -Defer management to admitting team Oropharynx cancer: -Oncology history as dictated in the HPI -After treatment holiday, pt restarted treatment and received cycle 5 carb o/taxol/erbitux on 07/05. Reporting having similar symptoms while on treatment previously. May be exacerbated by acute COVID infection. Will discuss further with his oncologist Dr Clark. May need dose reduction -Scheduled treatment this week has been held
== END 2024-07-12 16:52 | disposition home or self-care (01) ==
LOC: EC 10:12 → 6NMEDSUR 12:32
PROVIDERS: ADMIT Internal Medicine; ATTEND Internal Medicine
DX: J44.9 Chronic obstructive pulmonary disease, unspecified (principal); E86.0 Dehydration; R53.1 Weakness; U07.1 COVID-19; I48.92 Unspecified atrial flutter; G47.30 Sleep apnea, unspecified; F32.A Depression, unspecified; F41.9 Anxiety disorder, unspecified; G40.909 Epilepsy, unspecified, not intractable, without status epilepticus; F17.200 Nicotine dependence, unspecified, uncomplicated; Z85.818 Personal history of malignant neoplasm of other sites of lip, oral cavity, and pharynx; Z86.73 Personal history of transient ischemic attack (TIA), and cerebral infarction without residual deficits; Z79.01 Long term (current) use of anticoagulants; Z79.51 Long term (current) use of inhaled steroids; Z79.899 Other long term (current) drug therapy
CPT/HCPCS: 96374; 99285; 36415; 94640 ×3; 93005; 80053 ×2; 83605; 83735; 85025 ×2; 85610; 85730; 81003; 87040; 87636; 71046; G0378 ×2; J8540; J2919

== ENCOUNTER 2024-08-13 14:23 | Emergency (ER) | payer MEDICARE, BC ==
--- NOTE | 2024-08-13 14:26 | ED ---
General Adult HPI - General Stated complaint: Low BP Time Seen by Provider: 08/13/24 14:26 - History of Present Illness Initial comments: Pleasant 69-year-old gentleman with a head and neck cancer with mets to the lungs liver and skull base is currently undergoing palliative chemotherapy. Patient states that he was feeling really lightheaded today his home blood pressure was reading low he contacted his primary care provider who advised him come to the hospital to be evaluated due to concerns for dehydration. Patient reports that he has been trying to eat and drink though he has had less appetite yesterday try to force himself to eat and had an episode of vomiting. Patient states that this morning he just got really lightheaded upon standing and trying to walk checked his blood pressure and it was in the 80s systolic which prompted him to come to the ER. No palpitations no fevers or chills. - Related Data Home Medications Medication Instructions Recorded Confirmed Omeprazole 20 mg PO DAILY 05/28/19 07/11/24 lamoTRIgine 200 mg PO BID 05/28/19 07/11/24 FLUoxetine HCL [PROzac] 20 mg PO HS 10/22/22 07/11/24 Ondansetron [Zofran] 4 - 8 mg PO Q4H PRN 11/09/23 07/11/24 oxyCODONE HCL/ACETAMINOPHEN 1 tab PO Q6H 11/09/23 07/11/24 [Percocet 10-325 mg] Budesonide [Pulmicort] 0.5 mg INHALATION RT-DAILY 06/30/24 07/11/24 Gabapentin [Neurontin] 300 mg PO TID 06/30/24 07/11/24 Mupirocin 2% Oint [Bactroban 2% 1 applic TOPICAL TID PRN 06/30/24 07/11/24 Oint] Pregabalin [Lyrica] 50 mg PO TID 06/30/24 07/11/24 Previous Rx's Medication Instructions Recorded Apixaban [Eliquis] 5 mg PO BID #90 tab 07/02/24 Metoprolol Tartrate [Lopressor] 25 mg PO BID #90 tab 07/02/24 Allergies Allergy/AdvReac Type Severity Reaction Status Date / Time albuterol [From ProAir HFA] Allergy Itching Verified 07/11/24 12:20 bee venom protein (honey bee) Allergy Swelling Verified 07/11/24 12:20 Review of Systems ROS Statement: Those systems with pertinent positive or pertinent negative responses have been documented in the HPI. ROS Other: All systems not noted in ROS Statement are negative. Past Medical History Past Medical History: Cancer, COPD, CVA/TIA, Liver Disease, Osteoarthritis (OA), Seizure Disorder, Sleep Apnea/CPAP/BIPAP Additional Past Medical History / Comment(s): Rt. leg fx. as child,stage 4 liver cirrohsis with esophageal varices, rt foot drag, hepatitis C, enlarged prostate, AAA(4 cm?)- needs to be rechecked, partially blocked Rt. carotid artery, 2 T.I.A's sevral years ago, 1 seizure approx. 2010 - never on medication, Fernandez's Palsy approx. 2016, tried CPAP but cannot tolerate, lung nodule, ? metastatic disease. 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 Past Drug Use History: None Reported - Past Family History Father Family Medical History: Myocardial Infarction ([place]) Additional Family Medical History / Comment(s): several male family members with heart attacks Mother Family Medical History: COPD Sister(s) Family Medical History: Cancer General Exam - General Exam Comments Initial Comments: Physical Exam GENERAL: Chronically ill-appearing, appears dehydrated HENT: Normocephalic, Atraumatic. EYES: PERRL, EOMI PULMONARY: Unlabored respirations. CARDIOVASCULAR: There is a regular rate and rhythm without any murmurs gallops or rubs. ABDOMEN: Soft and nontender with normal bowel sounds. SKIN: Skin is clear with no lesions or rashes and otherwise unremarkable. : Deferred NEUROLOGIC: Patient is alert and oriented x3. Moving all extremities spontaneously MUSCULOSKELETAL: Normal extremities with adequate strength and full range of motion. No lower extremity swelling or edema. No calf tenderness. PSYCHIATRIC: Normal psychiatric evaluation. Course Vital Signs 08/13/24 08/13/24 08/13/24 14:25 14:34 14:59 Temperature 98.7 F Pulse Rate 87 86 Pulse Rate [ 87 Business Communications Instructor ] Respiratory 18 18 Rate Blood Pressure 107/77 106/78 O2 Sat by Pulse 97 96 Oximetry 08/13/24 08/13/24 16:30 18:00 Temperature 97.0 F L Pulse Rate 92 89 Pulse Rate [ Business Communications Instructor ] Respiratory 18 18 Rate Blood Pressure 120/88 115/89 O2 Sat by Pulse 98 97 Oximetry EKG Findings - EKG Comments: EKG Findings:: Ordered by me, EKG obtained to to complain of lightheadedness EKG obtained at 1432 rate is 87 rhythm is regular but appears to have irregular SC intervals consistent with an ectopic atrial rhythm. SC 150 QRS 93 Q[address] elevations or depressions no evidence of ischemia or infarction. Medical Decision Making - Medical Decision Making Was pt. sent in by a medical professional or institution (, PA, ASSOCIATE PROFESSOR PHYSICIAN, urgent care, hospital, or retirement...) When possible be specific @ -Yes, Sent by his primary care Did you speak to anyone other than the patient for history (EMS, parent, family, police, friend...)? What history was obtained from this source @ -EMS Did you review nursing and triage notes (agree or disagree)? Why? @ -I reviewed and agree with nursing and triage notes Were old charts reviewed (outside hosp., previous admission, EMS record, old EKG, old radiological studies, urgent care reports/EKG's, retirement records)? Report findings @ -Previous ER visits and hospitalizations were reviewed Differential Diagnosis (chest pain, altered mental status, abdominal pain women, abdominal pain men, vaginal bleeding, weakness, fever, dyspnea, syncope, headache, dizziness, GI bleed, back pain, seizure, CVA, palpatations, mental health)? @ -Differential Dizziness: Benign paroxysmal positional Vertigo, Meniere's disease, otitis media, acoustic neuroma, vertebrobasilar insufficiency, cerebellar stroke, encephalitis, hypovolemic, arrhythmia, coronary artery syndrome, anemia, this is not meant to be an all-inclusive list EKG interpreted by me (3pts min.). @ -As above X-rays interpreted by me (1pt min.). @ -None done CT interpreted by me (1pt min.). @ -None done U/S interpreted by me (1pt. min.). @ -None done What testing was considered but not performed or refused? (CT, X-rays, U/S, labs)? Why? @ -None What meds were considered but not given or refused? Why? @ -None Did you discuss the management of the patient with other professionals (professionals i.e. DrCornelio, PA, ASSOCIATE PROFESSOR PHYSICIAN, lab, RT, psych nurse, social media project manager, line assigner, teacher, corporate trust officer, case supervisor)? Give summary @ -No Was smoking cessation discussed for >3mins.? @ -No Was critical care preformed (if so, how long)? @ -No Were there social determinants of health that impacted care today? How? (Homel essness, low income, unemployed, alcoholism, drug addiction, transportation, low edu. Level, literacy, decrease access to med. care, fpc, rehab)? @ -No Was there de-escalation of care discussed even if they declined (Discuss DNR or withdrawal of care, Hospice)? DNR status @ -No What co-morbidities impacted this encounter? (DM, HTN, Smoking, COPD, CAD, Cancer, CVA, ARF, Chemo, Hep., AIDS, mental health diagnosis, sleep apnea, morbid obesity)? @ -Cancer Was patient admitted / discharged? Hospital course, mention meds given and route, prescriptions, significant lab abnormalities, going to OR and other pertinent info. @ -Patient was seen and evaluated, history is obtained from the patient, patient had mildly low blood pressure with a systolic of 108 on arrival no tachycardia he did appear clinically dehydrated, IV fluids were infusing. Labs resulted with evidence of elevated BUN and creatinine consistent with dehydration. Patient was feeling better after IV fluids stable for discharge home. Undiagnosed new problem with uncertain prognosis? @ -No Drug Therapy requiring intensive monitoring for toxicity (Heparin, Nitro, Insulin, Cardizem)? @ -No Were any procedures done? @ -No Diagnosis/symptom? @ -Dehydration Acute, or Chronic, or Acute on Chronic? @ -Acute, recurrent Uncomplicated (without systemic symptoms) or Complicated (systemic symptoms)? @ -Default Side effects of treatment? @ -No Exacerbation, Progression, or Severe Exacerbation? @ -No Poses a threat to life or bodily function? How? (Chest pain, [place], [place], pneumonia, PE, COPD, DKA, ARF, appy, cholecystitis, CVA, Diverticulitis, Homicidal, Suicidal, threat to staff... and all critical care pts) @ -Unlikely - Lab Data Result diagrams: 08/13/24 14:48 08/13/24 14:48 Lab Results 08/13/24 08/13/24 Range/Units 14:48 14:48 WBC 6.9 (3.8-10.6) k/uL RBC 3.51 L (4.30-5.90) m/uL Hgb 10.8 L (13.0-17.5) gm/dL Hct 34.2 L (39.0-53.0) % MCV 97.3 (80.0-100.0) fL MCH 30.7 (25.0-35.0) pg MCHC 31.6 (31.0-37.0) g/dL RDW 16.4 H (11.5-15.5) % Plt Count 219 (150-450) k/uL MPV 8.1 Neutrophils % 61 % Lymphocytes % 24 % Monocytes % 9 % Eosinophils % 4 % Basophils % 1 % Neutrophils # 4.2 (1.3-7.7) k/uL Lymphocytes # 1.6 (1.0-4.8) k/uL Monocytes # 0.6 (0-1.0) k/uL Eosinophils # 0.3 (0-0.7) k/uL Basophils # 0.0 (0-0.2) k/uL Hypochromasia Marked Anisocytosis Slight Macrocytosis Slight Sodium 137 (137-145) mmol/L Potassium 5.1 (3.5-5.1) mmol/L Chloride 103 (98-107) mmol/L Carbon Dioxide 23 (22-30) mmol/L Anion Gap 11 mmol/L BUN 24 H (9-20) mg/dL Creatinine 1.27 H (0.66-1.25) mg/dL Est GFR (CKD-EPI)AfAm 67 (>60 ml/min/1.73 sqM) Est GFR (CKD-EPI)NonAf 58 (>60 ml/min/1.73 sqM) Glucose 75 (74-99) mg/dL Calcium 8.9 (8.4-10.2) mg/dL Magnesium 1.7 (1.6-2.3) mg/dL Total Bilirubin 0.8 (0.2-1.3) mg/dL AST 20 (17-59) U/L ALT 9 (4-49) U/L Alkaline Phosphatase 75 (38-126) U/L Total Protein 6.4 (6.3-8.2) g/dL Albumin 4.1 (3.5-5.0) g/dL Disposition Clinical Impression: Orthostatic hypotension, Dehydration Disposition: HOME SELF-CARE Condition: Fair Instructions (If sedation given, give patient instructions): Dehydration (DC) Is patient prescribed a controlled substance at d/c from ED?: No Referrals: Ramses Hernández DO [Primary Care Provider] - 1-2 days
[2024-08-13 14:32] VITALS: RESP 18
[2024-08-13] MEDS: SODIUM CHLORIDE 0.9% 1,000 ML IV ONE (15:01)
[2024-08-13 15:06] LABS: Anisocytosis Slight; Basophils % (A) 1 %; Eosinophils # (A) 0.3 k/uL (0-0.7); Eosinophils % (A) 4 %; HCT 34.2 % (39.0-53.0); HGB 10.8 gm/dL (13.0-17.5); Hypochromasia Marked; Lymphocytes # (A) 1.6 k/uL (1.0-4.8); Lymphocytes % (A) 24 %; MCH 30.7 pg (25.0-35.0); MCHC 31.6 g/dL (31.0-37.0); MCV 97.3 fL (80.0-100.0); Macrocytosis Slight; Mean Platelet Volume 8.1; Monocytes # (A) 0.6 k/uL (0-1.0); Monocytes % (A) 9 %; Neutrophils # (A) 4.2 k/uL (1.3-7.7); Neutrophils % (A) 61 %; Platelet Count 219 k/uL (150-450); RBC 3.51 m/uL (4.30-5.90); RDW 16.4 % (11.5-15.5); WBC 6.9 k/uL (3.8-10.6)
[2024-08-13 15:21] LABS: ALT 9 U/L (4-49); AST 20 U/L (17-59); African American GFR (CKD) 67 (>60 ml/min/1.73 sqM); Albumin 4.1 g/dL (3.5-5.0); Alkaline Phosphatase 75 U/L (38-126); Anion Gap 11 mmol/L; Blood Urea Nitrogen 24 mg/dL (9-20); Calcium 8.9 mg/dL (8.4-10.2); Carbon Dioxide 23 mmol/L (22-30); Chloride 103 mmol/L (98-107); Glucose 75 mg/dL (74-99); Magnesium 1.7 mg/dL (1.6-2.3); Non-African American GFR(CKD) 58 (>60 ml/min/1.73 sqM); Potassium 5.1 mmol/L (3.5-5.1); Sodium 137 mmol/L (137-145); Total Bilirubin 0.8 mg/dL (0.2-1.3); Total Protein 6.4 g/dL (6.3-8.2)
[2024-08-13 18:01] VITALS: BP 115/89; PULSE 89; TEMP 97
== END 2024-08-13 18:01 | disposition home or self-care (01) ==
LOC: EC 14:23
DX: I95.1 Orthostatic hypotension (principal); E86.0 Dehydration; C79.51 Secondary malignant neoplasm of bone; C78.7 Secondary malignant neoplasm of liver and intrahepatic bile duct; C78.00 Secondary malignant neoplasm of unspecified lung; Z86.73 Personal history of transient ischemic attack (TIA), and cerebral infarction without residual deficits; F17.210 Nicotine dependence, cigarettes, uncomplicated; Z91.030 Bee allergy status; Z88.8 Allergy status to other drugs, medicaments and biological substances
CPT/HCPCS: 36415; 80053; 83735; 85025; 93005; 96360; 99285

== ENCOUNTER → 2024-08-14 | Outpatient (CLI) | payer MEDICARE, BC ==
[2024-08-14 14:41] LABS: African American GFR (CKD) >90 (>60 ml/min/1.73 sqM); Blood Urea Nitrogen 17 mg/dL (9-20); Non-African American GFR(CKD) 86 (>60 ml/min/1.73 sqM)
--- NOTE | 2024-08-14 18:46 | CT ---
EXAMINATION TYPE: CT ChestAbdPelvis w con DATE OF EXAM: 08/14/2024 4:28 PM COMPARISON: None. CLINICAL INDICATION: Male, 69 years old with history of C76.0; PHH, f/u throat ca Technique: CT ChestAbdPelvis w con; Multiple axial images were obtained. Two-dimensional coronal and sagittal reconstructions were obtained. Contrast used:100 ml mL of Isovue 300 with IV Contrast, (None if empty) Oral contrast used: with Oral Contrast CT DLP: 1104 mGycm, Automated exposure control for dose reduction was used. Findings: CHEST: LUNGS/ PLEURA: No focal consolidation, pneumothorax or pleural effusion. Scattered parenchymal abnorm alities seen on PET/CT are not significantly changed. AIRWAY: Patent and unremarkable. HEART: Cardiomegaly is demonstrated.Increased density within the coronary arteries may relate to scle rosis versus vascular stents. Mild coronary artery calcifications present. MEDIASTINUM: No gross evidence of adenopathy. VASCULATURE: No aortic aneurysm. Right central venous catheter courses through the right internal ju gular vein where accidentally enters the right internal jugular vein. The tip terminates in the super ior vena cava. The left central venous catheter has been removed from on 06/22/2024. MUSCULOSKELETAL: No acute osseous abnormalities. SOFT TISSUES/LYMPH NODES: Unremarkable. LOWER NECK: No significant findings. ABDOMEN: ABDOMEN LIVER: Unremarkable GALLBLADDER AND BILE DUCTS: Unremarkable. PANCREAS: Unremarkable. SPLEEN: Unremarkable. ADRENAL GLANDS: Unremarkable. KIDNEYS AND URETERS: No evidence of hydronephrosis or renal calculus. The ureters are unremarkable. PELVIS BLADDER: Distended urinary bladder. REPRODUCTIVE: Unremarkable. ABDOMEN & PELVIS STOMACH AND BOWEL: No evidence of bowel obstruction. The appendix is visualized and normal. Large tang unt stool throughout the colon. PERITONEUM/RETROPERITONEUM: No evidence of pneumoperitoneum or free fluid. VASCULATURE: No evidence of aortic aneurysm. MUSCULOSKELETAL: No acute osseous abnormalities. Moderate disc degeneration changes are present throu ghout the thoracolumbar spine. LYMPH NODES: No gross evidence for lymphadenopathy. SOFT TISSUE/ABDOMINAL WALL: Unremarkable IMPRESSION: 1. No evidence for lymphadenopathy or evidence for disease below the neck. There is an enlarging rig ht neck lymph node as seen on CT 2. Day. Findings suggest progression of disease. 3. Right central venous catheter courses through the right internal jugular vein where accidentally enters the right internal jugular vein. The tip terminates in the superior vena cava. 4. Large stool throughout the colon. 5. Parenchymal abnormalities throughout the chest are not significantly changed and may be sequela p rior atypical pneumonia. 6. Mild cardiomegaly. 7. Mild coronary artery atherosclerosis. [facility], , 08/14/2024 6:43 PM
--- NOTE | 2024-08-14 18:46 | CT ---
EXAMINATION TYPE: CT soft tissue neck w con DATE OF EXAM: 08/14/2024 4:27 PM COMPARISON: . CLINICAL INDICATION: Male, 69 years old with history of cancer follow-up; PHH, f/u throat ca TECHNIQUE: Standard enhanced CT of the neck. Axial sections with coronal and sagittal reformats were obtained. Contrast used:100 ml mL of Isovue 300 with IV Contrast, (None if empty) Oral contrast used: (None if empty) CT DLP: 275.5 mGycm, Automated exposure control for dose reduction was used. FINDINGS: Brain: Visualized portions are grossly unremarkable. Orbits: Unremarkable Sinuses: Chronic paranasal sinus disease with bony changes bilaterally of the maxillary sinuses. Spaces of the neck: Clear and symmetric. Musculoskeletal: No acute osseous pathology. Degenerative disc disease changes of the visualized spin e are present. Lymph nodes: Enlarged lymph node within the right neck measuring 39 x 25 x 39 mm which is increase in size from 06/22/2024 where it measured up to 17 mm. Vascular structures: Visualized major arteries are patent without evidence of aneurysm. Central venou s catheter is seen entering the right internal jugular vein exiting and reentering. Thoracic Inlet/airway: Airway is patent. The lung apices are clear. Soft tissues/Thyroid: Thyroid and remainder of the soft tissues are unremarkable. Other: none. IMPRESSION: 1. Progression of disease with increasing size of right neck lymph node compared to immediate prior measuring up to 39 mm previously 17 mm. 2. Right central venous catheter/Sgvemj-u-Cyuj extends through the right internal jugular vein where it exits the vein and reenters more inferiorly. [facility], , 08/14/2024 6:44 PM
== END | disposition home or self-care (01) ==
LOC: RADCTMAIN 13:55
PROVIDERS: ATTEND Internal Medicine Hematology & Oncology
DX: Z03.89 Encounter for observation for other suspected diseases and conditions ruled out (principal); C76.0 Malignant neoplasm of head, face and neck; I25.10 Atherosclerotic heart disease of native coronary artery without angina pectoris; I51.7 Cardiomegaly; R91.8 Other nonspecific abnormal finding of lung field; Z95.9 Presence of cardiac and vascular implant and graft, unspecified
CPT/HCPCS: 82565; 84520; 70491; 71260; 74177; 36415; Q9967

== ENCOUNTER → 2024-11-17 | Outpatient (CLI) | payer MEDICARE ==
--- NOTE | 2024-11-19 12:08 | PE ---
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 Images are reviewed on the computer in the coronal, axial, and sagittal planes. Reconstructed rotating images are created on independent workstation an d reviewed on the computer. A non-contrast CT is performed in conjunction with the PET scan. Glucos e level 114 mg/dL CT DLP: 738 mGycm, Automated exposure control for dose reduction was used. COMPARISON: CT 08/14/2024, 06/30/2024, 03/24/2024, 12/21/2023, 11/09/2023, 07/29/2023, 06/30/2023, 06/17/2023, PET/CT 06/22/2024, 01/06/2024, 10/14/2023, 07/22/2023, MRI: 09/28/2023, 09/01/2023 FINDINGS: Mediastinal SUV mean is 2.1. Hepatic parenchyma SUV mean is 2.3. SKULL BASE AND NECK: FDG avid nodularity within the right posterior lateral pharyngeal recess measuring up to 1.2 cm with a maximum SUV of 9.8. There are 2 enlarged FDG avid lymph nodes within the upper posterior left triangle. The more superior one measures 1.1 cm with a maximum SUV of 4.1. The lower one measures 1 cm with a maximum SUV of 5.8 . These were not present on prior PET/CT. Additional previously seen right jugular FDG avid lymph node demonstrates decreased FDG activity with a maximum SUV of 3.5 previously. CHEST, MEDIASTINUM, AND HILAR REGION: New right lung base 1.6 cm solid pulmonary nodule demonstrating a maximum SUV of 2.9. Few new scattered subcentimeter pulmonary nodules. Example includes a medial right upper lobe 0.9 cm pulmonary nodule with a max SUV of 4.0, previously 9.1. ABDOMEN AND PELVIS: No suspicious radiotracer activity. MUSCULOSKELETAL STRUCTURES: New focal radiotracer activity within the head of the left clavicle with a maximum SUV of 8.8. OTHER CT: Findings of chronic bilateral maxillary sinusitis. Anterior chest wall Mediport catheter wi th IJ approach terminating in the mid SVC. Small coronary arterial calcifications. Stable ascending t horacic aortic aneurysm measuring up to 4.3 cm. Mild atherosclerotic calcification of the aorta and i ts branches. Dilated main pulmonary artery measuring up to 4.0 cm. Suggest pulmonary arterial hyperte nsion. Subcentimeter left thyroid lobe hypodense nodule. Scattered reticular pulmonary fibrotic rodriguez es. Mild paraseptal and centrilobular emphysematous changes. Multilevel degenerative changes of the s pine. IMPRESSION: 1. Findings suggest progression of disease with FDG avid soft tissue nodularity within the right pos terior lateral pharyngeal recess, new FDG avid right neck lymph nodes, and new scattered pulmonary no dules with some demonstrating FDG activity. Other pulmonary nodules are below the sensitivity of PET/ CT based on size. There has been improvement in previously seen right jugular lymph node with decreas ed FDG activity. 2. New focal region of radiotracer activity within the head of the left clavicle concerning for poss ible metastasis. [facility], , 11/19/2024 12:05 PM
== END | disposition home or self-care (01) ==
LOC: RADPETMAIN 15:42
PROVIDERS: ATTEND Radiology Radiation Oncology
DX: C77.0 Secondary and unspecified malignant neoplasm of lymph nodes of head, face and neck (principal); C09.8 Malignant neoplasm of overlapping sites of tonsil; R91.8 Other nonspecific abnormal finding of lung field
CPT/HCPCS: 78815; A9552

== ENCOUNTER → 2024-11-24 | Outpatient (CLI) | payer MEDICARE, BC ==
--- NOTE | 2024-11-24 17:30 | MR ---
EXAMINATION TYPE: MR brain wo/w con DATE OF EXAM: 11/24/2024 4:52 PM COMPARISON: MRI brain, PET/CTs 11/17/2024.. CLINICAL INDICATION: Male, 69 years old with history of C76.0 MALIGNANT NEOPLASM OF HEAD, FACE AND NE CK; PHH, headaches, dizziness, neck/throat and lung cancer. TECHNIQUE: Multi planar, multi sequence imaging was performed through the brain including: T1, T2, In version recovery, susceptibility weighted imaging and gradient echo imaging and Diffusion weighted im aging. The patient was then given intravenous contrast and multi planar, T1 fat-saturation images wer e obtained. IV Contrast: 6.5 mL Gadobutrol FINDINGS: * New right cerebellar mass measuring 40 x 40 mm with surrounding vasogenic edema. Not seen on prior on 09/01/2023. There is peripheral predominant enhancement surrounding this gyriform appearing mass. There is crowding of the basilar cisterns. * Right lateral oropharynx remains present and is FDG avid sinuses more conspicuous and partially in the [id number]. This on coronal imaging measures up to 21 x 15 mm. Mild cerebral atrophy with proportional dilation of ventricular system. Diffusion-weighted imaging s hows no evidence of restricted diffusion to suggest acute/subacute infarct. Intracranial arterial jenifer w voids are maintained. Midline structures show no abnormality. Scattered foci of high T2 signal inte nsity are seen within the periventricular white matter. The susceptibility weighted images do not rev eal any evidence for micro-hemorrhage. The bone marrow signal is within normal limits. Paranasal sinuses and mastoid air cells: Moderate scattered paranasal sinus disease worse in the maxi llary sinuses with mucosal thickening and retention cysts.. Visualized orbits: Orbital contents are intact. IMPRESSION: 1. New right cerebellum enhancing masses with extensive surrounding vasogenic edema compatible with metastatic disease. There is extensive edema with crowding of the basilar cisterns. 2. Right posterior lateral recess FDG activity compatible with masses partially the [id number]. [facility], , 11/24/2024 5:28 PM
== END | disposition home or self-care (01) ==
LOC: RADMRIMAIN 15:51
PROVIDERS: ATTEND Internal Medicine Hematology & Oncology
DX: C76.0 Malignant neoplasm of head, face and neck (principal); G93.6 Cerebral edema
CPT/HCPCS: 70553; A9585

== ENCOUNTER 2024-12-28 10:35 | Emergency (ER) | payer MEDICARE, BC, OTHER ==
[2024-12-28 10:45] VITALS: RESP 18; TEMP 98.1
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
[2024-12-28] MEDS: HYDROmorphone 0.5 MG/0.5 ML SYRINGE IM STA (11:46)
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
[2024-12-28] MEDS: LIDOCAINE 4% PATCH TOPICAL ONE (14:47)
[2024-12-28] MEDS: AMOXIC-POT CLAV 875-125MG 1 EACH TAB PO STA (14:47)
[2024-12-28] MEDS: AZITHROMYCIN 500 MG TAB PO STA (14:47)
[2024-12-28 14:57] VITALS: BP 135/89; PULSE 82
== END 2024-12-28 15:01 | disposition home or self-care (01) ==
LOC: EC 10:35
DX: S22.32XA Fracture of one rib, left side, initial encounter for closed fracture (principal); S06.0X0A Concussion without loss of consciousness, initial encounter; J18.9 Pneumonia, unspecified organism; F17.200 Nicotine dependence, unspecified, uncomplicated; Z91.030 Bee allergy status; Z88.8 Allergy status to other drugs, medicaments and biological substances; V89.2XXA Person injured in unspecified motor-vehicle accident, traffic, initial encounter; Y92.410 Unspecified street and highway as the place of occurrence of the external cause
CPT/HCPCS: 71111; 72125; 70486; 70450; 99285; 96372; J1171

== ENCOUNTER 2024-12-31 09:07 | Emergency (ER) | payer MEDICARE, BC ==
[2024-12-31 09:15] VITALS: TEMP 98.3
--- NOTE | 2024-12-31 10:08 | XR ---
EXAMINATION TYPE: XR chest 2V DATE OF EXAM: 12/31/2024 9:53 AM COMPARISON: Chest radiographs from 12/28/2024, 07/11/2024, PET/CT 11/17/2024 TECHNIQUE: XR chest 2V Frontal and lateral views of the chest. CLINICAL INDICATION:Male, 69 years old with history of cough; FINDINGS: Lungs/Pleura: There is flattening of the diaphragm with increased lucency of the lungs. No evidence o f pneumothorax or pleural effusion. Increased right basilar patchy airspace opacities. Chronic inters titial reticular opacities related to known interstitial disease. Scattered pulmonary nodules are bet ter appreciated on prior PET/CT. Pulmonary vascularity: Unremarkable. Heart/mediastinum: Cardiomediastinal silhouette is unremarkable. Musculoskeletal: Known minimal displaced left seventh rib fracture is better appreciated in prior rad iograph. Other findings: None Lines/Tubes: Right chest wall IJ Mediport catheter distal tip terminating in the low SVC. IMPRESSION: 1. Increased right basilar patchy airspace opacities concerning for pneumonia. 2. COPD with chronic interstitial reticular opacities related to known interstitial disease. Known s cattered pulmonary nodules are better appreciated on prior PET/CT. 3. Known recent minimal displaced left seventh rib fracture is better appreciated in prior radiograph . [facility], , 12/31/2024 10:05 AM
[2024-12-31] MEDS: SODIUM CHLORIDE 0.9% 1,000 ML IV ONE (10:13)
[2024-12-31] MEDS: MORPHINE SULFATE 4 MG/ML SYRINGE IVP STA ×2 (10:13→12:03)
[2024-12-31 10:23] LABS: Basophils # (A) 0.02 10*3/uL (0.00-0.10); Basophils % (A) 0.3 %; Eosinophils # (A) 0.03 10*3/uL (0.04-0.35); Eosinophils % (A) 0.5 %; HCT 31.0 % (39.6-50.0); HGB 10.6 g/dL (13.0-17.0); Lymphocytes # (A) 0.48 10*3/uL (0.90-5.00); Lymphocytes % (A) 7.4 %; MCH 31.5 pg (27.0-32.0); MCHC 34.2 g/dL (32.0-37.0); MCV 92.3 fL (80.0-97.0); Monocytes # (A) 0.28 10*3/uL (0.20-1.00); Monocytes % (A) 4.3 %; Neutrophils # (A) 5.54 10*3/uL (1.80-7.70); Neutrophils % (A) 84.9 %; Platelet Count 146 10*3/uL (140-440); RBC 3.36 10*6/uL (4.40-5.60); RDW 15.7 % (11.5-14.5); WBC 6.52 10*3/uL (4.50-10.00)
[2024-12-31 10:33] LABS: INR 1.0 (<1.2); Partial Thromboplastin Time 23.7 sec (22.0-30.0); Potassium 4.7 mmol/L (3.5-5.1); Prothrombin Time 10.8 sec (10.0-12.5)
[2024-12-31 10:34] LABS: ALT 37 U/L (4-49); AST 52 U/L (17-59); African American GFR (CKD) >90 (>60 ml/min/1.73 sqM); Albumin 3.3 g/dL (3.5-5.0); Alkaline Phosphatase 77 U/L (38-126); Anion Gap 4 mmol/L; Blood Urea Nitrogen 19 mg/dL (9-20); Calcium 9.0 mg/dL (8.4-10.2); Carbon Dioxide 30 mmol/L (22-30); Chloride 99 mmol/L (98-107); Glucose 82 mg/dL (74-99); Non-African American GFR(CKD) >90 (>60 ml/min/1.73 sqM); Sodium 133 mmol/L (137-145); Total Protein 5.3 g/dL (6.3-8.2)
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
[2024-12-31] MEDS: HYDROmorphone 0.5 MG/0.5 ML SYRINGE IVP STA ×2 (13:18→15:59)
[2024-12-31 16:26] VITALS: BP 117/81; PULSE 107; RESP 17
== END 2024-12-31 16:26 | disposition home or self-care (01) ==
LOC: EC 09:07
DX: C78.00 Secondary malignant neoplasm of unspecified lung (principal); J18.9 Pneumonia, unspecified organism; Z51.5 Encounter for palliative care; F17.200 Nicotine dependence, unspecified, uncomplicated; Z91.030 Bee allergy status; Z88.8 Allergy status to other drugs, medicaments and biological substances; W19.XXXA Unspecified fall, initial encounter
CPT/HCPCS: 36415; 80053; 85025; 85610; 85730; 71046; 72125; 70450; 99291; 96374; 96375; 96376 ×2; 96361; J2270; J1171

== ENCOUNTER 2025-01-02 13:24 | Emergency (ER) | payer MEDICARE, BC ==
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
--- NOTE | 2025-01-02 14:04 | XR ---
EXAMINATION TYPE: XR chest 2V DATE OF EXAM: 01/02/2025 1:52 PM COMPARISON: 12/31/2024 CLINICAL INDICATION: Male, 69 years old with history of fall, pain TECHNIQUE: AP and lateral views FINDINGS: Right anterior chest wall injection port catheter tip at the lower SVC. Heart mildly enlarged. Diffus e hazy lung densities, right greater than left along with subtle underlying nodularity. Hyperinflatio n. Relatively similar appearance to prior. No pneumothorax or pleural effusion. IMPRESSION: COPD with hazy lung densities, right greater than left, which could reflect ongoing underlying pneumo nitis. Fairly similar appearance to 12/31/2024. There is subtle underlying nodularity as well, corresp onding to known metastatic pulmonary nodules. [facility], , 01/02/2025 2:02 PM
--- NOTE | 2025-01-02 14:07 | CT ---
EXAMINATION TYPE: CT brain cspine wo con CT DLP: 1259.9 mGycm, Automated exposure control for dose reduction was used. DATE OF EXAM: 01/02/2025 1:51 PM COMPARISON: CT brain C-spine 12/31/2024. CLINICAL INDICATION:Male, 69 years old with history of fall; , pain TECHNIQUE: Brain: Multiple axial CT images of the brain were obtained without IV contrast. Cspine: Axial CT images from the skull base to the inferior aspect of T2 we obtained without intraven ous contrast. Coronal and sagittal reformatted images were also reviewed. FINDINGS: Brain: Extra-axial spaces: No abnormal extra-axial fluid collections. Ventricular system: Dilatation in proportion to cerebral atrophy. Cerebral parenchyma: Age-appropriate mild cerebral atrophy. No acute intraparenchymal hemorrhage or m ass effect. The ovalles-white junction is well differentiated. Scattered hypoattenuating areas are seen within the white matter. Cerebellum: Redemonstration of heterogenous mass within the right cerebellar hemisphere causing mass effect on the fourth ventricle and crowding of the posterior cranial fossa. Delineation of the mass i s poorly evaluated with lack of intravenous contrast. Grossly similar appearance to prior exam. Mass effect: No evidence of midline shift. Intracranial vasculature: Atherosclerotic calcifications of the intracranial vessels. Soft tissues: Normal. Calvarium/osseous structures: No depressed skull fracture. Paranasal sinuses and mastoid air cells: Evidence of prior medial maxillary antrectomies. Chronic sin usitis appearance of the bilateral maxillary sinuses with mucosal thickening and hyperostosis. The ma stoid air cells are clear. Cerumen within the bilateral external auditory canals. Visualized orbits: Orbital contents are intact. Cervical spine: Fracture: None. Osseous structures: Multilevel disc space narrowing with endplate sclerosis and anterior osteophytosi s of the lower cervical spine. L2 level uncovertebral joint hypertrophy. Vertebral alignment: Degenerative grade 1 retrolisthesis of C5 on C6. Spinal canal/Neural Foramina: No evidence of significant spinal canal narrowing. Facet joint uncovert ebral joint arthropathy scattered throughout the cervical spine with varying degrees of neural forami nal stenosis. Neck soft tissues: Prevertebral soft tissues are within normal limits. Other: The airway is patent. Redemonstration of numerous bilateral pulmonary nodules within the visua lized upper lung. Redemonstration of bilateral upper lung patchy groundglass opacities with right gre ater than left. Partial visualization of right IJ approach Mediport catheter. Redemonstration right l ower neck lymphadenopathy measuring around 1 cm. IMPRESSION: 1. No acute intracranial process. 2. Grossly similar large right cerebellar hemisphere mass causing mass effect upon the fourth ventri leslee and crowding of the posterior cranial fossa. 3. No acute fracture of the cervical spine. Moderate spondylotic changes, especially mid to lower ce rvical spine. 4. 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 5. Redemonstration of bilateral upper lung patchy groundglass opacities with right greater than left . This is concerning for pneumonia versus pneumonitis. [facility], , 01/02/2025 2:04 PM
[2025-01-02] MEDS: MORPHINE ORAL SOLN 10 MG/5 ML CUP PO STA (16:52)
[2025-01-02 18:55] VITALS: BP 126/95; PULSE 115; TEMP 97.7
[2025-01-02 18:59] VITALS: RESP 115
== END 2025-01-02 18:59 | disposition home or self-care (01) ==
LOC: EC 13:24
DX: S09.90XA Unspecified injury of head, initial encounter (principal); C78.00 Secondary malignant neoplasm of unspecified lung; F17.200 Nicotine dependence, unspecified, uncomplicated; Z86.73 Personal history of transient ischemic attack (TIA), and cerebral infarction without residual deficits; Z91.030 Bee allergy status; Z88.8 Allergy status to other drugs, medicaments and biological substances; W01.0XXA Fall on same level from slipping, tripping and stumbling without subsequent striking against object, initial encounter
CPT/HCPCS: 70450; 71046; 72125; 99284